=== PATIENT | female | born 1945 | race Caucasian/White ===

== ENCOUNTER 2017-05-29 11:49 | Observation (INO) | payer OTHER ==
[2017-05-29 12:03] VITALS: BMI 29.2
--- NOTE | 2017-05-29 12:37 | PDOC ---
History of Present Illness - General Chief Complaint: Lightheaded Stated Complaint: INJURY/dizzy from chemo po drugs Time Seen by Provider: 05/29/17 11:53 - History of Present Illness Initial Comments: 05/29/17 12:31 The patient is a 71 year old female with a history of GERD, insulin dependent diabetes mellitus, hypertension, hypercholesterolemia, hypothyroidism, breast CA s/p mastectomy (2011), DVT, CAD s/p multiple cardiac caths without stents, NSTEMI who presents for evaluation of lightheadedness and fall. The patient states that yesterday evening, she experienced an episode of lightheadedness and dizziness resulting in a fall to her right side. She reports continue pain and inability to ambulate since yesterday evening prompting her presentation to the ED for evaluation. She denies fevers, chills, SOB, chest pain, nausea, vomiting, abdominal pain, changes with urination or bowel movements or other injuries. Past History - Past Medical History Allergies/Adverse Reactions: Allergies Allergy/AdvReac Type Severity Reaction Status Date / Time codeine [Codeine] Allergy Severe Itching Verified 05/29/17 12:03 iodine [Iodine] Allergy Severe Itching Verified 05/29/17 12:03 Shellfish Allergy Severe Hives Verified 05/29/17 12:03 seafood Allergy Hives Uncoded 05/29/17 12:03 Home Medications: Ambulatory Orders Insulin NPL/Insulin Lispro [Humalog Mix 75-25 Pen] 50 unit SQ BID 07/25/13 Anastrozole [Arimidex -] 1 mg PO DAILY #0 02/10/16 Insulin Glargine,Hum.rec.anlog [Lantus Solostar PEN -] 27 units SQ BIDAC #0 04/26 Levothyroxine [Synthroid -] 137 mcg PO DAILY #0 02/10/16 Aspirin [ASA -] 81 mg PO DAILY #30 tab.chew 04/01/16 Metoprolol Tartrate 50 mg PO BID 02/13/17 Valsartan/Hydrochlorothiazide [Valsartan-Hctz 160-12.5 mg Tab] 1 each PO DAILY 02/13/17 Atorvastatin Ca [Lipitor] 40 mg PO HS #30 tablet 02/14/17 Ondansetron HCl [Zofran] 4 mg PO Q6H PRN #20 tablet 02/14/17 Anemia: No Asthma: Yes Cancer: Yes (BILATERAL breast cancer 2011) Cardiac Disorders: Yes (angina,tachycardia,CHEST PAIN,? SILENT MD, most recently 2006) CVA: No COPD: No (hospitalized for fluid lungs 1998) CHF: No Dementia: No Diabetes: Yes (IDDM X 38 YRS) GI Disorders: Yes (GERD) Disorders: No HTN: Yes Hypercholesterolemia: Yes Liver Disease: No Seizures: No Thyroid Disease: Yes (hypothyroid) - Surgical History Abdominal Surgery: Yes Appendectomy: No Cardiac Surgery: No Cholecystectomy: Yes Lung Surgery: No Neurologic Surgery: No Orthopedic Surgery: Yes (LEFT KNEE ARTHROSCOPY 2003) - Immunization History Td Vaccination: Yes TDAP Vaccination: Yes Immunization Up to Date: Yes - Suicide/Smoking/Psychosocial Hx Smoking Status: No Smoking History: Never smoked Years of Tobacco Use: 0 Have you smoked in the past 12 months: No Number of Cigarettes Smoked Daily: 0 Cigars Per Day: 0 Information on smoking cessation initiated: No Hx Alcohol Use: No Drug/Substance Use Hx: No Substance Use Type: None Hx Substance Use Treatment: No Review of Systems - Review of Systems Comments:: 05/29/17 12:32 Constitutional: No fevers, chills, fatigue, malaise HEENT: No Rhinorrhea, nasal congestion, visual changes Cardiovascular: Lightheadedness. No chest pain, syncope, palpitations, Respiratory: No Cough, SOB, Hemoptysis, Gastrointestinal: No Abdominal pain, Nausea, Vomiting, Constipation, Diarrhea, Melena Genitourinary: No Dysuria, Frequency, Urgency, Hesitancy, Hematuria, Flank pain Musculoskeletal: Right shoulder pain. Right hip pain. No Myalgia, arthralgia Skin: No rashes, itching, bruising, pallor Neurologic: No Headache, Dizziness, Numbness, Weakness, or Tingling Psychiatric: No Hallucinations. No SI or HI *Physical Exam - Vital Signs Last Vital Signs Temp Pulse Resp BP Pulse Ox 97.6 F 74 18 145/64 95 05/29/17 12:00 05/29/17 12:00 05/29/17 12:00 05/29/17 12:00 05/29/17 12:00 - Physical Exam Comments: 05/29/17 12:33 General Appearance: Nourished. No Apparent Distress HEENT: EOMI, KRISH. No obvious signs of head trauma. No Pharyngeal Erythema, Tonsillar Exudate, Tonsillar Erythema Neck: No Cervical Lymphadenopathy Respiratory/Chest: Lungs Clear, Normal Breath Sounds. No Crackles, Rales, Rhonchi, Wheezing Cardiovascular: Regular Rhythm, Regular Rate. No Murmur, Gallops, Rubs Gastrointestinal/Abdominal: Normal Bowel Sounds, Soft. No Guarding, Rebound, Tenderness Musculoskeletal: Limited range of motion secondary to pain of the right should without any obvious deformity. Limited range of motion of the right leg and hip secondary to pain. Sensation to light touch and temperature intact in the distal extremities. 2+ dp pulses bilaterally. No CVA Tenderness Extremity: Normal Capillary Refill Integumentary: Normal Color, Dry, Warm Neurologic: activity therapy specialist II-XII NML intact, Fully Oriented, Alert, Normal Mood/Affect, Normal Response, Motor Strength 5/5. Heart Score/ECG Review #1 ECG reviewed & interpreted by me at: 12:37 General ECG Interpretation: Sinus Rhythm, Normal Rate, Normal Intervals, No acute ischemic changes ED Treatment Course - LABORATORY CBC & Chemistry Diagram: 05/29/17 12:45 05/29/17 12:45 - RADIOLOGY Radiology Studies Ordered: Category Date Time Status FEMUR-RIGHT [RAD] Stat Radiology 05/29/17 12:20 Ordered HIP & PELVIS-RIGHT [RAD] Stat Radiology 05/29/17 12:20 Ordered SHOULDER-RIGHT [RAD] Stat Radiology 05/29/17 12:20 Ordered Medical Decision Making - Medical Decision Making 05/29/17 12:39 The patient is a 71 year old female with a history of GERD, insulin dependent diabetes mellitus, hypertension, hypercholesterolemia, hypothyroidism, breast CA s/p mastectomy (2011), DVT, CAD s/p multiple cardiac caths without stents, NSTEMI who presents for evaluation of lightheadedness and fall. Differential includes but is not limited to: Fracture, Dislocation, Contusion, ACS, Syncope, infectious, metabolic derangement. Given the patient's physical exam, we will obtain pelvis CT and plain films of the shoulder to evaluate for fractures. Given her pre-syncopal episode and reported head trauma, we will obtain a cbc, cmp, troponin, ekg and head ct to evaluate further. We will continue to monitor and reassess. 05/29/17 17:00 CBC demonstrates a WBC elevation to 11. CMP, troponin, are unremarkable. Imaging results are negative for acute fracture as read by our radiologist. Given the patient's syncopal episode and significant cardiac co-morbidities, we believe she requires observation admission for further management. We discussed the case with the hospitalist team who accepted the patient for admission. *DC/Admit/Observation/Transfer Diagnosis at time of Disposition: Syncope and collapse Fall Qualifiers: Encounter type: initial encounter Qualified Code(s): W19.XXXA - Unspecified fall, initial encounter - Discharge Dispostion Condition at time of disposition: Stable Admit: Yes - Referrals Referrals: Marjorie Odom MD [Primary Care Provider] - - Patient Instructions - Post Discharge Activity
--- NOTE | 2017-05-29 12:37 | PDOC ---
Attending Attestation - Resident Resident Name: Peterson Monk - ED Attending Attestation I have performed the following: I have examined & evaluated the patient, The case was reviewed & discussed with the resident, I agree w/resident's findings & plan, Exceptions are as noted - HPI HPI: 05/29/17 13:30 71 year old female with hx of GERD, DM, HTN, HLD, hypothyroidism, breast CA s/p mastectomy, DVT, CAD s/p multiple cardiac stents, NSTEMI presents to the emergency department for syncope. The patient reported that yesterday that she has been feeling lightheaded and dizzy. The patient was in her home when she started feeling the symptoms. The patient subsequently syncopized and let on the right side of body. She reportedly hit the right side of her head, right shoulder and right hip. Has been endorsing pain. Denies any numbness or weakness. Patient reports at baseline she is difficulty in relating but now reports she is unable to ambulate. Denies chest pain or short of breath. Does take anticoagulants given her heart disease. - Physicial Exam PE: 05/29/17 13:30 GENERAL: Awake, alert, and fully oriented, in no acute distress. HEAD: No signs of trauma EYES: PERRLA, EOMI, sclera anicteric, conjunctiva clear ENT: Auricles normal inspection, hearing grossly normal, nares patent, NECK: Normal ROM, supple. No c-spine tenderness LUNGS: Breath sounds equal, clear to auscultation bilaterally. No wheezes, and no crackles HEART: Regular rate and rhythm, normal S1 and S2, no murmurs, rubs or gallops ABDOMEN: Soft, nontender, normoactive bowel sounds. No guarding, no rebound. No masses EXTREMITIES: Tenderness to the right anterior shoulder to palpation. Pain on passive movement. 2+ radial pulse. Tenderness to right lateral hip. Pain on worsened with flexion and extension. NEUROLOGICAL: Cranial nerves II through XII intact. Normal speech. Moves all extremities equally. Sensation intact. SKIN: Warm, Dry, normal turgor, no rashes or lesions noted. - Medical Decision Making 05/29/17 13:32 Vital Signs Temp Pulse Resp BP Pulse Ox 97.6 F 74 18 145/64 95 05/29/17 12:00 05/29/17 12:00 05/29/17 12:00 05/29/17 12:00 05/29/17 12:00 Will need to investigate for syncope for cardiac etiology. Telemetry, labs including troponin. head CT for the injury. R shoulder xray. Pelvis CT. Labs and UA. Admit 05/29/17 15:13 CBC, BMP 05/29/17 12:45 05/29/17 12:45 CMP Sodium 141 mmol/L (136-145) 05/29/17 12:45 Potassium 3.5 mmol/L (3.5-5.1) 05/29/17 12:45 Chloride 104 mmol/L (98-107) 05/29/17 12:45 Carbon Dioxide 27 mmol/L (21-32) 05/29/17 12:45 Anion Gap 10 (8-16) 05/29/17 12:45 BUN 19 mg/dL (7-18) H 05/29/17 12:45 Creatinine 0.9 mg/dL (0.55-1.02) 05/29/17 12:45 Creat Clearance w eGFR > 60 (>60) 05/29/17 12:45 Random Glucose 52 mg/dL (74-106) L 05/29/17 12:45 Calcium 9.6 mg/dL (8.5-10.1) 05/29/17 12:45 Total Bilirubin 0.5 mg/dL (0.2-1.0) D 05/29/17 12:45 AST 14 U/L (15-37) L 05/29/17 12:45 ALT 20 U/L (12-78) 05/29/17 12:45 Alkaline Phosphatase 58 U/L (45-117) 05/29/17 12:45 Creatine Kinase 135 IU/L (26-192) 05/29/17 12:45 Troponin I < 0.02 ng/ml (0.00-0.05) 05/29/17 12:45 Total Protein 8.2 g/dl (6.4-8.2) 05/29/17 12:45 Albumin 3.9 g/dl (3.4-5.0) 05/29/17 12:45 UA pending. Pt given dextrose and juice for hypoglycemia. Shoulder xray and CT scans reviewed. No fractures. Heart Score/ECG Review #1 ECG reviewed & interpreted by me at: 12:15 05/29/17 12:36 NSR 82, no std/teodora, normal axis, normal intervals, QTC 462 msec. no brugada, no HOCM, no WPW
[2017-05-29] MEDS ORDERED: HYDROmorphone HCL CARPU-JECT 1 MG/1 ML DISP.SYRIN IVPUSH ONE (12:38)
[2017-05-29] MEDS ORDERED: HYDROmorphone HCl/Pf 2 MG/ML VIAL - FOR OR PYXIS USE ONE (12:45)
[2017-05-29 13:21] LABS: HEMATOCRIT 41.1 % (32.4-45.2); HEMOGLOBIN 13.3 GM/dL (10.7-15.3); LYMPH % 33.9 % (8-40); MCH 28.5 pg (25.7-33.7); MCHC 32.4 g/dl (32.0-36.0); MEAN CELL VOLUME 87.9 fl (80-96); MEAN PLT VOLUME 8.5 fl (7.5-11.1); MONO % 8.4 % (3.8-10.2); NEUT % 54.7 % (42.8-82.8); PLATELET COUNT 393 K/MM3 (134-434); RBC 4.68 M/mm3 (3.60-5.2); RDW 13.3 % (11.6-15.6)
[2017-05-29 13:45] LABS: ALBUMIN 3.9 g/dl (3.4-5.0); ANION GAP 10 (8-16); BILIRUBIN,TOTAL 0.5 mg/dL (0.2-1.0); BLOOD UREA NITROGEN 19 mg/dL (7-18); CALCIUM 9.6 mg/dL (8.5-10.1); CHLORIDE 104 mmol/L (98-107); CO2 27 mmol/L (21-32); CREATININE 0.9 mg/dL (0.55-1.02); GLUCOSE,RANDOM 52 mg/dL (74-106); POTASSIUM 3.5 mmol/L (3.5-5.1); SGOT/AST 14 U/L (15-37); SGPT/ALT 20 U/L (12-78); SODIUM 141 mmol/L (136-145); TOT PROT 8.2 g/dl (6.4-8.2)
[2017-05-29 13:47] LABS: ALK PHOS 58 U/L (45-117)
[2017-05-29] MEDS ORDERED: DEXTROSE 50%-WATER - 25 GM/50 ML VIAL IVPUSH ONE (15:05)
[2017-05-29] MEDS ORDERED: DEXTROSE 50%-WATER 25 GM/50 ML DISP.SYRIN ONE (15:06)
[2017-05-29 16:05] LABS: URINE APPEARANCE SLCLOUDY; URINE BILIRUBIN NEGATIVE (NEGATIVE); URINE BLOOD NEGATIVE (NEGATIVE); URINE COLOR YELLOW; URINE GLUCOSE (UA) 1+ (NEGATIVE); URINE KETONE NEGATIVE (NEGATIVE); URINE NITRITE NEGATIVE (NEGATIVE); URINE PROTEIN NEGATIVE (NEGATIVE); URINE UROBILINOGEN NEGATIVE mg/dL (0.2-1.0)
[2017-05-29 16:09] LABS: URINE LEUK ESTERASE 1+ (NEGATIVE)
[2017-05-29 16:11] LABS: EPI CELLS FEW /HPF (FEW); URINE BACTERIA RARE /hpf (NONE SEEN); URINE HYALINE CAST 1 /lpf; URINE MUCUS RARE
--- NOTE | 2017-05-29 17:07 | HP ---
CHIEF COMPLAINT: PCP: Dr. Oneal HISTORY OF PRESENT ILLNESS: 71 year-old female with a PMH significant for HTN, HLD, CAD, NSTEMI, grade I diastolic dysfunction, pulmonary HTN, hypothyroidism, type 2 DM, breast cancer, LLE DVT, obesity, DINH, osteoarthritis, and GERD. Patient presented to the ED today stating she became dizzy and lightheaded after standing up to get a glass of water. She passed out and fell on her right side, hitting her head, right shoulder, and right hip. When she came to, she felt a pressure in her mid- chest. Patient denies headache, fever, sweats, chills, or recent illness. Denies nausea, vomiting, diarrhea. Denies palpitations, SOB, VALADEZ, orthopnea, PND , or lower extremity swelling. Patient states her oncologist warned her that the arimidex she takes can lead to lightheadedness and syncope. Patient on ASA and Plavix. Recent Travel: No PAST MEDICAL HISTORY: Hypertension Hyperlipidemia CAD NSTEMI Grade I diastolic dysfunction Pulmonary HTN Hypothyroidism Type 2 diabetes mellitus Breast cancer DVT of left leg Obesity Obstructive sleep apnea Osteoarthritis GERD PAST SURGICAL HISTORY: Bilateral mastectomy Social History: Smoking: No Alcohol: No Drugs: No Family History: Unremarkable Allergies codeine [Codeine] Allergy (Severe, Verified 05/29/17 12:03) Itching HIVES iodine [Iodine] Allergy (Severe, Verified 05/29/17 12:03) Itching HIVES Shellfish Allergy (Severe, Verified 05/29/17 12:03) Hives seafood Allergy (Uncoded 05/29/17 12:03) Hives per pt HOME MEDICATIONS: Home Medications Medication Instructions Recorded Insulin NPL/Insulin Lispro 50 unit SQ BID 07/25/13 [Humalog Mix 75-25 Pen] Anastrozole [Arimidex -] 1 mg PO DAILY #0 02/10/16 Insulin Glargine,Hum.rec.anlog 27 units SQ BIDAC #0 02/10/16 [Lantus Solostar PEN -] Levothyroxine [Synthroid -] 137 mcg PO DAILY #0 02/10/16 Aspirin [ASA -] 81 mg PO DAILY #30 tab.chew 04/01/16 Metoprolol Tartrate 50 mg PO BID 02/13/17 Valsartan/Hydrochlorothiazide 1 each PO DAILY 02/13/17 [Valsartan-Hctz 160-12.5 mg Tab] Atorvastatin Ca [Lipitor] 40 mg PO HS #30 tablet 02/14/17 Ondansetron HCl [Zofran] 4 mg PO Q6H PRN #20 tablet 02/14/17 REVIEW OF SYSTEMS CONSTITUTIONAL: Absent: fever, chills, diaphoresis, generalized weakness, malaise, loss of appetite, weight change HEENT: Absent: rhinorrhea, nasal congestion, throat pain, throat swelling, difficulty swallowing, mouth swelling, ear pain, eye pain, visual changes CARDIOVASCULAR: +syncope +chest pressure +lightheadedness Absent: palpitations, irregular heart rate, peripheral edema RESPIRATORY: Absent: cough, shortness of breath, dyspnea with exertion, orthopnea, wheezing, stridor, hemoptysis GASTROINTESTINAL: Absent: abdominal pain, abdominal distension, nausea, vomiting, diarrhea, constipation, melena, hematochezia GENITOURINARY: Absent: dysuria, frequency, urgency, hesitancy, hematuria, flank pain, genital pain MUSCULOSKELETAL: Absent: myalgia, arthralgia, joint swelling, back pain, neck pain SKIN: Absent: rash, itching, pallor HEMATOLOGIC/IMMUNOLOGIC: Absent: easy bleeding, easy bruising, lymphadenopathy, frequent infections ENDOCRINE: Absent: unexplained weight gain, unexplained weight loss, heat intolerance, cold intolerance NEUROLOGIC: Absent: headache, focal weakness or paresthesias, dizziness, unsteady gait, seizure, mental status changes, bladder or bowel incontinence PSYCHIATRIC: Absent: anxiety, depression, suicidal or homicidal ideation, hallucinations. PHYSICAL EXAMINATION Vital Signs - 24 hr 05/29/17 12:00 Temperature 97.6 F Pulse Rate 74 Respiratory 18 Rate Blood Pressure 145/64 O2 Sat by Pulse 95 Oximetry (%) GENERAL: Awake, alert, and fully oriented, in no acute distress. HEAD: Normal with no signs of trauma. EYES: Pupils equal, round and reactive to light, extraocular movements intact, sclera anicteric, conjunctiva clear. No lid lag. EARS, NOSE, THROAT: Ears normal, nares patent, oropharynx clear without exudates. Moist mucous membranes. NECK: Normal range of motion, supple without lymphadenopathy, JVD, or masses. LUNGS: Breath sounds equal, clear to auscultation bilaterally. No wheezes, and no crackles. No accessory muscle use. HEART: Regular rate and rhythm, normal S1 and S2 ABDOMEN: Soft, nontender, not distended, normoactive bowel sounds, no guarding, no rebound, no masses. MUSCULOSKELETAL: SLR right leg 10 degrees, left leg 30 degrees UPPER EXTREMITIES: 2+ pulses, warm, well-perfused. No cyanosis. No clubbing. No peripheral edema. LOWER EXTREMITIES: 2+ pulses, warm, well-perfused. No calf tenderness. No peripheral edema. NEUROLOGICAL: Cranial nerves II-XII intact. Normal speech. Laboratory Results - last 24 hr 05/29/17 05/29/17 05/29/17 12:45 12:45 15:45 WBC 11.0 H RBC 4.68 Hgb 13.3 Hct 41.1 MCV 87.9 MCH 28.5 MCHC 32.4 RDW 13.3 Plt Count 393 D MPV 8.5 Neutrophils % 54.7 Lymphocytes % 33.9 D Monocytes % 8.4 Eosinophils % 2.0 Basophils % 1.0 Sodium 141 Potassium 3.5 Chloride 104 Carbon Dioxide 27 Anion Gap 10 BUN 19 H Creatinine 0.9 Creat Clearance w eGFR > 60 Random Glucose 52 L Calcium 9.6 Total Bilirubin 0.5 D AST 14 L ALT 20 Alkaline Phosphatase 58 Creatine Kinase 135 Troponin I < 0.02 Total Protein 8.2 Albumin 3.9 Urine Color Yellow Urine Appearance Slcloudy Urine pH 5.0 Ur Specific [place] 1.017 Urine Protein Negative Urine Glucose (UA) 1+ H Urine Ketones Negative Urine Blood Negative Urine Nitrite Negative Urine Bilirubin Negative Urine Urobilinogen Negative Ur Leukocyte Esterase 1+ H Urine WBC (Auto) 4 Urine RBC (Auto) 2 Ur Epithelial Cells Few Urine Bacteria Rare Hyaline Casts 1 Urine Mucus Rare ASSESSMENT/PLAN: This is a 70-year-old woman with a PMH significant for HTN, hyperlipidemia, CAD , NSTEMI, grade I diastolic dysfunction, pulmonary HTN, hypothyroidism, type 2 DM, breast cancer, LLE DVT, obesity, DINH, osteoarthritis, and GERD. Placed on observation for a syncopal episode. Syncope Mid chest pressure --troponin neg x 1, two pending --CXR pending --Echo and nuclear stress done 02/14/17 with unremarkable findings --telemetry monitoring --US carotids ordered --orthostatics --cardiology consult requested Unwitnessed fall --CT head: negative for acute process --CT pelvis: no fractures --Xray right shoulder: no fractures Coronary artery disease, history of NSTEMI --CT head negative, no bleed --OK to continue home ASA, Plavix --continue metoprolol, Lipitor Diastolic heart dysfunction --no diuretics Hypertension --BP stable --continue metoprolol, valsartan, HCTZ Hyperlipidemia --continue Lipitor Type 2 diabetes mellitus --Novolog sliding scale coverage Hypothyroidism --continue levothyroxine GERD --protonix History of LLE DVT --subq lovenox Breast cancer, history of bilateral mastectomies --continue Arimidex FEN Fluids: PO intake adequate Electrolytes: replete as indicated Nutrition: diabetic, low sodium DVT prophylaxis: subq lovenox Physical therapy evaluation Dispo: continues to require observation. Visit type - Emergency Visit Emergency Visit: Yes ED Registration Date: 05/29/17 Care time: The patient presented to the Emergency Department on the above date and was hospitalized for further evaluation of their emergent condition. - New Patient This patient is new to me today: Yes Date on this admission: 05/29/17 - Critical Care Critical Care patient: No
[2017-05-29] MEDS ORDERED: PANTOPRAZOLE 40 MG TABLET (FP) PO ONE (18:30)
[2017-05-29] MEDS ORDERED: PANTOPRAZOLE SODIUM 40 MG VIAL ONE (18:37)
[2017-05-29] MEDS ORDERED: ATORVASTATIN CA 40 MG TABLET (FP) PO SCH (22:00)
[2017-05-29] MEDS ORDERED: METOPROLOL TARTRATE 50 MG TABLET (FP) ONE (23:03)
[2017-05-29] MEDS ORDERED: HEPARIN NA (PORCINE) 5,000 UNITS/ML 1ML VIAL ONE (23:04)
[2017-05-29] MEDS ORDERED: ATORVASTATIN CA 80 MG TABLET (FP) ONE (23:04)
[2017-05-29] MEDS ORDERED: INSULIN (NOVOLOG) ASPART 100 UNITS/ML 10ML VIAL ONE (23:05)
[2017-05-29] MEDS: METOPROLOL TARTRATE 50 MG TABLET (FP) PO SCH (23:12)
[2017-05-29] MEDS: HEPARIN NA (PORCINE) 5,000 UNITS/ML 1ML VIAL SQ SCH (23:12)
[2017-05-29] MEDS: INSULIN SLIDING SCALE (NOVOLOG) 1 VIAL SQ SCH (23:13)
[2017-05-30] MEDS: HEPARIN NA (PORCINE) 5,000 UNITS/ML 1ML VIAL SQ SCH (06:12)
[2017-05-30] MEDS ORDERED: INSULIN (NOVOLOG) ASPART 100 UNITS/ML 10ML VIAL ONE ×2 (06:15→09:05)
[2017-05-30] MEDS ORDERED: HEPARIN NA (PORCINE) 5,000 UNITS/ML 1ML VIAL ONE (06:15)
[2017-05-30] MEDS ORDERED: LEVOTHYROXINE NA 25 MCG TABLET (FP) ONE ×2 (06:15→08:51)
[2017-05-30] MEDS ORDERED: LEVOTHYROXINE NA 125 MCG TABLET (FP) PO SCH (07:00)
--- NOTE | 2017-05-30 07:32 | PN ---
Physical Exam: SUBJECTIVE: Patient seen and examined OBJECTIVE: Vital Signs Period Temp Pulse Resp BP Sys/Bailey Pulse Ox Last 24 Hr 97.6 F-98.7 F 61-74 18-18 110-145/47-79 95-100 Laboratory Results - last 24 hr 05/29/17 05/29/17 05/29/17 12:45 12:45 15:45 WBC 11.0 H RBC 4.68 Hgb 13.3 Hct 41.1 MCV 87.9 MCH 28.5 MCHC 32.4 RDW 13.3 Plt Count 393 D MPV 8.5 Neutrophils % 54.7 Lymphocytes % 33.9 D Monocytes % 8.4 Eosinophils % 2.0 Basophils % 1.0 Sodium 141 Potassium 3.5 Chloride 104 Carbon Dioxide 27 Anion Gap 10 BUN 19 H Creatinine 0.9 Creat Clearance w eGFR > 60 POC Glucometer Random Glucose 52 L Calcium 9.6 Total Bilirubin 0.5 D AST 14 L ALT 20 Alkaline Phosphatase 58 Creatine Kinase 135 Troponin I < 0.02 Total Protein 8.2 Albumin 3.9 Urine Color Yellow Urine Appearance Slcloudy Urine pH 5.0 Ur Specific [place] 1.017 Urine Protein Negative Urine Glucose (UA) 1+ H Urine Ketones Negative Urine Blood Negative Urine Nitrite Negative Urine Bilirubin Negative Urine Urobilinogen Negative Ur Leukocyte Esterase 1+ H Urine WBC (Auto) 4 Urine RBC (Auto) 2 Ur Epithelial Cells Few Urine Bacteria Rare Hyaline Casts 1 Urine Mucus Rare 05/29/17 05/30/17 05/30/17 20:45 00:31 06:18 WBC RBC Hgb Hct MCV MCH MCHC RDW Plt Count MPV Neutrophils % Lymphocytes % Monocytes % Eosinophils % Basophils % Sodium Potassium Chloride Carbon Dioxide Anion Gap BUN Creatinine Creat Clearance w eGFR POC Glucometer 88.68000 Random Glucose Calcium Total Bilirubin AST ALT Alkaline Phosphatase Creatine Kinase Troponin I < 0.02 < 0.02 Total Protein Albumin Urine Color Urine Appearance Urine pH Ur Specific [place] Urine Protein Urine Glucose (UA) Urine Ketones Urine Blood Urine Nitrite Urine Bilirubin Urine Urobilinogen Ur Leukocyte Esterase Urine WBC (Auto) Urine RBC (Auto) Ur Epithelial Cells Urine Bacteria Hyaline Casts Urine Mucus Active Medications Generic Name Dose Route Start Last Admin Trade Name Freq PRN Reason Stop Dose Admin Anastrozole 1 mg 05/30/17 10:00 Arimidex - PO DAILY [facility] Aspirin 81 mg 05/30/17 10:00 Asa - PO DAILY [facility] Atorvastatin Calcium 40 mg 05/29/17 22:00 05/29/17 23:12 Lipitor - PO 40 mg HS MAGGIE Administration Heparin Sodium (Porcine) 5,000 unit 05/29/17 22:00 05/30/17 06:12 Heparin - SQ 5,000 unit TID MAGGIE Administration Hydrochlorothiazide 12.5 mg 05/30/17 10:00 Hctz - PO DAILY [facility] Insulin Aspart 1 vial 05/29/17 22:00 05/29/17 23:13 Novolog Vial Sliding Scale - SQ 4 units ACHS MAGGIE Administration Protocol Levothyroxine Sodium 137 mcg 05/30/17 07:00 Synthroid - PO DAILY@0700 [facility] Metoprolol Tartrate 50 mg 05/29/17 22:00 05/29/17 23:12 Lopressor - PO 50 mg BID MAGGIE Administration Valsartan 160 mg 05/30/17 10:00 Diovan - PO DAILY [facility] ASSESSMENT/PLAN:
[2017-05-30 07:56] LABS: BASO % 1.1 % (0-2.0); EOS % 3.6 % (0-4.5); HEMATOCRIT 39.9 % (32.4-45.2); HEMOGLOBIN 13.1 GM/dL (10.7-15.3); LYMPH % 29.8 % (8-40); MCH 28.8 pg (25.7-33.7); MCHC 32.8 g/dl (32.0-36.0); MEAN CELL VOLUME 87.8 fl (80-96); MEAN PLT VOLUME 8.7 fl (7.5-11.1); MONO % 6.7 % (3.8-10.2); NEUT % 58.8 % (42.8-82.8); PLATELET COUNT 363 K/MM3 (134-434); RBC 4.54 M/mm3 (3.60-5.2); RDW 13.5 % (11.6-15.6); WHITE BLOOD COUNT 7.4 K/mm3 (4.0-10.0)
[2017-05-30 08:23] LABS: ALBUMIN 3.9 g/dl (3.4-5.0); ANION GAP 9 (8-16); BILIRUBIN,TOTAL 0.7 mg/dL (0.2-1.0); BLOOD UREA NITROGEN 18 mg/dL (7-18); CALCIUM 8.9 mg/dL (8.5-10.1); CHLORIDE 104 mmol/L (98-107); CO2 26 mmol/L (21-32); CREATININE 0.9 mg/dL (0.55-1.02); GLUCOSE,RANDOM 82 mg/dL (74-106); MAGNESIUM 2.1 mg/dL (1.8-2.4); POTASSIUM 4.1 mmol/L (3.5-5.1); SGOT/AST 17 U/L (15-37); SGPT/ALT 21 U/L (12-78); SODIUM 139 mmol/L (136-145); TOT PROT 7.8 g/dl (6.4-8.2)
[2017-05-30 08:25] LABS: ALK PHOS 57 U/L (45-117); N-TERMINAL BNP 14.28 pg/ml (5-125)
[2017-05-30] MEDS: INSULIN SLIDING SCALE (NOVOLOG) 1 VIAL SQ SCH ×2 (09:03→13:12)
[2017-05-30] MEDS ORDERED: HYDROCHLOROTHIAZIDE 12.5 MG CAPSULE (FP) PO SCH (10:00)
[2017-05-30] MEDS ORDERED: ANASTROZOLE 1 MG TABLET PO SCH (10:00)
[2017-05-30] MEDS ORDERED: VALSARTAN 160 MG TABLET (UD) PO SCH (10:00)
[2017-05-30] MEDS ORDERED: PATIENT'S OWN MEDICATION (NON-FORMULARY) (Valsartan/Hydrochlorothiazide [Valsartan-Hctz 16 PO SCH (10:00)
[2017-05-30] MEDS ORDERED: ASPIRIN 81 MG CHEWABLE TABLETS PO SCH (10:00)
[2017-05-30] MEDS: METOPROLOL TARTRATE 50 MG TABLET (FP) PO SCH (10:02)
--- NOTE | 2017-05-30 11:07 | CON.CARD ---
Cardiology Consult (text) - Consultation Consultation Note: CC: CP hpi: 71 yo with h/o HTN, HL, presumed CAD (prior mild trop elevation - 0.6, nl ck, flat trend), pulmonary htn, IDDM, obesity/DINH, breast CA s/p mastectomy and chemo, hypothyroid here with dizziness. Over weekend felt dizzy and fell on side. No loc, no palps,sob, cp, pnd, orthopnea, le edema. Still feeling dizzy while laying in bed now. Sees me for cardio. No pnd, le edema, claudication, bleeding. No f/c/s, n/v/d, rashes, visual disturbance, cough or nasal congestion. Past Medical/Surg history: per hpi Social hx: No tob, etoh or illicits fam hx: No premature cad ros: per hpi; no nvd, dysuria, hematuria, gib, muscle pains, virgen, vision changes meds: Home Medications Medication Instructions Recorded Insulin NPL/Insulin Lispro 50 unit SQ BID 07/25/13 [Humalog Mix 75-25 Pen] Anastrozole [Arimidex -] 1 mg PO DAILY #0 02/10/16 Insulin Glargine,Hum.rec.anlog 27 units SQ BIDAC #0 02/10/16 [Lantus Solostar PEN -] Levothyroxine [Synthroid -] 137 mcg PO DAILY #0 02/10/16 Aspirin [ASA -] 81 mg PO DAILY #30 tab.chew 04/01/16 Metoprolol Tartrate 50 mg PO BID 02/13/17 Valsartan/Hydrochlorothiazide 1 each PO DAILY 02/13/17 [Valsartan-Hctz 160-12.5 mg Tab] Atorvastatin Ca [Lipitor] 40 mg PO HS #30 tablet 02/14/17 pe: Vital Signs Period Temp Pulse Resp BP Sys/Bailey Pulse Ox Last 24 Hr 97.6 F-98.7 F 61-74 18-18 110-145/47-79 95-100 NAD, calm JVD flat, neck supple CTAB, nl effort RRR nl s1, s2 no m/r/g. No ttp of chest + bs soft nt nd, obese ext without e/c/c + dp/pt aaox3 No jaundice, diaphoresis Laboratory Last Values WBC 7.4 K/mm3 (4.0-10.0) D 02/19/18 06:00 RBC 4.54 M/mm3 (3.60-5.2) 05/30/17 06:00 Hgb 13.1 GM/dL (10.7-15.3) 05/30/17 06:00 Hct 39.9 % (32.4-45.2) 05/30/17 06:00 MCV 87.8 fl (80-96) 05/30/17 06:00 MCH 28.8 pg (25.7-33.7) 05/30/17 06:00 MCHC 32.8 g/dl (32.0-36.0) 05/30/17 06:00 RDW 13.5 % (11.6-15.6) 05/30/17 06:00 Plt Count 363 K/MM3 (134-434) 05/30/17 06:00 MPV 8.7 fl (7.5-11.1) 05/30/17 06:00 Neutrophils % 58.8 % (42.8-82.8) 05/30/17 06:00 Lymphocytes % 29.8 % (8-40) 05/30/17 06:00 Monocytes % 6.7 % (3.8-10.2) 05/30/17 06:00 Eosinophils % 3.6 % (0-4.5) 05/30/17 06:00 Basophils % 1.1 % (0-2.0) 05/30/17 06:00 Sodium 139 mmol/L (136-145) 05/30/17 06:00 Potassium 4.1 mmol/L (3.5-5.1) 05/30/17 06:00 Chloride 104 mmol/L (98-107) 05/30/17 06:00 Carbon Dioxide 26 mmol/L (21-32) 05/30/17 06:00 Anion Gap 9 (8-16) 05/30/17 06:00 BUN 18 mg/dL (7-18) 05/30/17 06:00 Creatinine 0.9 mg/dL (0.55-1.02) 05/30/17 06:00 Creat Clearance w eGFR > 60 (>60) 05/30/17 06:00 POC Glucometer 235.80282 UNITS (80-120) 05/30/17 09:00 Random Glucose 82 mg/dL (74-106) 05/30/17 06:00 Calcium 8.9 mg/dL (8.5-10.1) 05/30/17 06:00 Phosphorus 4.0 mg/dL (2.5-4.9) 05/30/17 06:00 Magnesium 2.1 mg/dL (1.8-2.4) 05/30/17 06:00 Total Bilirubin 0.7 mg/dL (0.2-1.0) D 05/30/17 06:00 AST 17 U/L (15-37) 05/30/17 06:00 ALT 21 U/L (12-78) 05/30/17 06:00 Alkaline Phosphatase 57 U/L (45-117) 05/30/17 06:00 Creatine Kinase 135 IU/L (26-192) 05/29/17 12:45 Troponin I < 0.02 ng/ml (0.00-0.05) 05/30/17 00:31 B-Natriuretic Peptide 14.28 pg/ml (5-125) 05/30/17 06:00 Total Protein 7.8 g/dl (6.4-8.2) 05/30/17 06:00 Albumin 3.9 g/dl (3.4-5.0) 05/30/17 06:00 Urine Color Yellow 05/29/17 15:45 Urine Appearance Slcloudy 05/29/17 15:45 Urine pH 5.0 (5.0-8.0) 05/29/17 15:45 Ur Specific [place] 1.017 (1.001-1.035) 05/29/17 15:45 Urine Protein Negative (NEGATIVE) 05/29/17 15:45 Urine Glucose (UA) 1+ (NEGATIVE) H 05/29/17 15:45 Urine Ketones Negative (NEGATIVE) 05/29/17 15:45 Urine Blood Negative (NEGATIVE) 05/29/17 15:45 Urine Nitrite Negative (NEGATIVE) 05/29/17 15:45 Urine Bilirubin Negative (NEGATIVE) 05/29/17 15:45 Urine Urobilinogen Negative mg/dL (0.2-1.0) 05/29/17 15:45 Ur Leukocyte Esterase 1+ (NEGATIVE) H 05/29/17 15:45 Urine WBC (Auto) 4 /hpf (3-5) 05/29/17 15:45 Urine RBC (Auto) 2 /hpf (0-3) 05/29/17 15:45 Ur Epithelial Cells Few /HPF (FEW) 05/29/17 15:45 Urine Bacteria Rare /hpf (NONE SEEN) 05/29/17 15:45 Hyaline Casts 1 /lpf 05/29/17 15:45 Urine Mucus Rare 05/29/17 15:45 ekg: sr, nl intervals, no ischemic changes. cxr: no chf 01/2016 CTA: no pe, increased interstitial markings c/w chronic lung disease. ( on my review, looks like mosaic attenuation, ddx includes pulm edema) mibi 02/2017: no ischemia, nl lvef Stress MPI 02/09/16: No ekg changes. Inferobasal fixed defect with nl wall motion c/w diaphragmatic artifact. Nl EF. echo 02/2017: nl lv/rv, mild tr/mr, rvsp 30-40 Echo 02/2016: nl lv/rv. abnormal diastology. No significant valvular abnormalities. RVSP 43. Cath 2006: mild disease only A/p: 71 yo with h/o HTN, HL, presumed CAD (prior mild trop elevation - 0.6, nl ck, flat trend), pulmonary htn, IDDM, obesity/DINH, breast CA s/p mastectomy and chemo, hypothyroid here with dizziness. dizzy, fall: -no obvious cardiac etiology at present -recent echo and mibi unremarkable -ecg benign -no signs acs, chf -?vertigo, med related? htn - con't outpatient regimen, monitor hld -cont statin phtn: -mild on recent echo with nl rv, monitor for now
[2017-05-30 11:43] VITALS: TEMP 98
[2017-05-30] MEDS ORDERED: INSULIN REGULAR HUMAN 100 UNITS/ML *VIAL ONE (13:11)
[2017-05-30 13:26] VITALS: BP 134/65; PULSE 60
--- NOTE | 2017-05-30 13:39 | DS ---
Physical Exam: SUBJECTIVE: Patient seen and examined OBJECTIVE: Vital Signs Period Temp Pulse Resp BP Sys/Bailey Pulse Ox Last 24 Hr 98.0 F-98.7 F 60-78 18-18 110-134/47-79 97-100 PHYSICAL EXAM GENERAL: The patient is awake, alert, and fully oriented, in no acute distress. HEAD: Normal with no signs of trauma. EYES: PERRL, extraocular movements intact, sclera anicteric, conjunctiva clear. ENT: Ears normal, nares patent, oropharynx clear without exudates, moist mucous membranes. NECK: Trachea midline, full range of motion, supple. LUNGS: Breath sounds equal, clear to auscultation bilaterally, no wheezes, no crackles, no accessory muscle use. HEART: Regular rate and rhythm, S1, S2 without murmur, rub or gallop. ABDOMEN: Soft, nontender, nondistended, normoactive bowel sounds, no guarding, no rebound, no hepatosplenomegaly, no masses. EXTREMITIES: 2+ pulses, warm, well-perfused, no edema. NEUROLOGICAL: Cranial nerves II through XII grossly intact. Normal speech, gait not observed. PSYCH: Normal mood, normal affect. SKIN: Warm, dry, normal turgor, no rashes or lesions noted. LABS Laboratory Results - last 24 hr 05/29/17 05/29/17 05/29/17 12:45 15:45 20:45 WBC RBC Hgb Hct MCV MCH MCHC RDW Plt Count MPV Neutrophils % Lymphocytes % Monocytes % Eosinophils % Basophils % Sodium 141 Potassium 3.5 Chloride 104 Carbon Dioxide 27 Anion Gap 10 BUN 19 H Creatinine 0.9 Creat Clearance w eGFR > 60 POC Glucometer Random Glucose 52 L Calcium 9.6 Phosphorus Magnesium Total Bilirubin 0.5 D AST 14 L ALT 20 Alkaline Phosphatase 58 Creatine Kinase 135 Troponin I < 0.02 < 0.02 B-Natriuretic Peptide Total Protein 8.2 Albumin 3.9 Urine Color Yellow Urine Appearance Slcloudy Urine pH 5.0 Ur Specific [place] 1.017 Urine Protein Negative Urine Glucose (UA) 1+ H Urine Ketones Negative Urine Blood Negative Urine Nitrite Negative Urine Bilirubin Negative Urine Urobilinogen Negative Ur Leukocyte Esterase 1+ H Urine WBC (Auto) 4 Urine RBC (Auto) 2 Ur Epithelial Cells Few Urine Bacteria Rare Hyaline Casts 1 Urine Mucus Rare 05/30/17 05/30/17 05/30/17 00:31 06:00 06:00 WBC 7.4 D RBC 4.54 Hgb 13.1 Hct 39.9 MCV 87.8 MCH 28.8 MCHC 32.8 RDW 13.5 Plt Count 363 MPV 8.7 Neutrophils % 58.8 Lymphocytes % 29.8 Monocytes % 6.7 Eosinophils % 3.6 Basophils % 1.1 Sodium 139 Potassium 4.1 Chloride 104 Carbon Dioxide 26 Anion Gap 9 BUN 18 Creatinine 0.9 Creat Clearance w eGFR > 60 POC Glucometer Random Glucose 82 Calcium 8.9 Phosphorus 4.0 Magnesium 2.1 Total Bilirubin 0.7 D AST 17 ALT 21 Alkaline Phosphatase 57 Creatine Kinase Troponin I < 0.02 B-Natriuretic Peptide 14.28 Total Protein 7.8 Albumin 3.9 Urine Color Urine Appearance Urine pH Ur Specific [place] Urine Protein Urine Glucose (UA) Urine Ketones Urine Blood Urine Nitrite Urine Bilirubin Urine Urobilinogen Ur Leukocyte Esterase Urine WBC (Auto) Urine RBC (Auto) Ur Epithelial Cells Urine Bacteria Hyaline Casts Urine Mucus 05/30/17 05/30/17 05/30/17 06:18 09:00 13:16 WBC RBC Hgb Hct MCV MCH MCHC RDW Plt Count MPV Neutrophils % Lymphocytes % Monocytes % Eosinophils % Basophils % Sodium Potassium Chloride Carbon Dioxide Anion Gap BUN Creatinine Creat Clearance w eGFR POC Glucometer 88.38938 235.46093 284.10204 Random Glucose Calcium Phosphorus Magnesium Total Bilirubin AST ALT Alkaline Phosphatase Creatine Kinase Troponin I B-Natriuretic Peptide Total Protein Albumin Urine Color Urine Appearance Urine pH Ur Specific [place] Urine Protein Urine Glucose (UA) Urine Ketones Urine Blood Urine Nitrite Urine Bilirubin Urine Urobilinogen Ur Leukocyte Esterase Urine WBC (Auto) Urine RBC (Auto) Ur Epithelial Cells Urine Bacteria Hyaline Casts Urine Mucus HOSPITAL COURSE: Date of Admission:05/29/17 Date of Discharge: 05/30/17 Minutes to complete discharge: 35 Discharge Summary Reason For Visit: SYNCOPE,COLLAPSE,FALL Condition: Stable - Instructions Referrals: Marjorie Odom MD [Primary Care Provider] - - Home Medications Comprehensive Discharge Medication List: Ambulatory Orders Insulin NPL/Insulin Lispro [Humalog Mix 75-25 Pen] 50 unit SQ BID 07/25/13 Anastrozole [Arimidex -] 1 mg PO DAILY #0 02/10/16 Insulin Glargine,Hum.rec.anlog [Lantus Solostar PEN -] 27 units SQ BIDAC #0 04/26 Levothyroxine [Synthroid -] 137 mcg PO DAILY #0 02/10/16 Aspirin [ASA -] 81 mg PO DAILY #30 tab.chew 04/01/16 Metoprolol Tartrate 50 mg PO BID 02/13/17 Valsartan/Hydrochlorothiazide [Valsartan-Hctz 160-12.5 mg Tab] 1 each PO DAILY 02/13/17 Atorvastatin Ca [Lipitor] 40 mg PO HS #30 tablet 02/14/17
--- NOTE | 2017-05-30 23:13 | EKG ---
Test Reason : Blood Pressure : / mmHG Vent. Rate : 066 BPM Atrial Rate : 066 BPM P-R Int : 164 ms QRS Dur : 088 ms QT Int : 400 ms P-R-T Axes : 046 003 035 degrees QTc Int : 419 ms NORMAL SINUS RHYTHM NORMAL ECG WHEN COMPARED WITH ECG OF 29-MAY-2017 12:12, T WAVE VARIATION Confirmed by EMILEE HAN MD ([id number]) on 05/30/2017 11:13:12 PM Referred By: Moncho NEELY Confirmed By:EMILEE HAN MD
--- NOTE | 2017-05-30 23:27 | EKG ---
Test Reason : Blood Pressure : / mmHG Vent. Rate : 082 BPM Atrial Rate : 082 BPM P-R Int : 150 ms QRS Dur : 090 ms QT Int : 396 ms P-R-T Axes : 066 000 048 degrees QTc Int : 462 ms NORMAL SINUS RHYTHM NORMAL ECG WHEN COMPARED WITH ECG OF 13-FEB-2017 12:30, T WAVE VARIATION Confirmed by EMILEE HAN MD ([id number]) on 05/30/2017 11:27:41 PM Referred By: Confirmed By:EMILEE HAN MD
== END 2017-05-30 18:15 | disposition home or self-care (01) ==
LOC: JER 11:49 → JERBED 16:54 → UNDOADMOB 17:12 → JERBED 17:12
PROVIDERS: ADMIT Internal Medicine; ATTEND Nurse Practitioner Acute Care
PROC: 3E033NZ Introduction of Analgesics, Hypnotics, Sedatives into Peripheral Vein, Percutaneous Approach (ICD-10-PCS; principal; 2017-05-29)
PROC: 3E033GC Introduction of Other Therapeutic Substance into Peripheral Vein, Percutaneous Approach (ICD-10-PCS; 2017-05-29)
PROC: 3E013VG Introduction of Insulin into Subcutaneous Tissue, Percutaneous Approach (ICD-10-PCS; 2017-05-29)
PROC: 3E013GC Introduction of Other Therapeutic Substance into Subcutaneous Tissue, Percutaneous Approach (ICD-10-PCS; 2017-05-29)
DX: R55 Syncope and collapse (principal); I10 Essential (primary) hypertension; I25.10 Atherosclerotic heart disease of native coronary artery without angina pectoris; I25.2 Old myocardial infarction; E78.5 Hyperlipidemia, unspecified; E11.9 Type 2 diabetes mellitus without complications; E03.9 Hypothyroidism, unspecified; K21.9 Gastro-esophageal reflux disease without esophagitis; G47.33 Obstructive sleep apnea (adult) (pediatric); M19.90 Unspecified osteoarthritis, unspecified site; R07.9 Chest pain, unspecified; E66.9 Obesity, unspecified; Z68.29 Body mass index [BMI] 29.0-29.9, adult; Z92.21 Personal history of antineoplastic chemotherapy; Z79.82 Long term (current) use of aspirin; Z86.718 Personal history of other venous thrombosis and embolism; Z98.61 Coronary angioplasty status; Z85.3 Personal history of malignant neoplasm of breast; Z91.013 Allergy to seafood; Z79.4 Long term (current) use of insulin; Z88.5 Allergy status to narcotic agent; Z91.048 Other nonmedicinal substance allergy status; W18.39XA Other fall on same level, initial encounter; Z91.81 History of falling; Y93.89 Activity, other specified; Y92.89 Other specified places as the place of occurrence of the external cause
CPT/HCPCS: 36415; 70450-TC; 71045-TC-FY; 72192-TC; 73030-TC-RT-FY; 80053; 81003; 81015; 82550; 82962; 83735; 83880; 84100; 84484; 85025; 93005; 93010; 93880-TC; 96372; 96374; 96375; 99285-25; G0378; J1644

== ENCOUNTER 2017-07-21 15:13 | Inpatient (IN) | payer OTHER ==
--- NOTE | 2017-07-21 16:42 | PDOC ---
History of Present Illness - General Chief Complaint: Lightheaded Stated Complaint: DIZZINESS Time Seen by Provider: 07/21/17 16:27 - History of Present Illness Initial Comments: 07/21/17 16:54 Patient is a 72 year old female with a PMH of HTN, IN, HLD, CAD (s/p IN in January 2017), Pulmonary HTN, IDDM, Breast CA (L sided, s/p mastectomy and chemotheraphy) and hypothyroidism who presents to ED c/o two day h/o dyspnea, orthopnea and chest pain. Pain started today is substernal "stabbing" intermittent, 1-2 seconds in duration, 2/10 with no identifiable triggering or relieving factors. Pain occured last night as well as today during evaluation at PMD office. Patient states she went to PMD this morning for her complaints and was instructed to come to the ED for further evaluation. As per EMR patient evaluated at our facility in 05/2017 for syncope at which time cardiac work-up was unremarkable ECG, Troponin. Patient provides paperwork from PMD office that indicates she was evaluated by cardiology (Dr. Cabrera) one week previous -- patient states she was told everything was normal. Paperwork also indicates UA with (+) leukocyte esterase -- no WBC indicated. Patient denies any abdominal pain, constipation/diarrhea, nausea/vomiting, dysuria/hematuria, recent travel or sick contacts. Allergy: Codeine, Iodine Social: denies nicotine, denies alcohol, denies recreational drugs PMD: Dr. Oneal, Dr. Mik Hi Past History - Past Medical History Allergies/Adverse Reactions: Allergies Allergy/AdvReac Type Severity Reaction Status Date / Time codeine [Codeine] Allergy Severe Itching Verified 07/21/17 15:30 iodine [Iodine] Allergy Severe Itching Verified 07/21/17 15:30 Shellfish Allergy Severe Hives Verified 07/21/17 15:30 seafood Allergy Hives Uncoded 07/21/17 15:30 Home Medications: Ambulatory Orders Insulin NPL/Insulin Lispro [Humalog Mix 75-25 Pen] 50 unit SQ BID 07/25/13 Anastrozole [Arimidex -] 1 mg PO DAILY #0 02/10/16 Insulin Glargine,Hum.rec.anlog [Lantus Solostar PEN -] 27 units SQ BIDAC #0 04/26 Levothyroxine [Synthroid -] 137 mcg PO DAILY #0 02/10/16 Aspirin [ASA -] 81 mg PO DAILY #30 tab.chew 04/01/16 Metoprolol Tartrate 50 mg PO BID 02/13/17 Valsartan/Hydrochlorothiazide [Valsartan-Hctz 160-12.5 mg Tab] 1 each PO DAILY 02/13/17 Atorvastatin Ca [Lipitor] 40 mg PO HS #30 tablet 02/14/17 Anemia: No Asthma: Yes Cancer: Yes (BILATERAL breast cancer 2011) Cardiac Disorders: Yes (angina,tachycardia,CHEST PAIN,? SILENT IN, most recently 2006) CVA: No COPD: No (hospitalized for fluid lungs 1998) CHF: No Dementia: No Diabetes: Yes (IDDM X 38 YRS) GI Disorders: Yes (GERD) Disorders: No HTN: Yes Hypercholesterolemia: Yes Liver Disease: No Seizures: No Thyroid Disease: Yes (hypothyroid) - Surgical History Abdominal Surgery: Yes Appendectomy: No Cardiac Surgery: No Cholecystectomy: Yes Lung Surgery: No Neurologic Surgery: No Orthopedic Surgery: Yes (LEFT KNEE ARTHROSCOPY 2003) - Immunization History Td Vaccination: Yes TDAP Vaccination: Yes Immunization Up to Date: Yes - Suicide/Smoking/Psychosocial Hx Smoking Status: No Smoking History: Never smoked Years of Tobacco Use: 0 Have you smoked in the past 12 months: No Number of Cigarettes Smoked Daily: 0 Cigars Per Day: 0 Information on smoking cessation initiated: No Hx Alcohol Use: No Drug/Substance Use Hx: No Substance Use Type: None Hx Substance Use Treatment: No *Physical Exam - Vital Signs Last Vital Signs Temp Pulse Resp BP Pulse Ox 97.8 F 82 16 141/73 100 07/21/17 15:38 07/21/17 15:38 07/21/17 15:38 07/21/17 15:38 07/21/17 15:38 ED Treatment Course - LABORATORY CBC & Chemistry Diagram: 07/21/17 18:00 07/21/17 18:00 Medical Decision Making - Medical Decision Making 07/21/17 18:11 72 year old female presents with chest pain, dyspnea and lightheadedness. Cardiac h/o IN. Initial DDx includes r/o ACS, PNA, Hypothroidism, new onset CHF (unlikely) Will obtain Troponin x2, ECG, CXR, basic labs. Reassess. ASA 07/21/17 18:31 ECG shows NSR HR 87, normal intervals, no deviations, not IVANA/STD/TWI - non ischemic ECG; consistent with ECG from PMD's and ECG from 05/2017. 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 Cabrera, reccomends Troponin x2. PMD Dr. Alpa mckee for admission. 07/21/17 18:48 Patient signed out to Dr. Small (Resident) and Dr. Belcher (Attending) in stable condition. Labs, Troponin pending. *DC/Admit/Observation/Transfer Diagnosis at time of Disposition: Chest pain - Referrals - Patient Instructions - Post Discharge Activity
--- NOTE | 2017-07-21 17:04 | PDOC ---
Attending Attestation - Resident Resident Name: Christiane Reid - ED Attending Attestation I have performed the following: I have examined & evaluated the patient, The case was reviewed & discussed with the resident, I agree w/resident's findings & plan, Exceptions are as noted - HPI HPI: 07/21/17 16:59 72y F htn, hl, cad, nstemi, chf, pulm htn, hypothyroidism, dm2, breast ca, dvt ( not on ac) sent by dr. zandra lawrence office for complaint of cp/sob. The patient notes episode of palpitations, sob associated with nausea last night lasting a few miinutes and resolving, went to her PMDs office today for evaluation and endoresed episode of sharp chest pain and sob. pt notes some elizabeth recentyl, also notes chronic nonproductive cough for several weeks. no fever/chills, diaphoresis, abd pain, back pain. pt is currently asypmtmatic. No recent leg swelling, orthopnea, diarrhea, melene, bpr, hemoptysis. GENERAL: The patient is awake, alert, and fully oriented, Nontoxic - in no acute distress. HEAD: Normocephalic, atraumatic. EYES: extraocular movements intact, sclera anicteric, conjunctiva clear. ENT: Normal voice, Moist mucous membranes. NECK: Normal range of motion, supple LUNGS: Breath sounds equal, clear to auscultation bilaterally. No wheezes, no rhonchi, no rales. HEART: Regular rate and rhythm, normal S1 and S2 without murmur, rub or gallop. ABDOMEN: Soft, nontender, normoactive bowel sounds. No guarding, no rebound. . No CVA tenderness EXTREMITIES: Normal range of motion, no edema. No clubbing or cyanosis. No cords, erythema, or tenderness. NEUROLOGICAL: No facial assymetry, Normal speech, PSYCH: Normal mood, normal affect. SKIN: Warm, Dry, normal turgor, - Physicial Exam PE: 07/23/17 20:30 see above - Medical Decision Making 07/23/17 20:30 see above Heart Score/ECG Review - ECG Impressions Comment:: 07/21/17 18:41 Twelve-lead EKG was performed and reviewed by me. There is normal sinus rhythm with a normal rate. Rate of 73 normal axis normal intervals no st waves suggestive of ischemia no changes when compared with prior ekg dated 05/29/17 07/21/17 18:[address] gaspar - will obs patient awaiting troponin
[2017-07-21 18:11] LABS: BASO % 1.1 % (0-2.0); EOS % 3.3 % (0-4.5); HEMATOCRIT 37.1 % (32.4-45.2); HEMOGLOBIN 12.6 GM/dL (10.7-15.3); LYMPH % 27.1 % (8-40); MCH 29.1 pg (25.7-33.7); MCHC 33.9 g/dl (32.0-36.0); MEAN CELL VOLUME 85.6 fl (80-96); MEAN PLT VOLUME 8.2 fl (7.5-11.1); MONO % 6.3 % (3.8-10.2); NEUT % 62.2 % (42.8-82.8); PLATELET COUNT 382 K/MM3 (134-434); RBC 4.33 M/mm3 (3.60-5.2); RDW 13.5 % (11.6-15.6); WHITE BLOOD COUNT 10.4 K/mm3 (4.0-10.0)
[2017-07-21 18:28] LABS: INR 0.96 (0.82-1.09); PROTHROMBIN TIME (PATIENT) 10.8 SEC (9.98-11.88)
[2017-07-21 18:31] LABS: ACTIVATED PTT 28.3 SECONDS (26.9-34.4)
[2017-07-21] MEDS ORDERED: ASPIRIN 81 MG CHEWABLE TABLETS PO ONE (18:42)
[2017-07-21 18:55] LABS: ALBUMIN 3.5 g/dl (3.4-5.0); ANION GAP 8 (8-16); BILIRUBIN,TOTAL 0.1 mg/dL (0.2-1.0); BLOOD UREA NITROGEN 25 mg/dL (7-18); CHLORIDE 106 mmol/L (98-107); CO2 26 mmol/L (21-32); CREATININE 0.8 mg/dL (0.55-1.02); GLUCOSE,RANDOM 70 mg/dL (74-106); POTASSIUM 3.7 mmol/L (3.5-5.1); SGOT/AST 15 U/L (15-37); SGPT/ALT 20 U/L (12-78); SODIUM 140 mmol/L (136-145)
[2017-07-21 18:58] LABS: ALK PHOS 55 U/L (45-117); N-TERMINAL BNP 36.54 pg/ml (5-125); TOT PROT 7.5 g/dl (6.4-8.2)
--- NOTE | 2017-07-21 19:05 | PDOC ---
*Physical Exam - Vital Signs Last Vital Signs Temp Pulse Resp BP Pulse Ox 97.8 F 82 16 141/73 100 07/21/17 15:38 07/21/17 15:38 07/21/17 15:38 07/21/17 15:38 07/21/17 15:38 ED Treatment Course - LABORATORY CBC & Chemistry Diagram: 07/21/17 18:00 07/21/17 18:00 - ADDITIONAL ORDERS Additional order review: Laboratory Results 07/21/17 07/21/17 07/21/17 18:00 18:00 18:00 PT with INR 10.80 INR 0.96 PTT (Actin FS) 28.3 Sodium 140 Potassium 3.7 Chloride 106 Carbon Dioxide 26 Anion Gap 8 BUN 25 H Creatinine 0.8 Creat Clearance w eGFR > 60 Random Glucose 70 L Calcium 9.0 Total Bilirubin 0.1 L D AST 15 ALT 20 Alkaline Phosphatase 55 Creatine Kinase 175 Troponin I < 0.02 B-Natriuretic Peptide 36.54 Total Protein 7.5 Albumin 3.5 TSH 6.29 H 07/21/17 18:00 RBC 4.33 MCV 85.6 MCHC 33.9 RDW 13.5 MPV 8.2 Neutrophils % 62.2 Lymphocytes % 27.1 Monocytes % 6.3 Eosinophils % 3.3 Basophils % 1.1 Medical Decision Making - Medical Decision Making 07/21/17 19:05 Care taken over from Dr. Reid. 07/21/17 19:46 PCP's (Dr. Nabor Hurley) answering service paged for admission. 07/21/17 19:[address] Hurley, will admit to obs-tele for further evaluation *DC/Admit/Observation/Transfer Diagnosis at time of Disposition: Chest pain Qualifiers: Chest pain type: unspecified Qualified Code(s): R07.9 - Chest pain, unspecified - Discharge Dispostion Admit: Yes - Referrals - Patient Instructions - Post Discharge Activity
[2017-07-21] MEDS ORDERED: ASPIRIN 81 MG CHEWABLE TABLETS ONE (19:41)
[2017-07-21 20:05] LABS: URINE APPEARANCE CLEAR; URINE BILIRUBIN NEGATIVE (<2.0 mg/dL); URINE BLOOD NEGATIVE (NEGATIVE); URINE COLOR LTYELLOW; URINE GLUCOSE (UA) NEGATIVE (NEGATIVE); URINE KETONE NEGATIVE (NEGATIVE); URINE LEUK ESTERASE 2+ (NEGATIVE); URINE NITRITE NEGATIVE (NEGATIVE); URINE PROTEIN NEGATIVE (NEGATIVE); URINE UROBILINOGEN NEGATIVE mg/dL (0.2-1.0)
[2017-07-21 20:08] LABS: EPI CELLS RARE /HPF (FEW); URINE BACTERIA MODERATE /hpf (NONE SEEN); URINE MUCUS RARE
[2017-07-22] MEDS ORDERED: ACETAMINOPHEN 325 MG TABLET (FP) ONE (02:23)
[2017-07-22] MEDS ORDERED: ACETAMINOPHEN 325 MG TABLET (FP) PO ONE (02:23)
--- NOTE | 2017-07-22 09:27 | EKG ---
Test Reason : Blood Pressure : / mmHG Vent. Rate : 073 BPM Atrial Rate : 073 BPM P-R Int : 152 ms QRS Dur : 090 ms QT Int : 390 ms P-R-T Axes : 056 004 048 degrees QTc Int : 429 ms NORMAL SINUS RHYTHM NORMAL ECG WHEN COMPARED WITH ECG OF 30-MAY-2017 10:23, NONSPECIFIC T WAVE ABNORMALITY NOW EVIDENT IN ANTERIOR LEADS Confirmed by KRYSTIN LAWRENCE MD ([id number]) on 07/22/2017 9:26:30 AM Referred By: Confirmed By:KRYSTIN LAWRENCE MD
--- NOTE | 2017-07-22 11:46 | CON.CARD ---
Cardiology Consult (text) - Consultation Consultation Note: CC: CP, palps, sob hpi: 72 yo with h/o HTN, HLD, pulmonary htn, IDDM, obesity/DINH, breast CA s/p mastectomy and chemo, hypothyroid here with cp, palps, sob. Has chronic sxs of palps, elizabeth, dizzy, cp, seemed worse yesterday so came to ER. Sees me for cardio. Past Medical/Surg history: per hpi Social hx: No tob, etoh or illicits fam hx: No premature cad ros: per hpi; no nvd, dysuria, hematuria, gib, muscle pains, virgen, vision changes , No f/c/s, n/v/d, rashes, visual disturbance, cough or nasal congestion. meds: Home Medications Medication Instructions Recorded Insulin NPL/Insulin Lispro 50 unit SQ BID 07/25/13 [Humalog Mix 75-25 Pen] Anastrozole [Arimidex -] 1 mg PO DAILY #0 02/10/16 Insulin Glargine,Hum.rec.anlog 27 units SQ BIDAC #0 02/10/16 [Lantus Solostar PEN -] Levothyroxine [Synthroid -] 137 mcg PO DAILY #0 02/10/16 Aspirin [ASA -] 81 mg PO DAILY #30 tab.chew 04/01/16 Metoprolol Tartrate 50 mg PO BID 02/13/17 Valsartan/Hydrochlorothiazide 1 each PO DAILY 02/13/17 [Valsartan-Hctz 160-12.5 mg Tab] Atorvastatin Ca [Lipitor] 40 mg PO HS #30 tablet 02/14/17 pe: Vital Signs Period Temp Pulse Resp BP Sys/Bailey Pulse Ox Last 24 Hr 97.8 F-98.5 F 82-88 16-18 127-141/68-73 100 NAD, calm JVD flat, neck supple CTAB, nl effort RRR nl s1, s2 no m/r/g. + bs soft nt nd, obese ext without e/c/c + dp/pt aaox3 No jaundice, diaphoresis +chest wall tenderness Laboratory Last Values WBC 10.4 K/mm3 (4.0-10.0) H D 07/21/17 18:00 RBC 4.33 M/mm3 (3.60-5.2) 07/21/17 18:00 Hgb 12.6 GM/dL (10.7-15.3) 07/21/17 18:00 Hct 37.1 % (32.4-45.2) 07/21/17 18: MCV 85.6 fl (80-96) 07/21/17 18:00 MCH 29.1 pg (25.7-33.7) 07/21/17 18: MCHC 33.9 g/dl (32.0-36.0) 07/21/17 18: RDW 13.5 % (11.6-15.6) 07/21/17 18:00 Plt Count 382 K/MM3 (134-434) 07/21/17 18:00 MPV 8.2 fl (7.5-11.1) 07/21/17 18: Neutrophils % 62.2 % (42.8-82.8) 07/21/17 18:00 Lymphocytes % 27.1 % (8-40) 07/21/17 18: Monocytes % 6.3 % (3.8-10.2) 07/21/17 18: Eosinophils % 3.3 % (0-4.5) 07/21/17 18: Basophils % 1.1 % (0-2.0) 07/21/17 18: PT with INR 10.80 SEC (9.98-11.88) 07/21/17 18: INR 0.96 (0.82-1.09) 07/21/17 18:00 PTT (Actin FS) 28.3 SECONDS (26.9-34.4) 07/21/17 18:00 Sodium 140 mmol/L (136-145) 07/21/17 18:00 Potassium 3.7 mmol/L (3.5-5.1) 07/21/17 18:00 Chloride 106 mmol/L (98-107) 07/21/17 18:00 Carbon Dioxide 26 mmol/L (21-32) 07/21/17 18:00 Anion Gap 8 (8-16) 07/21/17 18:00 BUN 25 mg/dL (7-18) H 07/21/17 18:00 Creatinine 0.8 mg/dL (0.55-1.02) 07/21/17 18:00 Creat Clearance w eGFR > 60 (>60) 07/21/17 18:00 POC Glucometer 186.00505 UNITS (80-120) 07/22/17 06:53 Random Glucose 70 mg/dL (74-106) L 07/21/17 18:00 Calcium 9.0 mg/dL (8.5-10.1) 07/21/17 18:00 Total Bilirubin 0.1 mg/dL (0.2-1.0) L D 07/21/17 18:00 AST 15 U/L (15-37) 07/21/17 18:00 ALT 20 U/L (12-78) 07/21/17 18:00 Alkaline Phosphatase 55 U/L (45-117) 07/21/17 18:00 Creatine Kinase 175 IU/L (26-192) 07/21/17 18:00 Creatine Kinase Index 0.6 % (0.0-5.0) 07/21/17 18:00 CK-MB (CK-2) 1.133 ng/mL (0.5-3.6) 07/21/17 18:00 Troponin I < 0.02 ng/ml (0.00-0.05) 07/22/17 02:18 B-Natriuretic Peptide 36.54 pg/ml (5-125) 07/21/17 18:00 Total Protein 7.5 g/dl (6.4-8.2) 07/21/17 18:00 Albumin 3.5 g/dl (3.4-5.0) 07/21/17 18:00 TSH 6.29 uIU/ml (0.358-3.74) H 07/21/17 18:00 Urine Color Ltyellow 07/21/17 19:58 Urine Appearance Clear 07/21/17 19:58 Urine pH 6.0 (5.0-8.0) 07/21/17 19:58 Ur Specific [place] 1.015 (1.001-1.035) 07/21/17 19:58 Urine Protein Negative (NEGATIVE) 07/21/17 19:58 Urine Glucose (UA) Negative (NEGATIVE) 07/21/17 19:58 Urine Ketones Negative (NEGATIVE) 07/21/17 19:58 Urine Blood Negative (NEGATIVE) 07/21/17 19:58 Urine Nitrite Negative (NEGATIVE) 07/21/17 19:58 Urine Bilirubin Negative (<2.0 mg/dL) 07/21/17 19:58 Urine Urobilinogen Negative mg/dL (0.2-1.0) 07/21/17 19:58 Ur Leukocyte Esterase 2+ (NEGATIVE) H 07/21/17 19:58 Urine WBC (Auto) 15 /hpf (3-5) 07/21/17 19:58 Urine RBC (Auto) 1 /hpf (0-3) 07/21/17 19:58 Ur Epithelial Cells Rare /HPF (FEW) 07/21/17 19:58 Urine Bacteria Moderate /hpf (NONE SEEN) 07/21/17 19:58 Urine Mucus Rare 07/21/17 19:58 ekg: sr, nl intervals, no ischemic changes. cxr: no chf mibi 02/2017: no ischemia, nl lvef Stress MPI 02/09/16: No ekg changes. Inferobasal fixed defect with nl wall motion c/w diaphragmatic artifact. Nl EF. echo 02/2017: nl lv/rv, mild tr/mr, rvsp 30-40 Echo 02/2016: nl lv/rv. abnormal diastology. No significant valvular abnormalities. RVSP 43. Cath 2006: mild disease only A/p: hpi: 72 yo with h/o HTN, HLD, pulmonary htn, IDDM, obesity/DINH, breast CA s/p mastectomy and chemo, hypothyroid here with cp, palps, sob. cp: -atypical, reproducible -ce's neg, ecg unremarkable, no signs acs -recent echo and mibi unremarkable palps: -no signs arrhythmia here -ecg, echo, nuclear stress test all unremarkable recently -outpt f/u, possible holter/event monitor dizzy: -chronic sx -no obvious cardiac etiology -recent echo and mibi unremarkable -ecg benign -no signs acs, chf -?vertigo htn - con't outpatient regimen hld -cont statin phtn: -mild on recent echo with nl rv, monitor for now sob: -chronic elizabeth. no signs chf. -recent echo and mibi unremarkable -has appt for pulm eval later this month -possibly deconditioning related as well. cardiac thompson stable for dc
--- NOTE | 2017-07-22 12:43 | PN ---
Physical Exam: SUBJECTIVE: Patient seen and examined OBJECTIVE: Vital Signs Period Temp Pulse Resp BP Sys/Bailey Pulse Ox Last 24 Hr 97.8 F-98.5 F 82-88 16-18 127-141/68-73 100 GENERAL: The patient is awake, alert, and fully oriented, in no acute distress. HEAD: Normal with no signs of trauma. EYES: PERRL, extraocular movements intact, sclera anicteric, conjunctiva clear. No ptosis. ENT: Ears normal, nares patent, oropharynx clear without exudates, moist mucous membranes. NECK: Trachea midline, full range of motion, supple. LUNGS: Breath sounds equal, clear to auscultation bilaterally, no wheezes, no crackles, no accessory muscle use. HEART: Regular rate and rhythm, S1, S2 without murmur, rub or gallop. ABDOMEN: Soft, nontender, nondistended, normoactive bowel sounds, no guarding, no rebound, no hepatosplenomegaly, no masses. EXTREMITIES: 2+ pulses, warm, well-perfused, no edema. NEUROLOGICAL: Cranial nerves II through XII grossly intact. Normal speech, gait not observed. PSYCH: Normal mood, normal affect. SKIN: Warm, dry, normal turgor, no rashes or lesions noted Laboratory Results - last 24 hr 07/21/17 07/21/17 07/21/17 18:00 18:00 18:00 WBC 10.4 H D RBC 4.33 Hgb 12.6 Hct 37.1 MCV 85.6 MCH 29.1 MCHC 33.9 RDW 13.5 Plt Count 382 MPV 8.2 Neutrophils % 62.2 Lymphocytes % 27.1 Monocytes % 6.3 Eosinophils % 3.3 Basophils % 1.1 PT with INR 10.80 INR 0.96 PTT (Actin FS) 28.3 Sodium 140 Potassium 3.7 Chloride 106 Carbon Dioxide 26 Anion Gap 8 BUN 25 H Creatinine 0.8 Creat Clearance w eGFR > 60 POC Glucometer Random Glucose 70 L Calcium 9.0 Total Bilirubin 0.1 L D AST 15 ALT 20 Alkaline Phosphatase 55 Creatine Kinase 175 Creatine Kinase Index 0.6 CK-MB (CK-2) 1.133 Troponin I < 0.02 B-Natriuretic Peptide 36.54 Total Protein 7.5 Albumin 3.5 TSH Urine Color Urine Appearance Urine pH Ur Specific [place] Urine Protein Urine Glucose (UA) Urine Ketones Urine Blood Urine Nitrite Urine Bilirubin Urine Urobilinogen Ur Leukocyte Esterase Urine WBC (Auto) Urine RBC (Auto) Ur Epithelial Cells Urine Bacteria Urine Mucus 07/21/17 07/21/17 07/22/17 18:00 19:58 02:18 WBC RBC Hgb Hct MCV MCH MCHC RDW Plt Count MPV Neutrophils % Lymphocytes % Monocytes % Eosinophils % Basophils % PT with INR INR PTT (Actin FS) Sodium Potassium Chloride Carbon Dioxide Anion Gap BUN Creatinine Creat Clearance w eGFR POC Glucometer Random Glucose Calcium Total Bilirubin AST ALT Alkaline Phosphatase Creatine Kinase Creatine Kinase Index CK-MB (CK-2) Troponin I < 0.02 B-Natriuretic Peptide Total Protein Albumin TSH 6.29 H Urine Color Ltyellow Urine Appearance Clear Urine pH 6.0 Ur Specific [place] 1.015 Urine Protein Negative Urine Glucose (UA) Negative Urine Ketones Negative Urine Blood Negative Urine Nitrite Negative Urine Bilirubin Negative Urine Urobilinogen Negative Ur Leukocyte Esterase 2+ H Urine WBC (Auto) 15 Urine RBC (Auto) 1 Ur Epithelial Cells Rare Urine Bacteria Moderate Urine Mucus Rare 07/22/17 06:53 WBC RBC Hgb Hct MCV MCH MCHC RDW Plt Count MPV Neutrophils % Lymphocytes % Monocytes % Eosinophils % Basophils % PT with INR INR PTT (Actin FS) Sodium Potassium Chloride Carbon Dioxide Anion Gap BUN Creatinine Creat Clearance w eGFR POC Glucometer 186.87008 Random Glucose Calcium Total Bilirubin AST ALT Alkaline Phosphatase Creatine Kinase Creatine Kinase Index CK-MB (CK-2) Troponin I B-Natriuretic Peptide Total Protein Albumin TSH Urine Color Urine Appearance Urine pH Ur Specific [place] Urine Protein Urine Glucose (UA) Urine Ketones Urine Blood Urine Nitrite Urine Bilirubin Urine Urobilinogen Ur Leukocyte Esterase Urine WBC (Auto) Urine RBC (Auto) Ur Epithelial Cells Urine Bacteria Urine Mucus Active Medications Generic Name Dose Route Start Last Admin Trade Name Freq PRN Reason Stop Dose Admin Insulin Aspart 1 vial 07/22/17 16:30 Novolog Vial Sliding Scale - SQ ACHS [facility] Protocol ASSESSMENT/PLAN:
[2017-07-22] MEDS ORDERED: LEVOTHYROXINE NA 125 MCG TABLET (FP) PO SCH (12:45)
[2017-07-22] MEDS ORDERED: PATIENT'S OWN MEDICATION (NON-FORMULARY) (Valsartan/Hydrochlorothiazide [Valsartan-Hctz 16 PO SCH (12:45)
[2017-07-22] MEDS: METOPROLOL TARTRATE 50 MG TABLET (FP) PO SCH ×2 (12:56→21:38)
[2017-07-22] MEDS: ASPIRIN 81 MG CHEWABLE TABLETS PO SCH (12:56)
[2017-07-22] MEDS: ANASTROZOLE 1 MG TABLET PO SCH (12:56)
[2017-07-22] MEDS: HYDROCHLOROTHIAZIDE 12.5 MG CAPSULE (FP) PO SCH (12:57)
[2017-07-22] MEDS: VALSARTAN 160 MG TABLET (UD) PO SCH (12:57)
[2017-07-22] MEDS ORDERED: LEVOTHYROXINE 25 MCG, LEVOTHYROXINE 112 MCG PO SCH (13:30)
[2017-07-22] MEDS ORDERED: CEFTRIAXONE 1 GM in DEXTROSE 5%-WATER - 50 ML IVPB ONE (14:30)
[2017-07-22] MEDS ORDERED: cefTRIAXone SODIUM 1 GM VIAL ONE (14:31)
[2017-07-22] MEDS ORDERED: DEXTROSE 5%-WATER - 50 ML IVPB ONE (14:32)
[2017-07-22 16:23] VITALS: BMI 34.5
[2017-07-22] MEDS: INSULIN SLIDING SCALE (NOVOLOG) 1 VIAL SQ SCH ×2 (17:15→21:40)
[2017-07-22] MEDS ORDERED: PNEUMOC 13-VAL CONJ-DIP CRM/PF 0.5 ML DISP.SYRIN IM ONE (18:45)
[2017-07-22] MEDS: ACETAMINOPHEN 325 MG TABLET (FP) PO PRN (18:58)
--- NOTE | 2017-07-22 21:21 | HP ---
CHIEF COMPLAINT: chest pain PCP: Dr. Nabor Hurley Water Tanker Driver: Dr. Cabrera HISTORY OF PRESENT ILLNESS: Patient admitted on 07/21/17. Informed about patient today as patient was initially signed out to her PCP Dr. Nabor Hurley. Patient is a 72 year old female with a past medical history of hypertension, AL , hyperlipidemia, CAD (s/p AL in January 2017), pulmonary hypertension, diastolic dysfunction, DVT of left leg, diabetes, Breast CA (L sided, s/p mastectomy and chemotheraphy) and hypothyroidism who presents to ED c/o two day h/o dyspnea, orthopnea and chest pain. Pain started today is substernal and stabbing. Chest pain comes and goes and renders her short of breath. She had this CP at her PMD office, and still occuring intermittently, but improving. Patient was most recently here on 05/31 for syncope and was followed outpatient by her PCP and professor of marketing. On exam, patient was laying in her bed, in not acute distress. Still having chest pain, but also c/o of burning with urination, urinary retention and urine with foul odor. ER course was notable for: (1) neg trops x 2 (2) elevated tsh (3) leuk est +2 Recent Travel: PAST MEDICAL HISTORY: PAST SURGICAL HISTORY: Bilateral mastectomy Social History: Smoking: no Alcohol: no Drugs: no Family History: Allergies codeine [Codeine] Allergy (Severe, Verified 07/21/17 15:30) Itching HIVES iodine [Iodine] Allergy (Severe, Verified 07/21/17 15:30) Itching HIVES Shellfish Allergy (Severe, Verified 07/21/17 15:30) Hives seafood Allergy (Uncoded 07/21/17 15:30) Hives per pt HOME MEDICATIONS: Home Medications Medication Instructions Recorded Insulin NPL/Insulin Lispro 50 unit SQ BID 07/25/13 [Humalog Mix 75-25 Pen] Anastrozole [Arimidex -] 1 mg PO DAILY #0 02/10/16 Insulin Glargine,Hum.rec.anlog 27 units SQ BIDAC #0 02/10/16 [Lantus Solostar PEN -] Levothyroxine [Synthroid -] 137 mcg PO DAILY #0 02/10/16 Aspirin [ASA -] 81 mg PO DAILY #30 tab.chew 04/01/16 Metoprolol Tartrate 50 mg PO BID 02/13/17 Valsartan/Hydrochlorothiazide 1 each PO DAILY 02/13/17 [Valsartan-Hctz 160-12.5 mg Tab] Atorvastatin Ca [Lipitor] 40 mg PO HS #30 tablet 02/14/17 PHYSICAL EXAMINATION Vital Signs - 24 hr 07/22/17 07/22/17 07/22/17 01:00 08:00 13:20 Temperature 98.5 F Pulse Rate Pulse Rate [ 60 65 Apical] Pulse Rate [ 88 Right Radial] Respiratory 18 18 18 Rate Blood Pressure Blood Pressure 127/68 145/71 137/60 [Left Arm] O2 Sat by Pulse 98 98 Oximetry (%) 07/22/17 07/22/17 07/22/17 13:40 14:00 15:24 Temperature 98.6 F 98.4 F Pulse Rate 77 77 70 Pulse Rate [ Apical] Pulse Rate [ Right Radial] Respiratory 16 18 Rate Blood Pressure 168/79 168/79 Blood Pressure [Left Arm] O2 Sat by Pulse 95 98 Oximetry (%) GENERAL: Awake, alert, and fully oriented, in no acute distress. HEAD: Normal with no signs of trauma. EYES: Pupils equal, round and reactive to light, extraocular movements intact, sclera anicteric, conjunctiva clear. No lid lag. EARS, NOSE, THROAT: Ears normal, nares patent, oropharynx clear without exudates. Moist mucous membranes. NECK: Normal range of motion, supple without lymphadenopathy, JVD, or masses. LUNGS: Breath sounds equal,diminished to auscultation HEART: Regular rate and rhythm, normal S1 and S2 without murmur, rub or gallop. ABDOMEN: Soft, nontender, not distended, normoactive bowel sounds, no guarding, no rebound, no masses. No hepatomegaly or splenomegaly. MUSCULOSKELETAL: Normal range of motion at all joints. No bony deformities or tenderness. No CVA tenderness. UPPER EXTREMITIES: 2+ pulses, warm, well-perfused. No cyanosis. No clubbing. No peripheral edema. LOWER EXTREMITIES: 2+ pulses, warm, well-perfused. No calf tenderness. No peripheral edema. NEUROLOGICAL: Normal speech. Normal gait. PSYCHIATRIC: Cooperative. Good eye contact. Appropriate mood and affect. SKIN: Warm, dry, normal turgor, no rashes or lesions noted, normal capillary refill. Laboratory Results - last 24 hr 07/21/17 07/22/17 07/22/17 18:00 02:18 06:53 POC Glucometer 186.74143 Creatine Kinase Index 0.6 CK-MB (CK-2) 1.133 Troponin I < 0.02 07/22/17 16:48 POC Glucometer 389 Creatine Kinase Index CK-MB (CK-2) Troponin I ASSESSMENT/PLAN: Patient is a 72 year old female with a past medical history of hypertension, AL , hyperlipidemia, CAD (s/p AL in January 2017), pulmonary hypertension, diastolic dysfunction, DVT of left leg, diabetes, Breast CA (L sided, s/p mastectomy and chemotheraphy) and hypothyroidism who presents to ED c/o two day h/o dyspnea, orthopnea and chest pain. Pain started today is substernal and stabbing. Chest pain comes and goes and renders her short of breath. She had this CP at her PMD office, and still occuring intermittently, but improving. Patient was most recently here on 05/31 for syncope and was followed outpatient by her PCP and professor of marketing. On exam, patient was laying in her bed, in not acute distress. Still having chest pain, but also c/o of burning with urination, urinary retention and urine with foul odor. Cardiology Chest discomfort Trop negative x 2 Chest xray Echo 02/2017 reviewed Telemetry monitoring Still having chest pressure, continue to monitor CAD, hx of NSTEMI, chronic On ASA 81mg Continue Lipitor 40mg @ hs, on Metoprolol Bid Hypertension, chronic Continue Metoprolol, Vasartan/Hctz Monitor BP Diastolic heart dysfunction, chronic Not on Lasix, monitor daily weight HLD, chronic on Lipitor : UTI, symptomatic Pt is immunocompromised Will give Ceftraxone 1gram today Continue antibiotics once UC results Endocrine: Diabetes, chronic Monitor BGMs, SS Hypothyroidism, chronic Has been on Synthroid 137mcg for over a year, TSH elevated, increased Synthroid History of LLE DVT, not on anticoag, likely due to multiple falls Onc: Breast cancer, history of bilateral mastectomies On Arimidex F.E.N. Fluids: PO adequate Electrolytes: monitor Nutrition: diabetic diet Prophy: DVT: <los 48 hrs, deferred GI: deferred. Full code. Hospitalist Screening - Colonoscopy Questionnaire Colonoscopy Questionnaire: Colonoscopy Questionnaire
[2017-07-22] MEDS: ATORVASTATIN CA 40 MG TABLET (FP) PO SCH (21:38)
[2017-07-23] MEDS: LEVOTHYROXINE NA 50 MCG TABLET (FP) PO SCH (06:04)
[2017-07-23] MEDS: INSULIN SLIDING SCALE (NOVOLOG) 1 VIAL SQ SCH ×4 (06:04→21:01)
[2017-07-23 07:13] LABS: BASO % 0.5 % (0-2.0); EOS % 5.5 % (0-4.5); HEMATOCRIT 39.5 % (32.4-45.2); HEMOGLOBIN 13.2 GM/dL (10.7-15.3); LYMPH % 25.8 % (8-40); MCHC 33.5 g/dl (32.0-36.0); MEAN CELL VOLUME 86.6 fl (80-96); MEAN PLT VOLUME 9.4 fl (7.5-11.1); MONO % 5.5 % (3.8-10.2); NEUT % 62.7 % (42.8-82.8); RBC 4.56 M/mm3 (3.60-5.2); RDW 13.6 % (11.6-15.6); WHITE BLOOD COUNT 8.5 K/mm3 (4.0-10.0)
[2017-07-23 07:45] LABS: ALBUMIN 3.7 g/dl (3.4-5.0); ALK PHOS 59 U/L (45-117); ANION GAP 9 (8-16); BILIRUBIN,TOTAL 0.7 mg/dL (0.2-1.0); BLOOD UREA NITROGEN 25 mg/dL (7-18); CHLORIDE 104 mmol/L (98-107); CO2 24 mmol/L (21-32); POTASSIUM 4.4 mmol/L (3.5-5.1); SGOT/AST 11 U/L (15-37); SGPT/ALT 16 U/L (12-78); SODIUM 137 mmol/L (136-145); TOT PROT 7.7 g/dl (6.4-8.2)
[2017-07-23 07:52] LABS: GLUCOSE,RANDOM 383 mg/dL (74-106)
--- NOTE | 2017-07-23 10:26 | PN ---
Progress Note, Physician History of Present Illness: No complaints Tele; No alarms, NSR - Current Medication List Current Medications: Active Medications Acetaminophen (Tylenol -) 650 mg PO Q6H PRN PRN Reason: PAIN LEVEL 4 - 6 Last Admin: 07/22/17 18:58 Dose: 650 mg Anastrozole (Arimidex -) 1 mg PO DAILY [facility] Last Admin: 07/22/17 12:56 Dose: Not Given Aspirin (Asa -) 81 mg PO DAILY [facility] Last Admin: 07/22/17 12:56 Dose: Not Given Atorvastatin Calcium (Lipitor -) 40 mg PO HS [facility] Last Admin: 07/22/17 21:38 Dose: 40 mg Hydrochlorothiazide (Hctz -) 12.5 mg PO DAILY [facility] Last Admin: 07/22/17 12:57 Dose: Not Given Insulin Aspart (Novolog Vial Sliding Scale -) 1 vial SQ ACHS [facility] PRN Reason: Protocol Last Admin: 07/23/17 06:04 Dose: 10 unit Levothyroxine Sodium (Synthroid -) 150 mcg PO DAILY@0700 [facility] Last Admin: 07/23/17 06:04 Dose: 150 mcg Metoprolol Tartrate (Lopressor -) 50 mg PO BID [facility] Last Admin: 07/22/17 21:38 Dose: 50 mg Valsartan (Diovan -) 160 mg PO DAILY [facility] Last Admin: 07/22/17 12:57 Dose: Not Given - Objective Vital Signs: Vital Signs Temperature 98.2 F 07/23/17 08:50 Pulse Rate 81 07/23/17 08:50 Respiratory Rate 18 07/23/17 08:50 Blood Pressure 155/67 07/23/17 08:50 O2 Sat by Pulse Oximetry (%) 96 07/23/17 08:50 Constitutional: Yes: No Distress Eyes: Yes: WNL HENT: Yes: WNL Neck: Yes: WNL Cardiovascular: Yes: Regular Rate and Rhythm Respiratory: Yes: Regular, CTA Bilaterally Gastrointestinal: Yes: WNL Musculoskeletal: Yes: WNL Extremities: Yes: WNL Edema: No Labs: CBC, BMP 07/23/17 06:00 07/23/17 06:00 INR, PTT INR 0.96 (0.82-1.09) 07/21/17 18:00 Assessment/Plan A/p: hpi: 72 yo with h/o HTN, HLD, pulmonary htn, IDDM, obesity/DINH, breast CA s/p mastectomy and chemo, hypothyroid here with cp, palps, sob. cp: -atypical, reproducible (as per Dr. Cabrera) -ce's neg, ecg unremarkable, no signs acs -recent echo and mibi unremarkable palps: -no signs arrhythmia here -ecg, echo, nuclear stress test all unremarkable recently -outpt f/u, possible holter/event monitor dizzy: -chronic sx -no obvious cardiac etiology -recent echo and mibi unremarkable -ecg benign -no signs acs, chf -?vertigo htn - con't outpatient regimen hld -cont statin phtn: -mild on recent echo with nl rv, monitor for now sob: -chronic elizabeth. no signs chf. -recent echo and mibi unremarkable -has appt for pulm eval later this month -possibly deconditioning related as well. cardiac thompson stable for dc
[2017-07-23] MEDS ORDERED: PT OWN MED DRAWER 7, Y5N ONE (10:36)
[2017-07-23] MEDS: VALSARTAN 160 MG TABLET (UD) PO SCH (10:40)
[2017-07-23] MEDS: ANASTROZOLE 1 MG TABLET PO SCH (10:40)
[2017-07-23] MEDS: METOPROLOL TARTRATE 50 MG TABLET (FP) PO SCH ×2 (10:40→21:01)
[2017-07-23] MEDS: HYDROCHLOROTHIAZIDE 12.5 MG CAPSULE (FP) PO SCH (10:40)
[2017-07-23] MEDS: ASPIRIN 81 MG CHEWABLE TABLETS PO SCH (10:41)
[2017-07-23] MEDS: ACETAMINOPHEN 325 MG TABLET (FP) PO PRN (11:18)
[2017-07-23 12:03] LABS: PLATELET COUNT 297 K/MM3 (134-434)
--- NOTE | 2017-07-23 13:27 | PN ---
Progress Note (short form) - Note Progress Note: Subjective: The patient was seen and examined at the bedside, no complaints at this time. Discussed with RN, patient two person assist to get out of bed Pending PT consult, patient may require SNF Current Medications Generic Name Dose Route Start Last Admin Trade Name Freq PRN Reason Stop Dose Admin Acetaminophen 650 mg 07/22/17 18:53 07/23/17 11:18 Tylenol - PO 650 mg Q6H PRN Administration PAIN LEVEL 4 - 6 Anastrozole 1 mg 07/22/17 12:45 07/23/17 10:40 Arimidex - PO 1 mg DAILY MAGGIE Administration Aspirin 81 mg 07/22/17 12:45 07/23/17 10:41 Asa - PO 81 mg DAILY MAGGIE Administration Atorvastatin Calcium 40 mg 07/22/17 22:00 07/22/17 21:38 Lipitor - PO 40 mg HS MAGGIE Administration Hydrochlorothiazide 12.5 mg 07/22/17 13:00 07/23/17 10:40 Hctz - PO 12.5 mg DAILY MAGGIE Administration Ceftriaxone Sodium 1 gm/ 50 mls @ 100 mls/hr 07/23/17 14:00 Dextrose IVPB DAILY@1400 [facility] Insulin Aspart 1 vial 07/22/17 16:30 07/23/17 10:52 Novolog Vial Sliding Scale - SQ 8 unit ACHS MAGGIE Administration Protocol Levothyroxine Sodium 150 mcg 07/23/17 07:00 07/23/17 06:04 Synthroid - PO 150 mcg DAILY@0700 [facility] Administration Metoprolol Tartrate 50 mg 07/22/17 12:45 07/23/17 10:40 Lopressor - PO 50 mg BID MAGGIE Administration Valsartan 160 mg 07/22/17 13:00 07/23/17 10:40 Diovan - PO 160 mg DAILY MAGGIE Administration Objective: Vital Signs Period Temp Pulse Resp BP Sys/Bailey Pulse Ox Last 24 Hr 98 F-98.6 F 61-81 16-20 124-168/65-79 93-98 Physical Exam: General: NAD, somali speaking Lungs: CTA bilaterally Heart: RRR, S1S2 Abd: Soft, non-tender, non-distended. Normoactive bowel sounds Ext: warm, well-perfused. 2+ DP/PT bilaterally CBCD WBC 8.5 K/mm3 (4.0-10.0) 07/23/17 06:00 RBC 4.56 M/mm3 (3.60-5.2) 07/23/17 06:00 Hgb 13.2 GM/dL (10.7-15.3) 07/23/17 06:00 Hct 39.5 % (32.4-45.2) 07/23/17 06:00 MCV 86.6 fl (80-96) 07/23/17 06:00 MCHC 33.5 g/dl (32.0-36.0) 07/23/17 06:00 RDW 13.6 % (11.6-15.6) 07/23/17 06:00 Plt Count 297 K/MM3 (134-434) D 07/23/17 06:00 MPV 9.4 fl (7.5-11.1) D 07/23/17 06:00 CMP Sodium 137 mmol/L (136-145) 07/23/17 06:00 Potassium 4.4 mmol/L (3.5-5.1) 07/23/17 06:00 Chloride 104 mmol/L (98-107) 07/23/17 06:00 Carbon Dioxide 24 mmol/L (21-32) 07/23/17 06:00 Anion Gap 9 (8-16) 07/23/17 06:00 BUN 25 mg/dL (7-18) H 07/23/17 06:00 Creatinine 1.0 mg/dL (0.55-1.02) 07/23/17 06:00 Creat Clearance w eGFR 54.35 (>60) 07/23/17 06:00 Random Glucose 383 mg/dL (74-106) H* 07/23/17 06:00 Calcium 9.0 mg/dL (8.5-10.1) 07/23/17 06:00 Total Bilirubin 0.7 mg/dL (0.2-1.0) D 07/23/17 06:00 AST 11 U/L (15-37) L 07/23/17 06:00 ALT 16 U/L (12-78) 07/23/17 06:00 Alkaline Phosphatase 59 U/L (45-117) 07/23/17 06:00 Total Protein 7.7 g/dl (6.4-8.2) 07/23/17 06:00 Albumin 3.7 g/dl (3.4-5.0) 07/23/17 06:00 CARDIAC ENZYMES Creatine Kinase 175 IU/L (26-192) 07/21/17 18:00 Troponin I < 0.02 ng/ml (0.00-0.05) 07/22/17 02:18 Microbiology 07/21/17 19:58 Urine - Urine Clean Catch Urine Culture - Preliminary Lactose Fermenting Neg Bacilli 07/21/17 18:00 Blood - Peripheral Venous Blood Culture - Preliminary NO GROWTH OBTAINED AFTER 24 HOURS, INCUBATION TO CONTINUE FOR 4 DAYS. 07/21/17 18:00 Blood - Peripheral Venous Blood Culture - Preliminary NO GROWTH OBTAINED AFTER 24 HOURS, INCUBATION TO CONTINUE FOR 4 DAYS. Assessment: This is a 72 year old female with PMHx of HTN, [place], hyperlipidemia, CAD (s/p [place] 01/2017), pulmonary HTN, diastolic dysfunction, left leg DVT, DM, breast cancer (s/p left mastectomy and chemo), hypothyroidism, who presented to the ED with two days of dyspnea, orthopnea, and chest pain. Plan: 1) Atypical chest pain - Reproducible - Trop x2 negative - Per cards, recent echo and mibi unremarkable Palpitations - F/u outpatient for possible holter/event monitor - Appreciate cardiology consult 2) Dizziness - Chronic - Possible vertigo - F/u outpatient neurologist 3) Dyspnea - Well's score 1.5, given hx of DVT and malignancy, will send d-dimer - Chronic - Possible deconditioning per cardiology - Chest X-ray with no acute pathology - F/u with outpatient parts administrator 4) UTI - F/u urine culture - Continue Ceftriaxone 5) Hx of breast cancer - Continue Arimidex 6) Hx of DVT - Start Heparin 5,000u sq tid 7) Hx of CAD - Continue ASA 8) F/E/N: - Diabetic diet - Monitor electrolytes 9) Prophylaxis: - Heparin 5,000u sq tid 10) Dispo: - Once condition improves CODE STATUS: FULL CODE Visit type - Emergency Visit Emergency Visit: Yes ED Registration Date: 07/21/17 Care time: The patient presented to the Emergency Department on the above date and was hospitalized for further evaluation of their emergent condition. - New Patient This patient is new to me today: Yes Date on this admission: 07/23/17 - Critical Care Critical Care patient: No
[2017-07-23] MEDS ORDERED: DEXTROSE 5%-WATER - 50 ML IVPB ONE (15:01)
[2017-07-23] MEDS ORDERED: cefTRIAXone SODIUM 1 GM VIAL ONE (15:01)
[2017-07-23] MEDS: HEPARIN NA (PORCINE) 5,000 UNITS/ML 1ML VIAL SQ SCH ×2 (15:36→21:01)
[2017-07-23] MEDS: CEFTRIAXONE 1 GM in DEXTROSE 5%-WATER - 50 ML IVPB SCH (15:36)
[2017-07-23] MEDS: ATORVASTATIN CA 40 MG TABLET (FP) PO SCH (21:01)
[2017-07-24] MEDS ORDERED: INSULIN (NOVOLOG) ASPART 100 UNITS/ML 10ML VIAL SQ ONE (05:32)
[2017-07-24] MEDS: INSULIN SLIDING SCALE (NOVOLOG) 1 VIAL SQ SCH ×5 (05:42→21:55)
[2017-07-24] MEDS: HEPARIN NA (PORCINE) 5,000 UNITS/ML 1ML VIAL SQ SCH ×3 (05:43→21:54)
[2017-07-24] MEDS: LEVOTHYROXINE NA 50 MCG TABLET (FP) PO SCH (06:08)
[2017-07-24] MEDS: METOPROLOL TARTRATE 50 MG TABLET (FP) PO SCH ×2 (09:34→21:55)
[2017-07-24] MEDS: HYDROCHLOROTHIAZIDE 12.5 MG CAPSULE (FP) PO SCH (09:34)
[2017-07-24] MEDS: VALSARTAN 160 MG TABLET (UD) PO SCH (09:34)
[2017-07-24] MEDS: ASPIRIN 81 MG CHEWABLE TABLETS PO SCH (09:34)
[2017-07-24] MEDS: ANASTROZOLE 1 MG TABLET PO SCH (09:34)
--- NOTE | 2017-07-24 09:41 | PN ---
Progress Note, Physician History of Present Illness: Right shoulder pain Tele: NSR/SB 40s - Current Medication List Current Medications: Active Medications Acetaminophen (Tylenol -) 650 mg PO Q6H PRN PRN Reason: PAIN LEVEL 4 - 6 Last Admin: 07/23/17 11:18 Dose: 650 mg Anastrozole (Arimidex -) 1 mg PO DAILY [facility] Last Admin: 07/24/17 09:34 Dose: 1 mg Aspirin (Asa -) 81 mg PO DAILY [facility] Last Admin: 07/24/17 09:34 Dose: 81 mg Atorvastatin Calcium (Lipitor -) 40 mg PO HS [facility] Last Admin: 07/23/17 21:01 Dose: 40 mg Heparin Sodium (Porcine) (Heparin -) 5,000 unit SQ TID [facility] Last Admin: 07/24/17 05:43 Dose: 5,000 unit Hydrochlorothiazide (Hctz -) 12.5 mg PO DAILY [facility] Last Admin: 07/24/17 09:34 Dose: 12.5 mg Ceftriaxone Sodium 1 gm/ (Dextrose) 50 mls @ 100 mls/hr IVPB DAILY@1400 [facility] Last Admin: 07/23/17 15:36 Dose: 100 mls/hr Insulin Aspart (Novolog Vial Sliding Scale -) 1 vial SQ ACHS [facility] PRN Reason: Protocol Last Admin: 07/24/17 06:52 Dose: Not Given Levothyroxine Sodium (Synthroid -) 150 mcg PO DAILY@0700 [facility] Last Admin: 07/24/17 06:08 Dose: 150 mcg Metoprolol Tartrate (Lopressor -) 50 mg PO BID [facility] Last Admin: 07/24/17 09:34 Dose: 50 mg Valsartan (Diovan -) 160 mg PO DAILY [facility] Last Admin: 07/24/17 09:34 Dose: 160 mg - Objective Vital Signs: Vital Signs Temperature 97.7 F 07/24/17 06:00 Pulse Rate 69 07/24/17 06:00 Respiratory Rate 18 07/24/17 06:00 Blood Pressure 138/72 07/24/17 06:00 O2 Sat by Pulse Oximetry (%) 94 L 07/23/17 21:00 Constitutional: Yes: No Distress, Calm Eyes: Yes: WNL HENT: Yes: WNL Neck: Yes: WNL Cardiovascular: Yes: WNL, Regular Rate and Rhythm Respiratory: Yes: CTA Bilaterally Gastrointestinal: Yes: Normal Bowel Sounds Edema: No Labs: CBC, BMP 07/23/17 06:00 07/23/17 06:00 INR, PTT INR 0.96 (0.82-1.09) 07/21/17 18:00 Assessment/Plan A/p: hpi: 72 yo with h/o HTN, HLD, pulmonary htn, IDDM, obesity/DINH, breast CA s/p mastectomy and chemo, hypothyroid here with cp, palps, sob. cp: -atypical, reproducible (as per Dr. Cabrera) -ce's neg, ecg unremarkable, no signs acs -recent echo and mibi unremarkable palps: -no signs arrhythmia here, some nathan to 40s but likely during sleep -ecg, echo, nuclear stress test all unremarkable recently -outpt f/u, possible holter/event monitor dizzy: -chronic sx -no obvious cardiac etiology -recent echo and mibi unremarkable -ecg benign -no signs acs, chf -?vertigo htn - con't outpatient regimen hld -cont statin phtn: -mild on recent echo with nl rv, monitor for now sob: -chronic elizabeth. no signs chf. -recent echo and mibi unremarkable -has appt for pulm eval later this month -possibly deconditioning related as well. Awaiting SNF placement
--- NOTE | 2017-07-24 12:56 | PN ---
Progress Note (short form) - Note Progress Note: Subjective: The patient was seen and examined at the bedside, no complaints at this time. Discussed with RN, patient two person assist to get out of bed Pending PT consult, patient may require SNF Current Medications Generic Name Dose Route Start Last Admin Trade Name Freq PRN Reason Stop Dose Admin Acetaminophen 650 mg 07/22/17 18:53 07/23/17 11:18 Tylenol - PO 650 mg Q6H PRN Administration PAIN LEVEL 4 - 6 Anastrozole 1 mg 07/22/17 12:45 07/24/17 09:34 Arimidex - PO 1 mg DAILY [facility] Administration Aspirin 81 mg 07/22/17 12:45 07/24/17 09:34 Asa - PO 81 mg DAILY [facility] Administration Atorvastatin Calcium 40 mg 07/22/17 22:00 07/23/17 21:01 Lipitor - PO 40 mg HS [facility] Administration Heparin Sodium (Porcine) 5,000 unit 07/23/17 14:00 07/24/17 05:43 Heparin - SQ 5,000 unit TID [facility] Administration Hydrochlorothiazide 12.5 mg 07/22/17 13:00 07/24/17 09:34 Hctz - PO 12.5 mg DAILY [facility] Administration Ceftriaxone Sodium 1 gm/ 50 mls @ 100 mls/hr 07/23/17 14:00 07/23/17 15:36 Dextrose IVPB 100 mls/hr DAILY@1400 [facility] Administration Insulin Aspart 1 vial 07/22/17 16:30 07/24/17 12:17 Novolog Vial Sliding Scale - SQ 12 unit ACHS [facility] Administration Protocol Insulin Detemir 20 units 07/24/17 22:00 Levemir Vial SQ BID [facility] Levothyroxine Sodium 150 mcg 07/23/17 07:00 07/24/17 06:08 Synthroid - PO 150 mcg DAILY@0700 [facility] Administration Metoprolol Tartrate 50 mg 07/22/17 12:45 07/24/17 09:34 Lopressor - PO 50 mg BID [facility] Administration Valsartan 160 mg 07/22/17 13:00 07/24/17 09:34 Diovan - PO 160 mg DAILY [facility] Administration Objective: Vital Signs Period Temp Pulse Resp BP Sys/Bailey Pulse Ox Last 24 Hr 97.6 F-98.4 F 62-72 18-20 123-141/56-76 94 Physical Exam: General: NAD, kosovan speaking Lungs: CTA bilaterally Heart: RRR, S1S2 Abd: Soft, non-tender, non-distended. Normoactive bowel sounds Ext: warm, well-perfused. 2+ DP/PT bilaterally CBCD WBC 8.5 K/mm3 (4.0-10.0) 07/23/17 06:00 RBC 4.56 M/mm3 (3.60-5.2) 07/23/17 06:00 Hgb 13.2 GM/dL (10.7-15.3) 07/23/17 06:00 Hct 39.5 % (32.4-45.2) 07/23/17 06:00 MCV 86.6 fl (80-96) 07/23/17 06:00 MCHC 33.5 g/dl (32.0-36.0) 07/23/17 06:00 RDW 13.6 % (11.6-15.6) 07/23/17 06:00 Plt Count 297 K/MM3 (134-434) D 07/23/17 06:00 MPV 9.4 fl (7.5-11.1) D 07/23/17 06:00 CMP Sodium 137 mmol/L (136-145) 07/23/17 06:00 Potassium 4.4 mmol/L (3.5-5.1) 07/23/17 06:00 Chloride 104 mmol/L (98-107) 07/23/17 06:00 Carbon Dioxide 24 mmol/L (21-32) 07/23/17 06:00 Anion Gap 9 (8-16) 07/23/17 06:00 BUN 25 mg/dL (7-18) H 07/23/17 06:00 Creatinine 1.0 mg/dL (0.55-1.02) 07/23/17 06:00 Creat Clearance w eGFR 54.35 (>60) 07/23/17 06:00 Random Glucose 383 mg/dL (74-106) H* 07/23/17 06:00 Calcium 9.0 mg/dL (8.5-10.1) 07/23/17 06:00 Total Bilirubin 0.7 mg/dL (0.2-1.0) D 07/23/17 06:00 AST 11 U/L (15-37) L 07/23/17 06:00 ALT 16 U/L (12-78) 07/23/17 06:00 Alkaline Phosphatase 59 U/L (45-117) 07/23/17 06:00 Total Protein 7.7 g/dl (6.4-8.2) 07/23/17 06:00 Albumin 3.7 g/dl (3.4-5.0) 07/23/17 06:00 CARDIAC ENZYMES Creatine Kinase 175 IU/L (26-192) 07/21/17 18:00 Troponin I < 0.02 ng/ml (0.00-0.05) 07/22/17 02:18 Microbiology 07/21/17 19:58 Urine - Urine Clean Catch Urine Culture - Final Escherichia Coli 07/21/17 18:00 Blood - Peripheral Venous Blood Culture - Preliminary NO GROWTH OBTAINED AFTER 48 HOURS, INCUBATION TO CONTINUE FOR 3 DAYS. 07/21/17 18:00 Blood - Peripheral Venous Blood Culture - Preliminary NO GROWTH OBTAINED AFTER 48 HOURS, INCUBATION TO CONTINUE FOR 3 DAYS. Assessment: This is a 72 year old female with PMHx of HTN, MS, hyperlipidemia, CAD (s/p MS 01/2017), pulmonary HTN, diastolic dysfunction, left leg DVT, DM, breast cancer (s/p left mastectomy and chemo), hypothyroidism, who presented to the ED with two days of dyspnea, orthopnea, and chest pain. Plan: 1) Atypical chest pain - Reproducible - Trop x2 negative - Per cards, recent echo and mibi unremarkable Palpitations - F/u outpatient for possible holter/event monitor - Appreciate cardiology consult 2) Dizziness - Chronic - Possible vertigo - F/u outpatient neurologist 3) Dyspnea - Well's score 1.5, given hx of DVT and malignancy, d-dimer negative - Chronic - Possible deconditioning per cardiology - Chest X-ray with no acute pathology - F/u with outpatient staffing program manager 4) E.coli UTI - Continue Ceftriaxone 5) Hx of breast cancer - Continue Arimidex 6) Hx of DVT - Start Heparin 5,000u sq tid 7) Hx of CAD - Continue ASA 8) DM - BGM ACHS - ISS ACHS - Levemir 20u sq bid 8) F/E/N: - Diabetic diet - Monitor electrolytes 9) Prophylaxis: - Heparin 5,000u sq tid 10) Dispo: - Once condition improves CODE STATUS: FULL CODE Visit type - Emergency Visit Emergency Visit: Yes ED Registration Date: 07/21/17 Care time: The patient presented to the Emergency Department on the above date and was hospitalized for further evaluation of their emergent condition. - New Patient This patient is new to me today: No - Critical Care Critical Care patient: No
[2017-07-24] MEDS ORDERED: DEXTROSE 5%-WATER - 50 ML IVPB ONE (15:02)
[2017-07-24] MEDS ORDERED: cefTRIAXone SODIUM 1 GM VIAL ONE (15:02)
[2017-07-24] MEDS: CEFTRIAXONE 1 GM in DEXTROSE 5%-WATER - 50 ML IVPB SCH (15:03)
[2017-07-24] MEDS ORDERED: INSULIN (NOVOLOG) ASPART 100 UNITS/ML 10ML VIAL ONE (21:25)
[2017-07-24] MEDS: INSULIN DETEMIR 100 UNITS/ML MDV SQ SCH (21:54)
[2017-07-24] MEDS: ATORVASTATIN CA 40 MG TABLET (FP) PO SCH (21:55)
[2017-07-25] MEDS: HEPARIN NA (PORCINE) 5,000 UNITS/ML 1ML VIAL SQ SCH ×3 (06:23→21:43)
[2017-07-25] MEDS: LEVOTHYROXINE NA 50 MCG TABLET (FP) PO SCH (06:23)
[2017-07-25] MEDS: INSULIN SLIDING SCALE (NOVOLOG) 1 VIAL SQ SCH ×4 (06:23→23:54)
[2017-07-25] MEDS ORDERED: PT OWN MED DRAWER 7, Y5N ONE ×3 (09:50→22:56)
--- NOTE | 2017-07-25 09:56 | PN ---
Progress Note, Physician - Current Medication List Current Medications: Active Medications Acetaminophen (Tylenol -) 650 mg PO Q6H PRN PRN Reason: PAIN LEVEL 4 - 6 Last Admin: 07/23/17 11:18 Dose: 650 mg Anastrozole (Arimidex -) 1 mg PO DAILY [facility] Last Admin: 07/24/17 09:34 Dose: 1 mg Aspirin (Asa -) 81 mg PO DAILY [facility] Last Admin: 07/24/17 09:34 Dose: 81 mg Atorvastatin Calcium (Lipitor -) 40 mg PO HS [facility] Last Admin: 07/24/17 21:55 Dose: 40 mg Heparin Sodium (Porcine) (Heparin -) 5,000 unit SQ TID [facility] Last Admin: 07/25/17 06:23 Dose: 5,000 unit Hydrochlorothiazide (Hctz -) 12.5 mg PO DAILY [facility] Last Admin: 07/24/17 09:34 Dose: 12.5 mg Ceftriaxone Sodium 1 gm/ (Dextrose) 50 mls @ 100 mls/hr IVPB DAILY@1400 [facility] Last Admin: 07/24/17 15:03 Dose: 100 mls/hr Insulin Aspart (Novolog Vial Sliding Scale -) 1 vial SQ ACHS [facility] PRN Reason: Protocol Last Admin: 07/25/17 06:23 Dose: 4 unit Insulin Detemir (Levemir Vial) 20 units SQ BID [facility] Last Admin: 07/24/17 21:54 Dose: 20 units Levothyroxine Sodium (Synthroid -) 150 mcg PO DAILY@0700 [facility] Last Admin: 07/25/17 06:23 Dose: 150 mcg Metoprolol Tartrate (Lopressor -) 50 mg PO BID [facility] Last Admin: 07/24/17 21:55 Dose: 50 mg Valsartan (Diovan -) 160 mg PO DAILY [facility] Last Admin: 07/24/17 09:34 Dose: 160 mg - Objective Vital Signs: Vital Signs Temperature 97.6 F 07/25/17 06:00 Pulse Rate 59 L 07/25/17 06:00 Respiratory Rate 20 07/25/17 06:00 Blood Pressure 139/59 07/25/17 06:00 O2 Sat by Pulse Oximetry (%) 97 07/24/17 22:00 Labs: CBC, BMP 07/23/17 06:00 07/23/17 06:00 INR, PTT INR 0.96 (0.82-1.09) 07/21/17 18:00 Assessment/Plan ekg: sr, nl intervals, no ischemic changes. cxr: no chf mibi 02/2017: no ischemia, nl lvef Stress MPI 02/09/16: No ekg changes. Inferobasal fixed defect with nl wall motion c/w diaphragmatic artifact. Nl EF. echo 02/2017: nl lv/rv, mild tr/mr, rvsp 30-40 Echo 02/2016: nl lv/rv. abnormal diastology. No significant valvular abnormalities. RVSP 43. Cath 2006: mild disease only A/p: hpi: 72 yo with h/o HTN, HLD, pulmonary htn, IDDM, obesity/DINH, breast CA s/p mastectomy and chemo, hypothyroid here with cp, palps, sob. cp: -atypical, reproducible -ce's neg, ecg unremarkable, no signs acs -recent echo and mibi unremarkable palps: -no signs arrhythmia here -ecg, echo, nuclear stress test all unremarkable recently -outpt f/u, possible holter/event monitor dizzy: -chronic sx -no obvious cardiac etiology -recent echo and mibi unremarkable -ecg benign -no signs acs, chf -?vertigo htn - con't outpatient regimen hld -cont statin phtn: -mild on recent echo with nl rv, monitor for now sob: -chronic elizabeth. no signs chf. -recent echo and mibi unremarkable -has appt for pulm eval later this month -possibly deconditioning related as well.
[2017-07-25] MEDS: VALSARTAN 160 MG TABLET (UD) PO SCH (09:57)
[2017-07-25] MEDS: METOPROLOL TARTRATE 50 MG TABLET (FP) PO SCH ×2 (09:57→21:43)
[2017-07-25] MEDS: ANASTROZOLE 1 MG TABLET PO SCH (09:57)
[2017-07-25] MEDS: ASPIRIN 81 MG CHEWABLE TABLETS PO SCH (09:57)
[2017-07-25] MEDS: HYDROCHLOROTHIAZIDE 12.5 MG CAPSULE (FP) PO SCH (09:58)
[2017-07-25] MEDS: INSULIN DETEMIR 100 UNITS/ML MDV SQ SCH (11:50)
[2017-07-25] MEDS ORDERED: INSULIN DETEMIR 100 UNITS/ML MDV SQ ONE ×3 (11:51→20:00)
--- NOTE | 2017-07-25 14:52 | PN ---
Progress Note (short form) - Note Progress Note: CC: dizziness S: still with vertigo like dizziness in bed. Also with dizziness and leg weakness with ambulation. no cp, palps, sob. has plan to go to snf. Current Medications Acetaminophen (Tylenol -) 650 mg PO Q6H PRN PRN Reason: PAIN LEVEL 4 - 6 Last Admin: 07/23/17 11:18 Dose: 650 mg Anastrozole (Arimidex -) 1 mg PO DAILY [facility] Last Admin: 07/25/17 09:57 Dose: 1 mg Aspirin (Asa -) 81 mg PO DAILY [facility] Last Admin: 07/25/17 09:57 Dose: 81 mg Atorvastatin Calcium (Lipitor -) 40 mg PO HS [facility] Last Admin: 07/24/17 21:55 Dose: 40 mg Heparin Sodium (Porcine) (Heparin -) 5,000 unit SQ TID [facility] Last Admin: 07/25/17 06:23 Dose: 5,000 unit Hydrochlorothiazide (Hctz -) 12.5 mg PO DAILY [facility] Last Admin: 07/25/17 09:58 Dose: 12.5 mg Ceftriaxone Sodium 1 gm/ (Dextrose) 50 mls @ 100 mls/hr IVPB DAILY@1400 [facility] Last Admin: 07/24/17 15:03 Dose: 100 mls/hr Insulin Aspart (Novolog Vial Sliding Scale -) 1 vial SQ ACHS [facility] PRN Reason: Protocol Last Admin: 07/25/17 11:50 Dose: 10 unit Insulin Detemir (Levemir Vial) 25 units SQ BIDAC [facility] Insulin Detemir (Levemir Vial) 25 units SQ ONCE ONE Stop: 07/25/17 20:01 Levothyroxine Sodium (Synthroid -) 150 mcg PO DAILY@0700 [facility] Last Admin: 07/25/17 06:23 Dose: 150 mcg Metoprolol Tartrate (Lopressor -) 50 mg PO BID [facility] Last Admin: 07/25/17 09:57 Dose: 50 mg Valsartan (Diovan -) 160 mg PO DAILY [facility] Last Admin: 07/25/17 09:57 Dose: 160 mg - Objective Vital Signs - 24 hr 07/24/17 07/24/17 07/25/17 18:00 22:00 01:42 Temperature 97.6 F 98.6 F 97.6 F Pulse Rate 70 74 64 Respiratory 18 20 20 Rate Blood Pressure 115/60 143/69 127/57 O2 Sat by Pulse 97 97 Oximetry (%) 07/25/17 07/25/17 07/25/17 06:00 10:00 14:00 Temperature 97.6 F 98.4 F 98.3 F Pulse Rate 59 L 76 68 Respiratory 20 20 20 Rate Blood Pressure 139/59 134/65 116/62 O2 Sat by Pulse Oximetry (%) Intake & Output 07/23/17 07/24/17 07/25/17 07/26/17 07:59 07:59 07:59 07:59 Intake Total 200 1080 1000 Balance 200 1080 1000 Weight 189 lb NAD, calm JVD flat, neck supple CTAB, nl effort RRR nl s1, s2 no m/r/g. + bs soft nt nd, obese ext without e/c/c + dp/pt aaox3 No jaundice, diaphoresis +chest wall tenderness Labs: no CBC, BMP today 07/23/17 06:00 07/23/17 06:00 ekg: sr, nl intervals, no ischemic changes. Tele: NSR/SB lowest 50's. cxr: no chf mibi 02/2017: no ischemia, nl lvef Stress MPI 02/09/16: No ekg changes. Inferobasal fixed defect with nl wall motion c/w diaphragmatic artifact. Nl EF. echo 02/2017: nl lv/rv, mild tr/mr, rvsp 30-40 Echo 02/2016: nl lv/rv. abnormal diastology. No significant valvular abnormalities. RVSP 43. Cath 2006: mild disease only Assessment/Plan A/p: 72 yo with h/o HTN, HLD, pulmonary htn, IDDM, obesity/DINH, breast CA s/p mastectomy and chemo, hypothyroid here with cp, palps, sob, dizziness. cp: -atypical, reproducible (as per Dr. Cabrera) -ce's neg, ecg unremarkable, no signs acs -recent echo and mibi unremarkable palps: -no signs arrhythmia here, some nathan to 40s but during sleep. Now HR kyle 50 's. -ecg, echo, nuclear stress test all unremarkable recently -outpt f/u, possible holter/event monitor dizzy: -chronic sx -no obvious cardiac etiology -recent echo and mibi unremarkable -ecg benign -no signs acs, chf -?vertigo - patient still on hctz, will check orthostatic vitals. mgm't of tsh per pmd. htn - overall controlled, con't outpatient regimen hld -cont statin phtn: -mild on recent echo with nl rv, monitor for now sob: -chronic elizabeth. no signs chf. -recent echo and mibi unremarkable -has appt for pulm eval later this month -possibly deconditioning related as well.
[2017-07-25] MEDS ORDERED: DEXTROSE 5%-WATER - 50 ML IVPB ONE (15:09)
[2017-07-25] MEDS ORDERED: cefTRIAXone SODIUM 1 GM VIAL ONE (15:09)
[2017-07-25] MEDS: CEFTRIAXONE 1 GM in DEXTROSE 5%-WATER - 50 ML IVPB SCH (15:13)
[2017-07-25] MEDS ORDERED: INSULIN (NOVOLOG) ASPART 100 UNITS/ML 10ML VIAL ONE (17:00)
--- NOTE | 2017-07-25 17:48 | PN ---
Progress Note (short form) - Note Progress Note: Subjective: The patient was seen and examined at the bedside, no complaints at this time. Awaiting SNF placement Current Medications Generic Name Dose Route Start Last Admin Trade Name Marco Aq PRN Reason Stop Dose Admin Acetaminophen 650 mg 07/22/17 18:53 07/23/17 11:18 Tylenol - PO 650 mg Q6H PRN Administration PAIN LEVEL 4 - 6 Anastrozole 1 mg 07/22/17 12:45 07/25/17 09:57 Arimidex - PO 1 mg DAILY [facility] Administration Aspirin 81 mg 07/22/17 12:45 07/25/17 09:57 Asa - PO 81 mg DAILY [facility] Administration Atorvastatin Calcium 40 mg 07/22/17 22:00 07/24/17 21:55 Lipitor - PO 40 mg HS [facility] Administration Heparin Sodium (Porcine) 5,000 unit 07/23/17 14:00 07/25/17 15:13 Heparin - SQ 5,000 unit TID [facility] Administration Hydrochlorothiazide 12.5 mg 07/22/17 13:00 07/25/17 09:58 Hctz - PO 12.5 mg DAILY [facility] Administration Ceftriaxone Sodium 1 gm/ 50 mls @ 100 mls/hr 07/23/17 14:00 07/25/17 15:13 Dextrose IVPB 100 mls/hr DAILY@1400 [facility] Administration Insulin Aspart 1 vial 07/22/17 16:30 07/25/17 16:53 Novolog Vial Sliding Scale - SQ 6 unit ACHS [facility] Administration Protocol Insulin Detemir 25 units 07/26/17 06:00 Levemir Vial SQ BIDAC [facility] Insulin Detemir 25 units 07/25/17 20:00 Levemir Vial SQ 07/25/17 20:01 ONCE ONE Levothyroxine Sodium 150 mcg 07/23/17 07:00 07/25/17 06:23 Synthroid - PO 150 mcg DAILY@0700 [facility] Administration Metoprolol Tartrate 50 mg 07/22/17 12:45 07/25/17 09:57 Lopressor - PO 50 mg BID [facility] Administration Valsartan 160 mg 07/22/17 13:00 07/25/17 09:57 Diovan - PO 160 mg DAILY [facility] Administration Objective: Vital Signs Period Temp Pulse Resp BP Sys/Bailey Pulse Ox Last 24 Hr 97.6 F-98.6 F 59-76 18-20 115-143/57-69 97-97 Physical Exam: General: NAD, kinyarwanda speaking Lungs: CTA bilaterally Heart: RRR, S1S2 Abd: Soft, non-tender, non-distended. Normoactive bowel sounds Ext: warm, well-perfused. 2+ DP/PT bilaterally CBCD WBC 8.5 K/mm3 (4.0-10.0) 07/23/17 06:00 RBC 4.56 M/mm3 (3.60-5.2) 07/23/17 06:00 Hgb 13.2 GM/dL (10.7-15.3) 07/23/17 06:00 Hct 39.5 % (32.4-45.2) 07/23/17 06:00 MCV 86.6 fl (80-96) 07/23/17 06:00 MCHC 33.5 g/dl (32.0-36.0) 07/23/17 06:00 RDW 13.6 % (11.6-15.6) 07/23/17 06:00 Plt Count 297 K/MM3 (134-434) D 07/23/17 06:00 MPV 9.4 fl (7.5-11.1) D 07/23/17 06:00 CMP Sodium 137 mmol/L (136-145) 07/23/17 06:00 Potassium 4.4 mmol/L (3.5-5.1) 07/23/17 06:00 Chloride 104 mmol/L (98-107) 07/23/17 06:00 Carbon Dioxide 24 mmol/L (21-32) 07/23/17 06:00 Anion Gap 9 (8-16) 07/23/17 06:00 BUN 25 mg/dL (7-18) H 07/23/17 06:00 Creatinine 1.0 mg/dL (0.55-1.02) 07/23/17 06:00 Creat Clearance w eGFR 54.35 (>60) 07/23/17 06:00 Random Glucose 383 mg/dL (74-106) H* 07/23/17 06:00 Calcium 9.0 mg/dL (8.5-10.1) 07/23/17 06:00 Total Bilirubin 0.7 mg/dL (0.2-1.0) D 04/14/18 06:00 AST 11 U/L (15-37) L 07/23/17 06:00 ALT 16 U/L (12-78) 07/23/17 06:00 Alkaline Phosphatase 59 U/L (45-117) 07/23/17 06:00 Total Protein 7.7 g/dl (6.4-8.2) 07/23/17 06:00 Albumin 3.7 g/dl (3.4-5.0) 07/23/17 06:00 CARDIAC ENZYMES Creatine Kinase 175 IU/L (26-192) 07/21/17 18:00 Troponin I < 0.02 ng/ml (0.00-0.05) 07/22/17 02:18 Microbiology 07/21/17 18:00 Blood - Peripheral Venous Blood Culture - Preliminary NO GROWTH OBTAINED AFTER 72 HOURS, INCUBATION TO CONTINUE FOR 2 DAYS. 07/21/17 18:00 Blood - Peripheral Venous Blood Culture - Preliminary NO GROWTH OBTAINED AFTER 72 HOURS, INCUBATION TO CONTINUE FOR 2 DAYS. 07/21/17 19:58 Urine - Urine Clean Catch Urine Culture - Final Escherichia Coli Assessment: This is a 72 year old female with PMHx of HTN, ID, hyperlipidemia, CAD (s/p ID 01/2017), pulmonary HTN, diastolic dysfunction, left leg DVT, DM, breast cancer (s/p left mastectomy and chemo), hypothyroidism, who presented to the ED with two days of dyspnea, orthopnea, and chest pain. Plan: 1) Atypical chest pain - Reproducible - Trop x2 negative - Per cards, recent echo and mibi unremarkable Palpitations - F/u outpatient for possible holter/event monitor - Appreciate cardiology consult 2) Dizziness - Chronic - Possible vertigo - F/u outpatient neurologist 3) Dyspnea - Well's score 1.5, given hx of DVT and malignancy, d-dimer negative - Chronic - Possible deconditioning per cardiology - Chest X-ray with no acute pathology - F/u with outpatient sawsmith 4) E.coli UTI - Continue Ceftriaxone 5) Hx of breast cancer - Continue Arimidex 6) Hx of DVT - Start Heparin 5,000u sq tid 7) Hx of CAD - Continue ASA 8) DM - BGM ACHS - ISS ACHS - Levemir 25u sq bid 9) Hypothyroidism - TSH elevated, Synthroid increased - F/u repeat TSH in 4 weeks 8) F/E/N: - Diabetic diet - Monitor electrolytes 9) Prophylaxis: - Heparin 5,000u sq tid 10) Dispo: - Once condition improves CODE STATUS: FULL CODE Visit type - Emergency Visit Emergency Visit: Yes ED Registration Date: 07/25/17 Care time: The patient presented to the Emergency Department on the above date and was hospitalized for further evaluation of their emergent condition. - New Patient This patient is new to me today: No - Critical Care Critical Care patient: No
[2017-07-25] MEDS: ATORVASTATIN CA 40 MG TABLET (FP) PO SCH (21:43)
[2017-07-26] MEDS ORDERED: PT OWN MED DRAWER 7, Y5N ONE ×2 (05:36→10:06)
[2017-07-26] MEDS ORDERED: INSULIN DETEMIR 100 UNITS/ML MDV SQ SCH ×3 (06:00→10:42)
[2017-07-26] MEDS: LEVOTHYROXINE NA 50 MCG TABLET (FP) PO SCH (06:08)
[2017-07-26] MEDS: HEPARIN NA (PORCINE) 5,000 UNITS/ML 1ML VIAL SQ SCH (06:09)
[2017-07-26] MEDS: INSULIN SLIDING SCALE (NOVOLOG) 1 VIAL SQ SCH (06:09)
[2017-07-26] MEDS: METOPROLOL TARTRATE 50 MG TABLET (FP) PO SCH (10:13)
[2017-07-26] MEDS: ANASTROZOLE 1 MG TABLET PO SCH (10:13)
[2017-07-26] MEDS: VALSARTAN 160 MG TABLET (UD) PO SCH (10:13)
[2017-07-26] MEDS: HYDROCHLOROTHIAZIDE 12.5 MG CAPSULE (FP) PO SCH (10:13)
[2017-07-26] MEDS: ASPIRIN 81 MG CHEWABLE TABLETS PO SCH (10:13)
--- NOTE | 2017-07-26 11:02 | DS ---
Physical Examination Vital Signs: Vital Signs Temperature 98.6 F 07/26/17 06:00 Pulse Rate 63 07/26/17 06:00 Respiratory Rate 20 07/26/17 06:00 Blood Pressure 129/55 07/26/17 06:00 O2 Sat by Pulse Oximetry (%) 95 07/26/17 05:04 Labs: CBC, BMP 07/23/17 06:00 07/23/17 06:00 Discharge Summary Reason For Visit: CHEST PAIN Current Active Problems Chest pain (Acute) Condition: Improved - Instructions Diet, Activity, Other Instructions: Please return to the ED with new, persistent, or worsening symptoms. Please follow-up with providers as indicated. Referrals: Landon Grant DO [Staff Physician] - Lalit Goodson MD [Staff Physician] - Stephanie Guan MD [Staff Physician] - Jace Parker MD [Staff Physician] - Disposition: VNS/HOME HEALTH CARE - Home Medications Comprehensive Discharge Medication List: Ambulatory Orders Insulin NPL/Insulin Lispro [Humalog Mix 75-25 Pen] 50 unit SQ BID 07/25/13 Anastrozole [Arimidex -] 1 mg PO DAILY #0 02/10/16 Insulin Glargine,Hum.rec.anlog [Lantus Solostar PEN -] 27 units SQ BIDAC #0 04/26 Aspirin [ASA -] 81 mg PO DAILY #30 tab.chew 04/01/16 Metoprolol Tartrate 50 mg PO BID 02/13/17 Valsartan/Hydrochlorothiazide [Valsartan-Hctz 160-12.5 mg Tab] 1 each PO DAILY 02/13/17 Atorvastatin Ca [Lipitor] 40 mg PO HS #30 tablet 02/14/17 Acetaminophen [Tylenol .Regular Strength -] 650 mg PO Q6H PRN tablet 07/26/17 Levothyroxine [Synthroid -] 150 mcg PO DAILY@0700 #90 tablet 07/26/17
[2017-07-26 11:40] VITALS: BP 116/56; PULSE 68; TEMP 98
== END 2017-07-26 11:23 | disposition home health service (06) | DRG 313 ==
LOC: JER 15:13 → JERBED 19:57 → J4S 07-22 13:40 → OBSVTOIN 07-25 08:41
PROVIDERS: ATTEND Registered Nurse
DX: R07.89 Other chest pain (principal); I50.32 Chronic diastolic (congestive) heart failure; N39.0 Urinary tract infection, site not specified; I25.2 Old myocardial infarction; I25.10 Atherosclerotic heart disease of native coronary artery without angina pectoris; I27.20 Pulmonary hypertension, unspecified; E11.9 Type 2 diabetes mellitus without complications; Z85.3 Personal history of malignant neoplasm of breast; E03.9 Hypothyroidism, unspecified; Z79.4 Long term (current) use of insulin; I11.0 Hypertensive heart disease with heart failure; I50.9 Heart failure, unspecified; Z86.718 Personal history of other venous thrombosis and embolism; E66.9 Obesity, unspecified; G47.33 Obstructive sleep apnea (adult) (pediatric); Z92.21 Personal history of antineoplastic chemotherapy; R00.2 Palpitations; R42 Dizziness and giddiness; E78.5 Hyperlipidemia, unspecified; Z68.34 Body mass index [BMI] 34.0-34.9, adult; B96.20 Unspecified Escherichia coli [E. coli] as the cause of diseases classified elsewhere
CPT/HCPCS: 36415; 71045-TC-FY; 80053; 81003; 81015; 82550; 82553; 82962; 83036; 83880; 84443; 84484; 85025; 85379; 85610; 85730; 87040; 87086; 87186; 93005; 93010; 94761; 97116-GP; 97162-GP; 99285-25; G0378; J1644

== ENCOUNTER 2017-09-10 20:22 | Emergency (ER) | payer OTHER ==
--- NOTE | 2017-09-10 20:26 | PDOC ---
History of Present Illness - General Stated Complaint: FALL Time Seen by Provider: 09/10/17 20:26 - History of Present Illness Initial Comments: 09/10/17 20:43 The patient is a 72 year old female with a history of HTN, VA, HLD, CAD (s/p VA in January 2017), Pulmonary HTN, IDDM, Breast CA (L sided, s/p mastectomy and chemotheraphy) and hypothyroidism who presents for evaluation following a fall. The patient notes that she went to sit on her rollator when it fell out under her and she fell. She denied head trauma or LOC but notes severe lower back pain and sacral pain and inability to ambulate since the event prompting her presentation to the ED for evaluation. She notes that the pain radiates down her legs bilaterally. She otherwise denies fevers, chills, SOB, chest pain , nausea, vomiting, abdominal pain, or changes with urination or bowel movements. Past History - Past Medical History Allergies/Adverse Reactions: Allergies Allergy/AdvReac Type Severity Reaction Status Date / Time codeine [Codeine] Allergy Severe Itching Verified 08/04/17 12:46 iodine [Iodine] Allergy Severe Itching Verified 08/04/17 12:46 Shellfish Allergy Severe Hives Verified 08/04/17 12:46 seafood Allergy Hives Uncoded 08/04/17 12:46 Home Medications: Ambulatory Orders Insulin NPL/Insulin Lispro [Humalog Mix 75-25 Pen] 50 unit SQ BID 07/25/13 Anastrozole [Arimidex -] 1 mg PO DAILY #0 02/10/16 Insulin Glargine,Hum.rec.anlog [Lantus Solostar PEN -] 27 units SQ BIDAC #0 04/26 Aspirin [ASA -] 81 mg PO DAILY #30 tab.chew 04/01/16 Metoprolol Tartrate 50 mg PO BID 02/13/17 Valsartan/Hydrochlorothiazide [Valsartan-Hctz 160-12.5 mg Tab] 1 each PO DAILY 02/13/17 Atorvastatin Ca [Lipitor] 40 mg PO HS #30 tablet 02/14/17 Acetaminophen [Tylenol .Regular Strength -] 650 mg PO Q6H PRN tablet 07/26/17 Levothyroxine [Synthroid -] 150 mcg PO DAILY@0700 #90 tablet 07/26/17 Anemia: No Asthma: Yes Cancer: Yes (BILATERAL breast cancer 2011) Cardiac Disorders: Yes ([place]) CVA: No COPD: No (hospitalized for fluid lungs 1998) CHF: No Dementia: No Diabetes: Yes (IDDM X 38 YRS) GI Disorders: Yes (GERD) Disorders: No HTN: Yes Hypercholesterolemia: Yes Liver Disease: No Seizures: No Thyroid Disease: Yes (hypothyroid) - Surgical History Abdominal Surgery: Yes Appendectomy: No Cardiac Surgery: No Cholecystectomy: Yes Lung Surgery: No Neurologic Surgery: No Orthopedic Surgery: Yes (LEFT KNEE ARTHROSCOPY 2003) - Immunization History Td Vaccination: Yes TDAP Vaccination: Yes Immunization Up to Date: Yes - Suicide/Smoking/Psychosocial Hx Smoking Status: No Smoking History: Never smoked Years of Tobacco Use: 0 Have you smoked in the past 12 months: No Number of Cigarettes Smoked Daily: 0 Cigars Per Day: 0 Hx Alcohol Use: No Drug/Substance Use Hx: No Substance Use Type: None Hx Substance Use Treatment: No Review of Systems - Review of Systems Comments:: 09/10/17 20:46 Constitutional: No fevers, chills, fatigue, malaise HEENT: No Rhinorrhea, nasal congestion, visual changes Cardiovascular: No chest pain, syncope, palpitations, lightheadedness Respiratory: No Cough, SOB, Hemoptysis, Gastrointestinal: No Abdominal pain, Nausea, Vomiting, Constipation, Diarrhea, Melena Genitourinary: No Dysuria, Frequency, Urgency, Hesitancy, Hematuria, Flank pain Musculoskeletal: Lower back pain. No Myalgia, arthralgia Skin: No rashes, itching, bruising, pallor Neurologic: No Headache, Dizziness, Numbness, Weakness, or Tingling Psychiatric: No Hallucinations. No SI or HI *Physical Exam - Physical Exam Comments: 09/10/17 20:48 General Appearance: Nourished. In Moderate Apparent Distress HEENT: EOMI, KRISH. No Pharyngeal Erythema, Tonsillar Exudate, Tonsillar Erythema Neck: No Cervical Lymphadenopathy Respiratory/Chest: Lungs Clear, Normal Breath Sounds. No Crackles, Rales, Rhonchi, Wheezing Cardiovascular: Regular Rhythm, Regular Rate. No Murmur, Gallops, Rubs Gastrointestinal/Abdominal: Normal Bowel Sounds, Soft. No Guarding, Rebound, Tenderness Musculoskeletal: Tenderness to palpation on the lumbar spine. Limited ROM of the lower extremities secondary to pain in the lower back. Sensation to light touch and temperature intact distally. No CVA Tenderness Extremity: Normal Capillary Refill Integumentary: Normal Color, Dry, Warm Neurologic: manager aviation II-XII NML intact, Fully Oriented, Alert, Normal Mood/Affect, Normal Response, Motor Strength 5/5. Normal Finger to Nose and Heel to [facility] ED Treatment Course - LABORATORY CBC & Chemistry Diagram: 09/10/17 21:00 09/10/17 21:00 Medical Decision Making - Medical Decision Making 09/10/17 20:56 The patient is a 72 year old female with a history of HTN, VA, HLD, CAD (s/p VA in January 2017), Pulmonary HTN, IDDM, Breast CA (L sided, s/p mastectomy and chemotheraphy) and hypothyroidism who presents for evaluation following a fall. Differential includes but is not limited to: Fracture, dislocation, contusion, ligamentous injury. Given the patient's severe pain on exam and history, we will obtain a cbc, cmp, coags, ekg and CT lumbar and pelvis to evaluate further for possible etiologies. We will treat with morphine in the meantime for pain management and continue to monitor and reassess while here in the ED. 09/11/17 06:11 CBC, cmp are unremarkable. CT scanning is unremarkable as preliminarily read by our risk consultant radiologist. The patient reports improvement in her symptoms and is able to ambulate at baseline. We are comfortable discharging the patient home with primary care provider follow up. We discussed results, plan, and return precautions with the patient who voiced understanding and is agreeable with the plan. *DC/Admit/Observation/Transfer Diagnosis at time of Disposition: Fall Qualifiers: Encounter type: initial encounter Qualified Code(s): W19.XXXA - Unspecified fall, initial encounter - Discharge Dispostion Disposition: HOME Condition at time of disposition: Stable Decision to Admit order: No - Referrals Referrals: Marjorie Odom MD [Primary Care Provider] - - Patient Instructions Printed Discharge Instructions: DI for Contusion Additional Instructions: Please return to the ER if you experience concerning or worsening symptoms including worsening pain, weakness, or numbness. Your lab results and imaging studies were normal here in the ER. It is likely your symptoms are due to a contusion and you may use ibuprofen or tylenol as needed to help manage your pain. Please call to schedule a follow up appointment with your primary care provider within 2-3 days to discuss your ER visit and further management of your symptoms. Por favor, regrese a la veena de emergencias si experimenta problemas o empeoramiento de los sntomas, incluyendo el empeoramiento del dolor, debilidad o entumecimiento. Elvia resultados de laboratorio y estudios de imagen fueron normales aqu en urgencias. Es probable que elvia sntomas se deban a carli contusin y usted puede usar ibuprofeno o Tylenol segn sea necesario para ayudar a manejar wong dolor. Por favor llame para programar carli roni de seguimiento con wong proveedor de cuidado primario dentro de los 2-3 lizarraga para discutir wong visita de urgencias y la administracin de elvia sntomas. Print Language: KENYAN - Post Discharge Activity
[2017-09-10] MEDS ORDERED: morphine CARPU-JECT 4 MG/1 ML DISP.SYRIN IVPUSH ONE (20:38)
--- NOTE | 2017-09-10 20:39 | PDOC ---
Attending Attestation - Medical Decision Making 09/11/17 01:04 EXAM: PELVIS CT WITHOUT CONTRAST HISTORY: Patient fell FINDINGS: (Please note: Had to wait for transmission of missing axial images). The bony pelvis as well as the bilateral hips are intact without fracture or dislocation. Degenerative changes are noted. Read by: Carlos Hurley MD <Tee Douglass - Last Filed: 09/11/17 01:04> - Resident Resident Name: Peterson Monk - ED Attending Attestation I have performed the following: I have examined & evaluated the patient, The case was reviewed & discussed with the resident, I agree w/resident's findings & plan - HPI HPI: 09/10/17 20:41 Pt comes with mechanical fall and pain to her hips and low back pain at the LS spine - Physicial Exam PE: 09/10/17 22:29 Agree with resident exam. Pt has pain with movement of the right hip but not left hip. She has lower lumbar and sacral midline pain. She has lower abd pain. Pt has multiple medical problems. - Medical Decision Making 09/10/17 22:34 CT pelvis and LS spine pending,. Pt treated woth morphine. 09/10/17 23:58 Patient Name: SUE GALLEGOS THIS IS A PRELIMINARY REPORT FROM [facility] DATE OF SERVICE: 2017-09-10 22:25:31 IMAGES: 305 EXAM: LUMBAR SPINE CT W/O CONTRAST HISTORY: Status post fall COMPARISON: None. FINDINGS: There is no fracture. There is grade 1 degenerative anterolisthesis of L4 and L5. There is a large hemangioma in L3 without any suspicious bone lesions. No paraspinal hematoma. There are multilevel moderate degenerative changes including prominent posterior interspinous process bursitis throughout the lumbar spine and lower lumbar facet joint arthrosis. Moderate bilateral neural foraminal narrowing is noted at the L4-5 level due to geometric distortion from the listhesis as well as facet joint arthrosis. IMPRESSION: No fracture. Moderate degenerative changes. THIS DOCUMENT HAS BEEN ELECTRONICALLY SIGNED 09/10/17 23:58 Pt will be treated with toradol and she will be discharged home so long as pelvis films show no fracture <Vickie Angela - Last Filed: 09/11/17 23:12> Attestations - Attestations 09/11/17 01:05 Documentation prepared by Tee Douglass, acting as medical staff services coordinator for Vickie Angela MD. <Tee Douglass - Last Filed: 09/11/17 01:04>
[2017-09-10 21:09] VITALS: PULSE 72; BMI 35.8
[2017-09-10] MEDS ORDERED: morphine SULFATE 4 MG/ML VIAL ONE (21:17)
[2017-09-10 21:22] LABS: BASO % 0.8 % (0-2.0); EOS % 1.5 % (0-4.5); HEMATOCRIT 38.9 % (32.4-45.2); LYMPH % 18.3 % (8-40); MCH 28.9 pg (25.7-33.7); MCHC 33.4 g/dl (32.0-36.0); MEAN CELL VOLUME 86.5 fl (80-96); MEAN PLT VOLUME 8.7 fl (7.5-11.1); MONO % 6.5 % (3.8-10.2); NEUT % 72.9 % (42.8-82.8); PLATELET COUNT 368 K/MM3 (134-434); RDW 14.7 % (11.6-15.6); WHITE BLOOD COUNT 10.2 K/mm3 (4.0-10.0)
[2017-09-10 21:40] LABS: INR 0.94 (0.82-1.09); PROTHROMBIN TIME (PATIENT) 10.6 SEC (9.7-13.0)
[2017-09-10 21:42] LABS: ACTIVATED PTT 28.2 SECONDS (26.9-34.4)
[2017-09-10 22:00] LABS: ALBUMIN 3.9 g/dl (3.4-5.0); ALK PHOS 77 U/L (45-117); ANION GAP 10 (8-16); BILIRUBIN,TOTAL 0.3 mg/dL (0.2-1.0); BLOOD UREA NITROGEN 24 mg/dL (7-18); CALCIUM 8.8 mg/dL (8.5-10.1); CHLORIDE 106 mmol/L (98-107); CO2 25 mmol/L (21-32); CREATININE 1.3 mg/dL (0.55-1.02); GLUCOSE,RANDOM 172 mg/dL (74-106); POTASSIUM 3.9 mmol/L (3.5-5.1); SGOT/AST 17 U/L (15-37); SGPT/ALT 23 U/L (12-78); SODIUM 141 mmol/L (136-145); TOT PROT 7.7 g/dl (6.4-8.2)
[2017-09-10] MEDS ORDERED: SODIUM CHLORIDE 1,000 ML IV STA (22:34)
[2017-09-10] MEDS ORDERED: KETOROLAC TROMETHAMINE 30 MG/1 ML VIAL IVPUSH ONE (23:57)
[2017-09-11] MEDS ORDERED: METHOCARBAMOL 500 MG TABLET PO ONE (00:02)
[2017-09-11 01:52] VITALS: BP 138/68; TEMP 98.4
--- NOTE | 2017-09-11 22:09 | EKG ---
Test Reason : Blood Pressure : / mmHG Vent. Rate : 077 BPM Atrial Rate : 077 BPM P-R Int : 156 ms QRS Dur : 082 ms QT Int : 392 ms P-R-T Axes : 058 -01 030 degrees QTc Int : 443 ms NORMAL SINUS RHYTHM NORMAL ECG WHEN COMPARED WITH ECG OF 04-AUG-2017 15:06, NO SIGNIFICANT CHANGE WAS FOUND Confirmed by CHRISTY YOUNG MD ([id number]) on 09/11/2017 10:09:00 PM Referred By: Confirmed By:CHRISTY YOUNG MD
== END 2017-09-11 01:41 | disposition home or self-care (01) ==
LOC: JER 20:22
PROC: 3E0337Z Introduction of Electrolytic and Water Balance Substance into Peripheral Vein, Percutaneous Approach (ICD-10-PCS; principal; 2017-09-10)
PROC: 3E0333Z Introduction of Anti-inflammatory into Peripheral Vein, Percutaneous Approach (ICD-10-PCS; 2017-09-10)
PROC: 3E033NZ Introduction of Analgesics, Hypnotics, Sedatives into Peripheral Vein, Percutaneous Approach (ICD-10-PCS; 2017-09-10)
PROC: 3E033GC Introduction of Other Therapeutic Substance into Peripheral Vein, Percutaneous Approach (ICD-10-PCS; 2017-09-10)
DX: M54.5 Low back pain (principal); W05.0XXA Fall from non-moving wheelchair, initial encounter; Y93.89 Activity, other specified; Y92.89 Other specified places as the place of occurrence of the external cause; Y99.8 Other external cause status; I25.10 Atherosclerotic heart disease of native coronary artery without angina pectoris; I10 Essential (primary) hypertension; I25.2 Old myocardial infarction; E78.5 Hyperlipidemia, unspecified; E11.9 Type 2 diabetes mellitus without complications; Z79.4 Long term (current) use of insulin; I27.20 Pulmonary hypertension, unspecified; E03.9 Hypothyroidism, unspecified; K21.9 Gastro-esophageal reflux disease without esophagitis; Z85.3 Personal history of malignant neoplasm of breast; Z90.12 Acquired absence of left breast and nipple
CPT/HCPCS: 36415; 72131-TC; 72192-TC; 80053; 85025; 85610; 85730; 93005; 93010; 96361; 96374; 96375; 99282-25; J7030

== ENCOUNTER 2018-01-04 06:47 | Day surgery (SDC) | payer OTHER ==
[2018-01-03 15:15] VITALS: BMI 38.0
[~2018-01-04 06:47] MED LIST: ACETAMINOPHEN 325 MG TABLET (FP) PO PRN; CYCLOPENTOLATE HCL 1% OPHTH SOLN 2 ML BOTTLE OP SCH; KETOROLAC TROMETHAMINE 0.5% EYE DROP 1 DROP DROPS OP SCH; OFLOXACIN 0.3% OPHTHALMIC SOLUTION 5 ML BOTTLE OP SCH; PHENYLEPHRINE 2.5% OPHTH SOLN 15 ML BOTTLE OP SCH; TROPICAMIDE 1% OPHTH SOLN 15 ML BOTTLE OP SCH
[2018-01-04] MEDS ORDERED: CHONDROITIN SU A/HYALUR SOD 1 KIT ONE (07:09)
[2018-01-04] MEDS ORDERED: CYCLOPENTOLATE HCL 1% OPHTH SOLN 2 ML BOTTLE ONE (07:13)
[2018-01-04] MEDS ORDERED: KETOROLAC TROMETHAMINE 0.5% EYE DROP 1 DROP DROPS ONE (07:13)
[2018-01-04] MEDS ORDERED: TROPICAMIDE 1% OPHTH SOLN 15 ML BOTTLE ONE (07:13)
[2018-01-04] MEDS ORDERED: OFLOXACIN 0.3% OPHTHALMIC SOLUTION 5 ML BOTTLE ONE (07:13)
[2018-01-04] MEDS ORDERED: PHENYLEPHRINE 2.5% OPHTH SOLN 15 ML BOTTLE ONE (07:13)
[2018-01-04] MEDS ORDERED: CYCLOPENTOLATE HCL 1% OPHTH SOLN 2 ML BOTTLE OD ONE ×3 (07:25→07:40)
[2018-01-04] MEDS ORDERED: PHENYLEPHRINE 2.5% OPHTH SOLN 15 ML BOTTLE OD ONE ×3 (07:25→07:40)
[2018-01-04] MEDS ORDERED: OFLOXACIN 0.3% OPHTHALMIC SOLUTION 5 ML BOTTLE OD ONE ×3 (07:25→07:40)
[2018-01-04] MEDS ORDERED: TROPICAMIDE 1% OPHTH SOLN 15 ML BOTTLE OD ONE (07:25)
[2018-01-04] MEDS ORDERED: KETOROLAC TROMETHAMINE 0.5% EYE DROP 1 DROP DROPS OD ONE ×3 (07:25→07:40)
[2018-01-04] MEDS ORDERED: TROPICAMIDE 0.5% OPHTHALMIC SOLN 15 ML BOTTLE OD ONE ×2 (07:30→07:40)
[2018-01-04] MEDS ORDERED: EPINEPHrine/PF 1 MG/1 ML (1:1,000) AMPULE ONE (07:36)
[2018-01-04] MEDS ORDERED: TETRACAINE 0.5% OPHTH SOLN 2 ML BOTTLE ONE (07:36)
[2018-01-04] MEDS ORDERED: LIDOCAINE HCL/PF 1% SDV 5ML VIAL ONE (07:36)
[2018-01-04] MEDS ORDERED: BSS (NA/CA/MG/K) BALANCED SALT SOLUTION OPHTH SOLN 15 ML BOTTLE ONE (07:37)
[2018-01-04] MEDS ORDERED: MIDAZOLAM HCL 2 MG/2 ML SINGLE DOSE VIAL ONE (08:54)
[2018-01-04] MEDS ORDERED: TETRACAINE 0.5% OPHTH SOLN 2 ML BOTTLE OD ONE (09:17)
[2018-01-04] MEDS ORDERED: POVIDONE-IODINE 5% OPHTHALMIC PREP 30 ML SOLUTION OD ONE (09:18)
[2018-01-04] MEDS ORDERED: LIDOCAINE HCL 1% PRESERVATIVE FREE - 30ML VIAL IO ONE (09:25)
[2018-01-04] MEDS ORDERED: CHONDROITIN SU A/HYALUR SOD 1 KIT IO ONE (09:25)
[2018-01-04] MEDS ORDERED: BSS (NA/CA/MG/K) BALANCED SALT SOLUTION OPHTH SOLN 15 ML BOTTLE OD ONE (09:25)
[2018-01-04] MEDS ORDERED: EPINEPHrine/PF 1 MG/1 ML (1:1,000) AMPULE SQ ONE (09:34)
[2018-01-04 10:13] VITALS: BP 136/73; PULSE 67
[2018-01-04] MEDS ORDERED: ONDANSETRON 4 MG/2 ML VIAL IVPUSH PRN (10:50)
[2018-01-04] MEDS ORDERED: LACTATED RINGERS SOLUTION 1,000 ML IV SCH (11:00)
--- NOTE | 2018-01-04 11:12 | SPEC ---
DATE OF OPERATION: DATE OF DICTATION: 01/04/2018 OPERATION: Phacoemulsification with posterior chamber intraocular lens implantation, right eye. Lens used [id number], 23.0 diopter power, Serial No. [id number] PREOPERATIVE DIAGNOSIS: Cataract, right eye. POSTOPERATIVE DIAGNOSIS: Cataract, right eye. SURGEON: Jaime Childress M.D. ANESTHESIA: Topical MAC. COMPLICATIONS: None. PROCEDURE: The patient was brought to the operating room and correctly identified along with the operative site and the correct intraocular lens perkins. The patient was then prepped and draped in the usual sterile fashion including 5% Betadine solution in the conjunctival sac and an eyelid drape. An eyelid speculum was then placed in the eye. A paracentesis port was created and approximately 0.5 mL of preservative free Lidocaine was then injected into the eye. Viscoelastic was then injected to inflate the anterior chamber. A temporal clear corneal wound was created. A continuous circular capsulorrhexis was performed. The nucleus was then hydrodissected with BSS and removed with phacoemulsification. The remaining cortical material was irrigated and aspirated. Viscoelastic was injected to inflate the capsular bag and the intraocular lens was then implanted into the capsular bag. The remaining Viscoelastic was irrigated and aspirated from the eye. The IOL was noted to be well centered and completely covered by the anterior capsulorrhexis. Topical vancomycin was placed and the eye patched and shielded. All wounds were tested and found to be watertight. No suture was placed. The eye was then shielded. The patient was then discharged from the operating room in stable condition. JAIME CHILDRESS M.D. [id number]
[2018-01-04 11:25] VITALS: TEMP 98.5
== END 2018-01-04 11:00 | disposition home or self-care (01) ==
LOC: JASU-SURG 06:47
PROVIDERS: ATTEND Ophthalmology
PROC: 08RJ3JZ Replacement of Right Lens with Synthetic Substitute, Percutaneous Approach (ICD-10-PCS; principal; 2018-01-04 09:00)
DX: H26.9 Unspecified cataract (principal)

== ENCOUNTER 2018-01-14 16:00 | Emergency (ER) | payer OTHER ==
[2018-01-14 16:11] VITALS: BP 158/61; PULSE 80; TEMP 97.8; BMI 38.0
[2018-01-14] MEDS ORDERED: TETRACAINE 0.5% OPHTH SOLN 2 ML BOTTLE ONE (16:46)
--- NOTE | 2018-01-14 16:55 | PDOC ---
History of Present Illness - General Chief Complaint: Eye Problem Stated Complaint: EYE PROBLEM Time Seen by Provider: 01/14/18 16:44 - History of Present Illness Initial Comments: 72-year-old female with a past medical history significant for breast cancer dyslipidemia hypothyroidism diabetes hypertension and cataract presents for evaluation of right eye irritation 3 days. She states she feels she may have gotten sand in her eye. She has no other associated symptoms 01/14/18 16:51 Past History - Past Medical History Allergies/Adverse Reactions: Allergies Allergy/AdvReac Type Severity Reaction Status Date / Time codeine [Codeine] Allergy Severe Itching Verified 01/14/18 16:08 iodine [Iodine] Allergy Severe Itching Verified 01/14/18 16:08 Shellfish Allergy Severe Hives Verified 01/14/18 16:08 seafood Allergy Hives Uncoded 01/14/18 16:08 Home Medications: Ambulatory Orders Insulin NPL/Insulin Lispro [Humalog Mix 75-25 Pen] 50 unit SQ BID 07/25/13 Anastrozole [Arimidex -] 1 mg PO DAILY #0 02/10/16 Insulin Glargine,Hum.rec.anlog [Lantus Solostar PEN -] 27 units SQ BIDAC #0 04/26 Aspirin [ASA -] 81 mg PO DAILY #30 tab.chew 04/01/16 Metoprolol Tartrate 50 mg PO BID 02/13/17 Atorvastatin Ca [Lipitor] 40 mg PO HS #30 tablet 02/14/17 Levothyroxine [Synthroid -] 150 mcg PO DAILY@0700 #90 tablet 07/26/17 Methocarbamol [Robaxin -] 500 mg PO TID PRN #21 tablet 10/20/17 Naproxen 500 mg PO BID PRN #30 tablet. 10/20/17 Tobramycin Sulf/Dexamethasone [Tobradex *Eye Drops*] 1 drop OD Q4HWA #1 bottle 01/14/18 Anemia: No Asthma: No Cancer: Yes (BILATERAL breast cancer 2011) Cardiac Disorders: Yes ([place] 2016) CVA: No COPD: No (hospitalized for fluid lungs 1998) CHF: No Dementia: No Diabetes: Yes (IDDM X 38 YRS) GI Disorders: Yes (GERD) Disorders: No HTN: Yes Hypercholesterolemia: Yes Liver Disease: No Seizures: No Thyroid Disease: Yes (hypothyroid) - Surgical History Abdominal Surgery: Yes Appendectomy: No Cardiac Surgery: No Cholecystectomy: Yes Lung Surgery: No Neurologic Surgery: No Orthopedic Surgery: Yes (LEFT KNEE ARTHROSCOPY 2003) - Immunization History Td Vaccination: Yes TDAP Vaccination: Yes Immunization Up to Date: Yes - Suicide/Smoking/Psychosocial Hx Smoking Status: No Smoking History: Never smoked Years of Tobacco Use: 0 Have you smoked in the past 12 months: No Number of Cigarettes Smoked Daily: 0 Cigars Per Day: 0 Hx Alcohol Use: No Drug/Substance Use Hx: No Substance Use Type: None Hx Substance Use Treatment: No Review of Systems - Review of Systems HEENTM: Yes: See HPI, Eye Pain All Other Systems: Reviewed and Negative *Physical Exam - Vital Signs Last Vital Signs Temp Pulse Resp BP Pulse Ox 97.8 F 80 18 158/61 97 01/14/18 16:08 01/14/18 16:08 01/14/18 16:08 01/14/18 16:08 01/14/18 16:08 - Physical Exam Comments: HEAD: NC/AT EYES: Conjuntiva clear and normal on right eye. Right eye injection tetracaine drops instilled, fluorescein stain positive with blue light for a small corneal abrasion at the 6 o'clock position on the right eye MS: Full ROM in all joints without edema NEUROLOGIC: No gross sensory or motor deficits, NVID SKIN: Normal color and temperature no lesions or rashes 01/14/18 16:52 Medical Decision Making - Medical Decision Making Tobramycin drops follow-up with her eye doctor in one to 2 days 01/14/18 16:52 *DC/Admit/Observation/Transfer Diagnosis at time of Disposition: Corneal abrasion - Discharge Dispostion Disposition: HOME Condition at time of disposition: Stable Decision to Admit order: No - Prescriptions Prescriptions: Tobramycin Sulf/Dexamethasone [Tobradex *Eye Drops*] 1 drop OD Q4HWA #1 bottle - Referrals Referrals: Rich Jackson MD [Staff Physician] - - Patient Instructions Printed Discharge Instructions: DI for Corneal Abrasion, Corneal Abrasion Additional Instructions: regrese a la veena de emergencias si los sntomas empeoran o no se resuelven, consulte a wong oculista el lunes para obtener ms evaluaciones y opciones de tratamiento. Por favor, use las gotas de antibiticos que he prescrito pocos dylan se indica. Print Language: PALAUAN - Post Discharge Activity
== END 2018-01-14 16:58 | disposition home or self-care (01) ==
LOC: JERFT 16:00
DX: S05.01XA Injury of conjunctiva and corneal abrasion without foreign body, right eye, initial encounter (principal); X58.XXXA Exposure to other specified factors, initial encounter; Y93.89 Activity, other specified; Y92.89 Other specified places as the place of occurrence of the external cause; Y99.8 Other external cause status; I25.10 Atherosclerotic heart disease of native coronary artery without angina pectoris; I25.2 Old myocardial infarction; I10 Essential (primary) hypertension; E11.9 Type 2 diabetes mellitus without complications; Z79.4 Long term (current) use of insulin; E03.9 Hypothyroidism, unspecified; E78.5 Hyperlipidemia, unspecified; Z85.3 Personal history of malignant neoplasm of breast
CPT/HCPCS: 99281-25

== ENCOUNTER 2018-02-23 12:45 | Observation (INO) | payer OTHER ==
[2018-02-23 12:51] VITALS: BMI 38.0
--- NOTE | 2018-02-23 12:59 | PDOC ---
History of Present Illness - General Chief Complaint: Chest Pain Stated Complaint: PALPITATIONS Time Seen by Provider: 02/23/18 12:59 - History of Present Illness Initial Comments: 02/23/18 14:18 The patient is a 72 year old female with a history of HTN, HLD, DM, AL who presents for evaluation of chest pain. The patient reports intermittent episodes of left sided chest pressure beginning yesterday evening. She reported more persistent symptoms today prompting her presentation to the ED for further evaluation. She otherwise denies fevers, chills, SOB, nausea, vomiting, abdominal pain, or changes with urination or bowel movements. Past History - Past Medical History Allergies/Adverse Reactions: Allergies Allergy/AdvReac Type Severity Reaction Status Date / Time codeine [Codeine] Allergy Severe Itching Verified 02/23/18 12:52 iodine [Iodine] Allergy Severe Itching Verified 02/23/18 12:52 Shellfish Allergy Severe Hives Verified 02/23/18 12:52 seafood Allergy Hives Uncoded 02/23/18 12:52 Home Medications: Ambulatory Orders Insulin NPL/Insulin Lispro [Humalog Mix 75-25 Pen] 50 unit SQ BID 07/25/13 Anastrozole [Arimidex -] 1 mg PO DAILY #0 02/10/16 Insulin Glargine,Hum.rec.anlog [Lantus Solostar PEN -] 27 units SQ BIDAC #0 04/26 Aspirin [ASA -] 81 mg PO DAILY #30 tab.chew 04/01/16 Metoprolol Tartrate 50 mg PO BID 02/13/17 Atorvastatin Ca [Lipitor] 40 mg PO HS #30 tablet 02/14/17 Levothyroxine [Synthroid -] 150 mcg PO DAILY@0700 #90 tablet 07/26/17 Methocarbamol [Robaxin -] 500 mg PO TID PRN #21 tablet 10/20/17 Naproxen 500 mg PO BID PRN #30 tablet. 10/20/17 Tobramycin Sulf/Dexamethasone [Tobradex *Eye Drops*] 1 drop OD Q4HWA #1 bottle 01/14/18 Anemia: No Asthma: No Cancer: Yes (BILATERAL breast cancer 2011) Cardiac Disorders: Yes ([place] 2016) CVA: No COPD: No (hospitalized for fluid lungs 1998) CHF: No Dementia: No Diabetes: Yes (IDDM X 38 YRS) GI Disorders: Yes (GERD) Disorders: No HTN: Yes Hypercholesterolemia: Yes Liver Disease: No Seizures: No Thyroid Disease: Yes (hypothyroid) - Surgical History Abdominal Surgery: Yes Appendectomy: No Cardiac Surgery: No Cholecystectomy: Yes Lung Surgery: No Neurologic Surgery: No Orthopedic Surgery: Yes (LEFT KNEE ARTHROSCOPY 2003) - Immunization History Td Vaccination: Yes TDAP Vaccination: Yes Immunization Up to Date: Yes - Suicide/Smoking/Psychosocial Hx Smoking Status: No Smoking History: Never smoked Years of Tobacco Use: 0 Have you smoked in the past 12 months: No Number of Cigarettes Smoked Daily: 0 Cigars Per Day: 0 Hx Alcohol Use: No Drug/Substance Use Hx: No Substance Use Type: None Hx Substance Use Treatment: No Review of Systems - Review of Systems Comments:: 02/23/18 14:19 Constitutional: No fevers, chills, fatigue, malaise HEENT: No Rhinorrhea, nasal congestion, visual changes Cardiovascular: Chest pain. No syncope, palpitations, lightheadedness Respiratory: No Cough, SOB, Hemoptysis, Gastrointestinal: No Abdominal pain, Nausea, Vomiting, Constipation, Diarrhea, Melena Genitourinary: No Dysuria, Frequency, Urgency, Hesitancy, Hematuria, Flank pain Musculoskeletal: No Myalgia, arthralgia Skin: No rashes, itching, bruising, pallor Neurologic: No Headache, Dizziness, Numbness, Weakness, or Tingling Psychiatric: No Hallucinations. No SI or HI *Physical Exam - Vital Signs Last Vital Signs Temp Pulse Resp BP Pulse Ox 97.9 F 88 18 171/74 H 97 02/23/18 12:48 02/23/18 12:48 02/23/18 12:48 02/23/18 12:48 02/23/18 12:48 - Physical Exam Comments: 02/23/18 14:19 General Appearance: Nourished. No Apparent Distress HEENT: No Pharyngeal Erythema, Tonsillar Exudate, Tonsillar Erythema Neck: No Cervical Lymphadenopathy Respiratory/Chest: Lungs Clear, Normal Breath Sounds. No Crackles, Rales, Rhonchi, Wheezing Cardiovascular: Regular Rhythm, Regular Rate. No Murmur, Gallops, Rubs Gastrointestinal/Abdominal: Normal Bowel Sounds, Soft. No Guarding, Rebound, Tenderness Musculoskeletal: No CVA Tenderness Extremity: Normal Capillary Refill Integumentary: Normal Color, Dry, Warm Neurologic: Fully Oriented, Alert, Normal Mood/Affect, Normal Response, Heart Score/ECG Review - History History: Moderately suspicious - Electrocardiogram EKG: Normal - Age Age: >/= 65 - Risk Factors Risk Factors Heart Score: Yes Hx Hypercholesterolemia, Yes Hx Hypertension, Yes Hx Diabetes Based on the list above the patient has:: >/=3 risk factors or Hx atherosclerotic disease - Troponin Troponin: </= normal limit - Score Heart Score - Total: 5 #1 ECG reviewed & interpreted by me at: 14:20 General ECG Interpretation: Sinus Rhythm, Normal Rate, Normal Intervals, No acute ischemic changes ED Treatment Course - LABORATORY CBC & Chemistry Diagram: 02/23/18 13:40 02/23/18 13:40 Medical Decision Making - Medical Decision Making 02/23/18 14:20 The patient is a 72 year old female with a history of HTN, HLD, DM, AL who presents for evaluation of chest pain. Differential includes but is not limited to: ACS, Arrhythmia, Infectious, Metabolic Derangement. Given the patient's history and physical exam, we will obtain a cbc, cmp, troponin, ekg, chest plain film to evaluate further. We will continue to monitor and reassess while here in the ED. 02/23/18 16:07 CBC, cmp, troponin are unremarkable. Chest plain film is unremarkable. Given the patient's cardiac risk factors and prior AL, we believe she requires observation admission for further monitoring. We discussed the case with the admitting team who accepted the patient for admission. *DC/Admit/Observation/Transfer Diagnosis at time of Disposition: Chest pain Qualifiers: Chest pain type: unspecified Qualified Code(s): R07.9 - Chest pain, unspecified - Discharge Dispostion Condition at time of disposition: Stable Decision to Admit order: Yes - Referrals - Patient Instructions - Post Discharge Activity
--- NOTE | 2018-02-23 13:02 | PDOC ---
Attending Attestation - HPI HPI: 02/23/18 14:13 Patient is a 72 year old female with a significant past medical history of Bilateral breast CA 2012, AR 2017, GERD, Diabetes, HTN, Hypercholesterolemia, hypothyroid, who presents to the ED with complaints of chest palpitations that began earlier today. Patient reports experiencing increased chest palpitations as well as associated symptoms of left sided chest pain that she states radiates to her right, as well as head pain, nausea, chills, and slight diarrhea. She reports coming into the ED for further evaluation after symptoms continued to persist. Denies shortness of breath, fever. Denies vomiting. Denies contact with sick individuals, out of state travelling. Denies constipation, dysuria, hematuria. Denies any other symptoms. Allergies: Codeine, Iodine, shellfish. Social history: No smoking. No alcohol. No illicit drugs. Surgical history: Bilateral mastectomy, Left knee Arthroscopy 2003 PMD: Dr. Wagoner - Physicial Exam PE: 02/23/18 14:14 Vitals: Triage Vital signs reviewed General Appearance: no acute distress, well nourished well developed Head: Atraumatic Eyes: Pupils equal reactive round, extraocular movement intact Ears: TMs normal bilaterally Nose: Nares patent bilaterally; no nasal congestion Throat: Posterior oropharynx without erythema, mucous membranes moist Neck: Supple; No Nuchal rigidity Chest Wall: Nontender Cardiac: Regular rate and rhythm, no murmurs, no rubs, no gallops Lungs: Clear to auscultation bilateral, good air movement bilaterally Abdomen: Soft, non distended, normal bowel sounds, non tender to palpation Genitourinary: Rectal: Exam deferred Extremities: Full range of motion to all extremities, no cyanosis, clubbing, or edema Skin: Warm and dry, no rashes or lesions, no rash, no petechiae Neuro: AOX3; Cranial Nerves 2-12 grossly intact, Strength intact to all extremities, Sensation intact to all extremities, gait normal Psych: Normal mood, normal affect <Talib Wagner - Last Filed: 02/23/18 14:13> - Resident Resident Name: Peterson Monk - ED Attending Attestation I have performed the following: I have examined & evaluated the patient, The case was reviewed & discussed with the resident, I agree w/resident's findings & plan, Exceptions are as noted - Medical Decision Making 02/23/18 16:12 Chest discomfort now chest pain-free heart score 5 EKG nonischemic first troponin negative. Full dose ASA given Given heart score we'll admit to medicine for further management. <Uzair Ambriz - Last Filed: 02/23/18 16:12> Heart Score/ECG Review - History History: Moderately suspicious - Electrocardiogram EKG: Normal - Age Age: >/= 65 - Risk Factors Risk Factors Heart Score: Yes Hx Hypercholesterolemia, Yes Hx Hypertension, Yes Hx Diabetes Based on the list above the patient has:: >/=3 risk factors or Hx atherosclerotic disease - Troponin Troponin: </= normal limit - Score Heart Score - Total: 5 - ECG Impressions Comment:: 02/23/18 16:05 EKG performed at [facility] demonstrates normal sinus rhythm no ST elevations or T- wave inversions. Interpreted by me. <Uzair Ambriz - Last Filed: 02/23/18 16:12>
[2018-02-23 14:01] LABS: BASO % 0.8 % (0-2.0); EOS % 0.7 % (0-4.5); HEMATOCRIT 41.4 % (32.4-45.2); HEMOGLOBIN 13.4 GM/dL (10.7-15.3); LYMPH % 21.7 % (8-40); MCH 28.3 pg (25.7-33.7); MCHC 32.3 g/dl (32.0-36.0); MEAN CELL VOLUME 87.6 fl (80-96); MEAN PLT VOLUME 8.2 fl (7.5-11.1); MONO % 6.8 % (3.8-10.2); PLATELET COUNT 363 K/MM3 (134-434); RBC 4.72 M/mm3 (3.60-5.2); RDW 13.7 % (11.6-15.6); WHITE BLOOD COUNT 9.9 K/mm3 (4.0-10.0)
[2018-02-23 14:31] LABS: ALK PHOS 70 U/L (45-117); ANION GAP 8 MMOL/L (8-16); BILIRUBIN,TOTAL 0.4 mg/dL (0.2-1); BLOOD UREA NITROGEN 18 mg/dL (7-18); CALCIUM 9.6 mg/dL (8.5-10.1); CHLORIDE 106 mmol/L (98-107); CO2 27 mmol/L (21-32); CREATININE 0.8 mg/dL (0.55-1.3); GLUCOSE,RANDOM 52 mg/dL (74-106); POTASSIUM 3.8 mmol/L (3.5-5.1); SGOT/AST 15 U/L (15-37); SGPT/ALT 20 U/L (13-61); SODIUM 141 mmol/L (136-145); TOT PROT 8.2 g/dl (6.4-8.2)
[2018-02-23] MEDS ORDERED: METHOCARBAMOL 500 MG TABLET PO PRN (16:38)
[2018-02-23] MEDS ORDERED: ACETAMINOPHEN 325 MG TABLET (FP) PO PRN (16:39)
--- NOTE | 2018-02-23 16:48 | HP ---
Admitting History and Physical - Primary Care Physician PCP: Marjorie Odom - Admission Chief Complaint: I'm having sharp chest pain History of Present Illness: Ms Diamond is a very pleasant 72 year old female who comes in with left sided chest pain. She says she was in her physician's office when the pain came on. She said it was pressure like and radiated to her L axilla and both sides of her neck. She says the pain came on at rest and comes and goes. She does not know what exacerbates or relieves it. She says she has lightheadedness, palpitations, shortness of breath, and nausea associated with the pain. She denies fevers, chills, passing out, coughing, vomiting, abdominal pain, diarrhea , constipation, difficulty or pain on urination, or swelling. She currently is chest pain free. History Source: Patient Limitations to Obtaining History: Language Barrier - Past Medical History Cardiovascular: Yes: CAD, HTN, Hyperlipdemia Heme/Onc: Yes: Other (Breast ca as noted above) Endocrine: Yes: Diabetes Mellitus, Hypothyroidism - Past Surgical History Past Surgical History: Yes: Mastectomy - Smoking History Smoking history: Never smoked Have you smoked in the past 12 months: No Aproximately how many cigarettes per day: 0 - Alcohol/Substance Use Hx Alcohol Use: No History of Substance Use: reports: None - Social History ADL: Independent History of Recent Travel: No Home Medications - Allergies Allergies/Adverse Reactions: Allergies Allergy/AdvReac Type Severity Reaction Status Date / Time codeine [Codeine] Allergy Severe Itching Verified 02/23/18 12:52 iodine [Iodine] Allergy Severe Itching Verified 02/23/18 12:52 Shellfish Allergy Severe Hives Verified 02/23/18 12:52 seafood Allergy Hives Uncoded 02/23/18 12:52 - Home Medications Home Medications: Ambulatory Orders Insulin NPL/Insulin Lispro [Humalog Mix 75-25 Pen] 50 unit SQ BID 07/25/13 Anastrozole [Arimidex -] 1 mg PO DAILY #0 02/10/16 Insulin Glargine,Hum.rec.anlog [Lantus Solostar PEN -] 27 units SQ BIDAC #0 04/26 Aspirin [ASA -] 81 mg PO DAILY #30 tab.chew 04/01/16 Metoprolol Tartrate 50 mg PO BID 02/13/17 Atorvastatin Ca [Lipitor] 40 mg PO HS #30 tablet 02/14/17 Levothyroxine [Synthroid -] 150 mcg PO DAILY@0700 #90 tablet 07/26/17 Methocarbamol [Robaxin -] 500 mg PO TID PRN #21 tablet 10/20/17 Naproxen 500 mg PO BID PRN #30 tablet. 10/20/17 Tobramycin Sulf/Dexamethasone [Tobradex *Eye Drops*] 1 drop OD Q4HWA #1 bottle 01/14/18 Family Disease History - Family Disease History Family Disease History: CA: Mother (breast), Sister (breast) Review of Systems Findings/Remarks: Full review of systems obtained, as per HPI and otherwise negative Physical Examination Vital Signs: Vital Signs Temperature 36.6 C 02/23/18 12:48 Pulse Rate 88 02/23/18 12:48 Respiratory Rate 18 02/23/18 12:48 Blood Pressure 171/74 H 02/23/18 12:48 O2 Sat by Pulse Oximetry (%) 97 02/23/18 12:48 Constitutional: Yes: No Distress, Calm, Obese Eyes: Yes: Conjunctiva Clear, EOM Intact, PERRL HENT: Yes: Atraumatic, Normocephalic Cardiovascular: Yes: Regular Rate and Rhythm. No: Gallop, Murmur, Rub Respiratory: Yes: Regular, CTA Bilaterally. No: Rales, Rhonchi, Wheezes Gastrointestinal: Yes: Normal Bowel Sounds, Soft. No: Distention, Tenderness Extremities: Yes: WNL Edema: No Labs: CBC, BMP 02/23/18 13:40 02/23/18 13:40 Imaging - Results Chest X-ray: Report Reviewed, Image Reviewed EKG: Image Reviewed Problem List - Problems (1) Chest pain Assessment/Plan: -admit to telemetry under observation -cardiac enzymes x3 -cardiology consult -will make npo after mn for possible stress test Code(s): R07.9 - CHEST PAIN, UNSPECIFIED Qualifiers: Chest pain type: unspecified Qualified Code(s): R07.9 - Chest pain, unspecified (2) Diabetes Assessment/Plan: -diabetic diet -continue home regimen -FSBS and SSI Code(s): E11.9 - TYPE 2 DIABETES MELLITUS WITHOUT COMPLICATIONS (3) Hypothyroid Assessment/Plan: -continue synthroid -check TFTs Code(s): E03.9 - HYPOTHYROIDISM, UNSPECIFIED (4) HLD (hyperlipidemia) Assessment/Plan: -continue statin Code(s): E78.5 - HYPERLIPIDEMIA, UNSPECIFIED (5) Breast cancer Assessment/Plan: -continue anastrazole Code(s): C50.919 - MALIGNANT NEOPLASM OF UNSP SITE OF UNSPECIFIED FEMALE BREAST (6) HTN (hypertension) Assessment/Plan: -continue metoprolol Code(s): I10 - ESSENTIAL (PRIMARY) HYPERTENSION
--- NOTE | 2018-02-23 17:20 | CON.CARD ---
Consult Consult Specialty:: cardio - History of Present Illness Chief Complaint: papitations and cp History of Present Illness: 72 F here with palpitations and CP. known to me from office. has had multiple episodes of non-cardiac CP in past, often with mskel features, which triggers palpitations and anxiety. prior cath and mult MPI stress tests w/u for this negative. states last night felt CP at rest (near center of chest) that lasted 2 min. ? was similar quality to priors, "much stronger". palpitations assctd, as well as sob during pain. lasted about 2 min. no more cp since then. feels well at present PMH: HTN HPL vertigo - Past Medical History Cardio/Vascular: Yes: CAD, HTN, Hyperlipdemia Endocrine: Yes: Diabetes Mellitus, Hypothyroidism - Past Surgical History Past Surgical History: Yes: Mastectomy - Alcohol/Substance Use Hx Alcohol Use: No - Smoking History Smoking history: Never smoked Have you smoked in the past 12 months: No Aproximately how many cigarettes per day: 0 Home Medications - Allergies Allergies/Adverse Reactions: Allergies Allergy/AdvReac Type Severity Reaction Status Date / Time codeine [Codeine] Allergy Severe Itching Verified 02/23/18 12:52 iodine [Iodine] Allergy Severe Itching Verified 02/23/18 12:52 Shellfish Allergy Severe Hives Verified 02/23/18 12:52 seafood Allergy Hives Uncoded 02/23/18 12:52 - Home Medications Home Medications: Ambulatory Orders Insulin NPL/Insulin Lispro [Humalog Mix 75-25 Pen] 50 unit SQ BID 07/25/13 Anastrozole [Arimidex -] 1 mg PO DAILY #0 02/10/16 Insulin Glargine,Hum.rec.anlog [Lantus Solostar PEN -] 27 units SQ BIDAC #0 04/26 Aspirin [ASA -] 81 mg PO DAILY #30 tab.chew 04/01/16 Metoprolol Tartrate 50 mg PO BID 02/13/17 Atorvastatin Ca [Lipitor] 40 mg PO HS #30 tablet 02/14/17 Levothyroxine [Synthroid -] 150 mcg PO DAILY@0700 #90 tablet 07/26/17 Methocarbamol [Robaxin -] 500 mg PO TID PRN #21 tablet 10/20/17 Naproxen 500 mg PO BID PRN #30 tablet. 10/20/17 Tobramycin Sulf/Dexamethasone [Tobradex *Eye Drops*] 1 drop OD Q4HWA #1 bottle 01/14/18 Family Disease History - Family Disease History Family Disease History: CA: Mother (breast), Sister (breast) Review of Systems - Review of Systems Constitutional: denies: Chills, Fever Eyes: denies: Eye Pain HENT: denies: Nasal Congestion Neck: denies: Stiffness Cardiovascular: denies: Edema Respiratory: denies: Orthopnea, PND Gastrointestinal: denies: Diarrhea, Rectal Bleeding Genitourinary: denies: Burning, Hematuria Musculoskeletal: denies: Muscle Pain Integumentary: denies: Rash Neurological: denies: Numbness, Seizure, Syncope Endocrine: denies: Excessive Sweating Hematology/Lymphatic: denies: Excessive Bleeding Vital Signs: Vital Signs Temperature 97.9 F 02/23/18 12:48 Pulse Rate 88 02/23/18 12:48 Respiratory Rate 18 02/23/18 12:48 Blood Pressure 171/74 H 02/23/18 12:48 O2 Sat by Pulse Oximetry (%) 97 02/23/18 12:48 Constitutional: Yes: Well Nourished, No Distress Eyes: No: Sclera Icterus HENT: No: Nasal Congestion Neck: No: Decreased ROM Respiratory: Yes: CTA Bilaterally. No: Accessory Muscle Use, Rales, Wheezes Gastrointestinal: Yes: Normal Bowel Sounds. No: Distention, Hepatomegaly, Palpable Mass, Tenderness Cardiovascular: Yes: Regular Rate and Rhythm JVD: No Carotid Bruit: No PMI: Non-Displaced Heart Sounds: Yes: S1, S2. No: Gallop Murmur: No: Systolic Murmur, Diastolic Murmur Musculoskeletal: Yes: Other (No kyphosis) Extremities: No: Cold, Cyanosis Edema: No Peripheral Pulses: 2+ Left Carotid, 2+ Right Carotid, 2+ Left Doralis Pedis, 2+ Right Dorsalis Pedis Integumentary: No: Jaundice Neurological: Yes: Alert, Oriented (x3) Psychiatric: No: Agitated - Other Data Labs, Other Data: CBC, BMP 02/23/18 13:40 02/23/18 13:40 Troponin, BNP 02/23/18 13:40 Troponin I < 0.02 Troponin, BNP 02/23/18 13:40 Troponin I < 0.02 Laboratory Tests 02/23/18 02/23/18 13:40 13:40 WBC 9.9 Hgb 13.4 Plt Count 363 Sodium 141 Potassium 3.8 Carbon Dioxide 27 BUN 18 Creatinine 0.8 AST 15 ALT 20 Troponin I < 0.02 Assessment/Plan ECG: NSR, no path q's, no ST-Ts CXR: clear lungs, WNL MPI 02/2017: no ischemia, nl lvef Stress MPI 01/2016: No ekg changes. no ischemia. Nl EF. Echo 02/2017: nl lv/rv, mild tr/mr, rvsp 30-40 Cath 2006: mild disease only 4 week monitor 09/26: sinus with sinus tach; no SVT/AF, VT, nathan's. A/p: hpi: 72 yo with h/o HTN, HLD, pulmonary htn, IDDM, obesity/DINH, breast CA s/p mastectomy and chemo, hypothyroid here with cp, palps, sob. cp: -long h/o atypical (at times reproducible) CP for which mult w/u's in the past including cath and MPI perfusion images have been normal -pt with poor insight into nature of her sx's, her description of this episode suggests likely same (but stronger intensity) as priors -tender on exam over the affected area (near sternomanubrial angle), she can't say if reproduces the pain or not -ECG here normal -trop neg x 1. very low suspicion of ischemic CP syndrome presently--repeat 2nd trop and if neg will defer further ischemia eval and she should f/u with me in office. palps: -chronic sx, often occurs when has episodes of mskel cp (likely anxiety mediated ), SIMILAR TO PRESENT SX PATTERN -previously worked up including tele admits here and then 4 week monitor earlier this year with no arrhythmia (including during one pt-triggered event). -poor insight complicates attempts at reassurance that her chronic sx is non- cardiac and benign vertigo: -chronic sx with clear vestibular components, possibly exacerbated by thiazide use in past -possible BPPV HTN -well controlled at home on telmisartan 80 and metopr 25 bid -up initially here, ? anxiety -continue home meds (valsartan 320 while here (formulary)--then back to telmisartan 80 at home), observe BP trend DINH: -recent dx, bladimir oliveira
[2018-02-23] MEDS ORDERED: METOPROLOL TARTRATE 50 MG TABLET (FP) PO SCH (22:00)
[2018-02-23] MEDS ORDERED: ATORVASTATIN CA 40 MG TABLET (FP) PO SCH (22:00)
[2018-02-23] MEDS: TOBRA 0.3%/DEXAMETH 0.1% OPHTHALMIC SUSP 2.5 ML BTL OD SCH (23:40)
[2018-02-23] MEDS: METOPROLOL TARTRATE 25 MG TABLET (FP) PO SCH (23:48)
[2018-02-23] MEDS: INSULIN SLIDING SCALE (NOVOLOG) 1 VIAL SQ SCH (23:50)
[2018-02-24] MEDS: TOBRA 0.3%/DEXAMETH 0.1% OPHTHALMIC SUSP 2.5 ML BTL OD SCH ×2 (06:22→10:18)
[2018-02-24 06:53] LABS: BASO % 0.8 % (0-2.0); EOS % 3.2 % (0-4.5); HEMATOCRIT 39.7 % (32.4-45.2); HEMOGLOBIN 12.8 GM/dL (10.7-15.3); LYMPH % 30.4 % (8-40); MCH 28.4 pg (25.7-33.7); MCHC 32.2 g/dl (32.0-36.0); MEAN CELL VOLUME 88.3 fl (80-96); MEAN PLT VOLUME 8.4 fl (7.5-11.1); MONO % 6.5 % (3.8-10.2); NEUT % 59.1 % (42.8-82.8); PLATELET COUNT 320 K/MM3 (134-434); RBC 4.49 M/mm3 (3.60-5.2); RDW 13.9 % (11.6-15.6); WHITE BLOOD COUNT 6.5 K/mm3 (4.0-10.0)
[2018-02-24] MEDS ORDERED: INSULIN (NOVOLOG MIX 70/30) 100 UNITS/ML MDV SQ SCH (07:00)
[2018-02-24] MEDS ORDERED: LEVOTHYROXINE NA 75 MCG TABLET (FP) PO SCH (07:00)
[2018-02-24] MEDS ORDERED: INSULIN (LEVEMIR) 100 UNITS/ML UNITS SQ SCH (07:00)
[2018-02-24] MEDS: INSULIN SLIDING SCALE (NOVOLOG) 1 VIAL SQ SCH ×2 (07:03→12:37)
[2018-02-24 07:40] LABS: ANION GAP 10 MMOL/L (8-16); BLOOD UREA NITROGEN 16 mg/dL (7-18); CALCIUM 8.7 mg/dL (8.5-10.1); CHLORIDE 106 mmol/L (98-107); CO2 24 mmol/L (21-32); CREATININE 0.9 mg/dL (0.55-1.3); GLUCOSE,RANDOM 187 mg/dL (74-106); PHOSPHOROUS 3.3 mg/dL (2.5-4.9); SODIUM 141 mmol/L (136-145)
[2018-02-24] MEDS ORDERED: VALSARTAN 160 MG TABLET (UD) PO SCH (10:00)
[2018-02-24] MEDS ORDERED: ASPIRIN 81 MG CHEWABLE TABLETS PO SCH (10:00)
[2018-02-24] MEDS ORDERED: ANASTROZOLE 1 MG TABLET PO SCH (10:00)
[2018-02-24] MEDS ORDERED: PT OWN MED DRAWER 7, Y5N ONE ×2 (10:07→12:19)
[2018-02-24] MEDS: METOPROLOL TARTRATE 25 MG TABLET (FP) PO SCH (10:16)
[2018-02-24 10:53] VITALS: BP 140/68; PULSE 70; TEMP 98.6
--- NOTE | 2018-02-24 11:50 | PN ---
Progress Note (short form) - Note Progress Note: s: no cp sob palps dizzy o: Vital Signs Period Temp Pulse Resp BP Sys/Bailey Pulse Ox Last 24 Hr 97.3 F-98.8 F 64-88 17-18 132-171/67-74 97-99 Constitutional: Yes: Well Nourished, No Distress Eyes: No: Sclera Icterus Respiratory: Yes: CTA Bilaterally. No: Accessory Muscle Use, Rales, Wheezes Gastrointestinal: Yes: Normal Bowel Sounds. No: Distention, Hepatomegaly, Palpable Mass, Tenderness Cardiovascular: Yes: Regular Rate and Rhythm JVD: No Heart Sounds: Yes: S1, S2. No: Gallop Murmur: No: Systolic Murmur, Diastolic Murmur Extremities: No: Cold, Cyanosis Edema: No Integumentary: No: Jaundice diaphoresis Neurological: Yes: Alert, Oriented (x3) Psychiatric: No: Agitated Current Medications Generic Name Dose Route Start Last Admin Trade Name Freq PRN Reason Stop Dose Admin Acetaminophen 650 mg 02/23/18 16:39 02/23/18 23:49 Tylenol - PO 650 mg Q4H PRN Administration FEVER Anastrozole 1 mg 02/24/18 10:00 Arimidex - PO DAILY MAGGIE Aspirin 81 mg 02/24/18 10:00 02/24/18 10:16 Asa - PO 81 mg DAILY MAGGIE Administration Atorvastatin Calcium 40 mg 02/23/18 22:00 02/23/18 23:41 Lipitor - PO 40 mg HS MAGGIE Administration Insulin Aspart 50 units 02/24/18 07:00 02/24/18 07:03 Novolog Mix 70/30 Vial SQ 50 units BIDI MAGGIE Administration Insulin Aspart 1 vial 02/23/18 22:00 02/24/18 07:03 Novolog Vial Sliding Scale - SQ 6 units ACHS MAGGIE Administration Protocol Insulin Detemir 27 units 02/24/18 07:00 02/24/18 07:02 Levemir Vial SQ 27 units BIDAC MAGGIE Administration Levothyroxine Sodium 150 mcg 02/24/18 07:00 02/24/18 07:04 Synthroid - PO 150 mcg DAILY@0700 MAGGIE Administration Methocarbamol 500 mg 02/23/18 16:38 02/24/18 10:16 Robaxin - PO 500 mg TID PRN Administration BACK PAIN Metoprolol Tartrate 25 mg 02/23/18 22:00 02/24/18 10:16 Lopressor - PO 25 mg BID MAGGIE Administration Tobramycin/Dexamethasone 1 drop 02/23/18 18:00 02/24/18 10:18 Tobradex Ophthalmic Suspension - OD Not Given Q4HWA MAGGIE Valsartan 320 mg 02/24/18 10:00 02/24/18 10:16 Diovan - PO 320 mg DAILY MAGGIE Administration - Other Data Labs, Other Data: CBC, BMP 02/24/18 05:30 02/24/18 05:30 Assessment/Plan ECG: NSR, no path q's, no ST-Ts CXR: clear lungs, WNL MPI 02/2017: no ischemia, nl lvef Stress MPI 01/2016: No ekg changes. no ischemia. Nl EF. Echo 02/2017: nl lv/rv, mild tr/mr, rvsp 30-40 Cath 2006: mild disease only 4 week monitor 09/26: sinus with sinus tach; no SVT/AF, VT, nathan's. tele:: sr A/p: hpi: 72 yo with h/o HTN, HLD, pulmonary htn, IDDM, obesity/DINH, breast CA s/p mastectomy and chemo, hypothyroid here with cp, palps, sob. cp: -long h/o atypical (at times reproducible) CP for which mult w/u's in the past including cath and MPI perfusion images have been normal -pt with poor insight into nature of her sx's, her description of this episode suggests likely same (but stronger intensity) as priors -tender on exam over the affected area (near sternomanubrial angle), she can't say if reproduces the pain or not -ECG here normal -trop neg x 3. very low suspicion of ischemic CP syndrome, outpt f/u with dr muir. palps: -chronic sx, often occurs when has episodes of mskel cp (likely anxiety mediated ), SIMILAR TO PRESENT SX PATTERN -previously worked up including tele admits here and then 4 week monitor earlier this year with no arrhythmia (including during one pt-triggered event). -poor insight complicates attempts at reassurance that her chronic sx is non- cardiac and benign vertigo: -chronic sx with clear vestibular components, possibly exacerbated by thiazide use in past -possible BPPV HTN -well controlled at home on telmisartan 80 and metopr 25 bid -up initially here, ? anxiety -continue home meds (valsartan 320 while here (formulary)--then back to telmisartan 80 at home), observe BP trend DINH: -recent dx, seeign pulm cardiac [facility]ompson stable for dc
--- NOTE | 2018-02-24 13:10 | DS ---
Physical Examination Vital Signs: Vital Signs Temperature 37.0 C 02/24/18 10:00 Pulse Rate 70 02/24/18 10:00 Respiratory Rate 18 02/24/18 10:00 Blood Pressure 140/68 02/24/18 10:00 O2 Sat by Pulse Oximetry (%) 99 02/24/18 00:42 Constitutional: Yes: Well Nourished, No Distress, Calm Cardiovascular: Yes: Regular Rate and Rhythm. No: Gallop, Murmur, Rub Respiratory: Yes: Regular, CTA Bilaterally. No: Rales, Rhonchi, Wheezes Gastrointestinal: Yes: Normal Bowel Sounds, Soft. No: Distention, Tenderness Extremities: Yes: WNL Edema: No Labs: CBC, BMP 02/24/18 05:30 02/24/18 05:30 Discharge Summary Reason For Visit: PALPITATIONS Current Active Problems Chest pain (Acute) Diabetes (Acute) HLD (hyperlipidemia) (Acute) Hypothyroid (Acute) Hospital Course: (1) Chest pain Code(s): R07.9 - CHEST PAIN, UNSPECIFIED Qualifiers: Chest pain type: unspecified Qualified Code(s): R07.9 - Chest pain, unspecified (2) Diabetes Code(s): E11.9 - TYPE 2 DIABETES MELLITUS WITHOUT COMPLICATIONS (3) Hypothyroid Code(s): E03.9 - HYPOTHYROIDISM, UNSPECIFIED (4) HLD (hyperlipidemia) Code(s): E78.5 - HYPERLIPIDEMIA, UNSPECIFIED (5) Breast cancer Code(s): C50.919 - MALIGNANT NEOPLASM OF UNSP SITE OF UNSPECIFIED FEMALE BREAST (6) HTN (hypertension) Code(s): I10 - ESSENTIAL (PRIMARY) HYPERTENSION Ms Diamond is a pleasant 72 year old female who came in with atypical chest pain. She was admitted to telemetry for observation. Cardiac enzymes x3 were checked and negative. She was seen by cardiology and cleared. She is safe for discharge home. Condition: Stable - Instructions Diet, Activity, Other Instructions: resume previous diet and activity Referrals: Marjorie Odom MD [Primary Care Provider] - Derek Fisher MD [Staff Physician] - Disposition: HOME - Home Medications Comprehensive Discharge Medication List: Ambulatory Orders Insulin NPL/Insulin Lispro [Humalog Mix 75-25 Pen] 50 unit SQ BID 07/25/13 Anastrozole [Arimidex -] 1 mg PO DAILY #0 02/10/16 Insulin Glargine,Hum.rec.anlog [Lantus Solostar PEN -] 27 units SQ BIDAC #0 04/26 Aspirin [ASA -] 81 mg PO DAILY #30 tab.chew 04/01/16 Metoprolol Tartrate 50 mg PO BID 02/13/17 Atorvastatin Ca [Lipitor] 40 mg PO HS #30 tablet 02/14/17 Levothyroxine [Synthroid -] 150 mcg PO DAILY@0700 #90 tablet 07/26/17 Methocarbamol [Robaxin -] 500 mg PO TID PRN tablet 02/24/18 Tobramycin Sulf/Dexamethasone [Tobradex Ophthalmic Suspension -] 1 drop OD Q4HWA drops 02/24/18 Valsartan [Diovan] 320 mg PO DAILY #60 tablet 02/24/18
== END 2018-02-24 14:03 | disposition home or self-care (01) ==
LOC: JER 12:45 → JERBED 15:10 → J4W 22:48
PROVIDERS: ADMIT Internal Medicine; ATTEND Internal Medicine
PROC: 3E013VG Introduction of Insulin into Subcutaneous Tissue, Percutaneous Approach (ICD-10-PCS; principal; 2018-02-23)
DX: R07.9 Chest pain, unspecified (principal); I10 Essential (primary) hypertension; E78.5 Hyperlipidemia, unspecified; E11.9 Type 2 diabetes mellitus without complications; E03.9 Hypothyroidism, unspecified; I25.2 Old myocardial infarction; K21.9 Gastro-esophageal reflux disease without esophagitis; G47.33 Obstructive sleep apnea (adult) (pediatric); R01.1 Cardiac murmur, unspecified; Z85.3 Personal history of malignant neoplasm of breast; Z79.82 Long term (current) use of aspirin; Z79.84 Long term (current) use of oral hypoglycemic drugs; Z88.6 Allergy status to analgesic agent; Z91.013 Allergy to seafood
CPT/HCPCS: 36415; 71045-TC-FY; 80048; 80053; 82550; 82553; 82962; 83735; 84100; 84439; 84443; 84484; 85025; 96372; 99283-25; G0378

== ENCOUNTER 2018-04-06 11:56 | Emergency (ER) | payer OTHER ==
[2018-04-06 12:15] VITALS: BMI 37.5
--- NOTE | 2018-04-06 14:20 | PDOC ---
Rapid Medical Evaluation Chief Complaint: Constipation Medical Evaluation: Allergies Allergy/AdvReac Type Severity Reaction Status Date / Time codeine [Codeine] Allergy Severe Itching Verified 02/23/18 12:52 iodine [Iodine] Allergy Severe Itching Verified 02/23/18 12:52 Shellfish Allergy Severe Hives Verified 02/23/18 12:52 seafood Allergy Hives Uncoded 02/23/18 12:52 Vital Signs Temp Pulse Resp BP Pulse Ox 98.4 F 90 18 189/72 H 96 04/06/18 12:10 04/06/18 12:10 04/06/18 12:10 04/06/18 12:10 04/06/18 12:10 04/06/18 14:17 Pt c/o: constipation for 1 month passing only small pencil like soft stools every 3-4 days. Pt states passing gas and was given pills by her PMD which did not work. Pt denies abd distention, fever, urinary complaints, or upper abd pain.pt does complain of lower abd fullness and 1 episode of vomiting last night after eating a small dinner Pt on brief exam : abd soft, bs + x 4, no palpable mass Plan: labs, urine,and KUB, pt will likely need CT so will begin po contrast Discharge Disposition - Diagnosis Constipation - Discharge Dispostion Last Admission D/C Date: 07/26/17 - Referrals - Patient Instructions - Post Discharge Activity
[2018-04-06 14:53] LABS: BASO % 1.3 % (0-2.0); EOS % 1.4 % (0-4.5); HEMATOCRIT 39.1 % (32.4-45.2); HEMOGLOBIN 13.5 GM/dL (10.7-15.3); MCH 29.9 pg (25.7-33.7); MCHC 34.4 g/dl (32.0-36.0); MEAN CELL VOLUME 87.1 fl (80-96); MEAN PLT VOLUME 8.5 fl (7.5-11.1); MONO % 6.2 % (3.8-10.2); NEUT % 67.1 % (42.8-82.8); PLATELET COUNT 366 K/MM3 (134-434); RBC 4.49 M/mm3 (3.60-5.2); RDW 13.7 % (11.6-15.6); WHITE BLOOD COUNT 10.5 K/mm3 (4.0-10.0)
[2018-04-06 14:57] LABS: URINE APPEARANCE CLEAR; URINE BILIRUBIN NEGATIVE (<2.0 mg/dL); URINE COLOR LTYELLOW; URINE GLUCOSE (UA) NEGATIVE (NEGATIVE); URINE KETONE NEGATIVE (NEGATIVE); URINE LEUK ESTERASE 1+ (NEGATIVE); URINE NITRITE NEGATIVE (NEGATIVE); URINE PROTEIN NEGATIVE (NEGATIVE); URINE UROBILINOGEN NEGATIVE mg/dL (0.2-1.0)
[2018-04-06 15:01] LABS: EPI CELLS RARE /HPF (FEW); URINE BACTERIA MANY /hpf (NONE SEEN); URINE MUCUS RARE
[2018-04-06 15:20] LABS: ALK PHOS 66 U/L (45-117); ANION GAP 9 MMOL/L (8-16); BILIRUBIN,TOTAL 0.4 mg/dL (0.2-1); BLOOD UREA NITROGEN 18 mg/dL (7-18); CHLORIDE 106 mmol/L (98-107); CO2 24 mmol/L (21-32); GLUCOSE,RANDOM 154 mg/dL (74-106); SGPT/ALT 18 U/L (13-61); SODIUM 139 mmol/L (136-145); TOT PROT 8.3 g/dl (6.4-8.2)
[2018-04-06 15:21] LABS: POTASSIUM 3.9 mmol/L (3.5-5.1); SGOT/AST 21 U/L (15-37)
--- NOTE | 2018-04-06 15:57 | PDOC ---
History of Present Illness - General Chief Complaint: Constipation Stated Complaint: CONSTIPATION Time Seen by Provider: 04/06/18 14:09 History Source: Patient Exam Limitations: No Limitations - History of Present Illness Initial Comments: 04/06/18 15:57 72 year old woman with a significant past medical history of bilateral breast CA 2012 requiring bilateral mastectomy, [place] 2017, GERD, Diabetes, HTN, Hypercholesterolemia, hypothyroid, who presents to the ED with 1 month of pencil likes stool that have been passed every 3-4 days. The patient is passing gas, and had two episodes of NBNB emesis last night. She admits to headaches but denies fever. She denies blood in the stool but notes some pink water in the toilet. The patient admits to some diffuse abdominal pain, denies chest pain , shortness of breath, dysuria, hematuria. She denies night sweats, weight loss , recent travel, recent sickness. She has no other complaints at bedside. Past History - Past Medical History Allergies/Adverse Reactions: Allergies Allergy/AdvReac Type Severity Reaction Status Date / Time codeine [Codeine] Allergy Severe Itching Verified 02/23/18 12:52 iodine [Iodine] Allergy Severe Itching Verified 02/23/18 12:52 Shellfish Allergy Severe Hives Verified 02/23/18 12:52 seafood Allergy Hives Uncoded 02/23/18 12:52 Home Medications: Ambulatory Orders Insulin NPL/Insulin Lispro [Humalog Mix 75-25 Pen] 50 unit SQ BID 07/25/13 Anastrozole [Arimidex -] 1 mg PO DAILY #0 02/10/16 Insulin Glargine,Hum.rec.anlog [Lantus Solostar PEN -] 27 units SQ BIDAC #0 04/26 Aspirin [ASA -] 81 mg PO DAILY #30 tab.chew 04/01/16 Metoprolol Tartrate 50 mg PO BID 02/13/17 Atorvastatin Ca [Lipitor] 40 mg PO HS #30 tablet 02/14/17 Levothyroxine [Synthroid -] 150 mcg PO DAILY@0700 #90 tablet 07/26/17 Methocarbamol [Robaxin -] 500 mg PO TID PRN tablet 02/24/18 Tobramycin Sulf/Dexamethasone [Tobradex Ophthalmic Suspension -] 1 drop OD Q4HWA drops 02/24/18 Valsartan [Diovan] 320 mg PO DAILY #60 tablet 02/24/18 Cephalexin Monohydrate [Keflex -] 500 mg PO BID #7 capsule 04/06/18 Ondansetron [Zofran -] 4 mg PO BID #14 tablet 04/06/18 Polyethylene Glycol 3350 [Miralax (For Daily Use) -] 17 gm PO DAILY #1 bottle Anemia: No Asthma: No Cancer: Yes (BILATERAL BREAST) Cardiac Disorders: Yes ([place] 2016) CVA: No COPD: No CHF: No Dementia: No Diabetes: Yes GI Disorders: Yes (GERD) Disorders: No HTN: Yes Hypercholesterolemia: Yes Liver Disease: No Seizures: No Thyroid Disease: Yes (HYPO) - Surgical History Abdominal Surgery: Yes Appendectomy: No Cardiac Surgery: No Cholecystectomy: Yes Lung Surgery: No Neurologic Surgery: No Orthopedic Surgery: Yes (LEFT KNEE ARTHROSCOPY 2003) - Immunization History Td Vaccination: Yes TDAP Vaccination: Yes Immunization Up to Date: Yes - Suicide/Smoking/Psychosocial Hx Smoking Status: No Smoking History: Never smoked Years of Tobacco Use: 0 Have you smoked in the past 12 months: No Number of Cigarettes Smoked Daily: 0 Cigars Per Day: 0 Hx Alcohol Use: No Drug/Substance Use Hx: No Substance Use Type: None Hx Substance Use Treatment: No Review of Systems - Review of Systems Able to Perform ROS?: Yes Is the patient limited [place]an proficient: No Constitutional: No: Chills, Diaphoresis, Fever HEENTM: No: Tinnitus Respiratory: No: Cough, Orthopnea, Shortness of Breath Cardiac (ROS): No: Chest Pain, Lightheadedness, Palpitations ABD/GI: Yes: See HPI, Vomiting. No: Constipated, Diarrhea, Nausea : No: Burning, Dysuria, Incontinence Musculoskeletal: No: Muscle Weakness Neurological: Yes: See HPI, Headache. No: Numbness, Tingling *Physical Exam - Vital Signs Last Vital Signs Temp Pulse Resp BP Pulse Ox 98.4 F 90 18 189/72 H 96 04/06/18 12:10 04/06/18 12:10 04/06/18 12:10 04/06/18 12:10 04/06/18 12:10 - Physical Exam Comments: 04/06/18 16:04 GENERAL: Awake, alert, and fully oriented, in no acute distress HEAD: No signs of trauma, normocephalic, atraumatic EYES: EOMI, sclera anicteric, conjunctiva clear ENT: oropharynx clear without exudates. Moist mucosa NECK: Normal ROM, supple LUNGS: No distress, speaks full sentences, clear to auscultation bilaterally HEART: Regular rate and rhythm, normal S1 and S2, no murmurs, rubs or gallops, peripheral pulses normal and equal bilaterally. ABDOMEN: Soft, nontender, normoactive bowel sounds. No guarding, no rebound. No masses EXTREMITIES : Normal inspection, Normal range of motion, no edema. No clubbing or cyanosis. NEUROLOGICAL: Cranial nerves II through XII grossly intact. Normal speech, no focal sensorimotor deficits SKIN: Warm, Dry, normal turgor, no rashes or lesions noted RECTAL: good rectal tone, no external hemorrhoids, no hard stool Moderate Sedation - Procedure Monitoring Vital Signs: Procedure Monitoring Vital Signs Temperature 98.4 F 04/06/18 12:10 Pulse Rate 90 04/06/18 12:10 Respiratory Rate 18 04/06/18 12:10 Blood Pressure 189/72 H 04/06/18 12:10 O2 Sat by Pulse Oximetry (%) 96 04/06/18 12:10 ED Treatment Course - LABORATORY CBC & Chemistry Diagram: 04/06/18 14:44 04/06/18 14:44 - ADDITIONAL ORDERS Additional order review: Laboratory Results 04/06/18 04/06/18 14:44 14:20 Sodium 139 Potassium 3.9 Chloride 106 Carbon Dioxide 24 Anion Gap 9 BUN 18 Creatinine 1.0 Creat Clearance w eGFR 54.35 Random Glucose 154 H Calcium 9.0 Total Bilirubin 0.4 AST 21 ALT 18 Alkaline Phosphatase 66 Total Protein 8.3 H Albumin 4.0 Urine Color Ltyellow Urine Appearance Clear Urine pH 5.0 Ur Specific [place] 1.018 Urine Protein Negative Urine Glucose (UA) Negative Urine Ketones Negative Urine Blood 2+ H Urine Nitrite Negative Urine Bilirubin Negative Urine Urobilinogen Negative Ur Leukocyte Esterase 1+ H Urine WBC (Auto) 55 Urine RBC (Auto) 5 Ur Epithelial Cells Rare Urine Bacteria Many Urine Mucus Rare 04/06/18 14:44 RBC 4.49 MCV 87.1 MCHC 34.4 RDW 13.7 MPV 8.5 Neutrophils % 67.1 Lymphocytes % 24.0 D Monocytes % 6.2 Eosinophils % 1.4 Basophils % 1.3 Medical Decision Making - Medical Decision Making 04/06/18 16:12 72 year old woman with a significant past medical history of hypothyroidism bilateral breast CA 2012 requiring bilateral mastectomy, [place] 2017, GERD, Diabetes , HTN, Hypercholesterolemia, hypothyroid, who presents to the ED with 1 month of pencil likes stool that have been passed every 3-4 days. The patient is passing gas, and had two episodes of NBNB emesis last night. She admits to headaches but denies fever. She denies blood in the stool but notes some pink water in the toilet. The patient admits to some diffuse abdominal pain, denies chest pain, shortness of breath, dysuria, hematuria. She denies night sweats, weight loss, recent travel, recent sickness. She has no other complaints at bedside. ED Course: Consider constipation 2/2 dietary vs metastasis vs hypothroidism cbc, cmp, tsh, abd CT 04/06/18 16:44 ua: 33 wbc, + leuk esterase start Keflex, cbc: 10.5 cmp: unremarkable 04/06/18 16:45 TSH: within normal limits 04/06/18 18:[address] 04/06/18 19:[address]: no acute pathology. New renal mass in R renal pelvis 1.7cm Patient stable for discharge. Informed of all lab and imaging results. Given follow up instructions and strict return precautions. Patient expressed understanding and agree to plan. *DC/Admit/Observation/Transfer Diagnosis at time of Disposition: Constipation, Renal mass - Discharge Dispostion Disposition: HOME Decision to Admit order: No - Prescriptions Prescriptions: Cephalexin Monohydrate [Keflex -] 500 mg PO BID #7 capsule Ondansetron [Zofran -] 4 mg PO BID #14 tablet Polyethylene Glycol 3350 [Miralax (For Daily Use) -] 17 gm PO DAILY #1 bottle - Referrals Referrals: David Cervantes MD., [Staff Physician] - Tarun Faust MD [Staff Physician] - - Patient Instructions Printed Discharge Instructions: High-Fiber Diet Additional Instructions: You were seen in the ED for complaints of constipation. In the ED you were evaluated with labwork and imaging. Your results were remarkable for a new renal mass, that should further evaluated by your Family Doctor. There does not appear to be an acute need for immediate hospitalization. You are advised to follow up with your Primary Care Physician within 1 week. You were given a referral for Nephrology to follow up with your renal mass. Please follow up within 1 week. You were given a prescription for Zofran (anti-nausea) medication, Keflex ( antibiotic) for urinary tract infection, and Miralax for stool softening. Please take all medications as directed. Return to the ED immediately if you experience worsening nausea, abdominal pain , constipation, blood in the stool or urine, fevers, vomiting, diarrhea, chest pain or shortness of breath. Usted fue visto en el servicio de urgencias por quejas de estreimiento. En el servicio de urgencias se le evalu con trabajo de laboratorio e imgenes Elvia resultados fueron notables para carli nueva masa renal, que debe ser evaluada por wong mdico de kathryn. No parece elisabeth carli necesidad aguda de hospitalizacin inmediata. Se recomienda realizar un seguimiento con wong mdico de atencin primaria dentro de 1 semana. Recibi carli receta para el medicamento Zofran (contra las nuseas), Keflex ( antibitico) para la infeccin del tracto urinario y Miralax para el ablandamiento de las heces. Por favor tome todos los medicamentos dylan se le indique. Recibi carli referencia para que Nefrologa realice un seguimiento de wong masa renal. Por favor, seguimiento dentro de 1 semana. Regrese a la veena de urgencias inmediatamente si experimenta empeoramiento de nuseas, dolor abdominal, estreimiento, jose en las heces u orina, fiebre, vmitos, diarrea, dolor en el pecho o falta de aire. Print Language: IRISH - Post Discharge Activity
--- NOTE | 2018-04-06 18:52 | PDOC ---
Attending Attestation - Resident Resident Name: Alondra Milton - ED Attending Attestation I have performed the following: I have examined & evaluated the patient, The case was reviewed & discussed with the resident, I agree w/resident's findings & plan - HPI HPI: 04/06/18 18:46 [id number] with a h/o bilateral breast CA 2011 s/p bilateral mastectomy, [place] 2017, GERD, Diabetes, HTN, HLD, and hypothyroidism presenting with non-bloody, pencil- like stool for the past month. Patient also admits to passing gas. Patient reports 2 episodes of nonbloody, nonbilious vomit last night. +suprapubic pain worse with defecating. no bloody stools. Patient denies any recent travel or recent illnesses. Denies any urinary symptoms. - Physicial Exam PE: 04/06/18 18:52 NAD, well appearing, PERRL, EOMI, MMM, nl conjunctiva, anicteric; neck supple. lungs clear, RRR, abdomen soft +suprapubic TTP. DALEY x4, no focal neuro deficits. No peripheral edema. normal color for ethnicity, WWP. - Medical Decision Making 04/06/18 18:52 See HPI for details Vital signs reviewed, wnl. Prior notes reviewed, including admissions, discharges and consultations. laboratory results and imaging reviewed, basic labs and lytes wnl, normal LFTs UA_with bacteria, WBCs and leuk esterase. ED course: keflex for UTI CT a/p with contrast: pending results. s/o to Dr Dahl pending results and ultimate dispo Likely DC with keflex x 1 week course for UTI, zofran PRN for nausea. constipation care, high fiber diet. 04/08/18 16:27
[2018-04-06 20:12] VITALS: BP 116/35; PULSE 67; TEMP 98.2
[2018-04-06] MEDS ORDERED: CEPHALEXIN MONOHYDRATE 500 MG CAPSULE (UD) PO SCH (22:00)
== END 2018-04-06 20:30 | disposition home or self-care (01) ==
LOC: JER 11:56
DX: N39.0 Urinary tract infection, site not specified (principal); K59.00 Constipation, unspecified; N28.89 Other specified disorders of kidney and ureter; I10 Essential (primary) hypertension; E78.00 Pure hypercholesterolemia, unspecified; E03.9 Hypothyroidism, unspecified; E11.9 Type 2 diabetes mellitus without complications; Z79.4 Long term (current) use of insulin; Z85.3 Personal history of malignant neoplasm of breast; Z90.13 Acquired absence of bilateral breasts and nipples; Z91.013 Allergy to seafood; Z88.8 Allergy status to other drugs, medicaments and biological substances
CPT/HCPCS: 36415; 74176-TC; 80053; 81003; 81015; 82272; 84443; 85025; 87086; 87186; 99283-25

== ENCOUNTER 2018-07-17 13:14 | Emergency (ER) | payer OTHER ==
[2018-07-17 13:22] VITALS: BP 160/71; PULSE 95; TEMP 99.5; BMI 35.2
--- NOTE | 2018-07-17 14:02 | PDOC ---
History of Present Illness - General Chief Complaint: Cold Symptoms Stated Complaint: FLU LIKE SYMPTOMS Time Seen by Provider: 07/17/18 13:47 History Source: Patient Exam Limitations: Language Barrier - History of Present Illness Initial Comments: 72 yo F w a pmh of CAD, HTN, [place] 2017, GERD, HLD, b/l breast Cancer requiring b/ l mastectomy, DM, hypothyroidism presents to the ER after she experienced left sided chest pain yesterday, a productive cough for the past 3 days, subjective fevers, and overall body discomfort. She states that she took 1000 mg of oral tylenol this morning at 8 AM for her fevers. Yesterday, while she was watching TV she began experiencing left sided chest discomfort associated with palpitations and she felt like her heart was beating fast. She denied any associated nausea, vomiting, diaphoresis, or worsening by physical activity. She also denies recent ankle/leg swelling. She also endorses having a generalized headache but no neck rigidity. PCP: Marjorie Odom PSH: Mastectomy Allergies: Codeine, iodine, Shellfish Social Hx: Denies smoking, drinking, or other substance usage. Past History - Past Medical History Allergies/Adverse Reactions: Allergies Allergy/AdvReac Type Severity Reaction Status Date / Time codeine [Codeine] Allergy Severe Itching Verified 07/17/18 13:22 iodine [Iodine] Allergy Severe Itching Verified 07/17/18 13:22 Shellfish Allergy Severe Hives Verified 07/17/18 13:22 seafood Allergy Hives Uncoded 07/17/18 13:22 Home Medications: Ambulatory Orders Insulin NPL/Insulin Lispro [Humalog Mix 75-25 Pen] 50 unit SQ BID 07/25/13 Anastrozole [Arimidex -] 1 mg PO DAILY #0 02/10/16 Insulin Glargine,Hum.rec.anlog [Lantus Solostar PEN -] 27 units SQ BIDAC #0 04/26 Aspirin [ASA -] 81 mg PO DAILY #30 tab.chew 04/01/16 Metoprolol Tartrate 50 mg PO BID 02/13/17 Atorvastatin Ca [Lipitor] 40 mg PO HS #30 tablet 02/14/17 Levothyroxine [Synthroid -] 150 mcg PO DAILY@0700 #90 tablet 07/26/17 Methocarbamol [Robaxin -] 500 mg PO TID PRN tablet 02/24/18 Tobramycin Sulf/Dexamethasone [Tobradex Ophthalmic Suspension -] 1 drop OD Q4HWA drops 02/24/18 Valsartan [Diovan] 320 mg PO DAILY #60 tablet 02/24/18 Cephalexin Monohydrate [Keflex -] 500 mg PO BID #7 capsule 04/06/18 Ondansetron [Zofran -] 4 mg PO BID #14 tablet 04/06/18 Polyethylene Glycol 3350 [Miralax (For Daily Use) -] 17 gm PO DAILY #1 bottle Anemia: No Asthma: No Cancer: Yes (BILATERAL BREAST) Cardiac Disorders: Yes ([place] 2016) CVA: No COPD: No CHF: No Dementia: No Diabetes: Yes GI Disorders: Yes (GERD) Disorders: No HTN: Yes Hypercholesterolemia: Yes Liver Disease: No Seizures: No Thyroid Disease: Yes (HYPO) - Surgical History Abdominal Surgery: Yes Appendectomy: No Cardiac Surgery: No Cholecystectomy: Yes Lung Surgery: No Neurologic Surgery: No Orthopedic Surgery: Yes (LEFT KNEE ARTHROSCOPY 2003) - Immunization History Td Vaccination: Yes TDAP Vaccination: Yes Immunization Up to Date: Yes - Suicide/Smoking/Psychosocial Hx Smoking Status: No Smoking History: Current every day smoker Years of Tobacco Use: 0 Have you smoked in the past 12 months: No Number of Cigarettes Smoked Daily: 0 Cigars Per Day: 0 Information on smoking cessation initiated: No Hx Alcohol Use: No Drug/Substance Use Hx: No Substance Use Type: None Hx Substance Use Treatment: No Review of Systems - Review of Systems Able to Perform ROS?: Yes Comments:: CONSTITUTIONAL: Present: Fevers, chills, fatigue EYES: Absent: visual changes ENT: Absent: ear pain, no sore throat CARDIOVASCULAR: Present: Chest pain, palpitations. RESPIRATORY: Absent: cough, no SOB GI: Absent: abdominal pain, no nausea, no vomiting, no constipation, no diarrhea GENITOURINARY: Absent: dysuria, no frequency, no hematuria MUSKULOSKELETAL: Absent: back pain, no arthralgia, no myalgia SKIN: Absent: rash NEURO: Present: headache *Physical Exam - Vital Signs Last Vital Signs Temp Pulse Resp BP Pulse Ox 99.5 F 95 H 18 160/71 100 07/17/18 13:15 07/17/18 13:15 07/17/18 13:15 07/17/18 13:15 07/17/18 13:15 - Physical Exam Comments: GENERAL: Well-appearing, well-nourished. Not very well kept. Mild distress. HEENT: Normocephalic, atraumatic. PERRL, EOM intact. CARDIOVASCULAR: Normal S1, S2. Regular rate and rhythm. PULMONARY: There are mild wheezes in the left upper lung field. No rales or rhonchi. ABDOMEN: Soft, non-distended, non-tender. EXTREMITIES: Normal ROM in all four extremities. No gross deformities. SKIN: Warm, dry. No rash NEUROLOGICAL: No focal neurological deficits. Medical Decision Making - Medical Decision Making 72 yo F w a pmh of CAD, HTN, [place] 2017, GERD, HLD, b/l breast Cancer requiring b/ l mastectomy, DM, hypothyroidism presents to the ER after she experienced left sided chest pain yesterday, a productive cough for the past 3 days, subjective fevers, and overall body discomfort. She states that she took 1000 mg of oral tylenol this morning at 8 AM for her fevers. Yesterday, while she was watching TV she began experiencing left sided chest discomfort associated with palpitations and she felt like her heart was beating fast. She denied any associated nausea, vomiting, diaphoresis, or worsening by physical activity. She also denies recent ankle/leg swelling. She also endorses having a generalized headache but no neck rigidity. VS: WNL DDx IBNLT: PNA, URI, influenza, pneumothorax, ACS/IA, electrolyte/metabolic disturbance, other infection. Plan: Labs - cbc, cmp, lactic, blood cultures, trop, CXR, EKG, analgesia, IV hydration, re-assess. Patient Eloped from the ER before our management plan was implemented. Did not draw blood bc she eloped *DC/Admit/Observation/Transfer Diagnosis at time of Disposition: Chest pain - Discharge Dispostion Disposition: ELOPED Condition at time of disposition: Fair - Referrals Referrals: Marjorie Odom MD [Primary Care Provider] - - Patient Instructions - Post Discharge Activity
[2018-07-17] MEDS ORDERED: ACETAMINOPHEN 1000 MG/100 ML VIAL (NON FORMULARY) IVPB ONE (14:23)
[2018-07-17] MEDS ORDERED: SODIUM CHLORIDE 0.9% 500 ML INFUS.BAG IV ONE (14:28)
--- NOTE | 2018-07-17 16:04 | PDOC ---
Attending Attestation - Resident Resident Name: Osito Nelson - HPI HPI: 07/17/18 16:03 Pt eloped from ER prior to my evaluation. I attempted to call pt's personal phone number with no response. - Physicial Exam PE: 07/17/18 16:04 n/a - Medical Decision Making 07/17/18 16:04 n/a
== END 2018-07-17 15:30 | disposition left against medical advice (07) ==
LOC: JER 13:14
DX: R07.9 Chest pain, unspecified (principal); I25.10 Atherosclerotic heart disease of native coronary artery without angina pectoris; I10 Essential (primary) hypertension; E11.9 Type 2 diabetes mellitus without complications; Z79.4 Long term (current) use of insulin; E03.9 Hypothyroidism, unspecified; K21.9 Gastro-esophageal reflux disease without esophagitis; E78.00 Pure hypercholesterolemia, unspecified; Z85.3 Personal history of malignant neoplasm of breast; Z90.13 Acquired absence of bilateral breasts and nipples; Z91.013 Allergy to seafood; Z88.8 Allergy status to other drugs, medicaments and biological substances
CPT/HCPCS: 99281-25

== ENCOUNTER 2018-07-18 16:51 | Emergency (ER) | payer OTHER ==
--- NOTE | 2018-07-18 16:56 | PDOC ---
Rapid Medical Evaluation Chief Complaint: Chest Pain Time Seen by Provider: 07/18/18 16:53 Medical Evaluation: Allergies Allergy/AdvReac Type Severity Reaction Status Date / Time codeine [Codeine] Allergy Severe Itching Verified 07/17/18 13:22 iodine [Iodine] Allergy Severe Itching Verified 07/17/18 13:22 Shellfish Allergy Severe Hives Verified 07/17/18 13:22 seafood Allergy Hives Uncoded 07/17/18 13:22 07/18/18 16:53 I have performed a brief in-person evaluation of this patient. The patient presents with a chief complaint of: CP and SOB x2 days Pertinent physical exam findings: S1S2 No M/R/G. No edema. Lungs CTAB. I have ordered the following: cardiac w/u The patient will proceed to the ED for further evaluation. Discharge Disposition - Diagnosis Chest pain - Referrals - Patient Instructions - Post Discharge Activity
[2018-07-18 16:57] VITALS: TEMP 98.6; BMI 38.0
[2018-07-18 17:24] LABS: EOS % 5.1 % (0-4.5); HEMATOCRIT 39.2 % (32.4-45.2); HEMOGLOBIN 13.2 GM/dL (10.7-15.3); LYMPH % 22.6 % (8-40); MCH 29.4 pg (25.7-33.7); MCHC 33.7 g/dl (32.0-36.0); MEAN CELL VOLUME 87.4 fl (80-96); MEAN PLT VOLUME 8.2 fl (7.5-11.1); MONO % 11.4 % (3.8-10.2); NEUT % 59.9 % (42.8-82.8); PLATELET COUNT 295 K/MM3 (134-434); RBC 4.49 M/mm3 (3.60-5.2); WHITE BLOOD COUNT 6.6 K/mm3 (4.0-10.0)
--- NOTE | 2018-07-18 17:27 | PDOC ---
History of Present Illness - General Chief Complaint: Chest Pain Stated Complaint: Chest Pain Time Seen by Provider: 07/18/18 16:53 History Source: Patient, Sales And Service Engineer Used Exam Limitations: Language Barrier - History of Present Illness Initial Comments: Patient presents to the ER with the same symptoms as yesterday after she eloped from the ER yesterday. 72 yo F w a pmh of CAD, HTN, [place] 2017, GERD, HLD, b/l breast Cancer requiring b/ l mastectomy, DM, hypothyroidism presents to the ER after she experienced left sided chest pain yesterday, a productive cough for the past 3 days, subjective fevers, and overall body discomfort. She states that she took 1000 mg of oral tylenol this morning at 8 AM for her fevers. Yesterday, while she was watching TV she began experiencing left sided chest discomfort associated with palpitations and she felt like her heart was beating fast. She denied any associated nausea, vomiting, diaphoresis, or worsening by physical activity. She also denies recent ankle/leg swelling. She also endorses having a generalized headache but no neck rigidity. PCP: Marjorie Odom PSH: Mastectomy Allergies: Codeine, iodine, Shellfish Social Hx: Denies smoking, drinking, or other substance usage. Past History - Past Medical History Allergies/Adverse Reactions: Allergies Allergy/AdvReac Type Severity Reaction Status Date / Time codeine [Codeine] Allergy Severe Itching Verified 07/18/18 16:57 iodine [Iodine] Allergy Severe Itching Verified 07/18/18 16:57 Shellfish Allergy Severe Hives Verified 07/18/18 16:57 seafood Allergy Hives Uncoded 07/18/18 16:57 Home Medications: Ambulatory Orders Insulin NPL/Insulin Lispro [Humalog Mix 75-25 Pen] 50 unit SQ BID 07/25/13 Anastrozole [Arimidex -] 1 mg PO DAILY #0 02/10/16 Insulin Glargine,Hum.rec.anlog [Lantus Solostar PEN -] 27 units SQ BIDAC #0 04/26 Aspirin [ASA -] 81 mg PO DAILY #30 tab.chew 04/01/16 Metoprolol Tartrate 50 mg PO BID 02/13/17 Atorvastatin Ca [Lipitor] 40 mg PO HS #30 tablet 02/14/17 Levothyroxine [Synthroid -] 150 mcg PO DAILY@0700 #90 tablet 07/26/17 Methocarbamol [Robaxin -] 500 mg PO TID PRN tablet 02/24/18 Tobramycin Sulf/Dexamethasone [Tobradex Ophthalmic Suspension -] 1 drop OD Q4HWA drops 02/24/18 Valsartan [Diovan] 320 mg PO DAILY #60 tablet 02/24/18 Cephalexin Monohydrate [Keflex -] 500 mg PO BID #7 capsule 04/06/18 Ondansetron [Zofran -] 4 mg PO BID #14 tablet 04/06/18 Polyethylene Glycol 3350 [Miralax (For Daily Use) -] 17 gm PO DAILY #1 bottle Acetaminophen [Tylenol -] 500 mg PO Q8H #20 tablet 07/18/18 Guaifenesin [Robitussin -] 100 mg PO DAILY PRN #210 ml 07/18/18 Anemia: No Asthma: No Cancer: Yes (BILATERAL BREAST) Cardiac Disorders: Yes ([place] 2016) CVA: No COPD: No CHF: No Dementia: No Diabetes: Yes GI Disorders: Yes (GERD) Disorders: No HTN: Yes Hypercholesterolemia: Yes Liver Disease: No Seizures: No Thyroid Disease: Yes (HYPO) - Surgical History Abdominal Surgery: Yes Appendectomy: No Cardiac Surgery: No Cholecystectomy: Yes Lung Surgery: No Neurologic Surgery: No Orthopedic Surgery: Yes (LEFT KNEE ARTHROSCOPY 2003) - Immunization History Td Vaccination: Yes TDAP Vaccination: Yes Immunization Up to Date: Yes - Suicide/Smoking/Psychosocial Hx Smoking Status: No Smoking History: Never smoked Years of Tobacco Use: 0 Have you smoked in the past 12 months: No Number of Cigarettes Smoked Daily: 0 Cigars Per Day: 0 Hx Alcohol Use: No Drug/Substance Use Hx: No Substance Use Type: None Hx Substance Use Treatment: No Review of Systems - Review of Systems Able to Perform ROS?: Yes Comments:: CONSTITUTIONAL: Present: Fevers, chills, fatigue EYES: Absent: visual changes ENT: Absent: ear pain, no sore throat CARDIOVASCULAR: Present: Chest pain, palpitations. RESPIRATORY: Absent: cough, no SOB GI: Absent: abdominal pain, no nausea, no vomiting, no constipation, no diarrhea GENITOURINARY: Absent: dysuria, no frequency, no hematuria MUSKULOSKELETAL: Absent: back pain, no arthralgia, no myalgia SKIN: Absent: rash NEURO: Present: headache *Physical Exam - Vital Signs Last Vital Signs Temp Pulse Resp BP Pulse Ox 98.6 F 95 H 24 H 187/71 H 97 07/18/18 16:54 07/18/18 16:54 07/18/18 16:54 07/18/18 16:54 07/18/18 16:54 - Physical Exam Comments: GENERAL: Well-appearing, well-nourished. Not very well kept. Mild distress. HEENT: Normocephalic, atraumatic. PERRL, EOM intact. CARDIOVASCULAR: Normal S1, S2. Regular rate and rhythm. PULMONARY: There are mild wheezes in the left upper lung field. No rales or rhonchi. ABDOMEN: Soft, non-distended, non-tender. EXTREMITIES: Normal ROM in all four extremities. No gross deformities. SKIN: Warm, dry. No rash NEUROLOGICAL: No focal neurological deficits. ED Treatment Course - LABORATORY CBC & Chemistry Diagram: 07/18/18 17:12 07/18/18 17:12 Medical Decision Making - Medical Decision Making 72 yo F w a pmh of CAD, HTN, [place] 2017, GERD, HLD, b/l breast Cancer requiring b/ l mastectomy, DM, hypothyroidism presents to the ER after she experienced left sided chest pain yesterday, a productive cough for the past 3 days, subjective fevers, and overall body discomfort. She states that she took 1000 mg of oral tylenol this morning at 8 AM for her fevers. Yesterday, while she was watching TV she began experiencing left sided chest discomfort associated with palpitations and she felt like her heart was beating fast. She denied any associated nausea, vomiting, diaphoresis, or worsening by physical activity. She also denies recent ankle/leg swelling. She also endorses having a generalized headache but no neck rigidity. VS: Hypertensive, tachypneic. DDx IBNLT: PNA, URI, influenza, pneumothorax, ACS/NV, electrolyte/metabolic disturbance, other infection. Plan: Labs - cbc, cmp, trop, CXR, EKG, analgesia, IV hydration, re-assess. Labs unremarkable CXR normal. EKG unimpressive The patient is likely suffering from a URI Repeat Bp at bedside is 156/82 - Will DC patient with supportive care and PCP FU. *DC/Admit/Observation/Transfer Diagnosis at time of Disposition: Chest pain, URI (upper respiratory infection) - Discharge Dispostion Disposition: HOME Condition at time of disposition: Improved Decision to Admit order: No - Prescriptions Prescriptions: Acetaminophen [Tylenol -] 500 mg PO Q8H #20 tablet Guaifenesin [Robitussin -] 100 mg PO DAILY PRN #210 ml PRN Reason: Cough - Referrals Referrals: Marjorie Odom MD [Staff Physician] - - Patient Instructions Printed Discharge Instructions: DI for Atypical Chest Pain, DI for Common Cold , DI for Chest Pain Additional Instructions: You came into the Er with nasal congestion a cough and some chest pain. We believe you are suffering from a common cold - upper respiratory infection. We are sending tylenol and robitussin to your pharmacy - please make sure to go and pick it up. Please make sure to schedule a follow up appointment with your primary care doctor in the next 3 to 5 days to make sure you are getting better and being taken care of. Come back to the Er if your chest pain worsens, you become short of breath or have any other new or worsening concerns. Thank you for coming to the [facility] ER. We hope you feel better soon! Print Language: LAO - Post Discharge Activity
[2018-07-18 17:41] LABS: INR 1.03 (0.83-1.09); PROTHROMBIN TIME (PATIENT) 12.2 SEC (9.7-13.0)
[2018-07-18 17:53] LABS: ALBUMIN 3.9 g/dl (3.4-5.0); ALK PHOS 60 U/L (45-117); ANION GAP 10 MMOL/L (8-16); BILIRUBIN,TOTAL 0.4 mg/dL (0.2-1); BLOOD UREA NITROGEN 14 mg/dL (7-18); CALCIUM 8.9 mg/dL (8.5-10.1); CHLORIDE 104 mmol/L (98-107); CO2 25 mmol/L (21-32); CREATININE 0.9 mg/dL (0.55-1.3); GLUCOSE,RANDOM 127 mg/dL (74-106); MAGNESIUM 2.1 mg/dL (1.8-2.4); POTASSIUM 3.8 mmol/L (3.5-5.1); SGOT/AST 20 U/L (15-37); SGPT/ALT 23 U/L (13-61); SODIUM 138 mmol/L (136-145); TOT PROT 7.9 g/dl (6.4-8.2)
--- NOTE | 2018-07-18 19:01 | PDOC ---
Attending Attestation - Resident Resident Name: Osito Nelson - ED Attending Attestation I have performed the following: I have examined & evaluated the patient, The case was reviewed & discussed with the resident, I agree w/resident's findings & plan, Exceptions are as noted - HPI HPI: 07/18/18 19:00 73 yo female has had nasal congestion,cough and body aches for 3 days -stable vital signs - Physicial Exam PE: 07/18/18 19:01 wnwd 73 yo female presents in no acute distress head ncat eyes kai aomi nares rhinorrhea lungs scant rhonchi but no crackles,no wheezing and no rales cvs [id number] abd protuberant,nontender no cva tenderness extremities no pitting edema skin warm and dry neuro axox3,ambulatory - Medical Decision Making 07/18/18 19:04 REPEAT VITAL SIGNS pulse ox 95% on room air,pulse = 65 bp= 152/ <Mable Beltran - Last Filed: 07/18/18 19:04> - HPI HPI: 07/18/18 19:19 The patient is a 73 year old female with a significant past medical history of hypertension, hyperlipidemia, CAD, GERD, [place](2017) , breast ca (bilateral mastectomy), diabetes, and hypothyroidism who presents to the emergency department with left sided chest pain yesterday. The patient reports some associated productive cough for 3 days as well as subjective fever and body discomfort . the patient reports taking tylenol this morning for her fever . it is noted that the patient was seen in the ED 1 day ago for this complaint but eloped. The patient states that on the onset of her chest pain she was at home watching tv. She describe miguel angel chest pain as discomfort with palpitations. The patient endorses a headache on exam. She denies any other symptoms or complaints. <Lety Luna - Last Filed: 07/18/18 19:20> Attestations - Attestations 07/18/18 19:20 Documentation prepared by Lety Luna, acting as biomedical engineering aide for Mable Beltran MD. <Lety Luna - Last Filed: 07/18/18 19:20>
[2018-07-18 19:10] VITALS: BP 148/86; PULSE 88
--- NOTE | 2018-07-19 11:04 | EKG ---
Test Reason : Blood Pressure : / mmHG Vent. Rate : 087 BPM Atrial Rate : 087 BPM P-R Int : 134 ms QRS Dur : 094 ms QT Int : 370 ms P-R-T Axes : 076 028 065 degrees QTc Int : 445 ms NORMAL SINUS RHYTHM NORMAL ECG WHEN COMPARED WITH ECG OF 10-SEP-2017 21:25, NO SIGNIFICANT CHANGE WAS FOUND Confirmed by NIKO LEYVA MD ([id number]) on 07/19/2018 11:04:05 AM Referred By: Confirmed By:NIKO LEYVA MD
== END 2018-07-18 19:14 | disposition home or self-care (01) ==
LOC: JER 16:51
DX: R07.9 Chest pain, unspecified (principal); J06.9 Acute upper respiratory infection, unspecified; I25.10 Atherosclerotic heart disease of native coronary artery without angina pectoris; I10 Essential (primary) hypertension; I25.2 Old myocardial infarction; E11.9 Type 2 diabetes mellitus without complications; Z79.4 Long term (current) use of insulin; E03.9 Hypothyroidism, unspecified; E78.5 Hyperlipidemia, unspecified; K21.9 Gastro-esophageal reflux disease without esophagitis; Z85.3 Personal history of malignant neoplasm of breast; Z90.13 Acquired absence of bilateral breasts and nipples
CPT/HCPCS: 36415; 71046-TC-FY; 80053; 82550; 82553; 83735; 84484; 85025; 85610; 87070; 87804; 87880; 93005; 93010; 99283-25

== ENCOUNTER 2018-10-02 13:18 | Observation (INO) | payer OTHER ==
[2018-10-02 13:23] VITALS: BMI 32.4
[2018-10-02 15:07] LABS: BASO % 1.2 % (0-2.0); EOS % 1.2 % (0-4.5); HEMATOCRIT 41.1 % (32.4-45.2); HEMOGLOBIN 13.6 GM/dL (10.7-15.3); LYMPH % 25.4 % (8-40); MCH 28.6 pg (25.7-33.7); MCHC 33.1 g/dl (32.0-36.0); MEAN CELL VOLUME 86.3 fl (80-96); MEAN PLT VOLUME 8.6 fl (7.5-11.1); MONO % 5.7 % (3.8-10.2); NEUT % 66.5 % (42.8-82.8); PLATELET COUNT 351 K/MM3 (134-434); RBC 4.76 M/mm3 (3.60-5.2); RDW 14.2 % (11.6-15.6); WHITE BLOOD COUNT 9.4 K/mm3 (4.0-10.0)
[2018-10-02 15:29] LABS: ALBUMIN 3.9 g/dl (3.4-5.0); ALK PHOS 75 U/L (45-117); ANION GAP 8 MMOL/L (8-16); BILIRUBIN,TOTAL 0.4 mg/dL (0.2-1); BLOOD UREA NITROGEN 15.9 mg/dL (7-18); CALCIUM 9.4 mg/dL (8.5-10.1); CHLORIDE 109 mmol/L (98-107); CO2 24 mmol/L (21-32); CREATININE 0.8 mg/dL (0.55-1.3); GLUCOSE,RANDOM 68 mg/dL (74-106); MAGNESIUM 2.2 mg/dL (1.8-2.4); N-TERMINAL BNP 13.3 pg/ml (5-125); POTASSIUM 3.8 mmol/L (3.5-5.1); SGOT/AST 13 U/L (15-37); SGPT/ALT 20 U/L (13-61); SODIUM 141 mmol/L (136-145)
--- NOTE | 2018-10-02 17:30 | PDOC ---
Documentation entered by Swetha Hernandez SCRIBE, acting as scribe for Shanta Ayala MD. Shanta Ayala MD: This documentation has been prepared by the Mary brown Adrianna, SCRIBE, under my direction and personally reviewed by me in its entirety. I confirm that the documentation accurately reflects all work, treatment, procedures, and medical decision making performed by me. History of Present Illness - General Chief Complaint: Chest Pain Stated Complaint: CHEST PAIN Time Seen by Provider: 10/02/18 14:47 History Source: Patient Exam Limitations: No Limitations - History of Present Illness Initial Comments: 73 year old female, with a PMH of CAD, HTN, [place], GERD, HLD, bilateral breast cancer (s/p bilateral mastectomy), DM, and hypothyroidism, who presents to the ED for evaluation of chest pain for 6 hours. Patient reports dyspnea last night while sleeping. Upon waking up this morning, she felt diffuse chest pain. Patient describes the chest pain as a pressure that is intermittent and positional. She endorses associated non-productive cough and nausea (without vomit). She notes that her current symptoms feel different to those that presented when she had a [place]. Patient does take ASA daily. Allergies: Codeine, iodine, shellfish, seafood Surgical History: bilateral mastectomy, cholecystectomy, left knee arthroscopy Social History: None reported PCP: Dr. Blank Sam Operational Intelligence Officer: Dr. Derek Fisher 10/02/18 15:34 Past History - Past Medical History Allergies/Adverse Reactions: Allergies Allergy/AdvReac Type Severity Reaction Status Date / Time codeine [Codeine] Allergy Severe Itching Verified 10/02/18 13:21 iodine [Iodine] Allergy Severe Itching Verified 10/02/18 13:21 Shellfish Allergy Severe Hives Verified 10/02/18 13:21 seafood Allergy Hives Uncoded 10/02/18 13:21 Home Medications: Ambulatory Orders Anastrozole [Arimidex -] 1 mg PO DAILY #0 02/10/16 Aspirin [ASA -] 81 mg PO DAILY #30 tab.chew 04/01/16 Atorvastatin Ca [Lipitor] 40 mg PO HS #30 tablet 02/14/17 Levothyroxine [Synthroid -] 150 mcg PO DAILY@0700 #90 tablet 07/26/17 Methocarbamol [Robaxin -] 500 mg PO TID PRN tablet 02/24/18 Tobramycin Sulf/Dexamethasone [Tobradex Ophthalmic Suspension -] 1 drop OD Q4HWA drops 02/24/18 Ondansetron [Zofran -] 4 mg PO BID #14 tablet 04/06/18 Polyethylene Glycol 3350 [Miralax (For Daily Use) -] 17 gm PO DAILY #1 bottle Acetaminophen [Tylenol -] 500 mg PO Q8H #20 tablet 07/18/18 Insulin Glargine,Hum.rec.anlog [Lantus] 0 unit SQ ASDIR 10/02/18 Insulin Lispro [Humalog] 0 unit SQ ASDIR 10/02/18 Telmisartan [Micardis] 80 mg PO DAILY 10/02/18 Anemia: No Asthma: No Cancer: Yes (BILATERAL BREAST) Cardiac Disorders: Yes ([place] 2016) CVA: No COPD: No CHF: No Dementia: No Diabetes: Yes GI Disorders: Yes (GERD) Disorders: No HTN: Yes Hypercholesterolemia: Yes Liver Disease: No Seizures: No Thyroid Disease: Yes (HYPO) - Surgical History Abdominal Surgery: Yes Appendectomy: No Cardiac Surgery: No Cholecystectomy: Yes Lung Surgery: No Neurologic Surgery: No Orthopedic Surgery: Yes (LEFT KNEE ARTHROSCOPY 2003) - Immunization History Td Vaccination: Yes TDAP Vaccination: Yes Immunization Up to Date: Yes - Suicide/Smoking/Psychosocial Hx Smoking Status: No Smoking History: Never smoked Years of Tobacco Use: 0 Have you smoked in the past 12 months: No Number of Cigarettes Smoked Daily: 0 Cigars Per Day: 0 Hx Alcohol Use: No Drug/Substance Use Hx: No Substance Use Type: None Hx Substance Use Treatment: No Review of Systems - Review of Systems Comments:: GENERAL/CONSTITUTIONAL: No fever or chills. No weakness. HEAD, EYES, EARS, NOSE AND THROAT: No change in vision. No ear pain or discharge. No sore throat. CARDIOVASCULAR: +Dyspnea. +Intermittent, positional chest pressure. RESPIRATORY: +Non-productive cough. No wheezing or hemoptysis. GASTROINTESTINAL: +Nausea. No vomiting, diarrhea or constipation. GENITOURINARY: No dysuria, frequency, or change in urination. MUSCULOSKELETAL: No joint or muscle swelling or pain. No neck or back pain. SKIN: No rash NEUROLOGIC: No headache, vertigo, loss of consciousness, or change in strength/ sensation. ENDOCRINE: No increased thirst. No abnormal weight change. HEMATOLOGIC/LYMPHATIC: No anemia, easy bleeding, or history of blood clots. ALLERGIC/IMMUNOLOGIC: No hives or skin allergy. 10/02/18 15:34 *Physical Exam - Vital Signs Last Vital Signs Temp Pulse Resp BP Pulse Ox 98.4 F 91 H 18 147/79 95 10/02/18 13:21 10/02/18 13:21 10/02/18 13:21 10/02/18 13:21 10/02/18 13:21 Heart Score/ECG Review #1 General ECG Interpretation: Sinus Rhythm, Normal Rate (89), Normal Intervals, No acute ischemic changes Compared to previous ECG there are: No significant change ED Treatment Course - LABORATORY CBC & Chemistry Diagram: 10/02/18 14:41 10/02/18 14:41 - ADDITIONAL ORDERS Additional order review: Laboratory Results 10/02/18 14:41 Sodium 141 Potassium 3.8 Chloride 109 H Carbon Dioxide 24 Anion Gap 8 BUN 15.9 Creatinine 0.8 Est GFR (CKD-EPI)AfAm 84.18 Est GFR (CKD-EPI)NonAf 72.63 Random Glucose 68 L Calcium 9.4 Magnesium 2.2 Total Bilirubin 0.4 AST 13 L ALT 20 Alkaline Phosphatase 75 Troponin I < 0.02 B-Natriuretic Peptide 13.3 Total Protein 8.0 Albumin 3.9 10/02/18 14:41 RBC 4.76 MCV 86.3 MCHC 33.1 RDW 14.2 MPV 8.6 Neutrophils % 66.5 Lymphocytes % 25.4 Monocytes % 5.7 Eosinophils % 1.2 Basophils % 1.2 - RADIOLOGY Radiology Studies Ordered: Category Date Time Status CHEST X-RAY PORTABLE* [RAD] Stat Radiology 10/02/18 17:28 Ordered Radiograph Interpretation: EXAM#: TYPE/EXAM: RESULT: [id number] RAD/CHEST X-RAY PORTABLE* Chest: Chest pain Single AP view of the chest reveals an apical lordotic projection with clear lungs, prominent mediastinum and sharp angles. The soft tissues are intact. There are degenerative changes. An acute process is not seen. Correlation recommended Reported By: Ricci Gomez MD 10/02/18 17:59 10/02/18 18:03 - Consult/PCP Case discussed with consulting physician: Derek Fisher (18:15pm- paged Dr. Fisher, pending call back) - Additional Consults Time Called: 19:03 Consult/PCP: paged Dr. Fisher's call service, pending call back Time Called: 19:05 Consult/PCP: spoke with Dr. Fisher Medical Decision Making - Medical Decision Making 10/02/18 18:30 cxr normall labs unremarkabe. pt with significant h/o cardiac disease. will admit to tele r/o mi. dr Sam PCP, Dr Fisher job molder paged. *DC/Admit/Observation/Transfer Diagnosis at time of Disposition: Chest pain - Discharge Dispostion Decision to Admit order: Yes - Referrals - Patient Instructions - Post Discharge Activity
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
[2018-10-02] MEDS ORDERED: ASPIRIN 81 MG CHEWABLE TABLETS PO ONE (20:24)
[2018-10-02] MEDS ORDERED: ACETAMINOPHEN 325 MG TABLET (FP) PO PRN (20:27)
[2018-10-02] MEDS ORDERED: METHOCARBAMOL 500 MG TABLET PO PRN (20:32)
[2018-10-02] MEDS ORDERED: ACETAMINOPHEN 325 MG TABLET (FP) ONE (20:43)
[2018-10-02] MEDS ORDERED: ASPIRIN 81 MG CHEWABLE TABLETS ONE (20:43)
[2018-10-02] MEDS ORDERED: PATIENT'S OWN MEDICATION (NON-FORMULARY) (Telmisartan [Micardis] 80 MG) PO SCH (20:45)
[2018-10-02] MEDS ORDERED: INSULIN (NOVOLOG) ASPART 100 UNITS/ML 10ML VIAL ONE (20:50)
[2018-10-02] MEDS: INSULIN SLIDING SCALE (NOVOLOG) 1 VIAL SQ SCH (20:59)
[2018-10-02] MEDS ORDERED: LOSARTAN POTASSIUM 50 MG TABLET (FP) ONE (21:47)
[2018-10-02] MEDS ORDERED: ENOXAPARIN NA (PORCINE) 40 MG/0.4 ML DISP.SYRIN SQ ONE (21:48)
[2018-10-02] MEDS: ENOXAPARIN NA (PORCINE) 40 MG/0.4 ML DISP.SYRIN SQ SCH (21:51)
[2018-10-02] MEDS: POLYETHYLENE GLYCOL 3350 119 GM BTL PO SCH (21:51)
[2018-10-02] MEDS: LOSARTAN POTASSIUM 100 MG TABLET PO SCH (21:51)
[2018-10-02] MEDS ORDERED: ATORVASTATIN CA 80 MG TABLET (FP) PO SCH (22:00)
[2018-10-02] MEDS ORDERED: ONDANSETRON *ODT* 4 MG TABLET ONE (22:08)
[2018-10-02] MEDS ORDERED: ATORVASTATIN CA 80 MG TABLET (FP) ONE (22:08)
[2018-10-02] MEDS: ONDANSETRON 4 MG TABLET PO SCH (22:11)
[2018-10-02] MEDS: TOBRA 0.3%/DEXAMETH 0.1% OPHTHALMIC SUSP 2.5 ML BTL OD SCH (22:12)
[2018-10-03] MEDS ORDERED: INSULIN (NOVOLOG) ASPART 100 UNITS/ML 10ML VIAL ONE ×3 (02:47→14:24)
[2018-10-03] MEDS: INSULIN SLIDING SCALE (NOVOLOG) 1 VIAL SQ SCH ×3 (02:50→14:30)
[2018-10-03 06:17] LABS: EOS % 2.5 % (0-4.5); HEMATOCRIT 38.4 % (32.4-45.2); LYMPH % 32.6 % (8-40); MCH 29.1 pg (25.7-33.7); MCHC 33.8 g/dl (32.0-36.0); MEAN CELL VOLUME 86.1 fl (80-96); MEAN PLT VOLUME 8.5 fl (7.5-11.1); MONO % 6.6 % (3.8-10.2); NEUT % 57.3 % (42.8-82.8); PLATELET COUNT 315 K/MM3 (134-434); RBC 4.45 M/mm3 (3.60-5.2); RDW 14.1 % (11.6-15.6); WHITE BLOOD COUNT 8.6 K/mm3 (4.0-10.0)
[2018-10-03 06:33] LABS: PROTHROMBIN TIME (PATIENT) 11.8 SEC (9.7-13.0)
[2018-10-03 06:47] LABS: ALBUMIN 3.6 g/dl (3.4-5.0); ALK PHOS 71 U/L (45-117); ANION GAP 8 MMOL/L (8-16); BILIRUBIN,TOTAL 0.5 mg/dL (0.2-1); CALCIUM 8.9 mg/dL (8.5-10.1); CHLORIDE 109 mmol/L (98-107); CO2 25 mmol/L (21-32); CREATININE 0.9 mg/dL (0.55-1.3); GLUCOSE,RANDOM 189 mg/dL (74-106); PHOSPHOROUS 3.9 mg/dL (2.5-4.9); POTASSIUM 3.9 mmol/L (3.5-5.1); SGOT/AST 9 U/L (15-37); SGPT/ALT 19 U/L (13-61); SODIUM 142 mmol/L (136-145); TOT PROT 7.2 g/dl (6.4-8.2)
[2018-10-03] MEDS ORDERED: TOBRAMYCIN/DEXAMETHASONE OPHTH. OINTMENT 1 TUBE ONE (06:47)
[2018-10-03] MEDS: TOBRA 0.3%/DEXAMETH 0.1% OPHTHALMIC SUSP 2.5 ML BTL OD SCH ×2 (06:51→14:52)
[2018-10-03] MEDS ORDERED: LEVOTHYROXINE NA 50 MCG TABLET (FP) PO SCH (07:00)
[2018-10-03] MEDS ORDERED: LEVOTHYROXINE NA 150 MCG TABLET PO SCH (07:39)
[2018-10-03 08:29] LABS: CHOLESTEROL 179 mg/dL (50-200); HDL CHOLESTEROL 54 mg/dL (40-60); TRIGLYCERIDES 184 mg/dL (0-150)
[2018-10-03] MEDS ORDERED: ASPIRIN 81 MG CHEWABLE TABLETS PO SCH (10:00)
--- NOTE | 2018-10-03 10:20 | CON.CARD ---
Cardiology Consult (text) - Consultation Consultation Note: Consult Specialty:: cardio - History of Present Illness Chief Complaint: sob and cp History of Present Illness: 73F h/o HTN MT, HLD, pulm HTN, diastolic dysfunction, DVT, DM, breast cancer s/ p mastectomy, chemo p/w chest pain since day prior to admission. Sees Dr. Fisher for cardio, generally reproducible with palps and anxiety associated. Has chronic dyspnea on exertion, has had prior cath and stress tests negative. This episode started morning of admission, nonreproducible and not radiating, associated with sob, nausea. Had four episodes lasting a few minutes each, including in the ER. Received aspirin, statin, currently no chest pain. PMH: HTN HPL vertigo - Past Medical History Cardio/Vascular: Yes: CAD, HTN, Hyperlipdemia Endocrine: Yes: Diabetes Mellitus, Hypothyroidism - Past Surgical History Past Surgical History: Yes: Mastectomy - Alcohol/Substance Use Hx Alcohol Use: No - Smoking History Smoking history: Never smoked Have you smoked in the past 12 months: No Aproximately how many cigarettes per day: 0 Home Medications - Allergies Allergies/Adverse Reactions: Allergies Allergy/AdvReac Type Severity Reaction Status Date / Time codeine [Codeine] Allergy Severe Itching Verified 10/02/18 13:21 iodine [Iodine] Allergy Severe Itching Verified 10/02/18 13:21 Shellfish Allergy Severe Hives Verified 10/02/18 13:21 seafood Allergy Hives Uncoded 10/02/18 13:21 Home Medications Medication Instructions Recorded Anastrozole [Arimidex -] 1 mg PO DAILY #0 02/10/16 Aspirin [ASA -] 81 mg PO DAILY #30 tab.chew 04/01/16 Atorvastatin Ca [Lipitor] 40 mg PO HS #30 tablet 02/14/17 Levothyroxine [Synthroid -] 150 mcg PO DAILY@0700 #90 tablet 07/26/17 Methocarbamol [Robaxin -] 500 mg PO TID PRN tablet 02/24/18 Tobramycin Sulf/Dexamethasone 1 drop OD Q4HWA drops 02/24/18 [Tobradex Ophthalmic Suspension -] Ondansetron [Zofran -] 4 mg PO BID #14 tablet 04/06/18 Polyethylene Glycol 3350 [Miralax 17 gm PO DAILY #1 bottle 04/06/18 (For Daily Use) -] Acetaminophen [Tylenol -] 500 mg PO Q8H #20 tablet 07/18/18 Insulin Glargine,Hum.rec.anlog 0 unit SQ ASDIR 10/02/18 [Lantus] Insulin Lispro [Humalog] 0 unit SQ ASDIR 10/02/18 Telmisartan [Micardis] 80 mg PO DAILY 10/02/18 Family Disease History - Family Disease History Family Disease History: CA: Mother (breast), Sister (breast) Review of Systems - Review of Systems Constitutional: denies: Chills, Fever Eyes: denies: Eye Pain HENT: denies: Nasal Congestion Neck: denies: Stiffness Cardiovascular: denies: Edema Respiratory: denies: Orthopnea, PND Gastrointestinal: denies: Diarrhea, Rectal Bleeding Genitourinary: denies: Burning, Hematuria Musculoskeletal: denies: Muscle Pain Integumentary: denies: Rash Neurological: denies: Numbness, Seizure, Syncope Endocrine: denies: Excessive Sweating Hematology/Lymphatic: denies: Excessive Bleeding Vital Signs: Vital Signs Period Temp Pulse Resp BP Sys/Bailey Pulse Ox Last 24 Hr 97.0 F-98.6 F 66-91 18-20 128-150/53-79 94-97 Constitutional: Yes: Well Nourished, No Distress Eyes: No: Sclera Icterus HENT: No: Nasal Congestion Neck: No: Decreased ROM Respiratory: Yes: CTA Bilaterally. No: Accessory Muscle Use, Rales, Wheezes Gastrointestinal: Yes: Normal Bowel Sounds. No: Distention, Hepatomegaly, Palpable Mass, Tenderness Cardiovascular: Yes: Regular Rate and Rhythm, nl S1, S2 JVD: No Carotid Bruit: No PMI: Non-Displaced Heart Sounds: Yes: S1, S2. No: Gallop Murmur: No: Systolic Murmur, Diastolic Murmur Musculoskeletal: Yes: Other (No kyphosis) Extremities: No: Cold, Cyanosis Edema: No Peripheral Pulses: 2+ Left Carotid, 2+ Right Carotid, 2+ Left Doralis Pedis, 2+ Right Dorsalis Pedis Integumentary: No: Jaundice Neurological: Yes: Alert, Oriented (x3) Psychiatric: No: Agitated Laboratory Last Values WBC 8.6 K/mm3 (4.0-10.0) 10/03/18 05:30 RBC 4.45 M/mm3 (3.60-5.2) 10/03/18 05:30 Hgb 13.0 GM/dL (10.7-15.3) 10/03/18 05:30 Hct 38.4 % (32.4-45.2) 10/03/18 05:30 MCV 86.1 fl (80-96) 10/03/18 05:30 MCH 29.1 pg (25.7-33.7) 10/03/18 05:30 MCHC 33.8 g/dl (32.0-36.0) 10/03/18 05:30 RDW 14.1 % (11.6-15.6) 10/03/18 05:30 Plt Count 315 K/MM3 (134-434) 10/03/18 05:30 MPV 8.5 fl (7.5-11.1) 10/03/18 05:30 Absolute Neuts (auto) 4.9 K/mm3 (1.5-8.0) 10/03/18 05:30 Neutrophils % 57.3 % (42.8-82.8) 10/03/18 05:30 Lymphocytes % 32.6 % (8-40) D 10/03/18 05:30 Monocytes % 6.6 % (3.8-10.2) 10/03/18 05:30 Eosinophils % 2.5 % (0-4.5) D 10/03/18 05:30 Basophils % 1.0 % (0-2.0) 10/03/18 05:30 Nucleated RBC % 0 % (0-0) 10/03/18 05:30 PT with INR 11.80 SEC (9.7-13.0) 10/03/18 05:30 INR 1.00 (0.83-1.09) 10/03/18 05:30 PTT (Actin FS) 35.0 SECONDS (25.2-36.5) 10/03/18 05:30 Sodium 142 mmol/L (136-145) 10/03/18 05:30 Potassium 3.9 mmol/L (3.5-5.1) 10/03/18 05:30 Chloride 109 mmol/L (98-107) H 10/03/18 05:30 Carbon Dioxide 25 mmol/L (21-32) 10/03/18 05:30 Anion Gap 8 MMOL/L (8-16) 10/03/18 05:30 BUN 19.0 mg/dL (7-18) H 10/03/18 05:30 Creatinine 0.9 mg/dL (0.55-1.3) 10/03/18 05:30 Est GFR (CKD-EPI)AfAm 73.00 10/03/18 05:30 Est GFR (CKD-EPI)NonAf 62.99 10/03/18 05:30 POC Glucometer 369 UNITS (80-120) 10/03/18 08:54 Random Glucose 189 mg/dL (74-106) H 10/03/18 05:30 Calcium 8.9 mg/dL (8.5-10.1) 10/03/18 05:30 Phosphorus 3.9 mg/dL (2.5-4.9) 10/03/18 05:30 Magnesium 2.0 mg/dL (1.8-2.4) 10/03/18 05:30 Total Bilirubin 0.5 mg/dL (0.2-1) 10/03/18 05:30 AST 9 U/L (15-37) L 10/03/18 05:30 ALT 19 U/L (13-61) 10/03/18 05:30 Alkaline Phosphatase 71 U/L (45-117) 10/03/18 05:30 Troponin I < 0.02 ng/ml (0.00-0.05) 10/03/18 05:30 B-Natriuretic Peptide 13.3 pg/ml (5-125) 10/02/18 14:41 Total Protein 7.2 g/dl (6.4-8.2) 10/03/18 05:30 Albumin 3.6 g/dl (3.4-5.0) 10/03/18 05:30 Triglycerides 184 mg/dL (0-150) H 10/03/18 05:30 Cholesterol 179 mg/dL (50-200) 10/03/18 05:30 Total LDL Cholesterol 98 mg/dL (5-100) 10/03/18 05:30 HDL Cholesterol 54 mg/dL (40-60) 10/03/18 05:30 Assessment/Plan ECG: NSR, no path q's, no ST-Ts CXR: no acute process MPI 02/2017: no ischemia, nl lvef Stress MPI 01/2016: No ekg changes. no ischemia. Nl EF. Echo 02/2017: nl lv/rv, mild tr/mr, rvsp 30-40 Cath 2006: mild disease only 4 week monitor 09/26: sinus with sinus tach; no SVT/AF, VT, nathan's. tele: sinus A/p: hpi: 73 yo with h/o HTN, HLD, pulmonary htn, IDDM, obesity/DINH, breast CA s/p mastectomy and chemo, hypothyroid here with cp, sob cp, sob -long h/o atypical (at times reproducible) CP for which mult w/u's in the past including cath and MPI perfusion images have been normal -had four episodes yesterday she thinks different from prior - not reproducible - sob at baseline - h/o bronchospasm, on nebs at home, appears euvolemic, BNP 13 - last stress test 02/2017 with no ischemia - echo pending - trop neg x3, EKG no ischemic changes - nuclear stress test ordered - if benign findings on echo, mibi no further inpatient testing HLD - cont statin palps: - stable, cont metoprolol vertigo: -chronic sx with clear vestibular components, possibly exacerbated by thiazide use in past -possible BPPV HTN -well controlled at home on telmisartan 80 and metopr 25 bid -continue home meds losartan 100 while here (formulary)--then back to telmisartan 80 at home), observe BP trend DINH: -recent dx, seececelia pulphyllis
[2018-10-03] MEDS ORDERED: metoPROLOL SUCCINATE 25 MG TAB.SR.24H (FP) PO SCH (10:30)
--- NOTE | 2018-10-03 10:35 | EKG ---
Test Reason : Blood Pressure : / mmHG Vent. Rate : 089 BPM Atrial Rate : 089 BPM P-R Int : 152 ms QRS Dur : 086 ms QT Int : 378 ms P-R-T Axes : 062 -13 032 degrees QTc Int : 459 ms POOR DATA QUALITY, INTERPRETATION MAY BE ADVERSELY AFFECTED NORMAL SINUS RHYTHM NORMAL ECG WHEN COMPARED WITH ECG OF 18-JUL-2018 16:53, NO SIGNIFICANT CHANGE WAS FOUND Confirmed by Luis Hammer MD ([id number]) on 10/03/2018 10:35:38 AM Referred By: Confirmed By:Lusi Hammer MD
--- NOTE | 2018-10-03 11:04 | ECHO ---
Name: SUE GALLEGOS Exam:Adult Echocardiogram Study Date: 10/03/2018 09:52 AM Age: 73 yrs Reason For Study: Chest pain Height: 65 in Weight: 195 lb BSA: 2.0 m2 MMode/2D Measurements & Calculations IVSd: 1.1 cm ACS: 2.0 cm LVIDd: 2.9 cm LVIDs: 2.3 cm LVPWd: 1.3 cm EDV(Teich): 30.9 ml LVOT diam: 1.8 cm ESV(Teich): 18.5 ml Doppler Measurements & Calculations MV E max nikolas: 41.0 cm/sec Ao V2 max: 159.0 cm/sec MV A max nikolas: 79.5 cm/sec Ao max P.1 mmHg MV E/A: 0.52 Ao V2 mean: 94.5 cm/sec Ao mean P.3 mmHg Ao V2 VTI: 33.3 cm FLY(I,D): 1.5 cm2 LFY(V,D): 1.3 cm2 LV V1 max P.6 mmHg SV(LVOT): 50.9 ml LV V1 mean P.1 mmHg LV V1 max: 80.9 cm/sec LV V1 mean: 69.2 cm/sec LV V1 VTI: 20.5 cm TR max nikolas: 231.5 cm/sec Med Peak E' Nikolas: 8.0 cm/sec TR max P.5 mmHg Med E/e': 5.1 Lat Peak E' Nikolas: 7.6 cm/sec Lat E/e': 5.4 Procedure A complete two-dimensional transthoracic echocardiogram was performed (2D, M-mode, Doppler and color flow Doppler). Left Ventricle The left ventricular size, thickness and function are normal. Ejection Fraction = 65%. E/A reversal c onsistent with but not diagnostic of poor LV compliance. The left ventricular wall motion is normal. Right Ventricle The right ventricle is normal in size and function. Atria Normal left and right atrial size and function. Mitral Valve The mitral valve is normal in structure and function. There is trace mitral regurgitation. Tricuspid Valve The tricuspid valve is normal in structure and function. There is trace tricuspid regurgitation. Righ t ventricular systolic pressure is 21.5 mmhg. Assuming the RA pressure is 5 mmHg. Aortic Valve The aortic valve is normal in structure and function. Pulmonic Valve The pulmonic valve is not well visualized. Great Vessels The aortic root is normal size. Pericardium/Pleura There is no pericardial effusion. There is no pleural effusion. Interpretation Summary The left ventricular size, thickness and function are normal Ejection Fraction = 65%. The right ventricle is normal in size and function. There is trace mitral regurgitation. There is trace tricuspid regurgitation. Right ventricular systolic pressure is 21.5 mmhg. MD Luis Hammer 10/03/2018 11:04 AM
[2018-10-03] MEDS ORDERED: REGADENOSON 0.4 MG/5 ML PRE-FILLED SYRINGE IVPUSH ONE ×2 (13:15→13:24)
[2018-10-03] MEDS ORDERED: ASPIRIN 81 MG CHEWABLE TABLETS ONE (14:26)
[2018-10-03] MEDS ORDERED: LOSARTAN POTASSIUM 50 MG TABLET (FP) ONE (14:27)
[2018-10-03] MEDS: ONDANSETRON 4 MG TABLET PO SCH (14:30)
[2018-10-03] MEDS: LOSARTAN POTASSIUM 100 MG TABLET PO SCH (14:30)
[2018-10-03] MEDS: ENOXAPARIN NA (PORCINE) 40 MG/0.4 ML DISP.SYRIN SQ SCH (14:30)
[2018-10-03] MEDS: POLYETHYLENE GLYCOL 3350 119 GM BTL PO SCH (14:51)
[2018-10-03 15:36] VITALS: TEMP 98.1
--- NOTE | 2018-10-03 15:54 | DS ---
Physical Exam: SUBJECTIVE: Patient seen this morning and reports her pain has resolved. OBJECTIVE: Vital Signs Temperature 98.1 F 10/03/18 15:35 Pulse Rate 74 10/03/18 16:51 Respiratory Rate 18 10/03/18 16:51 Blood Pressure 124/74 10/03/18 16:51 O2 Sat by Pulse Oximetry (%) 96 10/03/18 16:51 PHYSICAL EXAM GENERAL: The patient is awake, alert, and fully oriented, in no acute distress. Obese HEAD: Normal with no signs of trauma. EYES: PERRL, extraocular movements intact ENT: moist mucous membranes. NECK: Trachea midline, full range of motion, supple. LUNGS: Breath sounds equal, clear to auscultation bilaterally, no wheezes, no crackles, no accessory muscle use. HEART: Regular rate and rhythm, S1, S2 without murmur, rub or gallop. ABDOMEN: Soft, nontender, nondistended, normoactive bowel sounds EXTREMITIES: leg pain to deep palpation, chronic SKIN: Warm, dry, normal turgor, no rashes or lesions noted. LABS Laboratory Results - last 24 hr 10/02/18 10/02/18 10/03/18 20:46 22:20 02:41 WBC RBC Hgb Hct MCV MCH MCHC RDW Plt Count MPV Absolute Neuts (auto) Neutrophils % Lymphocytes % Monocytes % Eosinophils % Basophils % Nucleated RBC % PT with INR INR PTT (Actin FS) Sodium Potassium Chloride Carbon Dioxide Anion Gap BUN Creatinine Est GFR (CKD-EPI)AfAm Est GFR (CKD-EPI)NonAf POC Glucometer 217 243 Random Glucose Calcium Phosphorus Magnesium Total Bilirubin AST ALT Alkaline Phosphatase Troponin I < 0.02 Total Protein Albumin Triglycerides Cholesterol Total LDL Cholesterol HDL Cholesterol 10/03/18 10/03/18 10/03/18 05:30 05:30 05:30 WBC 8.6 RBC 4.45 Hgb 13.0 Hct 38.4 MCV 86.1 MCH 29.1 MCHC 33.8 RDW 14.1 Plt Count 315 MPV 8.5 Absolute Neuts (auto) 4.9 Neutrophils % 57.3 Lymphocytes % 32.6 D Monocytes % 6.6 Eosinophils % 2.5 D Basophils % 1.0 Nucleated RBC % 0 PT with INR 11.80 INR 1.00 PTT (Actin FS) 35.0 Sodium 142 Potassium 3.9 Chloride 109 H Carbon Dioxide 25 Anion Gap 8 BUN 19.0 H Creatinine 0.9 Est GFR (CKD-EPI)AfAm 73.00 Est GFR (CKD-EPI)NonAf 62.99 POC Glucometer Random Glucose 189 H Calcium 8.9 Phosphorus 3.9 Magnesium 2.0 Total Bilirubin 0.5 AST 9 L ALT 19 Alkaline Phosphatase 71 Troponin I < 0.02 Total Protein 7.2 Albumin 3.6 Triglycerides 184 H Cholesterol 179 Total LDL Cholesterol 98 HDL Cholesterol 54 10/03/18 10/03/18 08:54 13:30 WBC RBC Hgb Hct MCV MCH MCHC RDW Plt Count MPV Absolute Neuts (auto) Neutrophils % Lymphocytes % Monocytes % Eosinophils % Basophils % Nucleated RBC % PT with INR INR PTT (Actin FS) Sodium Potassium Chloride Carbon Dioxide Anion Gap BUN Creatinine Est GFR (CKD-EPI)AfAm Est GFR (CKD-EPI)NonAf POC Glucometer 369 255 Random Glucose Calcium Phosphorus Magnesium Total Bilirubin AST ALT Alkaline Phosphatase Troponin I Total Protein Albumin Triglycerides Cholesterol Total LDL Cholesterol HDL Cholesterol HOSPITAL COURSE: Date of Admission:10/02/18 Pt is a 72 yo F with PMHx of HTN, TX, hyperlipidemia, CAD (s/p TX 01/2017), pulmonary HTN, diastolic dysfunction, left leg DVT, DM, breast cancer (s/p b/l mastectomy and chemo), hypothyroidism who was admitted to r/o ACS. Patient had trops negative x3. Patients symptoms resolved. Patient had normal ECHO and stress test. Patient vitals stable and stable for discharge. Excercise results of Lexiscan: no ECG changes of ischemia Nuclear results: normal myocardial perfusion, ejection fraction= 67% Echo: LV size, thickness and function normal, EF 65%, RV size and function normal Date of Discharge: 10/03/18 Minutes to complete discharge: 40 Discharge Summary Reason For Visit: CHEST PAIN Condition: Improved - Instructions Diet, Activity, Other Instructions: You were admitted to the hospital for pain in your chest. While you were here you had a stress test and we did imaging (echo). We found theses results to be normal. Please make an appointment to follow up with your seo coordinator, Dr. Fisher, within one week. Please resume your home medications as prescribed. Please make an appointment to follow up with your primary care physician within one week. Return to the Emergency Department if you have any nausea, vomiting, dizziness, shortness of breath, or worsening of symptoms. Referrals: Derek Fisher MD [Staff Physician] - Disposition: HOME - Home Medications Comprehensive Discharge Medication List: Ambulatory Orders Anastrozole [Arimidex -] 1 mg PO DAILY #0 02/10/16 Aspirin [ASA -] 81 mg PO DAILY #30 tab.chew 04/01/16 Atorvastatin Ca [Lipitor] 40 mg PO HS #30 tablet 02/14/17 Levothyroxine [Synthroid -] 150 mcg PO DAILY@0700 #90 tablet 07/26/17 Methocarbamol [Robaxin -] 500 mg PO TID PRN tablet 02/24/18 Tobramycin Sulf/Dexamethasone [Tobradex Ophthalmic Suspension -] 1 drop OD Q4HWA drops 02/24/18 Ondansetron [Zofran -] 4 mg PO BID #14 tablet 04/06/18 Polyethylene Glycol 3350 [Miralax (For Daily Use) -] 17 gm PO DAILY #1 bottle Acetaminophen [Tylenol -] 500 mg PO Q8H #20 tablet 07/18/18 Insulin Glargine,Hum.rec.anlog [Lantus] 0 unit SQ ASDIR 10/02/18 Insulin Lispro [Humalog] 0 unit SQ ASDIR 10/02/18 Telmisartan [Micardis] 80 mg PO DAILY 10/02/18 Albuterol Sulfate Inhaler - [Ventolin HFA Inhaler -] 2 puff PO TID 10/03/18 Diclofenac Sodium [Voltaren] TP PRN 10/03/18 Escitalopram Oxalate [Lexapro -] 20 mg PO DAILY 10/03/18 Fenofibrate Nanocrystallized [Fenofibrate] 145 mg PO DAILY 10/03/18 Fluticasone Propionate [Flovent Diskus] 2 puff IH BID 10/03/18 Memantine HCl 5 mg PO DAILY 10/03/18 Metoprolol Tartrate 25 mg PO BID 10/03/18 This patient is new to me today: No Emergency Visit: No Critical Care patient: No - Discharge Referral Referred to [facility] No
--- NOTE | 2018-10-03 16:51 | PN ---
Teaching Attending Note Name of Resident: Dafne Tran ATTENDING PHYSICIAN STATEMENT I saw and evaluated the patient. I reviewed the resident's note and discussed the case with the resident. I agree with the resident's findings and plan as documented. SUBJECTIVE:currently has no symptoms. denies Cp, SOB, fever, chills, N/v/C/D OBJECTIVE: Last Vital Signs Temp Pulse Resp BP Pulse Ox 98.1 F 77 20 137/67 95 10/03/18 15:35 10/03/18 15:35 10/03/18 15:35 10/03/18 15:35 10/03/18 15:35 general NAD CV S1 S2 RRR no murmur/rub/gallop Lungs CTA B/L no wheezing/rales/rhonchi ASSESSMENT AND PLAN: 73yo F wtih PMH CAD, HTN, DINH, DM ,Diastolic CHF, hypothyroid presneting to the ER with CP 1. CP- no recurrent episodes. cardiac markers neg x3. echo and NMST ordered. cardio consulted. if negative can d/c home today
[2018-10-03 16:52] VITALS: BP 124/74; PULSE 74
[2018-10-04] MEDS ORDERED: LEVOTHYROXINE NA 150 MCG TABLET PO SCH (07:00)
== END 2018-10-03 17:00 | disposition home or self-care (01) ==
LOC: JER 13:18 → JERBED 18:31
PROVIDERS: ADMIT Internal Medicine; ATTEND Internal Medicine
PROC: 3E033GC Introduction of Other Therapeutic Substance into Peripheral Vein, Percutaneous Approach (ICD-10-PCS; principal; 2018-10-02)
PROC: 3E013VG Introduction of Insulin into Subcutaneous Tissue, Percutaneous Approach (ICD-10-PCS; 2018-10-02)
PROC: 3E013GC Introduction of Other Therapeutic Substance into Subcutaneous Tissue, Percutaneous Approach (ICD-10-PCS; 2018-10-02)
DX: R07.9 Chest pain, unspecified (principal); R06.02 Shortness of breath; I11.0 Hypertensive heart disease with heart failure; E78.5 Hyperlipidemia, unspecified; I25.10 Atherosclerotic heart disease of native coronary artery without angina pectoris; I25.2 Old myocardial infarction; K21.9 Gastro-esophageal reflux disease without esophagitis; E11.9 Type 2 diabetes mellitus without complications; E03.9 Hypothyroidism, unspecified; I50.30 Unspecified diastolic (congestive) heart failure; I27.20 Pulmonary hypertension, unspecified; R01.1 Cardiac murmur, unspecified; E66.9 Obesity, unspecified; Z68.34 Body mass index [BMI] 34.0-34.9, adult; Z79.4 Long term (current) use of insulin; Z79.82 Long term (current) use of aspirin; Z85.3 Personal history of malignant neoplasm of breast; Z90.13 Acquired absence of bilateral breasts and nipples; Z88.5 Allergy status to narcotic agent; Z91.048 Other nonmedicinal substance allergy status; Z91.013 Allergy to seafood; Z86.718 Personal history of other venous thrombosis and embolism; Z92.21 Personal history of antineoplastic chemotherapy
CPT/HCPCS: 36415; 71045-TC-FY; 78452-TC; 80053; 80061; 82962; 83721; 83735; 83880; 84100; 84484; 85025; 85610; 85730; 93005; 93010; 93017; 93306-TC; 96372; 96374; 99284-25; A9502; G0378; J2785

== ENCOUNTER 2019-01-25 15:27 | Inpatient (IN) | payer OTHER ==
--- NOTE | 2019-01-25 15:55 | PDOC ---
History of Present Illness - General Chief Complaint: Chest Pain Stated Complaint: Chest Pain Time Seen by Provider: 01/25/19 15:54 History Source: Patient Exam Limitations: No Limitations - History of Present Illness Initial Comments: 01/25/19 15:55 Martha Diamond is a 73F with PMH ME x3 last one 1 year ago in [place], HTN, HLD , thyroid disease, and DM presenting with 3 days of L-sided neck pain radiating down her left arm and left chest. Patient HPI taken with roll capper assistance. Patient reports that 3 days ago she was awakened from sleep with a sharp pain in her left neck that ran down her left arm and left chest, accompanied by a strong headache, nausea, and some SOB. SOB resolved on its own, the pain waxed and waned for the last few days but never dissipated. Denies palpitations, abd pain, fever, cough. Denies injuries to her left shoulder or neck, denies prior pain in the arm. Has had ME in the past, denies that this is the same as her past pain. Last ME in [place], was in ICU for a week. Says her urine is dark and has had constipation for a while, takes a powder to help her have BMs. Able to walk with a walker at baseline. Allergies to codeine, iodine, seafood. Past History - Past Medical History Allergies/Adverse Reactions: Allergies Allergy/AdvReac Type Severity Reaction Status Date / Time codeine [Codeine] Allergy Severe Itching Verified 10/02/18 13:21 iodine [Iodine] Allergy Severe Itching Verified 10/02/18 13:21 Shellfish Allergy Severe Hives Verified 10/02/18 13:21 seafood Allergy Hives Uncoded 10/02/18 13:21 Home Medications: Ambulatory Orders Anastrozole [Arimidex -] 1 mg PO DAILY #0 02/10/16 Aspirin [ASA -] 81 mg PO DAILY #30 tab.chew 04/01/16 Atorvastatin Ca [Lipitor] 40 mg PO HS #30 tablet 02/14/17 Levothyroxine [Synthroid -] 150 mcg PO DAILY@0700 #90 tablet 07/26/17 Acetaminophen [Tylenol -] 500 mg PO Q8H #20 tablet 07/18/18 Insulin Glargine,Hum.rec.anlog [Lantus] 0 unit SQ ASDIR 10/02/18 Insulin Lispro [Humalog] 0 unit SQ ASDIR 10/02/18 Telmisartan [Micardis] 80 mg PO DAILY 10/02/18 Albuterol Sulfate Inhaler - [Ventolin HFA Inhaler -] 2 puff PO TID 10/03/18 Fluticasone Propionate [Flovent Diskus] 2 puff IH BID 10/03/18 Memantine HCl 5 mg PO DAILY 10/03/18 Anemia: No Asthma: No Cancer: Yes (BILATERAL BREAST) Cardiac Disorders: Yes (ME 2016) CVA: No COPD: No CHF: No Dementia: No Diabetes: Yes GI Disorders: Yes (GERD) Disorders: No HTN: Yes Hypercholesterolemia: Yes Liver Disease: No Seizures: No Thyroid Disease: Yes (HYPO) - Surgical History Abdominal Surgery: Yes Appendectomy: No Cardiac Surgery: No Cholecystectomy: Yes Lung Surgery: No Neurologic Surgery: No Orthopedic Surgery: Yes (LEFT KNEE ARTHROSCOPY 2003) - Immunization History Td Vaccination: Yes TDAP Vaccination: Yes Immunization Up to Date: Yes - Psycho Social/Smoking Cessation Hx Smoking Status: No Smoking History: Never smoked Years of Tobacco Use: 0 Have you smoked in the past 12 months: No Number of Cigarettes Smoked Daily: 0 Cigars Per Day: 0 Hx Alcohol Use: No Drug/Substance Use Hx: No Substance Use Type: None Hx Substance Use Treatment: No Review of Systems - Review of Systems Constitutional: No: Symptoms Reported HEENTM: No: Symptoms Reported Respiratory: Yes: Shortness of Breath, SOB at Rest. No: Cough, Wheezing Cardiac (ROS): Yes: Chest Pain. No: Irregular Heart Rate, Palpitations, Syncope ABD/GI: Yes: Constipated, Nausea. No: Diarrhea, Difficulty Swallowing, Vomiting : No: Symptoms Reported Musculoskeletal: Yes: Symptoms Reported, Muscle Pain, Neck Pain (L arm). No: Muscle Weakness Integumentary: No: Symptoms Reported Neurological: Yes: Headache. No: Numbness, Paresthesia, Tingling Psychiatric: No: Emotional Problems Hematologic/Lymphatic: No: Symptoms Reported All Other Systems: Reviewed and Negative *Physical Exam - Physical Exam General Appearance: Yes: Nourished, Appropriately Dressed. No: Apparent Distress HEENT: positive: EOMI, KRISH, Normal ENT Inspection, Normal Voice, Pharynx Normal , Hearing Grossly Normal. negative: Scleral Icterus (R), Scleral Icterus (L), Pharyngeal Erythema, Tonsillar Exudate, Tonsillar Erythema, Lesions, Banks Neck: positive: Tender (L anterior SCM pain, reproducible, present with movement ), Trachea midline, Normal Thyroid, Supple. negative: Rigid, Lymphadenopathy (R ), Lymphadenopathy (L) Respiratory/Chest: positive: Chest Tender (reproducibly tender to palpation L chest by axilla, no evidence of bruising or injury), Lungs Clear, Normal Breath Sounds, Respiratory Distress. negative: Accessory Muscle Use, Crackles, Rales, Rhonchi Cardiovascular: positive: Regular Rhythm, Regular Rate. negative: Edema, Murmur Vascular Pulses: Dorsalis-Pedis (R): 2+, Doralis-Pedis (L): 2+ Gastrointestinal/Abdominal: positive: Normal Bowel Sounds, Flat, Soft. negative : Tender, Organomegaly, Guarding, Rebound Musculoskeletal: positive: Normal Inspection. negative: CVA Tenderness Extremity: positive: Normal Capillary Refill, Normal Inspection, Normal Range of Motion, Other (BUE: radial pulses 2+, full ROM all joints, no bony tenderness or deformity). negative: Tender, Coldness, Cyanosis, Pedal Edema, Swelling Integumentary: positive: Normal Color, Dry, Warm Neurologic: positive: Fully Oriented, Alert, Normal Mood/Affect, Normal Response ED Treatment Course - LABORATORY CBC & Chemistry Diagram: 01/25/19 16:41 01/25/19 16:41 Medical Decision Making - Medical Decision Making 01/25/19 15:55 Martha Diamond is a 73F with PMH ME x3 last one 1 year ago in [place], HTN, HLD , thyroid disease, and DM presenting with 3 days of L-sided neck pain radiating down her left arm and left chest. Patient presentation is concerning for a cardiac etiology given her chest pain+ SOB, although the prolonged course over days and reproducible tenderness makes this less likely. Ddx includes ME vs. PE vs. PTX vs. dissection. Denies trauma to L arm or neck, but pain is consistent with MSK etiology given distribution from neck to hand. Will evaluate via: CMP CBC CP TSH CXR ECG 01/25/19 16:40 Electrolytes WNL, WBC 10.2, no anemia, trop <0.02, CK 142, TSH 2.49. No evidence of labs of cardiac etiology for chest pain. CXR shows mild bilateral increased lung markings without evidence of focal infiltrates. ECG shows NSR, rate 67. Normal axis and intervals, no IVANA or TWI Patient requires admission to tele/obs given her extensive history of cardiac disease and ME and new onset chest pain. Although her pain is constant, non- radiating, and reproducible, which is highly consistent with MSK etiology, and her labs do not have evidence of cardiac events, her history and age are concerning for underlying cardiac chest pain and warrant observation overnight. 01/25/19 17:[address] Tran, agrees for admission to tele/obs under Dr. Tyler. Discharge - Discharge Information Problems reviewed: Yes Clinical Impression/Diagnosis: Neck pain on left side, Left upper arm pain Chest pain Qualifiers: Chest pain type: unspecified Qualified Code(s): R07.9 - Chest pain, unspecified Condition: Stable - Admission Yes - Follow up/Referral - Patient Discharge Instructions - Post Discharge Activity
[2019-01-25 17:05] LABS: BASO % 0.9 % (0-2.0); EOS % 1.5 % (0-4.5); HEMATOCRIT 40.3 % (32.4-45.2); HEMOGLOBIN 13.4 GM/dL (10.7-15.3); LYMPH % 24.8 % (8-40); MCH 29.4 pg (25.7-33.7); MCHC 33.3 g/dl (32.0-36.0); MEAN CELL VOLUME 88.1 fl (80-96); MEAN PLT VOLUME 8.9 fl (7.5-11.1); MONO % 5.7 % (3.8-10.2); NEUT % 67.1 % (42.8-82.8); PLATELET COUNT 354 K/MM3 (134-434); RBC 4.57 M/mm3 (3.60-5.2); RDW 13.3 % (11.6-15.6); WHITE BLOOD COUNT 10.9 K/mm3 (4.0-10.0)
[2019-01-25 17:29] LABS: BILIRUBIN,TOTAL 0.5 mg/dL (0.2-1); BLOOD UREA NITROGEN 15.3 mg/dL (7-18); CALCIUM 9.7 mg/dL (8.5-10.1); POTASSIUM 3.7 mmol/L (3.5-5.1)
[2019-01-25 17:39] LABS: INR 0.95 (0.83-1.09); PROTHROMBIN TIME (PATIENT) 11.2 SEC (9.7-13.0)
--- NOTE | 2019-01-25 17:51 | PDOC ---
Documentation entered by Swetha Hernandez SCRIBE, acting as scribe for Joelle Velez MD. Joelle Velez MD: This documentation has been prepared by the Mary brown Adrianna, SCRIBE, under my direction and personally reviewed by me in its entirety. I confirm that the documentation accurately reflects all work, treatment, procedures, and medical decision making performed by me. Attending Attestation - Resident Resident Name: Jh Mcadams - ED Attending Attestation I have performed the following: I have examined & evaluated the patient, The case was reviewed & discussed with the resident, I agree w/resident's findings & plan, Exceptions are as noted - HPI HPI: 73 year old female, with a PMH of CAD, HTN, multiple MIs, GERD, HLD, bilateral breast cancer (s/p bilateral mastectomy), DM, and hypothyroidism, who presents to the ED for evaluation of chest pain for 3 days. Patient notes upon waking up 3 days ago, she began experiencing intermittent left-sided neck, shoulder, and chest pain. She endorses an associated gradual onset headache since yesterday. Denies fever, chills, dizziness, focal weakness/numbness, visual sxs, SOB, nausea, vomit, diarrhea, constipation, dysuria, hematuria, abdominal pain, LOC, palpitations. Allergies: Codeine, iodine, shellfish, seafood Surgical History: bilateral mastectomy, cholecystectomy, left knee arthroscopy Social History: None reported PCP: Dr. Blank Sam Dustless Operator: Dr. Derek Fisher - Physicial Exam PE: GENERAL: Awake, alert, and fully oriented, in no acute distress HEAD: No signs of trauma EYES: PERRLA, EOMI, sclera anicteric, conjunctiva clear ENT: Oropharynx clear without exudates. Moist mucosa NECK: Normal ROM, supple, no lymphadenopathy, JVD, or masses LUNGS: Breath sounds equal, clear to auscultation bilaterally. No wheezes, and no crackles HEART: Regular rate and rhythm, normal S1 and S2, no murmurs, rubs or gallops ABDOMEN: Soft, nontender, normoactive bowel sounds. No guarding, no rebound. No masses EXTREMITIES: Normal range of motion, no edema. No cords, erythema, or tenderness BACK: No midline spinal tenderness in cervical/thoracic/lumbar region NEUROLOGICAL: Normal speech, cranial nerves intact, 5/5 strength in all 4 extremities, normal sensation to light touch in all 4 extremities, normal cerebellar exam SKIN: Warm, Dry, normal turgor, no rashes or lesions noted. - Medical Decision Making 01/25/19 18:50 73yo F with MMP including CAD presents to the ED with 3 days of L sided chest pain Vitals with elevated BP Exam wnl EKG unchanged Labs including trop wnl, pt admitted to [facility] obs given cardiac hx Case discussed in detail with admitting physician by Dr. Mcadams including history , physical exam and ancillary studies. Admitting physician has assumed care for the patient, will follow all pending diagnostics and will complete the evaluation and treatment. Heart Score/ECG Review #1 01/25/19 17:51 EKG read and int by me: NSR, rate 67. Normal axis and intervals, no IVANA or TWI
--- NOTE | 2019-01-25 21:08 | HP ---
CHIEF COMPLAINT: PCP: unknown HISTORY OF PRESENT ILLNESS: 73 y/o/f with PMHx of Myocardial Infarction x3 (most recent last year), HTN, HLD , Diabetes Mellitus, B/L breast cancer here for chest pain and headache for the last 3 days. She states the chest pain is left sided and goes down her left arm and up her neck. The pain has been intermittent and she denies having pain currently. Her headache has also been present for 3 days and is constant. She also complains of weakness and numbness on the left side of her body x2 days. She feels like she has occasionally been slurring her words over the last 2 days as well. She takes a powder prescribed by her PCP to help with constipation. She denies SOB, abd pain, dysuria, hematuria, weight loss, back pain, vision changes, N/V/D, sore throat, fevers, cough. Recent Travel: denies Past Medical History: Myocardial Infarction x3 (most recent last year), HTN, HLD, Diabetes Mellitus, B /L breast cancer Past Surgical History: B/L mastectomy, cholecystectomy, arthroscopic left knee surgery, right eye cataract surgery Social History: Smoking: denies Alcohol: denies Drugs: denies Allergies: Codeine, iodine, seafood (itchy skin and closure of airways) Family History: Mother: breast cancer, CT Brother: at 45 y/o during open heart surgery Allergies codeine [Codeine] Allergy (Severe, Verified 10/02/18 13:21) Itching HIVES iodine [Iodine] Allergy (Severe, Verified 10/02/18 13:21) Itching HIVES Shellfish Allergy (Severe, Verified 10/02/18 13:21) Hives seafood Allergy (Uncoded 10/02/18 13:21) Hives per pt HOME MEDICATIONS: Home Medications Medication Instructions Recorded Anastrozole [Arimidex -] 1 mg PO DAILY #0 02/10/16 Aspirin [ASA -] 81 mg PO DAILY #30 tab.chew 04/01/16 Atorvastatin Ca [Lipitor] 40 mg PO HS #30 tablet 02/14/17 Levothyroxine [Synthroid -] 150 mcg PO DAILY@0700 #90 tablet 07/26/17 Acetaminophen [Tylenol -] 500 mg PO Q8H #20 tablet 07/18/18 Insulin Glargine,Hum.rec.anlog 0 unit SQ ASDIR 10/02/18 [Lantus] Insulin Lispro [Humalog] 0 unit SQ ASDIR 10/02/18 Telmisartan [Micardis] 80 mg PO DAILY 10/02/18 Albuterol Sulfate Inhaler - 2 puff PO TID 10/03/18 [Ventolin HFA Inhaler -] Fluticasone Propionate [Flovent 2 puff IH BID 10/03/18 Diskus] Memantine HCl 5 mg PO DAILY 10/03/18 REVIEW OF SYSTEMS as per HPI PHYSICAL EXAMINATION Vital Signs - 24 hr 01/25/19 01/25/19 01/25/19 15:50 16:49 18:50 Temperature 98 F 98.5 F Pulse Rate 88 Pulse Rate [ 86 Left Radial] Respiratory 19 19 Rate Blood Pressure 181/84 H Blood Pressure 176/68 H [Right Arm] O2 Sat by Pulse 98 98 98 Oximetry (%) GENERAL: Awake, alert, and fully oriented, in no acute distress. HEAD: Normal with no signs of trauma. EYES: KRISH, EOMI, no scleral icterus EARS, NOSE, THROAT: Dry mucous membranes. Ears normal, nares patent, oropharynx clear without exudates. NECK: Normal range of motion, supple without lymphadenopathy, JVD, or masses. LUNGS: Breath sounds equal, clear to auscultation bilaterally. No wheezes, and no crackles. No accessory muscle use. HEART: systolic murmur. Regular rate and rhythm ABDOMEN: Soft, nontender, not distended, normoactive bowel sounds, no guarding, no rebound, no masses. No hepatomegaly or splenomegaly. MUSCULOSKELETAL: reproducible chest pain on palpation of the sternum. mild tenderness to palpation of the lumbar spine without any steppoffs. Normal range of motion at all joints. No bony deformities or tenderness. No CVA tenderness. UPPER EXTREMITIES: 2+ pulses, warm, well-perfused. No cyanosis. No clubbing. No peripheral edema. LOWER EXTREMITIES: 2+ pulses, warm, well-perfused. No calf tenderness. No peripheral edema. NEUROLOGICAL: Decreased sensation over left face, arm, and leg. 3/5 strength of left upper extremity. 5/5 strength right upper extremity. Drift of left arm when raising arms at 45 degrees. ataxia of left arm on finger to nose. NIHSS 4. otherwise Cranial nerves II-XII intact. Normal speech. no facial droop noted PSYCHIATRIC: Cooperative. Good eye contact. Appropriate mood and affect. SKIN: Warm, dry, normal turgor, no rashes or lesions noted, normal capillary refill. Laboratory Results - last 24 hr 01/25/19 01/25/19 01/25/19 16:41 16:41 16:41 WBC 10.9 H RBC 4.57 Hgb 13.4 Hct 40.3 MCV 88.1 MCH 29.4 MCHC 33.3 RDW 13.3 Plt Count 354 MPV 8.9 Absolute Neuts (auto) 7.3 Neutrophils % 67.1 Lymphocytes % 24.8 D Monocytes % 5.7 Eosinophils % 1.5 Basophils % 0.9 Nucleated RBC % 0 PT with INR INR Sodium 138 Potassium 3.7 Chloride 104 Carbon Dioxide 27 Anion Gap 7 L BUN 15.3 Creatinine 1.0 Est GFR (CKD-EPI)AfAm 64.27 Est GFR (CKD-EPI)NonAf 55.45 POC Glucometer Random Glucose 219 H Calcium 9.7 Total Bilirubin 0.5 AST 18 ALT 23 Alkaline Phosphatase 93 Creatine Kinase 136 Troponin I < 0.02 Total Protein 8.0 Albumin 4.0 TSH 01/25/19 01/25/19 01/25/19 16:41 16:41 18:42 WBC RBC Hgb Hct MCV MCH MCHC RDW Plt Count MPV Absolute Neuts (auto) Neutrophils % Lymphocytes % Monocytes % Eosinophils % Basophils % Nucleated RBC % PT with INR 11.20 INR 0.95 Sodium Potassium Chloride Carbon Dioxide Anion Gap BUN Creatinine Est GFR (CKD-EPI)AfAm Est GFR (CKD-EPI)NonAf POC Glucometer 142 Random Glucose Calcium Total Bilirubin AST ALT Alkaline Phosphatase Creatine Kinase Troponin I Total Protein Albumin TSH 2.49 ASSESSMENT/PLAN: 73 y/o/f with PMHx of Myocardial Infarction x3 (most recent last year), HTN, HLD , Diabetes Mellitus, B/L breast cancer here for chest pain and headache for the last 3 days. 1)Stroke - NIHSS 4 - head CT without any ischemic change -Neuro consulted, Dr. Grant -neuro checks -Echocardiogram to evaluate cardiac function -fall, aspiration precautions -Aspirin -Atorvastatin 80mg started -Carotid duplex negative for pathology -PT consult -MRI w/o contrast ordered 2)Chest pain - r/o acs -initial and second trop negative -EKGs negative for ST elevation 3)Diabetes -ISS -BGM ACHS -A1c ordered 4)HTN -holding home meds for now to allow for permissive HTN -start home meds as appropriate 5)Prophylaxis -heparin 6)FEN -NS @ 42mls/hr -NPO until speech/swallow eval 7)Disposition -admitted to stroke floor Visit type - Emergency Visit Emergency Visit: Yes ED Registration Date: 01/25/19 Care time: The patient presented to the Emergency Department on the above date and was hospitalized for further evaluation of their emergent condition. - New Patient This patient is new to me today: Yes Date on this admission: 01/26/19 - Critical Care Critical Care patient: No ATTENDING PHYSICIAN STATEMENT I saw and evaluated the patient. I reviewed the resident's note and discussed the case with the resident. I agree with the resident's findings and plan as documented. SUBJECTIVE: OBJECTIVE: ASSESSMENT AND PLAN:
--- NOTE | 2019-01-25 23:10 | PN.NIHSS ---
NIH Stroke Scale - Last Known Well Date/Time & Onset Date Last Known Well: 01/24/19 Time Last Known Well: 07:00 - Initial Evaluation Level of consciousness: Alert Ask patient the month and their age: Answers both correctly Ask patient to open & close eyes; make fist and let go: Obeys both correctly Best gaze (horizontal eye movement): Normal Visual field testing: No visual field loss Facial paresis (Show teeth/raise eyebrows/close eyes tight): Normal symmetrical movement Motor Function: Left Arm: Drift Motor Function: Right Arm: Normal (extends arm 90 (or 45) degrees for 10 seconds without drift Motor Function: Left Leg: Drift Motor Function: Right Leg: Normal (extends leg 30 degrees for 5 seconds without drift) Limb Ataxia: Present in one limb Sensory(Use pinprick test arms,legs,trunk,face/side to side): Mild to moderate decrease in sensation Best language (Describe picture, name items, read sentences): No Aphasia Dysarthria (read several words): Normal articulation Extinction and Inattention: No abnormality - Total Score NIH Stroke Scale Score: 4
--- NOTE | 2019-01-26 00:08 | PN ---
Teaching Attending Note Name of Resident: Zuleyma Johnson ATTENDING PHYSICIAN STATEMENT I saw and evaluated the patient. I reviewed the resident's note and discussed the case with the resident. I agree with the resident's findings and plan as documented. SUBJECTIVE: 73F with cad , HTN, HLD, thyroid disease ,DM c/o left sided headache as well as left facial droop, left upper extremity sensation loss and weakness since 01/25 4am. Her symptoms started suddenly and without warning. Her headache was unilateral and pulsating. Denied nausea or vomiting. OBJECTIVE: Last Vital Signs Temp Pulse Resp BP Pulse Ox 98.5 F 80 17 144/63 95 01/25/19 18:50 01/25/19 23:35 01/25/19 23:35 01/25/19 23:35 01/25/19 23:35 heent -at, nc neck supple cv-s1+s2+rrr chest clear abdomen -soft, nt ext -no edema Neuro left upper and lower ext motor about 3/5, left lower facial droop, no hyperreflexia left facial sensation loss Abnormal Lab Results 01/25/19 01/25/19 16:41 16:41 WBC 10.9 H Anion Gap 7 L Random Glucose 219 H imaging studies reviewed - head ct negative for any acute ischemic changes ASSESSMENT AND PLAN: #Clinical symptoms of cva, high suspicion. unilateral weakness and sensation loss. Head CT negative for acute infacts but lacks sensitivity. Patient was already out of window for TPA as her symptoms started 4am yesterday. -admit to telemetry -npo -speech and swallow eval -neurology consult -neuro check q4hrs -echo -brain mri and mra -cardiac monitoring carotid duplex -bed rest/ fall precautions -carotid duplex u/s -asa -statin -cardiology evaluation #Uncontrolled DM -a1c -novolog sliding scale -lantus basal insulin #Uncontrolled hypertension -would do permissive hypertension as moderate to high suspicion of cva dvt ppx- heparin sc
[2019-01-26] MEDS ORDERED: ASPIRIN 81 MG CHEWABLE TABLETS PO ONE (00:27)
[2019-01-26] MEDS: SODIUM CHLORIDE 1,000 ML IV SCH (01:27)
[2019-01-26 04:28] VITALS: BMI 37.6
[2019-01-26] MEDS: HEPARIN NA (PORCINE) 5,000 UNITS/ML 1ML VIAL SQ SCH ×3 (05:34→21:52)
[2019-01-26] MEDS: INSULIN SLIDING SCALE (NOVOLOG) 1 VIAL SQ SCH ×2 (06:06→16:05)
[2019-01-26] MEDS ORDERED: INSULIN SLIDING SCALE (NOVOLOG) 1 VIAL SQ SCH (07:00)
[2019-01-26 08:11] LABS: EOS % 2.3 % (0-4.5); HEMATOCRIT 38.1 % (32.4-45.2); HEMOGLOBIN 12.9 GM/dL (10.7-15.3); LYMPH % 29.1 % (8-40); MCH 29.7 pg (25.7-33.7); MCHC 33.8 g/dl (32.0-36.0); MEAN CELL VOLUME 87.9 fl (80-96); MEAN PLT VOLUME 8.3 fl (7.5-11.1); MONO % 5.7 % (3.8-10.2); NEUT % 61.9 % (42.8-82.8); PLATELET COUNT 337 K/MM3 (134-434); RBC 4.33 M/mm3 (3.60-5.2); RDW 13.4 % (11.6-15.6); WHITE BLOOD COUNT 7.7 K/mm3 (4.0-10.0)
[2019-01-26 08:36] LABS: ANION GAP 8 MMOL/L (8-16); BLOOD UREA NITROGEN 12.8 mg/dL (7-18); CHLORIDE 106 mmol/L (98-107); CHOLESTEROL 175 mg/dL (50-200); CO2 26 mmol/L (21-32); CREATININE 0.9 mg/dL (0.55-1.3); GLUCOSE,RANDOM 168 mg/dL (74-106); HDL CHOLESTEROL 55 mg/dL (40-60); LDL CHOLESTEROL (ONLY SJRH) 92 mg/dL (5-100); POTASSIUM 3.4 mmol/L (3.5-5.1); SODIUM 141 mmol/L (136-145); TRIGLYCERIDES 153 mg/dL (0-150)
[2019-01-26] MEDS ORDERED: PT OWN MED DRAWER 7, Y5N ONE (09:48)
--- NOTE | 2019-01-26 09:48 | CON.NEURO ---
Consult - History of Present Illness History of Present Illness: 73 y/o/f with PMHx of Myocardial Infarction x3 (most recent last year), HTN, HLD , Diabetes Mellitus, B/L breast cancer here for chest pain and headache for the last 3 days. She states the chest pain is left sided and goes down her left arm and up her neck. The pain has been intermittent and she denies having pain currently. Her headache has also been present for 3 days and is constant. She also complains of weakness and numbness on the left side of her body x2 days. She feels like she has occasionally been slurring her words over the last 2 days as well. She takes a powder prescribed by her PCP to help with constipation. She denies SOB, abd pain, dysuria, hematuria, weight loss, back pain, vision changes, N/V/D, sore throat, fevers, cough. n ASA, statin. 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) History of Recent Travel: No Home Medications - Allergies Allergies/Adverse Reactions: Allergies Allergy/AdvReac Type Severity Reaction Status Date / Time codeine [Codeine] Allergy Severe Itching Verified 10/02/18 13:21 iodine [Iodine] Allergy Severe Itching Verified 10/02/18 13:21 Shellfish Allergy Severe Hives Verified 10/02/18 13:21 seafood Allergy Hives Uncoded 10/02/18 13:21 - Home Medications Home Medications: Ambulatory Orders Anastrozole [Arimidex -] 1 mg PO DAILY #0 02/10/16 Aspirin [ASA -] 81 mg PO DAILY #30 tab.chew 04/01/16 Atorvastatin Ca [Lipitor] 40 mg PO HS #30 tablet 02/14/17 Levothyroxine [Synthroid -] 150 mcg PO DAILY@0700 #90 tablet 07/26/17 Acetaminophen [Tylenol -] 500 mg PO Q8H #20 tablet 07/18/18 Insulin Glargine,Hum.rec.anlog [Lantus] 0 unit SQ ASDIR 10/02/18 Insulin Lispro [Humalog] 0 unit SQ ASDIR 10/02/18 Telmisartan [Micardis] 80 mg PO DAILY 10/02/18 Albuterol Sulfate Inhaler - [Ventolin HFA Inhaler -] 2 puff PO TID 10/03/18 Fluticasone Propionate [Flovent Diskus] 2 puff IH BID 10/03/18 Memantine HCl 5 mg PO DAILY 10/03/18 Physical Exam-Neuro Vital Signs: Vital Signs Temperature 98.3 F 01/26/19 07:53 Pulse Rate 65 01/26/19 07:53 Respiratory Rate 22 H 01/26/19 07:53 Blood Pressure 132/61 01/26/19 07:53 O2 Sat by Pulse Oximetry (%) 96 01/26/19 03:15 Labs: CBC, BMP 01/26/19 06:57 01/26/19 06:57 INR, PTT INR 0.95 (0.83-1.09) 01/25/19 16:41 - Neuro Exam Level Of Consciousness: Yes: Alert (awake, alert, no aphasia, min dysrthria, mild LUE drift /LLE , no ataxia ) Imaging - Results Cat Scan: Report Reviewed, Image Reviewed Assessment/Plan 73 y/o/f with PMHx of Myocardial Infarction x3 (most recent last year), HTN, HLD , Diabetes Mellitus, B/L breast cancer here for chest pain and headache for the last 3 days. She states the chest pain is left sided and goes down her left arm and up her neck. The pain has been intermittent and she denies having pain currently. Her headache has also been present for 3 days and is constant. She also complains of weakness and numbness on the left side of her body x2 days. She feels like she has occasionally been slurring her words over the last 2 days as well. She takes a powder prescribed by her PCP to help with constipation. She denies SOB, abd pain, dysuria, hematuria, weight loss, back pain, vision changes, N/V/D, sore throat, fevers, cough. on ASA, statin. HDCT (-), Doppler (-) AP : new onset mild left hemiparesis (F/A/leg) --r/o R subcorticaL cva CHECK MRI BRAIN /MRA Doppler echo, holter uncontrolled DM -needs to be optimized cont ASA , statin , PT consult speech consult DR MOSS
[2019-01-26] MEDS ORDERED: FLU VACCINE QUAD 60 MCG/0.5 ML (MDV 19-20) IM ONE (10:00)
[2019-01-26] MEDS: MEMANTINE HCL 5 MG TABLET (UD) PO SCH (10:02)
[2019-01-26] MEDS: ASPIRIN 81 MG CHEWABLE TABLETS PO SCH (10:02)
[2019-01-26] MEDS: ANASTROZOLE 1 MG TABLET PO SCH (10:02)
--- NOTE | 2019-01-26 10:28 | CONSULT ---
Admitting History and Physical - Primary Care Physician PCP: Emler Torres - Admission History of Present Illness: 73 y/o/f with PMHx of Myocardial Infarction x3 (most recent last year), HTN, HLD , Diabetes Mellitus, B/L breast cancer here for chest pain and headache for the last 3 days. Stroke - NIHSS 4 - head CT without any ischemic change History Source: Patient, Medical Record Limitations to Obtaining History: Language Barrier - Past Medical History Cardiovascular: Yes: CAD, HTN, Hyperlipdemia Gastrointestinal: Yes: Cancer (Breast b/l s/p mastectomy) Heme/Onc: Yes: Other (Breast ca as noted above) Musculoskeletal: Yes: Chronic low back pain Endocrine: Yes: Diabetes Mellitus, Hypothyroidism - Past Surgical History Past Surgical History: Yes: Cataract Removal, Cholecystectomy, Mastectomy - Smoking History Smoking history: Never smoked Have you smoked in the past 12 months: No Aproximately how many cigarettes per day: 0 - Alcohol/Substance Use Hx Alcohol Use: No History of Substance Use: reports: None - 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) History of Recent Travel: No History - Admission Reason For Visit: Chest Pain - Diagnostics X-ray: Report Reviewed CT Scan: Report Reviewed - General Mental Status: Alert and Oriented, Awake and Alert, Able to Follow Commands Attention: Intact Ability to Follow Directions: Excellent - Hearing Hearing: Normal Hearing Aide: No With Patient: No Speech Evaluation - Communication Primary Language: HUNGARIAN Communication: Yes: Within Normal Limits Oral Expression Ability: Yes: No Impairment - Speech Production Able to Make Needs Known: Yes: WNL Intelligibility: Yes: WNL - Speech Characteristics Voice Loudness: Normal Voice Pitch: Yes: Normal Voice Phonatory-based Quality: Yes: Normal Speech Pattern: Normal Speech Clarity: < 100% Nasal Resonance: Normal Articulation: Yes: Precise Rate of Speech: Intact - Language/Auditory Comprehension Follows: Yes: 2 Stage Simple Commands - Language/Verbal Expression Able to Respond to Simple Queries: Yes: WNL Able to Communicate Wants and Needs: Yes: WNL Functional Communication Status: Yes: WNL - Memory/Perception skilled nursing Memory: Yes: WNL Short Term Memory: Yes: WNL - Swallow Evaluation/Bedside Assessment Current Nutritional Intake: NPO, Other (Passed dysphagia screen) Oral Secretions: Yes: WFL Dentition: Yes: Missing Teeth Facial Symmetry at Rest: Facial Droop Left (slight) Facial Symmetry on Retraction: Symmetrical Sensation: Normal Against Resistance Opening: Normal Against Resistance Closing: Normal Pucker Lips: Normal Smile: Normal Lingual Movement: Deviates Left (slight?) Lingual Speed of Movement: Normal Lingual Movement Strgth Against Opposition: Normal Lingual Movement Characteristics: Normal Velopharyngeal Movement: Normal Laryngeal Movement: Able to Palpate Rate of Intake: WFL Bolus Size: WFL Labial Seal: WFL Chewing: Impaired (reduced/ missing teeth, mashed foosd at home at times) Oral Prep Time: WFL A-P Transit: WFL Pocketing: None Timing of Swallow: WFL Coughing/Throat Clear: No ((-) 3 oz water test) Change in Voice: No Recommendations - Speech Evaluation, Impression/Plan Impression: Slight left facial, tongue deviation very slight? Speech,language, cognition intact. Mastication reduced sec to missing dentition. Swallow brisk - Dysphagia Impressions/Plan Dysphagia Impressions: Minimal Impairment *Silent aspiration: cannot be R/O at bedside Dysphagia Treatment Plan: Small Bites, Chin Tuck/Down, Clear Pocket Food, Safe Rate, 1/2 tsp. at a time, OOB for meals, OOB for 1 h. after meals - Recommendations Diet Consistency: Other (soft/ chopped meats) Medication Administration: Whole with water Liquids: Thin Liquids
[2019-01-26] MEDS ORDERED: POTASSIUM CHLORIDE TABS 20 MEQ TABLET.ER (FP) PO ONE (12:00)
--- NOTE | 2019-01-26 12:46 | EKG ---
Test Reason : Blood Pressure : / mmHG Vent. Rate : 071 BPM Atrial Rate : 071 BPM P-R Int : 178 ms QRS Dur : 086 ms QT Int : 412 ms P-R-T Axes : 065 004 038 degrees QTc Int : 447 ms NORMAL SINUS RHYTHM NORMAL ECG WHEN COMPARED WITH ECG OF 25-JAN-2019 16:37, NO SIGNIFICANT CHANGE WAS FOUND Confirmed by KRYSTIN LAWRENCE MD ([id number]) on 01/26/2019 12:46:18 PM Referred By: Confirmed By:KRYSTIN LAWRENCE MD
--- NOTE | 2019-01-26 12:51 | EKG ---
Test Reason : Blood Pressure : / mmHG Vent. Rate : 067 BPM Atrial Rate : 067 BPM P-R Int : 170 ms QRS Dur : 092 ms QT Int : 414 ms P-R-T Axes : 059 004 053 degrees QTc Int : 437 ms NORMAL SINUS RHYTHM WHEN COMPARED WITH ECG OF 02-OCT-2018 13:21, T WAVE AMPLITUDE HAS DECREASED IN ANTERIOR LEADS Confirmed by KRYSTIN LAWRENCE MD ([id number]) on 01/26/2019 12:50:38 PM Referred By: Confirmed By:KRYSTIN LAWRENCE MD
[2019-01-26] MEDS ORDERED: ALBUTEROL SO4 8 GM HFA INHALER IH PRN (14:00)
--- NOTE | 2019-01-26 15:11 | PN ---
Teaching Attending Note Name of Resident: Carlos Hilton ATTENDING PHYSICIAN STATEMENT I saw and evaluated the patient. I reviewed the resident's note and discussed the case with the resident. I agree with the resident's findings and plan as documented. SUBJECTIVE: she feels her L sided weakness improved. Her L sided face and body numbness is still there. has GARCIA. No fever or chills. OBJECTIVE: NAD , MMM Cv ; RRR, No MRG Lungs: CTAB b/l mastectomy scars Abd: soft, NT, ND , NL BS Ext : No edema or erythema Neuro: EOMI, round equal pupils, reactive to light. mild R lower facial droop with asymmetry of the Labio nasal fold. tongue at mid line . 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 1- L hemiparesis with numbness , mild facial droop: likely acute stroke. weakness has improved . ? complicated migraine due to GARCIA, or acute R sided stroke - tele with no events - MRI or brain pending - head Ct and CUS reviewed. - echo pending - cont high dose statin for now, takes 40 of lipitor at home , LDL 92 - cont ASa . if she does have a stroke on MRI, then will d/w neuro switching to plavix - appreciate Dr. mann's input 2- HTN: permissive HTN ends today. will resume home meds ( equivalent orf telmisartan ) 3- H/o Dm : will adjust insulin regiem 4- DVT PX: heparin
--- NOTE | 2019-01-26 15:16 | ECHO ---
Name: EL SUE Exam:Adult Echocardiogram Study Date: 01/26/2019 08:54 AM Age: 73 yrs Reason For Study: LV Function Height: 60 in Weight: 192 lb BSA: 1.8 m2 MMode/2D Measurements & Calculations IVSd: 1.2 cm Ao root diam: 2.4 cm LVIDd: 3.8 cm LA dimension: 3.2 cm LVIDs: 2.4 cm LVPWd: 1.2 cm EDV(Teich): 63.0 ml LVOT diam: 2.0 cm ESV(Teich): 20.7 ml LAV (MOD-bp): 36.6 ml Doppler Measurements & Calculations MV E max nikolas: 69.4 cm/sec Ao V2 max: 191.4 cm/sec MV A max nikolas: 77.1 cm/sec Ao max P.7 mmHg MV E/A: 0.90 MV dec time: 0.15 sec FLY(V,D): 1.5 cm2 LV V1 max P.6 mmHg TR max nikolas: 219.6 cm/sec LV V1 max: 95.1 cm/sec TR max P.5 mmHg PA V2 max: 100.4 cm/sec Med Peak E' Nikolas: 5.2 cm/sec PA max P.0 mmHg Med E/e': 13.3 Lat Peak E' Nikolas: 5.3 cm/sec Lat E/e': 13.0 Left Ventricle There is borderline concentric left ventricular hypertrophy. Left ventricular systolic function is no rmal. Ejection Fraction = 50-55%. Right Ventricle The right ventricle is normal in size and function. Atria Normal left and right atrial size and function. Mitral Valve The mitral valve is normal in structure and function. There is no mitral valve stenosis. There is mil d mitral regurgitation. Tricuspid Valve The tricuspid valve is normal in structure and function. There is mild tricuspid regurgitation. Aortic Valve There is mild aortic sclerosis.;. No hemodynamically significant valvular aortic stenosis. No aortic regurgitation is present. Pulmonic Valve The pulmonic valve is not well seen, but is grossly normal. There is no pulmonic valvular stenosis. Great Vessels The aortic root is normal size. Pericardium/Pleura There is no pericardial effusion. Interpretation Summary Left ventricular systolic function is normal. Ejection Fraction = 50-55%. There is borderline concentric left ventricular hypertrophy. There is mild mitral regurgitation. There is mild tricuspid regurgitation. There is mild aortic sclerosis.; There is no pericardial effusion. MD Bates *Betzy 01/26/2019 11:25 AM
[2019-01-26] MEDS ORDERED: INSULIN (NOVOLOG) ASPART 100 UNITS/ML 10ML VIAL ONE (16:04)
[2019-01-26] MEDS ORDERED: ACETAMINOPHEN 325 MG TABLET (FP) PO PRN (16:26)
--- NOTE | 2019-01-26 19:23 | PN ---
Physical Exam: SUBJECTIVE: Patient seen and examined . Pt denied having any CP at the time but rather difficulty taking deep breath because of pain "under her lung" OBJECTIVE: Vital Signs Period Temp Pulse Resp BP Sys/Bailey Pulse Ox Last 24 Hr 97 F-98.3 F 65-80 17-22 132-158/61-74 95-97 GENERAL: The patient is awake, alert, and fully oriented, in no acute distress. HEAD: Normal with no signs of trauma. EYES: PERRL, extraocular movements intact, sclera anicteric, conjunctiva clear. No ptosis. ENT: oropharynx clear without exudates, moist mucous membranes. NECK: Trachea midline, full range of motion, supple. LUNGS: Breath sounds equal, clear to auscultation bilaterally, no wheezes, no crackles, no accessory muscle use. HEART: Regular rate and rhythm, S1, S2 without murmur, rub or gallop. ABDOMEN: Soft, nontender, nondistended, normoactive bowel sounds, no guarding, no rebound, no hepatosplenomegaly, no masses. EXTREMITIES: 2+ pulses, warm, well-perfused, no edema. NEUROLOGICAL: Cranial nerves intact except mild naciolabial flattening on the R. Normal speech, gait not observed. 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 SKIN: Warm, dry, normal turgor, b/l mastectomy scars Laboratory Results - last 24 hr 01/25/19 01/26/19 01/26/19 22:58 00:10 05:21 WBC RBC Hgb Hct MCV MCH MCHC RDW Plt Count MPV Absolute Neuts (auto) Neutrophils % Lymphocytes % Monocytes % Eosinophils % Basophils % Nucleated RBC % Sodium Potassium Chloride Carbon Dioxide Anion Gap BUN Creatinine Est GFR (CKD-EPI)AfAm Est GFR (CKD-EPI)NonAf POC Glucometer 164 208 Random Glucose Hemoglobin A1c % Calcium Troponin I < 0.02 Triglycerides Cholesterol Total LDL Cholesterol HDL Cholesterol 01/26/19 01/26/19 01/26/19 06:57 06:57 06:57 WBC 7.7 RBC 4.33 Hgb 12.9 Hct 38.1 MCV 87.9 MCH 29.7 MCHC 33.8 RDW 13.4 Plt Count 337 MPV 8.3 Absolute Neuts (auto) 4.8 Neutrophils % 61.9 Lymphocytes % 29.1 Monocytes % 5.7 Eosinophils % 2.3 Basophils % 1.0 Nucleated RBC % 0 Sodium 141 Potassium 3.4 L Chloride 106 Carbon Dioxide 26 Anion Gap 8 BUN 12.8 Creatinine 0.9 Est GFR (CKD-EPI)AfAm 73.00 Est GFR (CKD-EPI)NonAf 62.99 POC Glucometer Random Glucose 168 H Hemoglobin A1c % 9.5 H Calcium 9.0 Troponin I < 0.02 Triglycerides 153 H Cholesterol 175 Total LDL Cholesterol 92 HDL Cholesterol 55 01/26/19 16:01 WBC RBC Hgb Hct MCV MCH MCHC RDW Plt Count MPV Absolute Neuts (auto) Neutrophils % Lymphocytes % Monocytes % Eosinophils % Basophils % Nucleated RBC % Sodium Potassium Chloride Carbon Dioxide Anion Gap BUN Creatinine Est GFR (CKD-EPI)AfAm Est GFR (CKD-EPI)NonAf POC Glucometer 345 Random Glucose Hemoglobin A1c % Calcium Troponin I Triglycerides Cholesterol Total LDL Cholesterol HDL Cholesterol Active Medications Generic Name Dose Route Start Last Admin Trade Name Freq PRN Reason Stop Dose Admin Acetaminophen 650 mg 01/26/19 16:26 01/26/19 16:31 Tylenol - PO 650 mg Q6H PRN Administration HEADACHE Albuterol Sulfate 2 puff 01/26/19 14:00 Ventolin Hfa Inhaler - IH Q6H PRN SHORTNESS OF BREATH Anastrozole 1 mg 01/26/19 10:00 01/26/19 10:02 Arimidex - PO 1 mg DAILY MAGGIE Administration Aspirin 81 mg 01/26/19 10:00 01/26/19 10:02 Asa - PO 81 mg DAILY MAGGIE Administration Atorvastatin Calcium 80 mg 01/26/19 22:00 Lipitor - PO HS MAGGIE Heparin Sodium (Porcine) 5,000 unit 01/26/19 06:00 01/26/19 14:14 Heparin - SQ 5,000 unit TID MAGGIE Administration Sodium Chloride 1,000 mls @ 42 mls/hr 01/26/19 01:15 01/26/19 01:27 Normal Saline - IV 42 mls/hr ASDIR MAGGIE Administration Insulin Aspart 1 vial 01/26/19 07:00 01/26/19 16:05 Novolog Vial Sliding Scale - SQ 8 units BIDAC MAGGIE Administration Protocol Levothyroxine Sodium 150 mcg 01/27/19 07:00 Synthroid - PO DAILY@0700 MAGGIE Memantine 5 mg 01/26/19 10:00 01/26/19 10:02 Namenda - PO 5 mg DAILY MAGGIE Administration ASSESSMENT/PLAN: 73 y/o/f with PMHx of Myocardial Infarction x3 (most recent last year), HTN, HLD , Diabetes Mellitus, B/L breast cancer here for chest pain and headache for the last 3 days. New onset mild left hemiparesis with R nasolabial flattening Stroke - NIHSS 4 - head CT without any ischemic change Neuro, Dr. Grant :R subcorticaL cva MRI BRAIN /MRA ordered. Pt got agitated because of Headache. tylenol given with attempt to try tonight neuro checks Carotid duplex negative for pathology Echocardiogram EF of 55% LV function and size normal. Mild MR, TR and Aortic sclerosis. fall, aspiration precautions Aspirin Atorvastatin 80mg dysphasia screen passed by nurse. Speech and swallow by Traci:soft/ chopped meats, meds with water and thin liquid PT consult Chest pain - r/o acs trops neg x2 EKGs negative for ST elevation monitor Diabetes BG in 300s tighter control ? add levemir? ISS BGM ACHS A1c 9.5 Hypothyroidism levothyroxine 150 mcg daily in am Breast ca cont anastrazole HTN holding home meds for now to allow for permissive HTN start home meds as appropriate DVT heparin Visit type - Emergency Visit Emergency Visit: Yes ED Registration Date: 01/25/19 Care time: The patient presented to the Emergency Department on the above date and was hospitalized for further evaluation of their emergent condition. - New Patient This patient is new to me today: Yes Date on this admission: 01/26/19 - Critical Care Critical Care patient: No - Discharge Referral Referred to [facility] No ATTENDING PHYSICIAN STATEMENT I saw and evaluated the patient. I reviewed the resident's note and discussed the case with the resident. I agree with the resident's findings and plan as documented. SUBJECTIVE: OBJECTIVE: ASSESSMENT AND PLAN:
[2019-01-26] MEDS ORDERED: ATORVASTATIN CA 80 MG TABLET (FP) PO SCH (22:00)
[2019-01-27] MEDS: HEPARIN NA (PORCINE) 5,000 UNITS/ML 1ML VIAL SQ SCH ×2 (06:30→13:33)
[2019-01-27] MEDS: INSULIN SLIDING SCALE (NOVOLOG) 1 VIAL SQ SCH (06:31)
[2019-01-27 06:51] LABS: EOS % 3.3 % (0-4.5); HEMATOCRIT 38.2 % (32.4-45.2); LYMPH % 27.2 % (8-40); MCHC 34.2 g/dl (32.0-36.0); MEAN CELL VOLUME 87.8 fl (80-96); MEAN PLT VOLUME 8.8 fl (7.5-11.1); NEUT % 61.5 % (42.8-82.8); PLATELET COUNT 337 K/MM3 (134-434); RBC 4.35 M/mm3 (3.60-5.2); RDW 13.2 % (11.6-15.6); WHITE BLOOD COUNT 7.4 K/mm3 (4.0-10.0)
[2019-01-27] MEDS ORDERED: LEVOTHYROXINE NA 50 MCG TABLET (FP) PO SCH (07:00)
[2019-01-27 07:03] LABS: BLOOD UREA NITROGEN 18.8 mg/dL (7-18); CALCIUM 9.2 mg/dL (8.5-10.1); CREATININE 0.9 mg/dL (0.55-1.3); POTASSIUM 4.2 mmol/L (3.5-5.1)
[2019-01-27] MEDS ORDERED: VALSARTAN 160 MG TABLET (UD) PO SCH (10:00)
[2019-01-27] MEDS: ASPIRIN 81 MG CHEWABLE TABLETS PO SCH (10:17)
[2019-01-27] MEDS: MEMANTINE HCL 5 MG TABLET (UD) PO SCH (10:18)
[2019-01-27] MEDS: ANASTROZOLE 1 MG TABLET PO SCH (10:18)
[2019-01-27] MEDS: SODIUM CHLORIDE 1,000 ML IV SCH (12:03)
--- NOTE | 2019-01-27 13:18 | DS ---
Physical Exam: SUBJECTIVE: Patient seen and examined. no Chest pain, no sob, and very mild headache with improving weakness. OBJECTIVE: Vital Signs Period Temp Pulse Resp BP Sys/Bailey Pulse Ox Last 24 Hr 97.5 F-98.5 F 69-77 18-20 123-165/56-85 95-98 PHYSICAL EXAM GENERAL: The patient is awake, alert, and fully oriented, in no acute distress. HEAD: Normal with no signs of trauma. EYES: PERRL, extraocular movements intact, sclera anicteric, conjunctiva clear. No ptosis. ENT: oropharynx clear without exudates, moist mucous membranes. NECK: Trachea midline, full range of motion, supple. LUNGS: Breath sounds equal, clear to auscultation bilaterally, no wheezes, no crackles, no accessory muscle use. HEART: Regular rate and rhythm, S1, S2 without murmur, rub or gallop. ABDOMEN: Soft, nontender, nondistended, normoactive bowel sounds, no guarding, no rebound, no hepatosplenomegaly, no masses. EXTREMITIES: 2+ pulses, warm, well-perfused, no edema. NEUROLOGICAL: Cranial nerves intact except mild naciolabial flattening on the R improving. Normal speech, gait not observed. 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 SKIN: Warm, dry, normal turgor, b/l mastectomy scars LABS Laboratory Results - last 24 hr 01/26/19 01/26/19 01/27/19 16:01 21:49 05:30 WBC 7.4 RBC 4.35 Hgb 13.0 Hct 38.2 MCV 87.8 MCH 30.0 MCHC 34.2 RDW 13.2 Plt Count 337 MPV 8.8 Absolute Neuts (auto) 4.6 Neutrophils % 61.5 Lymphocytes % 27.2 Monocytes % 7.0 Eosinophils % 3.3 Basophils % 1.0 Nucleated RBC % 0 Sodium Potassium Chloride Carbon Dioxide Anion Gap BUN Creatinine Est GFR (CKD-EPI)AfAm Est GFR (CKD-EPI)NonAf POC Glucometer 345 194 Random Glucose Calcium 01/27/19 01/27/1901/27/19 05:30 05:50 11:37 WBC RBC Hgb Hct MCV MCH MCHC RDW Plt Count MPV Absolute Neuts (auto) Neutrophils % Lymphocytes % Monocytes % Eosinophils % Basophils % Nucleated RBC % Sodium 139 Potassium 4.2 Chloride 106 Carbon Dioxide 27 Anion Gap 7 L BUN 18.8 H Creatinine 0.9 Est GFR (CKD-EPI)AfAm 73.00 Est GFR (CKD-EPI)NonAf 62.99 POC Glucometer 204 220 Random Glucose 217 H Calcium 9.2 HOSPITAL COURSE: Date of Admission:01/25/19 73 y/o/f with PMHx of Myocardial Infarction x3 (most recent last year), HTN, HLD , Diabetes Mellitus, B/L breast cancer here for chest pain and headache for the last 3 days admitted for new onset mild left hemiparesis with R nasolabial flattening with Stroke - NIHSS 4 and chest pain.Head CT without any ischemic change.Carotid duplex negative for pathology.Echocardiogram EF of 55% LV function and size normal. Mild MR, TR and Aortic sclerosis.Neuro, Dr. Grant R subcorticaL cva need MRI BRAIN /MRA ; Pt got agitated because of phobia and refused to repeat. Pt will do o/p and follow up closely with Dr Grant. Continuing Aspirin and increased pt home atorvastatin to 80mg . Pt passed dysphagia screen in ED and per Traci safe to eat but soft and chopped food.Pt ambulate with PT will need VNS for help with medication and ambulation. We ru/o acs as pt trops were neg x2 and EKG no ST changed and cp resolved. diabetes meds changed to optimize as pt A1C was found to be 9.5. Levemir 7 in the am and sliding scale starting at 150. Pt to follow up with cardio for holter monitoring. VSN services for medication safety and administration and ambulation Date of Discharge: 01/27/19 Minutes to complete discharge: 35 Discharge Summary Problems reviewed: Yes Reason For Visit: Chest Pain Condition: Improved - Instructions Diet, Activity, Other Instructions: You came into the ED because of weakness and chest pain. We tested your blood for signs of heart attack and that came back negative. We did an EKG and that was also negative for heart attack. We want to further assess your heart when you leave the hospital; Please follow up with cardiology within one week for further evaluation. For your weakness, we did a scan of your head which showed no bleeding or acute findings. We also did an ultrasound of your neck vessels and of your heart that came back negative for acute pathology. We consulted neurology Dr. Grant who recommended a more advance imaging called MRI; However because of your claustrophobia were unable to perform the study;PLEASE FOLLOW UP OUTPATIENT WITH NEUROLOGY AND FOR AN MRI/MRA of your brain. While you were here we realized that your blood sugars remain uncontrolled; We have made some changes to your diabetes regimen. Please follow as new changes. It is safe for you to eat but try to eat soft and chopped food. PLEASE do not take your old Atorvastatin pills!! Medications: Please resume all of your home medications with some changes to follow: Please take Levemir 7 units in the morning. Please take Atorvastatin 80mg at night. Please follow the insulin sliding scale with novolo-150-> 0 units 151-200-> 2 units 201-250-> 4 units 251-300-> 6 units 301-350-> 8 units 351-400-> 10 units >400 12 units and call 911 You will be going home with Visiting nurse services, to assist you with your medications and ambulation Follow up: Please follow up with neurology Dr Grant within one week. Please follow up with Cardiology Dr Fisher within one week for holter monitoring Please follow up with endocrinology Dr Martell within a week to assist you with better control of your glucose If you begin to experience worsening chest pain, weakness, shortness of breath, loss of sentation over your body, inability to speak please return to the ED immediately. Referrals: Derek Fisher MD [Staff Physician] - 1 Week Landon Grant DO [Staff Physician] - 1 Week Leighann Martell MD [Staff Physician] - 1 Week Disposition: VNS/HOME HEALTH CARE - Home Medications Comprehensive Discharge Medication List: Ambulatory Orders Anastrozole [Arimidex -] 1 mg PO DAILY #0 02/10/16 Aspirin [ASA -] 81 mg PO DAILY #30 tab.chew 04/01/16 Atorvastatin Ca [Lipitor] 40 mg PO HS #30 tablet 02/14/17 Levothyroxine [Synthroid -] 150 mcg PO DAILY@0700 #90 tablet 07/26/17 Acetaminophen [Tylenol -] 500 mg PO Q8H #20 tablet 07/18/18 Insulin Glargine,Hum.rec.anlog [Lantus] 0 unit SQ ASDIR 10/02/18 Insulin Lispro [Humalog] 0 unit SQ ASDIR 10/02/18 Telmisartan [Micardis] 80 mg PO DAILY 10/02/18 Albuterol Sulfate Inhaler - [Ventolin HFA Inhaler -] 2 puff PO TID 10/03/18 Fluticasone Propionate [Flovent Diskus] 2 puff IH BID 10/03/18 Memantine HCl 5 mg PO DAILY 10/03/18 Problem List - Problems (1) Arthritis Code(s): M19.90 - UNSPECIFIED OSTEOARTHRITIS, UNSPECIFIED SITE (2) Breast cancer Code(s): C50.919 - MALIGNANT NEOPLASM OF UNSP SITE OF UNSPECIFIED FEMALE BREAST (3) Diabetes Code(s): E11.9 - TYPE 2 DIABETES MELLITUS WITHOUT COMPLICATIONS (4) HLD (hyperlipidemia) Code(s): E78.5 - HYPERLIPIDEMIA, UNSPECIFIED (5) HTN (hypertension) Code(s): I10 - ESSENTIAL (PRIMARY) HYPERTENSION (6) Hypothyroid Code(s): E03.9 - HYPOTHYROIDISM, UNSPECIFIED (7) Muscle spasm Code(s): M62.838 - OTHER MUSCLE SPASM (8) Chest pain Code(s): R07.9 - CHEST PAIN, UNSPECIFIED (9) Chest pain Code(s): R07.9 - CHEST PAIN, UNSPECIFIED Qualifiers: Chest pain type: unspecified Qualified Code(s): R07.9 - Chest pain, unspecified (10) Left upper arm pain Code(s): M79.622 - PAIN IN LEFT UPPER ARM This patient is new to me today: No Emergency Visit: Yes ED Registration Date: 01/25/19 Care time: The patient presented to the Emergency Department on the above date and was hospitalized for further evaluation of their emergent condition. Critical Care patient: No - Discharge Referral Referred to [facility] Med [facility] No ATTENDING PHYSICIAN STATEMENT I saw and evaluated the patient. I reviewed the resident's note and discussed the case with the resident. I agree with the resident's findings and plan as documented. SUBJECTIVE: OBJECTIVE: ASSESSMENT AND PLAN:
--- NOTE | 2019-01-27 13:24 | PN ---
Progress Note (short form) - Note Progress Note: 73 y/o/f with PMHx of Myocardial Infarction x3 (most recent last year), HTN, HLD , Diabetes Mellitus, B/L breast cancer here for chest pain and headache for the last 3 days. She states the chest pain is left sided and goes down her left arm and up her neck. The pain has been intermittent and she denies having pain currently. Her headache has also been present for 3 days and is constant. She also complains of weakness and numbness on the left side of her body x2 days. She feels like she has occasionally been slurring her words over the last 2 days as well. She takes a powder prescribed by her PCP to help with constipation. She denies SOB, abd pain, dysuria, hematuria, weight loss, back pain, vision changes, N/V/D, sore throat, fevers, cough. n ASA, statin. HDCT (-), Doppler (-) FU : no new changes doing better unable to get MRI bc of clausterophobia - Past Medical History Cardio/Vascular: Yes: CAD, HTN, Hyperlipdemia Gastrointestinal: Yes: Cancer (Breast b/l s/p mastectomy) Musculoskeletal: Yes: Chronic low back pain Endocrine: Yes: Diabetes Mellitus, Hypothyroidism - Past Surgical History Past Surgical History: Yes: Cataract Removal, Cholecystectomy, Mastectomy - Alcohol/Substance Use Hx Alcohol Use: No History of Substance Use: reports: None - Smoking History Smoking history: Never smoked Have you smoked in the past 12 months: No Aproximately how many cigarettes per day: 0 - 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) History of Recent Travel: No Home Medications - Allergies Allergies/Adverse Reactions: Allergies Allergy/AdvReac Type Severity Reaction Status Date / Time codeine [Codeine] Allergy Severe Itching Verified 10/02/18 13:21 iodine [Iodine] Allergy Severe Itching Verified 10/02/18 13:21 Shellfish Allergy Severe Hives Verified 10/02/18 13:21 seafood Allergy Hives Uncoded 10/02/18 13:21 - Home Medications Home Medications: Ambulatory Orders Anastrozole [Arimidex -] 1 mg PO DAILY #0 02/10/16 Aspirin [ASA -] 81 mg PO DAILY #30 tab.chew 04/01/16 Atorvastatin Ca [Lipitor] 40 mg PO HS #30 tablet 02/14/17 Levothyroxine [Synthroid -] 150 mcg PO DAILY@0700 #90 tablet 07/26/17 Acetaminophen [Tylenol -] 500 mg PO Q8H #20 tablet 07/18/18 Insulin Glargine,Hum.rec.anlog [Lantus] 0 unit SQ ASDIR 10/02/18 Insulin Lispro [Humalog] 0 unit SQ ASDIR 10/02/18 Telmisartan [Micardis] 80 mg PO DAILY 10/02/18 Albuterol Sulfate Inhaler - [Ventolin HFA Inhaler -] 2 puff PO TID 10/03/18 Fluticasone Propionate [Flovent Diskus] 2 puff IH BID 10/03/18 Memantine HCl 5 mg PO DAILY 10/03/18 Physical Exam-Neuro Vital Signs: Vital Signs Temperature 98.1 F 01/27/19 09:00 Pulse Rate 70 01/27/19 09:00 Respiratory Rate 20 01/27/19 09:00 Blood Pressure 123/56 L 01/27/19 09:00 O2 Sat by Pulse Oximetry (%) 98 01/27/19 09:00 Labs: CBC, BMP 01/26/19 06:57 01/26/19 06:57 INR, PTT INR 0.95 (0.83-1.09) 01/25/19 16:41 - Neuro Exam Level Of Consciousness: Yes: Alert (awake, alert, no aphasia, min dysrthria, mild LUE drift /LLE , no ataxia ) Imaging - Results Cat Scan: Report Reviewed, Image Reviewed Assessment/Plan 73 y/o/f with PMHx of Myocardial Infarction x3 (most recent last year), HTN, HLD , Diabetes Mellitus, B/L breast cancer here for chest pain and headache for the last 3 days. She states the chest pain is left sided and goes down her left arm and up her neck. The pain has been intermittent and she denies having pain currently. Her headache has also been present for 3 days and is constant. She also complains of weakness and numbness on the left side of her body x2 days. She feels like she has occasionally been slurring her words over the last 2 days as well. She takes a powder prescribed by her PCP to help with constipation. She denies SOB, abd pain, dysuria, hematuria, weight loss, back pain, vision changes, N/V/D, sore throat, fevers, cough. on ASA, statin. HDCT (-), Doppler (-) AP : new onset mild left hemiparesis (F/A/leg) --r/o R subcorticaL cva MRI BRAIN /MRA can be done as outpt Doppler (-) echo (-) uncontrolled DM -FU prinmary team cont ASA , statin , stable for DC can FU as outpt [phone] thanks DR MOSS
--- NOTE | 2019-01-27 14:16 | PN ---
Teaching Attending Note Name of Resident: Cande Salcido ATTENDING PHYSICIAN STATEMENT I saw and evaluated the patient. I reviewed the resident's note and discussed the case with the resident. I agree with the resident's findings and plan as documented. SUBJECTIVE: no fever or chills. no GARCIA . still has numbness in L side and mild GARCIA and weakness has improved OBJECTIVE: NAD , MMM Cv ; RRR, No MRG Lungs: CTAB b/l mastectomy scars Abd: soft, NT, ND , NL BS Ext : No edema or erythema Neuro: EOMI, round equal pupils, reactive to light. mild R lower facial droop with asymmetry of the nasolabial fold. tongue at mid line . 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 1- L hemiparesis with numbness, mild facial droop: likely acute stroke. - tele with no events today - MRI or brain could not be done due to clustrophobia.. patient declined benzos . she will get MRI as out pt ( open ) - echo reviewed - cont high dose statin for now, as her home dose was 40 mg - cont ASa this was d/w neuro by resident 2- HTN: resume meds 3- H/o Dm : she does not know her insulin regimen. will dc on levemir 7 and SSI Dc home , aid services to be resumed
[2019-01-27 15:54] VITALS: BP 132/68; PULSE 77; TEMP 98
[2019-01-28] MEDS ORDERED: INSULIN (LEVEMIR) 100 UNITS/ML UNITS SQ SCH (07:00)
== END 2019-01-27 15:40 | disposition home health service (06) | DRG 65 ==
LOC: JER 15:27 → JERBED 17:17 → INTOOBSV 23:00 → OBSVTOIN 23:00 → J4W 01-26 03:36
PROVIDERS: ADMIT Internal Medicine; ATTEND Internal Medicine
DX: I63.89 Other cerebral infarction (principal); I69.354 Hemiplegia and hemiparesis following cerebral infarction affecting left non-dominant side; R29.704 NIHSS score 4; I25.10 Atherosclerotic heart disease of native coronary artery without angina pectoris; I10 Essential (primary) hypertension; E78.5 Hyperlipidemia, unspecified; I25.2 Old myocardial infarction; R51 Headache; R29.810 Facial weakness; E11.65 Type 2 diabetes mellitus with hyperglycemia; I27.20 Pulmonary hypertension, unspecified; G47.33 Obstructive sleep apnea (adult) (pediatric); M54.5 Low back pain; M19.90 Unspecified osteoarthritis, unspecified site; M62.838 Other muscle spasm; M79.622 Pain in left upper arm; Z85.3 Personal history of malignant neoplasm of breast; Z86.718 Personal history of other venous thrombosis and embolism
CPT/HCPCS: 36415; 70450-TC; 71045-TC-FY; 80048; 80053; 80061; 82550; 82962; 83036; 83721; 84443; 84484; 85025; 85610; 93005; 93010; 93306-TC; 93880-TC; 97116-GP; 97162-GP; 99285-25; G0008; G0378; J1644; J7030; Q2036

== ENCOUNTER 2019-05-31 13:54 | Inpatient (IN) | payer OTHER ==
--- NOTE | 2019-05-31 14:57 | PDOC ---
History of Present Illness - History of Present Illness Initial Comments: 05/31/19 15:44 73 yo F PMH HTN, HLD, DM, CAD, s/p [place] X3, DINH, pulmonary HTN, hypothyroidism, DVT, hx breast cancer s/p b/l mastectomy and chemo, recent admission January 2019 due to c/f stroke (negative CT, patient required outpatient MRI 2/2 severe claustrophobia, unknown results) with residual L sided loss of sensation, presenting after fall. About an hour before arrival to the ED, patient reports having acute onset " room spinning" dizziness. Patient fell back and hit her head, back, and right hip, no LOC. She immediately became nauseous and vomiting several times. Currently denies nausea, but endorses pain throughout her back and her right hip. Continues to have dizziness, exacerbated with head movement. Takes aspirin 81mg, but does not take any blood thinners. Denies CP, lightheadedness, palpitations, fevers/chills, constipation/diarrhea, GARCIA, visual changes, urinary changes. <Xiomara Ulloa - Last Filed: 06/02/19 17:07> <Katya Herrera - Last Filed: 06/04/19 12:30> - General Chief Complaint: Injury Stated Complaint: Injury Time Seen by Provider: 05/31/19 14:28 Past History - Past Medical History Anemia: No Asthma: No Cancer: Yes (BILATERAL BREAST) Cardiac Disorders: Yes (TN 2016) CVA: No COPD: No CHF: No Dementia: No Diabetes: Yes GI Disorders: Yes (GERD) Disorders: No HTN: Yes Hypercholesterolemia: Yes Liver Disease: No Seizures: No Thyroid Disease: Yes (HYPO) - Surgical History Abdominal Surgery: Yes Appendectomy: No Cardiac Surgery: No Cholecystectomy: Yes Lung Surgery: No Neurologic Surgery: No Orthopedic Surgery: Yes (LEFT KNEE ARTHROSCOPY 2003) - Immunization History Td Vaccination: Yes TDAP Vaccination: Yes Immunization Up to Date: Yes - Psycho Social/Smoking Cessation Hx Smoking Status: No Smoking History: Never smoked Years of Tobacco Use: 0 Have you smoked in the past 12 months: No Number of Cigarettes Smoked Daily: 0 Cigars Per Day: 0 Hx Alcohol Use: No Drug/Substance Use Hx: No Substance Use Type: None Hx Substance Use Treatment: No <Xiomara Ulloa - Last Filed: 06/02/19 17:07> <Katya Herrera - Last Filed: 06/04/19 12:30> - Past Medical History Allergies/Adverse Reactions: Allergies Allergy/AdvReac Type Severity Reaction Status Date / Time codeine [Codeine] Allergy Severe Itching Verified 05/31/19 14:31 iodine [Iodine] Allergy Severe Itching Verified 05/31/19 14:31 Shellfish Allergy Severe Hives Verified 05/31/19 14:31 seafood Allergy Hives Uncoded 05/31/19 14:31 Home Medications: Ambulatory Orders Anastrozole [Arimidex -] 1 mg PO DAILY #0 02/10/16 Aspirin [ASA -] 81 mg PO DAILY #30 tab.chew 04/01/16 Levothyroxine [Synthroid -] 150 mcg PO DAILY@0700 #90 tablet 07/26/17 Telmisartan [Micardis] 80 mg PO DAILY 10/02/18 Albuterol Sulfate Inhaler - [Ventolin HFA Inhaler -] 2 puff PO TID 10/03/18 Fluticasone Propionate [Flovent Diskus] 2 puff IH BID 10/03/18 Memantine HCl 5 mg PO DAILY 10/03/18 Atorvastatin Ca [Lipitor] 80 mg PO HS #30 tablet 01/27/19 Insulin Glargine,Hum.rec.anlog [Lantus] 45 unit SQ HS 06/02/19 Acetaminophen [Tylenol .Extra-Strength -] 500 mg PO Q8H PRN #20 tablet 06/04/19 Insulin Sliding Scale [Novolog Vial Sliding Scale -] 1 vial SQ TIDAC #1 vial Meclizine HCl [Antivert -] 25 mg PO TID PRN #90 tablet 06/04/19 Review of Systems - Review of Systems Comments:: 05/31/19 17:50 GENERAL/CONSTITUTIONAL: denies fever, chills, diaphoresis, generalized weakness , malaise, loss of appetite, weight change HEAD, EYES, EARS, NOSE AND THROAT: denies rhinorrhea, nasal congestion, throat pain, throat swelling, difficulty swallowing, mouth swelling, ear pain, eye pain , visual changes NEUROLOGIC: endorses dizziness. denies headache, focal weakness or paresthesias , unsteady gait, seizure, mental status changes, bladder or bowel incontinence CARDIOVASCULAR: denies chest pain, syncope, palpitations, irregular heart rate, lightheadedness, peripheral edema RESPIRATORY: denies cough, shortness of breath, dyspnea with exertion, orthopnea , wheezing, stridor, hemoptysis GASTROINTESTINAL: endorses nausea and vomiting. Denies abdominal pain, abdominal distension, diarrhea, constipation, melena, hematochezia GENITOURINARY: denies dysuria, frequency, urgency, hesitancy, hematuria, flank pain, genital pain MUSCULOSKELETAL: endorses back and right hip pain. Denies myalgia, arthralgia, joint swelling, neck pain SKIN: denies rash, itching, pallor HEMATOLOGIC/IMMUNOLOGIC: denies easy bleeding, easy bruising, lymphadenopathy, frequent infections ENDOCRINE: denies unexplained weight gain, unexplained weight loss, heat intolerance, cold intolerance PSYCHIATRIC: denies anxiety, depression, suicidal or homicidal ideation, hallucinations <Xiomara Ulloa - Last Filed: 06/02/19 17:07> *Physical Exam - Vital Signs Last Vital Signs Temp Pulse Resp BP Pulse Ox 97.9 F 85 16 134/55 L 100 05/31/19 14:00 05/31/19 14:00 05/31/19 14:00 05/31/19 14:00 05/31/19 14:00 - Physical Exam 05/31/19 15:56 Gen: well-developed, well-nourished, NAD Neuro: AAOX4, CN II-XII intact, FTN intact, EOMI, no nystagmus, PERRLA, limited by pain but otherwise 5/5 strength, decreased sensation in L face, arm, and leg HEENT: atraumatic, normocephalic, dry mucous membranes Neck: trachea midline, supple CV: regular rate, regular rhythm, no murmurs, rubs, or gallops Pulm: CTA b/l, no wheezing Abd: soft, non-distended, non-tender MSK: full ROM, intact pulses Extr: no edema, no deformities Skin: warm, dry <Xiomara Ulloa - Last Filed: 06/02/19 17:07> - Vital Signs Last Vital Signs Temp Pulse Resp BP Pulse Ox 98.4 F 83 18 139/76 96 06/04/19 06:00 06/04/19 06:00 06/04/19 06:00 06/04/19 06:00 06/03/19 21:00 <Katya Herrera - Last Filed: 06/04/19 12:30> ED Treatment Course - LABORATORY CBC & Chemistry Diagram: 06/01/19 06:28 06/02/19 05:40 - RADIOLOGY Radiology Studies Ordered: Category Date Time Status CERVICAL SPINE CT W/O CONTR [CT] Stat CT Scan 05/31/19 14:[address] WITHOUT CONTRAST [CT] Stat CT Scan 05/31/19 14:[address] W/O CONTRAST [CT] Stat CT Scan 05/31/19 14:[address] W/WO CONTRAST [CT] Stat CT Scan 05/31/19 14:[address] W/O CONTRAST [CT] Stat CT Scan 05/31/19 14:53 Ordered CXRPORT [CHEST X-RAY PORTABLE*] [RAD] Stat Radiology 05/31/19 14:53 Ordered <Xiomara Ulloa - Last Filed: 06/02/19 17:07> - LABORATORY CBC & Chemistry Diagram: 06/01/19 06:28 06/03/19 05:35 - ADDITIONAL ORDERS Additional order review: 05/31/19 05/31/19 15:00 14:56 RBC 4.51 MCV 86.1 MCHC 33.9 RDW 13.6 MPV 9.2 Neutrophils % 70.3 Lymphocytes % 21.2 D Monocytes % 5.4 Eosinophils % 2.2 Basophils % 0.9 POC Glucometer 258 - Medications Given in the ED: ED Medications Discontinued Medications Generic Name Dose Route Start Last Admin Trade Name Cici PRN Reason Stop Dose Admin Acetaminophen 1,000 mg 05/31/19 15:50 05/31/19 16:15 Ofirmev Injection - IVPB 05/31/19 15:51 1,000 mg ONCE ONE Administration Acetaminophen 500 mg 05/31/19 18:00 05/31/19 18:01 Tylenol - PO Not Given Q8H MAGGIE Acetaminophen 500 mg 05/31/19 18:05 06/03/19 14:32 Tylenol - PO 500 mg TID MAGGIE Administration Anastrozole 1 mg 06/01/19 10:00 06/03/19 10:19 Arimidex - PO 1 mg DAILY MAGGIE Administration Aspirin 81 mg 06/01/19 10:00 06/03/19 10:18 Asa - PO 81 mg DAILY MAGGIE Administration Atorvastatin Calcium 80 mg 05/31/19 22:00 05/31/19 21:52 Lipitor - PO 80 mg HS MAGGIE Administration Atorvastatin Calcium 40 mg 06/01/19 22:00 06/02/19 21:09 Lipitor - PO 40 mg HS MAGGIE Administration Cyclobenzaprine HCl 10 mg 05/31/19 16:44 05/31/19 17:06 Cyclobenzaprine Hcl PO 05/31/19 16:45 10 mg ONCE ONE Administration Enoxaparin Sodium 40 mg 06/01/19 10:00 06/03/19 10:19 Lovenox - SQ 40 mg DAILY MAGGIE Administration Famotidine 10 mg 06/04/19 02:12 06/04/19 02:40 Acid Rn Testing PO 06/04/19 02:13 10 mg ONCE ONE Administration Sodium Chloride 500 mls @ 500 mls/hr 05/31/19 17:44 05/31/19 18:02 Normal Saline - IV 05/31/19 18:43 500 mls/hr ASDIR STA Administration Sodium Chloride 1,000 mls @ 75 mls/hr 05/31/19 17:45 05/31/19 18:02 Normal Saline - IV 75 mls/hr ASDIR MAGGIE Administration Insulin Aspart 1 vial 05/31/19 22:00 06/02/19 17:18 Novolog Vial Sliding Scale - SQ 8 units ACHS [facility] Administration Protocol Insulin Aspart 1 vial 06/03/19 07:00 06/03/19 18:28 Novolog Vial Sliding Scale - SQ 6 units TIDAC [facility] Administration Protocol Insulin Detemir 7 units 06/01/19 22:00 06/01/19 23:01 Levemir Vial SQ 7 units HS MAGGIE Administration Insulin Detemir 20 units 06/02/19 12:07 06/02/19 22:04 Levemir Vial SQ 20 units HS MAGGIE Administration Insulin Detemir 30 units 06/03/19 22:00 06/03/19 22:20 Levemir Vial SQ 30 units HS MAGGIE Administration Ketorolac Tromethamine 15 mg 05/31/19 16:44 05/31/19 17:06 Toradol Injection - IVPUSH 05/31/19 16:45 15 mg ONCE ONE Administration Levothyroxine Sodium 150 mcg 06/01/19 07:00 06/03/19 06:18 Synthroid - PO 150 mcg DAILY@0700 MAGGIE Administration Lorazepam 2 mg 05/31/19 17:44 05/31/19 18:09 Ativan Injection - IVPUSH 05/31/19 17:45 Not Given ONCE ONE Lorazepam 0.5 mg 06/02/19 15:45 06/02/19 15:40 Ativan Injection - IVPUSH 06/02/19 15:46 0.5 mg ONCE ONE Administration Meclizine HCl 25 mg 06/01/19 11:00 06/03/19 14:32 Antivert - PO 25 mg TID MAGGIE Administration Memantine 5 mg 06/01/19 10:00 06/03/19 10:19 Namenda - PO 5 mg DAILY MAGGIE Administration Mometasone Furoate 2 puff 05/31/19 22:00 06/02/19 21:08 Asmanex 220mcg - IH 2 puff HS MAGGIE Administration Ondansetron HCl 4 mg 05/31/19 15:50 05/31/19 16:15 Zofran Injection IVPUSH 05/31/19 15:51 4 mg NOW ONE Administration Valsartan 320 mg 06/01/19 10:00 06/03/19 10:18 Diovan - PO 320 mg DAILY MAGGIE Administration <Katya Herrera - Last Filed: 06/04/19 12:30> Medical Decision Making - Medical Decision Making 05/31/19 14:26 Concern for brain bleed v stroke v cervical/back fractures. - CT H/C/T/L and pelvis - CBC, CMP - EKG, trop - CXR - OfirmevMack - reassess 05/31/19 15:50 EKG with normal sinus at 80 bpm, no ischemic changes, UT 158, QRS 102, QTc 452. 05/31/19 16:25 Labs unremarkable, trop negative. Patient states that dizziness and nausea have resolved. 05/31/19 16:53 CT scans negative for acute pathology. Will admit for dizziness causing fall with risk factors. <Xiomara Ulloa - Last Filed: 06/02/19 17:07> Discharge - Discharge Information Problems reviewed: Yes <Xiomara Ulloa - Last Filed: 06/02/19 17:07> - Admission Yes <Katya Herrera - Last Filed: 06/04/19 12:30> - Discharge Information Clinical Impression/Diagnosis: Dizziness Fall Qualifiers: Encounter type: initial encounter Qualified Code(s): W19.XXXA - Unspecified fall, initial encounter Condition: Stable
--- NOTE | 2019-05-31 15:35 | PDOC ---
Attending Attestation - Resident Resident Name: Xiomara Ulloa - ED Attending Attestation I have performed the following: I have examined & evaluated the patient, The case was reviewed & discussed with the resident, I agree w/resident's findings & plan - HPI HPI: 05/31/19 15:39 73 yo F PMH HTN, HLD, DM, CAD, s/p [place] X3, DINH, pulmonary HTN, hypothyroidism, DVT, hx breast cancer s/p b/l mastectomy and chemo, recent admission January 2019 due to c/f stroke (negative CT, patient required outpatient MRI 2/2 severe claustrophobia, unknown results) with residual L sided loss of sensation, presenting after fall and dizziness/near syncope. About an hour before arrival to the ED, patient reports having acute onset " room spinning" dizziness. Patient fell back and hit her head, back, and right hip, no LOC. She immediately became nauseous and vomiting several times. Currently denies nausea, but endorses pain throughout her back and her right hip. Continues to have dizziness, exacerbated with head movement. Takes aspirin 81mg, but does not take any blood thinners. 05/31/19 16:22 - Physicial Exam PE: 05/31/19 15:34 Agree with the resident's HPI and PE as documented in the electronic medical record. General: GCS 15 NAD, well appearing HEENT: NCAT, PERRL, EOMI. Airway intact. No battles sign or raccoon eyes. No e/ o ocular. Dentition intact. No e/o septal hematoma, nasal bridge stable. Neck: neck supple, +midline C spine and diffuse TTP. ROM intact. No anterior mass or crepitus, trachea midline. Resp: Lungs clear bilaterally Chest: no clavicle or chest wall tenderness or crepitus CVS: RRR, 2+ pulses throughout. Abdomen: Abdomen soft, nontender, nondistended. Back: Back +tenderness along cervical/thoracic/lumbar spine, ROM limited 2/2 pain MSK: Pelvis stable, Extremities symmetric, no focal areas of tenderness or deformities, proximal and distally; no pain on axial loading. FROM in all extrem. +diffuse TTP in b/l thigh, lower back. Neuro: Alert, oriented appropriately. CN II-XII grossly symmetric and intact. no focal neuro deficits. Sensation and strength intact throughout. Gait normal/ stable. Skin: intact, normal color and well perfused. 05/31/19 16:59 - Medical Decision Making 05/31/19 15:34 Vital Signs Temp Pulse Resp BP Pulse Ox 97.9 F 85 16 134/55 L 100 05/31/19 14:00 05/31/19 14:00 05/31/19 14:00 05/31/19 14:00 05/31/19 14:00 ddx fall: ICH/ SDH, head bleed, CVA, arrhythmia, ACS, anemia, electrolyte/ metabolic derangements, infection. VS reviewed, wnl, HD appropriate. pain control here CTH and spinal imaging to eval for fx after the fall. pt has diffuse pain in all extrem, pelvis is stable. no respiratory distress. no external signs of trauma. alert and oriented, GCS 15 05/31/19 16:58 given analgesia here, zofran for the nausea. monitor, reassess. CT head neg for bleed/injuries. spinal CT neg for acute fx/dislocation or sublux; degenerative changes present. dispo: admit for fall, near syncope episode and close monitoring 05/31/19 17:03 06/04/19 12:30 Heart Score/ECG Review #1 ECG reviewed & interpreted by me at: 14:20 General ECG Interpretation: Sinus Rhythm, Normal Rate, Normal Intervals 05/31/19 15:34 EKG normal sinus rhythm 80 bpm, no interval abnormalities, narrow QRS, ST and T wave segments and morphology normal.
[2019-05-31 15:49] LABS: BASO % 0.9 % (0-2.0); EOS % 2.2 % (0-4.5); HEMATOCRIT 38.9 % (32.4-45.2); HEMOGLOBIN 13.2 GM/dL (10.7-15.3); LYMPH % 21.2 % (8-40); MCH 29.2 pg (25.7-33.7); MCHC 33.9 g/dl (32.0-36.0); MEAN CELL VOLUME 86.1 fl (80-96); MEAN PLT VOLUME 9.2 fl (7.5-11.1); MONO % 5.4 % (3.8-10.2); NEUT % 70.3 % (42.8-82.8); PLATELET COUNT 321 K/MM3 (134-434); RBC 4.51 M/mm3 (3.60-5.2); RDW 13.6 % (11.6-15.6); WHITE BLOOD COUNT 9.2 K/mm3 (4.0-10.0)
[2019-05-31] MEDS ORDERED: ONDANSETRON 4 MG/2 ML VIAL IVPUSH ONE (15:50)
[2019-05-31] MEDS ORDERED: ACETAMINOPHEN 1000 MG/100 ML VIAL (NON FORMULARY) IVPB ONE (15:50)
[2019-05-31 16:01] LABS: INR 0.95 (0.83-1.09); PROTHROMBIN TIME (PATIENT) 11.2 SEC (9.7-13.0)
[2019-05-31 16:04] LABS: ACTIVATED PTT 32.5 SECONDS (25.2-36.5)
[2019-05-31] MEDS ORDERED: ACETAMINOPHEN INJECTION 100 ML IVPB ONE (16:10)
[2019-05-31] MEDS ORDERED: ONDANSETRON 4 MG/2 ML VIAL ONE (16:11)
[2019-05-31 16:40] LABS: ALBUMIN 3.6 g/dl (3.4-5.0); BILIRUBIN,TOTAL 0.4 mg/dL (0.2-1); POTASSIUM 5.3 mmol/L (3.5-5.1)
[2019-05-31] MEDS ORDERED: CYCLOBENZAPRINE HCL 5 MG TABLET PO ONE (16:44)
[2019-05-31] MEDS ORDERED: KETOROLAC TROMETHAMINE 15 MG/ML VIAL IVPUSH ONE (16:44)
[2019-05-31] MEDS ORDERED: CYCLOBENZAPRINE HCL 10 MG TABLET (FP) ONE (16:52)
[2019-05-31] MEDS ORDERED: KETOROLAC TROMETHAMINE 15 MG/ML VIAL ONE (16:53)
[2019-05-31] MEDS ORDERED: SODIUM CHLORIDE 500 ML IV STA (17:44)
[2019-05-31] MEDS ORDERED: SODIUM CHLORIDE 1,000 ML IV SCH (17:45)
[2019-05-31] MEDS ORDERED: ALBUTEROL SO4 HFA INHALER IH PRN (17:47)
--- NOTE | 2019-05-31 17:49 | PN ---
Teaching Attending Note Name of Resident: Kaylie Hpokins ATTENDING PHYSICIAN STATEMENT I saw and evaluated the patient. I reviewed the resident's note and discussed the case with the resident. I agree with the resident's findings and plan as documented. SUBJECTIVE: Patient seen at bedside, evaluated for near-syncopal episode where she experienced "room spinning" with loss of balance and fall on back. Admitted for further evaluation and to r/o CVA. OBJECTIVE: PE GA comfortable, aaox3, speaks in full sentences, sitting up in stretcher HEENT NC/AT, EOMI, neck supple, no C-spine tenderness, no facial trauma Chest CTAB, no crackles or wheezing CVS S1, S2+, soft ROBERTH+, RRR Abd obese, soft, BS+, no guarding no tenderness Ext moves all 4 ext., no LE edema, no calf tenderness, no C/T/L spine tenderness no CVA tenderness Neuro CN 2-12 grossly intact, facial muscles symmetric, mildly decreased sensation LUE as opposed to RUE otherwise moves all 4 ext, good strength UE and LE Psych normal mood and affect [place]: positive orthostatics: positive Vital Signs - 24 hr 05/31/19 14:00 Temperature 97.9 F Pulse Rate 85 Respiratory 16 Rate Blood Pressure 134/55 L O2 Sat by Pulse 100 Oximetry (%) Laboratory Results - last 24 hr 05/31/19 05/31/19 05/31/19 14:56 15:00 15:00 WBC 9.2 RBC 4.51 Hgb 13.2 Hct 38.9 MCV 86.1 MCH 29.2 MCHC 33.9 RDW 13.6 Plt Count 321 MPV 9.2 Absolute Neuts (auto) 6.5 Neutrophils % 70.3 Lymphocytes % 21.2 D Monocytes % 5.4 Eosinophils % 2.2 Basophils % 0.9 Nucleated RBC % 0 PT with INR INR PTT (Actin FS) Sodium Potassium Chloride Carbon Dioxide Anion Gap BUN Creatinine Est GFR (CKD-EPI)AfAm Est GFR (CKD-EPI)NonAf POC Glucometer 258 Random Glucose Calcium Total Bilirubin AST ALT Alkaline Phosphatase Creatine Kinase 189 Creatine Kinase Index 1.0 CK-MB (CK-2) 2.0 Troponin I < 0.02 Total Protein Albumin 05/31/19 05/31/19 15:00 15:00 WBC RBC Hgb Hct MCV MCH MCHC RDW Plt Count MPV Absolute Neuts (auto) Neutrophils % Lymphocytes % Monocytes % Eosinophils % Basophils % Nucleated RBC % PT with INR 11.20 INR 0.95 PTT (Actin FS) 32.5 Sodium 136 Potassium 5.3 H Chloride 105 Carbon Dioxide 22 Anion Gap 9 BUN 20.0 H Creatinine 1.0 Est GFR (CKD-EPI)AfAm 64.27 Est GFR (CKD-EPI)NonAf 55.45 POC Glucometer Random Glucose 271 H Calcium 9.0 Total Bilirubin 0.4 AST 58 H ALT 31 Alkaline Phosphatase 96 Creatine Kinase Creatine Kinase Index CK-MB (CK-2) Troponin I Total Protein 8.0 Albumin 3.6 Home Medications Medication Instructions Recorded Anastrozole [Arimidex -] 1 mg PO DAILY #0 02/10/16 Aspirin [ASA -] 81 mg PO DAILY #30 tab.chew 04/01/16 Levothyroxine [Synthroid -] 150 mcg PO DAILY@0700 #90 tablet 07/26/17 Acetaminophen [Tylenol 500 mg PO Q8H #20 tablet 07/18/18 .Extra-Strength -] Telmisartan [Micardis] 80 mg PO DAILY 10/02/18 Albuterol Sulfate Inhaler - 2 puff PO TID 10/03/18 [Ventolin HFA Inhaler -] Fluticasone Propionate [Flovent 2 puff IH BID 10/03/18 Diskus] Memantine HCl 5 mg PO DAILY 10/03/18 Atorvastatin Ca [Lipitor] 80 mg PO HS #30 tablet 01/27/19 Insulin Glargine,Hum.rec.anlog 7 unit SQ AM #3 vial 01/27/19 [Lantus] Insulin Lispro [Humalog] See Protocol SQ ASDIR #4 cartridge 01/27/19 Current Medications Generic Name Dose Route Start Last Admin Trade Name Freq PRN Reason Stop Dose Admin Enoxaparin Sodium 40 mg 06/01/19 10:00 Lovenox - SQ DAILY MAGGIE Sodium Chloride 500 mls @ 500 mls/hr 05/31/19 17:44 Normal Saline - IV 05/31/19 18:43 ASDIR STA Sodium Chloride 1,000 mls @ 75 mls/hr 05/31/19 17:45 Normal Saline - IV ASDIR MAGGIE Lorazepam 2 mg 05/31/19 17:44 Ativan Injection - IVPUSH 05/31/19 17:45 ONCE ONE A/P: 73 F h/o HTN, HLD, T2DM, CAD s/p [place] x3, DINH, pulmonary HTN, hypothyroidism, DVT , hx of breast cancer s/p bilateral mastectomy and chemo, recently admitted in January for L hemiparesis with numbness, mild facial droop, admitted for an episode of dizziness and near syncope, patient admitted to rule out CVA v.s. ACS. Near syncope preceded by extreme dizziness lasting about 1 min, endorses "room spinning" denies CP/SOB, ?BPPV, [place] limited during exam due to pain but appeared to be positive, orthostatics positive Fluid challenge, trops/EKGx3, tele monitoring, ASA/high intensity statin, permissive HTN CT-head negative for acute CVA, will get MRI brain Neurology consult H/o CVA w/ L sided hemiparesis -continue ASA, Lipitor -still pending brain MRI/MRA -Neurology consulted. HTN allow permissive HTN in view of suspected CVA HLD cont. high intensity statin DM ISS< basal insulin as needed Hypothyroidism continue Synthroid 150mcg daily Tele monitoring FULL CODE
[2019-05-31] MEDS ORDERED: ACETAMINOPHEN 500 MG TABLET (FP) PO SCH (18:00)
--- NOTE | 2019-05-31 18:13 | HP ---
CHIEF COMPLAINT: dizziness, fall PCP:none HISTORY OF PRESENT ILLNESS: Patient is a 73 year old female with past medical history of HTN, HLD, DM, CAD s /p NE x3, DINH, pulmonary HTN, hypothyroidism, DVT, hx of breast cancer s/p bilateral mastectomy and chemo, recently admitted in January for L hemiparesis with numbness, mild facial droop, presented today after experiencing dizziness and subsequently fell. Patient reported she suddenly felt dizzy, described as room spinning around her, and she fell back and hit her head, back and right hip. She denies any recent illness, and fever, chills, headache, chest pain, SOB , palpitations, abdominal pain, diarrhea, urinary symptoms. Of note, patient was discharged in January when she had the L hemiparesis with instructions to follow up with PCP and neuro and have an open MRI done since she is claustrophobic, for which she has not done yet. Of note, patient still reports decreased sensation on her left side. ER course was notable for: (1)Head CT - no acute pathology (2) (3) Recent Travel:denies PAST MEDICAL HISTORY: HTN HLD DM CAD s/p NE x3 DINH, pulmonary HTN hypothyroidism DVT hx of breast cancer L hemiparesis with numbness PAST SURGICAL HISTORY: L knee arthroscopy cholecystectomy bilateral mastectomy Right eye cataract surgery Social History: Smoking:denies Alcohol:denies Drugs: denies Family History: Mother - breast CA, NE Brother - CAD, a 45yo during open heart surgery Allergies codeine [Codeine] Allergy (Severe, Verified 05/31/19 14:31) Itching HIVES iodine [Iodine] Allergy (Severe, Verified 05/31/19 14:31) Itching HIVES Shellfish Allergy (Severe, Verified 05/31/19 14:31) Hives seafood Allergy (Uncoded 05/31/19 14:31) Hives per pt HOME MEDICATIONS: Home Medications Medication Instructions Recorded Anastrozole [Arimidex -] 1 mg PO DAILY #0 02/10/16 Aspirin [ASA -] 81 mg PO DAILY #30 tab.chew 04/01/16 Levothyroxine [Synthroid -] 150 mcg PO DAILY@0700 #90 tablet 07/26/17 Acetaminophen [Tylenol 500 mg PO Q8H #20 tablet 07/18/18 .Extra-Strength -] Telmisartan [Micardis] 80 mg PO DAILY 10/02/18 Albuterol Sulfate Inhaler - 2 puff PO TID 10/03/18 [Ventolin HFA Inhaler -] Fluticasone Propionate [Flovent 2 puff IH BID 10/03/18 Diskus] Memantine HCl 5 mg PO DAILY 10/03/18 Atorvastatin Ca [Lipitor] 80 mg PO HS #30 tablet 01/27/19 Insulin Glargine,Hum.rec.anlog 7 unit SQ AM #3 vial 01/27/19 [Lantus] Insulin Lispro [Humalog] See Protocol SQ ASDIR #4 cartridge 01/27/19 REVIEW OF SYSTEMS CONSTITUTIONAL: Absent: fever, chills, diaphoresis, generalized weakness, malaise, loss of appetite, weight change HEENT: Absent: rhinorrhea, nasal congestion, throat pain, throat swelling, difficulty swallowing, mouth swelling, ear pain, eye pain, visual changes CARDIOVASCULAR: dizziness Absent: chest pain, syncope, palpitations, irregular heart rate, lightheadedness , peripheral edema RESPIRATORY: Absent: cough, shortness of breath, dyspnea with exertion, orthopnea, wheezing, stridor, hemoptysis GASTROINTESTINAL: Absent: abdominal pain, abdominal distension, nausea, vomiting, diarrhea, constipation, melena, hematochezia GENITOURINARY: Absent: dysuria, frequency, urgency, hesitancy, hematuria, flank pain, genital pain MUSCULOSKELETAL: Absent: myalgia, arthralgia, joint swelling, back pain, neck pain SKIN: Absent: rash, itching, pallor HEMATOLOGIC/IMMUNOLOGIC: Absent: easy bleeding, easy bruising, lymphadenopathy, frequent infections ENDOCRINE: Absent: unexplained weight gain, unexplained weight loss, heat intolerance, cold intolerance NEUROLOGIC: Absent: headache, focal weakness or paresthesias, dizziness, unsteady gait, seizure, mental status changes, bladder or bowel incontinence PSYCHIATRIC: Absent: anxiety, depression, suicidal or homicidal ideation, hallucinations. PHYSICAL EXAMINATION Vital Signs - 24 hr 05/31/19 14:00 Temperature 97.9 F Pulse Rate 85 Respiratory 16 Rate Blood Pressure 134/55 L O2 Sat by Pulse 100 Oximetry (%) GENERAL: Awake, alert, and fully oriented, in no acute distress. HEAD: Normal with no signs of trauma. EYES:PERRLA, EOMI, sclera anicteric, conjunctiva clear. EARS, NOSE, THROAT: Dry mucous membranes. NECK: Normal range of motion, supple. LUNGS: Breath sounds equal, clear to auscultation bilaterally. HEART: Regular rate and rhythm, normal S1 and S2 without murmur, rub or gallop. ABDOMEN: Soft, nontender, not distended, normoactive bowel sounds. MUSCULOSKELETAL: Normal range of motion at all joints. + tenderness along spine LOWER EXTREMITIES: 2+ pulses, warm, well-perfused.No peripheral edema. NEUROLOGICAL: Cranial nerves II-XII intact. Normal speech. Motor strength 5/5, sensation decreased in left side of body. PSYCHIATRIC: Cooperative. Good eye contact. Appropriate mood and affect. SKIN: Warm, dry, normal turgor. Laboratory Results - last 24 hr 05/31/19 05/31/19 05/31/19 14:56 15:00 15:00 WBC 9.2 RBC 4.51 Hgb 13.2 Hct 38.9 MCV 86.1 MCH 29.2 MCHC 33.9 RDW 13.6 Plt Count 321 MPV 9.2 Absolute Neuts (auto) 6.5 Neutrophils % 70.3 Lymphocytes % 21.2 D Monocytes % 5.4 Eosinophils % 2.2 Basophils % 0.9 Nucleated RBC % 0 PT with INR INR PTT (Actin FS) Sodium Potassium Chloride Carbon Dioxide Anion Gap BUN Creatinine Est GFR (CKD-EPI)AfAm Est GFR (CKD-EPI)NonAf POC Glucometer 258 Random Glucose Calcium Total Bilirubin AST ALT Alkaline Phosphatase Creatine Kinase 189 Creatine Kinase Index 1.0 CK-MB (CK-2) 2.0 Troponin I < 0.02 Total Protein Albumin 05/31/19 05/31/19 15:00 15:00 WBC RBC Hgb Hct MCV MCH MCHC RDW Plt Count MPV Absolute Neuts (auto) Neutrophils % Lymphocytes % Monocytes % Eosinophils % Basophils % Nucleated RBC % PT with INR 11.20 INR 0.95 PTT (Actin FS) 32.5 Sodium 136 Potassium 5.3 H Chloride 105 Carbon Dioxide 22 Anion Gap 9 BUN 20.0 H Creatinine 1.0 Est GFR (CKD-EPI)AfAm 64.27 Est GFR (CKD-EPI)NonAf 55.45 POC Glucometer Random Glucose 271 H Calcium 9.0 Total Bilirubin 0.4 AST 58 H ALT 31 Alkaline Phosphatase 96 Creatine Kinase Creatine Kinase Index CK-MB (CK-2) Troponin I Total Protein 8.0 Albumin 3.6 ASSESSMENT/PLAN: Patient is a 73 year old female with past medical history of HTN, HLD, DM, CAD s /p NE x3, DINH, pulmonary HTN, hypothyroidism, DVT, hx of breast cancer s/p bilateral mastectomy and chemo, recently admitted in January for L hemiparesis with numbness, mild facial droop, presented today after experiencing dizziness and subsequently fell. #Dizziness, Fall -may be vertigo, orthostatics negative -Head CT negative -Cervical/Thoracic/Lumbar spine CT done revealed no fracture -tele monitoring -still pending Brain MRI/MRA -will repeat echo -TSH, lipid panel, A1c -IVF -pain control -Neurology consulted. -FAll risk precautions -neurochecks #Hx of L sided numbness -continue ASA, Lipitor -still pending brain MRI/MRA -Neurology consulted. #HTN -On Telmisartan 80mg #HLD -Continue Lipitor 80mg HS #DM -Insulin sliding scale implemented -BGM ACHS #Hypothyroidism -Continue Synthroid 150mcg daily #FEN -IV NS @75cc/hr -Electrolytes wnl, routine bmp monitoring -Sodium restricted/diabetic diet #Prophylaxis -Lovenox 40mg sq daily #Disposition -full code -admit to tele Visit type - Emergency Visit Emergency Visit: Yes ED Registration Date: 05/31/19 Care time: The patient presented to the Emergency Department on the above date and was hospitalized for further evaluation of their emergent condition. - New Patient This patient is new to me today: Yes Date on this admission: 05/31/19 - Critical Care Critical Care patient: No ATTENDING PHYSICIAN STATEMENT I saw and evaluated the patient. I reviewed the resident's note and discussed the case with the resident. I agree with the resident's findings and plan as documented. SUBJECTIVE: OBJECTIVE: ASSESSMENT AND PLAN:
[2019-05-31] MEDS: ACETAMINOPHEN 500 MG TABLET (FP) PO SCH (21:12)
[2019-05-31] MEDS: INSULIN SLIDING SCALE (NOVOLOG) 1 VIAL SQ SCH (21:45)
[2019-05-31] MEDS: MOMETASONE FUROATE 220 MCG/IH INHALER IH SCH (21:52)
[2019-05-31] MEDS ORDERED: ATORVASTATIN CA 80 MG TABLET (FP) PO SCH (22:00)
[2019-06-01 00:02] VITALS: BMI 37.9
[2019-06-01] MEDS: ACETAMINOPHEN 500 MG TABLET (FP) PO SCH ×3 (06:46→23:00)
[2019-06-01] MEDS: INSULIN SLIDING SCALE (NOVOLOG) 1 VIAL SQ SCH ×4 (06:47→23:01)
[2019-06-01] MEDS: LEVOTHYROXINE NA 150 MCG TABLET PO SCH (06:50)
[2019-06-01 08:07] LABS: ALBUMIN 3.3 g/dl (3.4-5.0); BILIRUBIN,TOTAL 0.3 mg/dL (0.2-1); BLOOD UREA NITROGEN 20.9 mg/dL (7-18); CALCIUM 8.4 mg/dL (8.5-10.1); CREATININE 0.9 mg/dL (0.55-1.3); MAGNESIUM 1.9 mg/dL (1.8-2.4); PHOSPHOROUS 3.9 mg/dL (2.5-4.9); POTASSIUM 4.2 mmol/L (3.5-5.1); TOT PROT 6.8 g/dl (6.4-8.2)
[2019-06-01 08:26] LABS: BASO % 2.8 % (0-2.0); HEMATOCRIT 39.9 % (32.4-45.2); HEMOGLOBIN 13.4 GM/dL (10.7-15.3); MCH 29.4 pg (25.7-33.7); MCHC 33.5 g/dl (32.0-36.0); MEAN CELL VOLUME 87.7 fl (80-96); MEAN PLT VOLUME 10.3 fl (7.5-11.1); NEUT % 52.2 % (42.8-82.8); RBC 4.55 M/mm3 (3.60-5.2); RDW 13.6 % (11.6-15.6); WHITE BLOOD COUNT 8.4 K/mm3 (4.0-10.0)
[2019-06-01] MEDS ORDERED: PT OWN MED DRAWER 7, Y5N ONE (09:58)
[2019-06-01] MEDS: VALSARTAN 160 MG TABLET (UD) PO SCH (09:59)
[2019-06-01] MEDS: MEMANTINE HCL 5 MG TABLET (UD) PO SCH (09:59)
[2019-06-01] MEDS: ASPIRIN 81 MG CHEWABLE TABLETS PO SCH (09:59)
[2019-06-01] MEDS: ENOXAPARIN NA (PORCINE) 40 MG/0.4 ML DISP.SYRIN SQ SCH (09:59)
--- NOTE | 2019-06-01 10:16 | ECHO ---
Name: SUE GALLEGOS Exam:Adult Echocardiogram Study Date: 06/01/2019 08:40 AM Age: 73 yrs Reason For Study: pre syncope Height: 60 in Weight: 190 lb BSA: 1.8 m2 MMode/2D Measurements & Calculations IVSd: 1.1 cm Ao root diam: 2.5 cm LVIDd: 3.4 cm LA dimension: 3.2 cm LVIDs: 2.5 cm ACS: 1.5 cm LVPWd: 1.00 cm EDV(Teich): 47.7 ml LVOT diam: 1.8 cm ESV(Teich): 23.1 ml RV S Nikolas: 11.8 cm/sec Doppler Measurements & Calculations MV E max nikolas: 59.8 cm/sec Ao V2 max: 140.7 cm/sec MV A max nikolas: 68.2 cm/sec Ao max P.9 mmHg MV E/A: 0.88 Ao V2 mean: 91.7 cm/sec MV dec time: 0.24 sec Ao mean P.8 mmHg Ao V2 VTI: 29.4 cm FLY(I,D): 1.5 cm2 FLY(V,D): 1.3 cm2 LV V1 max P.4 mmHg MR max nikolas: 152.0 cm/sec LV V1 mean P.2 mmHg MR max P.2 mmHg LV V1 max: 77.9 cm/sec LV V1 mean: 52.2 cm/sec LV V1 VTI: 17.6 cm SV(LVOT): 43.0 ml TR max nikolas: 257.0 cm/sec TR max P.4 mmHg PA V2 max: 74.0 cm/sec Med Peak E' Nikolas: 7.0 cm/sec PA max P.2 mmHg Med E/e': 8.5 Lat Peak E' Nikolas: 5.3 cm/sec Lat E/e': 11.4 Left Ventricle Ejection Fraction = 55-60%. The transmitral spectral Doppler flow pattern is suggestive of impaired L V relaxation. Right Ventricle The right ventricle is normal in size and function. Atria Normal left and right atrial size and function. Mitral Valve There is mild mitral annular calcification. There is no mitral valve stenosis. Tricuspid Valve The tricuspid valve is normal in structure and function. There is mild tricuspid regurgitation. Right ventricular systolic pressure is normal. Aortic Valve There is mild aortic sclerosis.;. No hemodynamically significant valvular aortic stenosis. No aortic regurgitation is present. Pulmonic Valve The pulmonic valve is not well seen, but is grossly normal. There is no pulmonic valvular stenosis. Great Vessels The aortic root is normal size. Pericardium/Pleura There is no pericardial effusion. Interpretation Summary Ejection Fraction = 55-60%. The transmitral spectral Doppler flow pattern is suggestive of impaired LV relaxation. The right ventricle is normal in size and function. There is mild mitral annular calcification. There is mild tricuspid regurgitation. Right ventricular systolic pressure is normal. There is mild aortic sclerosis.; There is no pericardial effusion. MD Bates *Betzy 06/01/2019 10:15 AM
[2019-06-01 11:02] LABS: PLATELET COUNT 238 K/MM3 (134-434); PLATELET ESTIMATE ADEQUATE
[2019-06-01] MEDS ORDERED: INSULIN (NOVOLOG) ASPART 100 UNITS/ML 10ML VIAL ONE ×2 (11:49→16:58)
--- NOTE | 2019-06-01 11:54 | EKG ---
Test Reason : Blood Pressure : / mmHG Vent. Rate : 080 BPM Atrial Rate : 080 BPM P-R Int : 158 ms QRS Dur : 102 ms QT Int : 392 ms P-R-T Axes : 071 023 059 degrees QTc Int : 452 ms NORMAL SINUS RHYTHM WHEN COMPARED WITH ECG OF 25-JAN-2019 23:34, NO SIGNIFICANT CHANGE WAS FOUND Confirmed by KRYSTIN LAWRENCE MD ([id number]) on 06/01/2019 11:54:34 AM Referred By: Confirmed By:KRYSTIN LAWRENCE MD
[2019-06-01] MEDS: ANASTROZOLE 1 MG TABLET PO SCH (11:57)
[2019-06-01] MEDS: MECLIZINE HCL 25 MG TABLET (FP) PO SCH ×3 (11:58→23:00)
--- NOTE | 2019-06-01 15:43 | PN ---
Physical Exam: SUBJECTIVE: Patient seen and examined at the bedside. Endorsed that she feels dizziness when she turns her head to the right and when she stands up quickly. Endorses true vertigo symptoms of room spinning. Endorsed chronic weakness on the left upper extremity and neck and back pain. Denies cp, sob, abd pain, n/v/c /d, fever, chills. History obtained with assistance of [employer] phone [phone] OBJECTIVE: Vital Signs Period Temp Pulse Resp BP Sys/Bailey Pulse Ox Last 24 Hr 97.4 F-98.4 F 63-68 18-18 130-139/63-75 96-96 GENERAL: The patient is awake, alert, and fully oriented, in no acute distress. Portuguese speaking. HEAD: Normal with no signs of trauma. EYES: PERRL, extraocular movements intact. ENT: Oropharynx clear without exudates, moist mucous membranes. LUNGS: Breath sounds equal, clear to auscultation bilaterally, no wheezes, no crackles, no accessory muscle use. HEART: Regular rate and rhythm, S1, S2 with noted soft systolic ejection murmur. ABDOMEN: Soft, obsese, nontender, nondistended, normoactive bowel sounds, no guarding, no rebound, no masses. EXTREMITIES: 2+ pulses, warm, well-perfused, trace edema. NEUROLOGICAL: Poor visual cardoso. EOM intact. left facial droop. No nystagmus noted. [place] with dizziness induced when turned to left but not ideal study due to patient's back pain. LUE weakness of biceps, handgrip 4/5. All other muscle strength 5/5. Sensation diminished in the glove and stocking distribution. Diminished sensation on the left side of the face. 1/4 reflexes of the knee and ankles jerk. PSYCH: Normal mood, normal affect. SKIN: Warm, dry, normal turgor, no rashes or lesions noted Laboratory Results - last 24 hr 05/31/19 05/31/19 05/31/19 15:00 15:00 15:00 WBC 9.2 RBC 4.51 Hgb 13.2 Hct 38.9 MCV 86.1 MCH 29.2 MCHC 33.9 RDW 13.6 Plt Count 321 MPV 9.2 Absolute Neuts (auto) 6.5 Neutrophils % 70.3 Lymphocytes % 21.2 D Monocytes % 5.4 Eosinophils % 2.2 Basophils % 0.9 Nucleated RBC % 0 Platelet Estimate Platelet Comment PT with INR INR PTT (Actin FS) Sodium 136 Potassium 5.3 H Chloride 105 Carbon Dioxide 22 Anion Gap 9 BUN 20.0 H Creatinine 1.0 Est GFR (CKD-EPI)AfAm 64.27 Est GFR (CKD-EPI)NonAf 55.45 POC Glucometer Random Glucose 271 H Hemoglobin A1c % Calcium 9.0 Phosphorus Magnesium Total Bilirubin 0.4 AST 58 H ALT 31 Alkaline Phosphatase 96 Creatine Kinase 189 Creatine Kinase Index 1.0 CK-MB (CK-2) 2.0 Troponin I < 0.02 Total Protein 8.0 Albumin 3.6 Triglycerides Cholesterol Total LDL Cholesterol HDL Cholesterol TSH Free T4 Resin T3 Uptake 05/31/19 05/31/19 05/31/19 15:00 21:11 21:20 WBC RBC Hgb Hct MCV MCH MCHC RDW Plt Count MPV Absolute Neuts (auto) Neutrophils % Lymphocytes % Monocytes % Eosinophils % Basophils % Nucleated RBC % Platelet Estimate Platelet Comment PT with INR 11.20 INR 0.95 PTT (Actin FS) 32.5 Sodium Potassium Chloride Carbon Dioxide Anion Gap BUN Creatinine Est GFR (CKD-EPI)AfAm Est GFR (CKD-EPI)NonAf POC Glucometer 212 Random Glucose Hemoglobin A1c % Calcium Phosphorus Magnesium Total Bilirubin AST ALT Alkaline Phosphatase Creatine Kinase 161 Creatine Kinase Index 1.1 CK-MB (CK-2) 1.8 Troponin I < 0.02 Total Protein Albumin Triglycerides Cholesterol Total LDL Cholesterol HDL Cholesterol TSH Free T4 Resin T3 Uptake 06/01/19 06/01/19 06/01/19 05:24 06:28 06:28 WBC 8.4 RBC 4.55 Hgb 13.4 Hct 39.9 MCV 87.7 MCH 29.4 MCHC 33.5 RDW 13.6 Plt Count 238 D MPV 10.3 D Absolute Neuts (auto) 4.4 Neutrophils % 52.2 D Lymphocytes % 36.0 D Monocytes % 5.0 Eosinophils % 4.0 D Basophils % 2.8 H D Nucleated RBC % 0 Platelet Estimate Adequate Platelet Comment PT with INR INR PTT (Actin FS) Sodium 140 Potassium 4.2 Chloride 109 H Carbon Dioxide 25 Anion Gap 6 L BUN 20.9 H Creatinine 0.9 Est GFR (CKD-EPI)AfAm 73.00 Est GFR (CKD-EPI)NonAf 62.99 POC Glucometer 217 Random Glucose 243 H Hemoglobin A1c % Calcium 8.4 L Phosphorus 3.9 Magnesium 1.9 Total Bilirubin 0.3 AST 17 ALT 26 Alkaline Phosphatase 82 Creatine Kinase Creatine Kinase Index CK-MB (CK-2) Troponin I Total Protein 6.8 Albumin 3.3 L Triglycerides Cholesterol Total LDL Cholesterol HDL Cholesterol TSH 4.19 H Free T4 Resin T3 Uptake 06/01/19 06/01/19 06/01/19 06:28 06:28 11:35 WBC RBC Hgb Hct MCV MCH MCHC RDW Plt Count MPV Absolute Neuts (auto) Neutrophils % Lymphocytes % Monocytes % Eosinophils % Basophils % Nucleated RBC % Platelet Estimate Platelet Comment PT with INR INR PTT (Actin FS) Sodium Potassium Chloride Carbon Dioxide Anion Gap BUN Creatinine Est GFR (CKD-EPI)AfAm Est GFR (CKD-EPI)NonAf POC Glucometer 243 Random Glucose Hemoglobin A1c % 8.8 H Calcium Phosphorus Magnesium Total Bilirubin AST ALT Alkaline Phosphatase Creatine Kinase Creatine Kinase Index CK-MB (CK-2) Troponin I Total Protein Albumin Triglycerides 133 Cholesterol 192 Total LDL Cholesterol 109 H HDL Cholesterol 55 TSH Free T4 0.99 Resin T3 Uptake 37.1 Active Medications Generic Name Dose Route Start Last Admin Trade Name Freq PRN Reason Stop Dose Admin Acetaminophen 500 mg 05/31/19 18:05 06/01/19 13:46 Tylenol - PO 500 mg TID MAGGIE Administration Albuterol Sulfate 2 puff 05/31/19 17:47 Ventolin Hfa Inhaler - IH Q8H PRN SHORTNESS OF BREATH Anastrozole 1 mg 06/01/19 10:00 06/01/19 11:57 Arimidex - PO 1 mg DAILY MAGGIE Administration Aspirin 81 mg 06/01/19 10:00 06/01/19 09:59 Asa - PO 81 mg DAILY MAGGIE Administration Atorvastatin Calcium 80 mg 05/31/19 22:00 05/31/19 21:52 Lipitor - PO 80 mg HS MAGGIE Administration Enoxaparin Sodium 40 mg 06/01/19 10:00 06/01/19 09:59 Lovenox - SQ 40 mg DAILY MAGGIE Administration Sodium Chloride 1,000 mls @ 75 mls/hr 05/31/19 17:45 05/31/19 18:02 Normal Saline - IV 75 mls/hr ASDIR MAGGIE Administration Insulin Aspart 1 vial 05/31/19 22:00 06/01/19 11:56 Novolog Vial Sliding Scale - SQ 4 units ACHS MAGGIE Administration Protocol Insulin Detemir 7 units 06/01/19 22:00 Levemir Vial SQ HS MAGGIE Levothyroxine Sodium 150 mcg 06/01/19 07:00 06/01/19 06:50 Synthroid - PO 150 mcg DAILY@0700 MAGGIE Administration Lorazepam 0.5 mg 05/31/19 17:44 Ativan Injection - IVPUSH 05/31/19 17:45 ONCE ONE Meclizine HCl 25 mg 06/01/19 11:00 06/01/19 11:58 Antivert - PO 25 mg TID MAGGIE Administration Memantine 5 mg 06/01/19 10:00 06/01/19 09:59 Namenda - PO 5 mg DAILY MAGGIE Administration Mometasone Furoate 2 puff 05/31/19 22:00 05/31/19 21:52 Asmanex 220mcg - IH 2 puff HS MAGGIE Administration Valsartan 320 mg 06/01/19 10:00 06/01/19 09:59 Diovan - PO 320 mg DAILY MAGGIE Administration ASSESSMENT/PLAN: Patient is a 73 year old female with past medical history of HTN, HLD, DM, CAD s /p CA x3, DINH, pulmonary HTN, hypothyroidism, DVT, hx of breast cancer s/p bilateral mastectomy and chemo admitted for dizziness and fall Dizziness, Fall - likely in setting of BPPV in context of history - Head CT negative - Cervical/Thoracic/Lumbar spine CT done revealed no fracture - telemetry monitoring - Brain MRI/MRA ordered - echo noting EF 55-60%, impaired LV relaxation, mild mitral annular calcification, mild tricuspid regurg, mild aortic sclerosis - pain control - Neurology consulted, sees Dr. Galindo outpatient - Fall risk precautions - neurochecks - meclizine 25mg tid - pelvic CT with no acute fracture - orthostatics noted to be positive based on HR elevation - will likely need Latha and outpatient PT/ENT Hx of L sided numbness - continue ASA, Lipitor - still pending brain MRI/MRA - Neurology consulted HTN - On Telmisartan 80mg HLD - Continue Lipitor 80mg HS DM - BGM ACHS - ISS - Levemir 7 units qhs - A1c 8.8 Hypothyroidism - Continue Synthroid 150mcg daily, unknown compliance - TSH 4.19 Pulmonary Nodule - as noted on CT scan - will need outpatient follow up FEN - no standing fluids, encourage PO intake - continue to monitor electrolytes and replete as necessary - Sodium restricted/diabetic diet Prophylaxis - Lovenox 40mg sq daily Disposition - continue to monitor on telemetry Visit type - Emergency Visit Emergency Visit: Yes ED Registration Date: 05/31/19 Care time: The patient presented to the Emergency Department on the above date and was hospitalized for further evaluation of their emergent condition. - New Patient This patient is new to me today: Yes Date on this admission: 06/01/19 - Critical Care Critical Care patient: No
--- NOTE | 2019-06-01 16:47 | PN ---
Teaching Attending Note Name of Resident: Ricci Pulido ATTENDING PHYSICIAN STATEMENT I saw and evaluated the patient. I reviewed the resident's note and discussed the case with the resident. I agree with the resident's findings and plan as documented. SUBJECTIVE: ldr rn phone [phone] was used. [employer]. see at around 10 am she indicates no dizziness in bed during interview. but she has vertigo when she turns her head to R side. also while walking if she turns to R. No N/V . denies any new numbness , tingling, weakness. has weakness in L upper extremity since her last admission OBJECTIVE: NAD, MMM, awake, alert, and cooperative Cv ; RRR, No MRG Lungs: CTAB b/l mastectomy scars with no rash or discharge Abd: soft, NT, ND , NL BS Ext: No edema or erythema Neuro: EOMI, round equal pupils, reactive to light. mild effacement of the L nasolabial fold. mild L lower facial droop .tongue at mid line . Uvula at mid line strength: RUE: 5/5 in shoulder shrug, shoulder flexion, biceps, triceps, and hand unit supervisor LUE: 5/5 in shoulder shrug, 4/5 shoulder flexion , 5/5 biceps, 4/5triceps, and sl weak hand unit supervisor RLE: 5/5 hip flexion , knee flexion and extension , ankle dorsiflexion and plantar flexion LLE: 5/5 hip flexion , knee flexion and extension were not evaluated due to knee and back pain, 5/5 ankle dorsiflexion and plantar flexion Nose to finger NL b/l. Nl alternating movements on both sides [place] , not optimal due to back pain. but mild dizziness was induced on L side . ASSESSMENT AND PLAN: 73 y/o lady with h/o HTN, HLP, DM, CAD, s/p [place], DINH, pulmonary HTN, hypothyroidism, DVT, h/o breast cancer s/p B/l Mastectomy and chemo, recent admission fro L sided weakness ( Possible CVA) who presented with vertiginous sx and fall 1- Vertigo: likely diagnosis is BPV, as it is related to head position ( R side) . I do not suspect cerebellar stroke. orthostatic hypotension is less likely. neuro exam as above notable for LL facial droop, and residual L upper ext weakness. No cerebellar signs. could not walk patient. - start [facility] standing - MRI of brain ordered with pre-medication. As she never followed up for out pt MRI after last DC - PT eval - can refer to ENT and out pt PT for [place] - will perform orthostatics in flat and sitting position 2- Recent H/o Possible stroke : - cont ASA . - cont statin ( dc on 40 of lipitor ) 3- H/o Dm : - cont SSI - cont levemir 4- HTN : - valsartan in place of temlisartan 5- H/o Hypothyroidism: TSH noted. she is on high dose of synthroid. cont current dose 6- DVT PX : Lovenox . possible dc tomorrow
--- NOTE | 2019-06-01 16:49 | CON.NEURO ---
Consult Consult Specialty:: NEUROLOGY-KENZIE ANGEL - History of Present Illness History of Present Illness: Patient is a 73 year old female with past medical history of HTN, HLD, DM, CAD s /p [place] x3, DINH, pulmonary HTN, hypothyroidism, DVT, hx of breast cancer s/p bilateral mastectomy and chemo, recently admitted in January for L hemiparesis with numbness, mild facial droop, presented today after experiencing dizziness and subsequently fell. Patient reported she suddenly felt dizzy, described as room spinning around her, and she fell back and hit her head, back and right hip. She denies any recent illness, and fever, chills, headache, chest pain, SOB , palpitations, abdominal pain, diarrhea, urinary symptoms. Of note, patient was discharged in January when she had the L hemiparesis with instructions to follow up with PCP and neuro and have an open MRI done since she is claustrophobic, for which she has not done yet. Of note, patient still reports decreased sensation on her left side. Reports has had chronic knee pain and gait difficulty, this causes her to fall. [id number] persistent minimal numbness left face/arm/leg since January event 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) History of Recent Travel: No Home Medications - Allergies Allergies/Adverse Reactions: Allergies Allergy/AdvReac Type Severity Reaction Status Date / Time codeine [Codeine] Allergy Severe Itching Verified 05/31/19 14:31 iodine [Iodine] Allergy Severe Itching Verified 05/31/19 14:31 Shellfish Allergy Severe Hives Verified 05/31/19 14:31 seafood Allergy Hives Uncoded 05/31/19 14:31 - Home Medications Home Medications: Ambulatory Orders Anastrozole [Arimidex -] 1 mg PO DAILY #0 11/01/16 Aspirin [ASA -] 81 mg PO DAILY #30 tab.chew 04/01/16 Levothyroxine [Synthroid -] 150 mcg PO DAILY@0700 #90 tablet 07/26/17 Acetaminophen [Tylenol .Extra-Strength -] 500 mg PO Q8H #20 tablet 07/18/18 Telmisartan [Micardis] 80 mg PO DAILY 10/02/18 Albuterol Sulfate Inhaler - [Ventolin HFA Inhaler -] 2 puff PO TID 10/03/18 Fluticasone Propionate [Flovent Diskus] 2 puff IH BID 10/03/18 Memantine HCl 5 mg PO DAILY 10/03/18 Atorvastatin Ca [Lipitor] 80 mg PO HS #30 tablet 01/27/19 Insulin Glargine,Hum.rec.anlog [Lantus] 7 unit SQ AM #3 vial 01/27/19 Insulin Lispro [Humalog] See Protocol SQ ASDIR #4 cartridge 01/27/19 Physical Exam-Neuro Vital Signs: Vital Signs Temperature 97.4 F L 06/01/19 15:00 Pulse Rate 67 06/01/19 15:00 Respiratory Rate 18 06/01/19 15:00 Blood Pressure 134/69 06/01/19 15:00 O2 Sat by Pulse Oximetry (%) 96 06/01/19 08:55 Labs: CBC, BMP 06/01/19 06:28 06/01/19 06:28 INR, PTT INR 0.95 (0.83-1.09) 05/31/19 15:00 - Neuro Exam Level Of Consciousness: Yes: Alert, Oriented to Person Mini Mental Exam: Normal Cranial Nerves II-XII Intact: No (slight old diminished right nasolabial fold) DTR's: 0 Left Achilles, 0 Right Achilles, 2+ Left Bicep, 2+ Right Bicep, 2+ Left Tricep, 2+ Right Tricep, 2+ Left Brachioradialis, 2+ Right Brachioradialis Response to light touch: Abnormal (diminished right face/arm/leg slightly) Motor Strength: 5/5: Left Arm, Right Arm, Left Leg, Right Leg (No drift, does not exert enough strength in legs 2/2 knee pain) Gait: Other (antalgic -knee pain) Assessment/Plan Pt. with left hemisensory dedficit, now with vertigo, the fall appears to be mechanical, vertigo does not appear central.. Suggest-MRI brain given she has persistent numbness, CT head without cerebral ischemia(although may have been a small lacunar decker infarct on right)-need to see if there is any evid. of brain stem ischemia. Further management thereafter. Thank you, Matt Carias MD
[2019-06-01] MEDS ORDERED: INSULIN (LEVEMIR) 100 UNITS/ML UNITS SQ SCH (22:00)
[2019-06-01] MEDS: ATORVASTATIN CA 40 MG TABLET (FP) PO SCH (23:01)
[2019-06-01] MEDS: MOMETASONE FUROATE 220 MCG/IH INHALER IH SCH (23:02)
[2019-06-02] MEDS: MECLIZINE HCL 25 MG TABLET (FP) PO SCH ×3 (06:51→21:09)
[2019-06-02] MEDS: INSULIN SLIDING SCALE (NOVOLOG) 1 VIAL SQ SCH ×3 (06:52→17:18)
[2019-06-02] MEDS: ACETAMINOPHEN 500 MG TABLET (FP) PO SCH ×3 (06:52→21:09)
[2019-06-02] MEDS: LEVOTHYROXINE NA 150 MCG TABLET PO SCH (06:52)
[2019-06-02] MEDS ORDERED: PT OWN MED DRAWER 7, Y5N ONE (07:58)
[2019-06-02 08:11] LABS: BLOOD UREA NITROGEN 16.8 mg/dL (7-18); CREATININE 0.8 mg/dL (0.55-1.3); MAGNESIUM 1.8 mg/dL (1.8-2.4); POTASSIUM 4.3 mmol/L (3.5-5.1)
[2019-06-02] MEDS: ANASTROZOLE 1 MG TABLET PO SCH (09:07)
[2019-06-02] MEDS: ASPIRIN 81 MG CHEWABLE TABLETS PO SCH (09:07)
[2019-06-02] MEDS: MEMANTINE HCL 5 MG TABLET (UD) PO SCH (09:08)
[2019-06-02] MEDS: VALSARTAN 160 MG TABLET (UD) PO SCH (09:08)
[2019-06-02] MEDS: ENOXAPARIN NA (PORCINE) 40 MG/0.4 ML DISP.SYRIN SQ SCH (09:09)
[2019-06-02] MEDS ORDERED: INSULIN (NOVOLOG) ASPART 100 UNITS/ML 10ML VIAL ONE (11:27)
[2019-06-02] MEDS ORDERED: INSULIN (LEVEMIR) 100 UNITS/ML UNITS SQ SCH (12:07)
--- NOTE | 2019-06-02 13:41 | PN ---
Physical Exam: SUBJECTIVE: Patient seen and examined at bedside. Complaint of mild L posterior chest pain worse with deep inspiration and torso movement. OBJECTIVE: Vital Signs Period Temp Pulse Resp BP Sys/Bailey Pulse Ox Last 24 Hr 97.4 F-98.1 F 61-103 18-20 131-178/58-99 95-95 Gen: NAD HEENT: NCAT, EOMI Neck: supple, jvd Cardio: rrr, norm s1s2, no mrg Pulm: cta b/l Abd: soft, nontender, nondistended Ext: no edema Laboratory Results - last 24 hr 06/01/19 06/01/19 06/02/19 16:56 22:58 05:40 Sodium 137 Potassium 4.3 Chloride 105 Carbon Dioxide 25 Anion Gap 7 L BUN 16.8 Creatinine 0.8 Est GFR (CKD-EPI)AfAm 84.18 Est GFR (CKD-EPI)NonAf 72.63 POC Glucometer 359 390 Random Glucose 263 H Calcium 9.0 Magnesium 1.8 06/02/19 06/02/19 06:30 11:23 Sodium Potassium Chloride Carbon Dioxide Anion Gap BUN Creatinine Est GFR (CKD-EPI)AfAm Est GFR (CKD-EPI)NonAf POC Glucometer 258 354 Random Glucose Calcium Magnesium Active Medications Generic Name Dose Route Start Last Admin Trade Name Freq PRN Reason Stop Dose Admin Acetaminophen 500 mg 05/31/19 18:05 06/02/19 06:52 Tylenol - PO 500 mg TID MAGGIE Administration Albuterol Sulfate 2 puff 05/31/19 17:47 Ventolin Hfa Inhaler - IH Q8H PRN SHORTNESS OF BREATH Anastrozole 1 mg 06/01/19 10:00 06/02/19 09:07 Arimidex - PO 1 mg DAILY MAGGIE Administration Aspirin 81 mg 06/01/19 10:00 06/02/19 09:07 Asa - PO 81 mg DAILY MAGGIE Administration Atorvastatin Calcium 40 mg 06/01/19 22:00 06/01/19 23:01 Lipitor - PO 40 mg HS MAGGIE Administration Enoxaparin Sodium 40 mg 06/01/19 10:00 06/02/19 09:09 Lovenox - SQ 40 mg DAILY MAGGIE Administration Insulin Aspart 1 vial 05/31/19 22:00 06/02/19 11:38 Novolog Vial Sliding Scale - SQ 10 units ACHS MAGGIE Administration Protocol Insulin Detemir 20 units 06/02/19 12:07 Levemir Vial SQ HS MAGGIE Levothyroxine Sodium 150 mcg 06/01/19 07:00 06/02/19 06:52 Synthroid - PO 150 mcg DAILY@0700 MAGGIE Administration Lorazepam 0.5 mg 05/31/19 17:44 Ativan Injection - IVPUSH 05/31/19 17:45 ONCE ONE Meclizine HCl 25 mg 06/01/19 11:00 06/02/19 06:51 Antivert - PO 25 mg TID MAGGIE Administration Memantine 5 mg 06/01/19 10:00 06/02/19 09:08 Namenda - PO 5 mg DAILY MAGGIE Administration Mometasone Furoate 2 puff 05/31/19 22:00 06/01/19 23:02 Asmanex 220mcg - IH 2 puff HS MAGGIE Administration Valsartan 320 mg 06/01/19 10:00 06/02/19 09:08 Diovan - PO 320 mg DAILY MAGGIE Administration ASSESSMENT/PLAN: 73 year old female with past medical history of HTN, HLD, DM, CAD s/p [place] x3, DINH , pulmonary HTN, hypothyroidism, DVT, hx of breast cancer s/p bilateral mastectomy and chemo, recently admitted in January for L hemiparesis with numbness, mild facial droop, admitted for workup of dizziness and fall. Dizziness/Fall -BPPV likely -pending MRI. If pt cannot tolerate, it can be done in open MRI as outpt -neruo on board -echo with EF 55% -pt states meclizine helps -pt understands plan to see ENT as outpt chronic L sided hemisensory deficit -c/w asa, lipitor, -neuro on board HTN -c/w valsartan HLD -c/w lipitor Visit type - Emergency Visit Emergency Visit: No - New Patient This patient is new to me today: Yes Date on this admission: 06/02/19 - Critical Care Critical Care patient: No ATTENDING PHYSICIAN STATEMENT I saw and evaluated the patient. I reviewed the resident's note and discussed the case with the resident. I agree with the resident's findings and plan as documented. SUBJECTIVE: OBJECTIVE: ASSESSMENT AND PLAN:
[2019-06-02 15:22] LABS: URINE APPEARANCE CLEAR; URINE BILIRUBIN NEGATIVE (NEGATIVE); URINE COLOR YELLOW; URINE GLUCOSE (UA) 3+ (NEGATIVE); URINE KETONE NEGATIVE (NEGATIVE); URINE LEUK ESTERASE NEGATIVE (NEGATIVE); URINE NITRITE NEGATIVE (NEGATIVE); URINE PROTEIN NEGATIVE (NEGATIVE); URINE UROBILINOGEN 0.2 mg/dL (0.2-1.0)
[2019-06-02] MEDS ORDERED: LORazepam 2 MG/ML SDV VIAL IVPUSH ONE (15:45)
--- NOTE | 2019-06-02 16:58 | PN ---
Teaching Attending Note Name of Resident: Dheeraj Flynn ATTENDING PHYSICIAN STATEMENT I saw and evaluated the patient. I reviewed the resident's note and discussed the case with the resident. I agree with the resident's findings and plan as documented. SUBJECTIVE: no fever or chills. she feels vertigo is better . no N/V . last night her sugar was elevated and she felt chest pain x 1 min which resolved spontaneously OBJECTIVE: NAD, MMM, awake, alert, and cooperative Cv; RRR, No MRG Lungs: CTAB b/l mastectomy scars with no rash or discharge Ext: No edema or erythema Neuro: EOMI, round equal pupils, reactive to light. mild effacement of the L nasolabial fold. mild L lower facial droop .tongue at mid line. Uvula at mid line strength: RUE: 5/5 in shoulder shrug, shoulder flexion, biceps, triceps, and hand supervisor body assembly LUE: 5/5 in shoulder shrug,4/5 abduction . 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 Neuro exam deficits are old and noted during prior admission - vertigo improved with meclizine - MRI of brain . As she never followed up for out pt MRI after last DC . follwo results - can refer to ENT and out pt PT for Eply Manouever - orthostatics noted 2- Recent H/o Possible stroke : - cont ASA . - cont statin 3- H/o Dm : she says she takes lantus 45 units and 75/25 45 u both at dinner time . no SSI at home - not sure of her compliance and accuracy of her Insulin use - cont SSI - cont levemir . switch to 20 q HS . will instruct her to take this at dc 4- HTN : - valsartan in place of temlisartan 5- H/o Hypothyroidism: TSH noted. she is on high dose of synthroid. cont current dose 6- DVT PX : Lovenox . will get MRI read. PT eval noted. will ask patient if she wishes rehab placement or home with VNS
[2019-06-02] MEDS: MOMETASONE FUROATE 220 MCG/IH INHALER IH SCH (21:08)
[2019-06-02] MEDS: ATORVASTATIN CA 40 MG TABLET (FP) PO SCH (21:09)
[2019-06-03] MEDS: MECLIZINE HCL 25 MG TABLET (FP) PO SCH ×3 (06:18→22:20)
[2019-06-03] MEDS: ACETAMINOPHEN 500 MG TABLET (FP) PO SCH ×3 (06:18→22:19)
[2019-06-03] MEDS: LEVOTHYROXINE NA 150 MCG TABLET PO SCH (06:18)
[2019-06-03] MEDS: INSULIN SLIDING SCALE (NOVOLOG) 1 VIAL SQ SCH ×3 (06:19→18:28)
[2019-06-03 07:28] LABS: CALCIUM 9.5 mg/dL (8.5-10.1); CREATININE 0.9 mg/dL (0.55-1.3); POTASSIUM 4.1 mmol/L (3.5-5.1)
[2019-06-03] MEDS ORDERED: PT OWN MED DRAWER 7, Y5N ONE (09:35)
[2019-06-03] MEDS: ASPIRIN 81 MG CHEWABLE TABLETS PO SCH (10:18)
[2019-06-03] MEDS: VALSARTAN 160 MG TABLET (UD) PO SCH (10:18)
[2019-06-03] MEDS: MEMANTINE HCL 5 MG TABLET (UD) PO SCH (10:19)
[2019-06-03] MEDS: ANASTROZOLE 1 MG TABLET PO SCH (10:19)
[2019-06-03] MEDS: ENOXAPARIN NA (PORCINE) 40 MG/0.4 ML DISP.SYRIN SQ SCH (10:19)
[2019-06-03] MEDS ORDERED: INSULIN (LEVEMIR) 100 UNITS/ML UNITS SQ SCH ×2 (12:53→22:00)
--- NOTE | 2019-06-03 12:53 | PN ---
Progress Note (short form) - Note Progress Note: Subjective: no fever or chills , no N/V , no SOB , dizziness is better . no CP . had abd discomfort this am but resolved after a BM. complains of her arthritis pain which is chronic in knees Objective: Vital Signs: Last Vital Signs Temp Pulse Resp BP Pulse Ox 98 F 74 18 144/76 96 06/03/19 10:00 06/03/19 10:00 06/03/19 10:00 06/03/19 10:00 06/03/19 09:00 Laboratory Results - last 24 hr 06/02/19 06/02/19 06/02/19 15:00 17:12 21:11 Sodium Potassium Chloride Carbon Dioxide Anion Gap BUN Creatinine Est GFR (CKD-EPI)AfAm Est GFR (CKD-EPI)NonAf POC Glucometer 293 276 Random Glucose Calcium Urine Color Yellow Urine Appearance Clear Urine pH 6.0 Ur Specific [place] 1.024 Urine Protein Negative Urine Glucose (UA) 3+ H Urine Ketones Negative Urine Blood Negative Urine Nitrite Negative Urine Bilirubin Negative Urine Urobilinogen 0.2 Ur Leukocyte Esterase Negative 06/03/19 06/03/19 06/03/19 05:35 05:57 11:43 Sodium 137 Potassium 4.1 Chloride 104 Carbon Dioxide 26 Anion Gap 7 L BUN 17.0 Creatinine 0.9 Est GFR (CKD-EPI)AfAm 73.00 Est GFR (CKD-EPI)NonAf 62.99 POC Glucometer 353 227 Random Glucose 355 H Calcium 9.5 Urine Color Urine Appearance Urine pH Ur Specific [place] Urine Protein Urine Glucose (UA) Urine Ketones Urine Blood Urine Nitrite Urine Bilirubin Urine Urobilinogen Ur Leukocyte Esterase Physical Exam: NAD, MMM, awake, alert, and cooperative Cv; RRR, No MRG Lungs: CTAB b/l mastectomy scars with no rash or discharge Ext: No edema or erythema. Neuro: EOMI, round equal pupils, reactive to light. mild effacement of the L nasolabial fold. mild L lower facial droop .tongue at mid line. Uvula at mid line Strength: RUE: 5/5 in shoulder shrug, shoulder flexion, biceps, triceps, and hand warehouse delivery driver. LUE: 5/5 in shoulder shrug, 4/5 abduction . 4/5 shoulder flexion, 5/5 biceps, 4/ 5triceps, and weak hand grip9 arthritis ) RLE: 5/5 hip flexion, knee flexion and extension , ankle dorsiflexion and plantar flexion. weak hand warehouse delivery driver ( arhtritis ) LLE: 5/5 hip flexion, knee flexion and extension 4/5 , 5/5 ankle dorsiflexion and plantar flexion. ASSESSMENT AND PLAN: 73 y/o lady with h/o HTN, HLP, DM, CAD, s/p [place], DINH, pulmonary HTN, hypothyroidism, DVT, h/o breast cancer s/p B/l Mastectomy and chemo, recent admission fro L sided weakness ( Possible CVA) who presented with vertiginous sx and fall 1- Vertigo: likely diagnosis is BPV - vertigo improved with meclizine - MRI with no acute stroke - can refer to ENT and out pt PT for Eply Manouever 2- Recent H/o Possible stroke : - cont ASA . - cont statin 3- H/o DM - increase levemir to 30 HS. will have her dc 75/25 at dc 4- HTN : - valsartan in place of temlisartan 5- H/o Hypothyroidism: cont current dose 6- DVT PX : Lovenox . patient is very unsteady. she initially declined rehab then agreed. will try to work on it tomorrow Visit type - Emergency Visit Emergency Visit: Yes ED Registration Date: 05/31/19 Care time: The patient presented to the Emergency Department on the above date and was hospitalized for further evaluation of their emergent condition. - New Patient This patient is new to me today: No - Critical Care Critical Care patient: No
[2019-06-03] MEDS ORDERED: ALBUTEROL SO4 HFA INHALER IH PRN (20:30)
[2019-06-03] MEDS ORDERED: ATORVASTATIN CA 40 MG TABLET (FP) PO SCH (22:00)
[2019-06-03] MEDS ORDERED: MOMETASONE FUROATE 220 MCG/IH INHALER IH SCH (22:00)
[2019-06-04] MEDS ORDERED: FAMOTIDINE 10 MG TABLET PO ONE (02:12)
[2019-06-04] MEDS: DOCUSATE SODIUM 100 MG CAPSULE (FP) PO SCH ×2 (02:40→10:36)
[2019-06-04] MEDS: INSULIN SLIDING SCALE (NOVOLOG) 1 VIAL SQ SCH ×2 (06:06→10:49)
[2019-06-04] MEDS: MECLIZINE HCL 25 MG TABLET (FP) PO SCH ×2 (06:07→15:05)
[2019-06-04] MEDS: ACETAMINOPHEN 500 MG TABLET (FP) PO SCH ×3 (06:07→15:06)
[2019-06-04] MEDS ORDERED: LEVOTHYROXINE NA 150 MCG TABLET PO SCH (07:00)
--- NOTE | 2019-06-04 08:02 | PN ---
Progress Note (short form) - Note Progress Note: 73 year old female with past medical history of HTN, HLD, DM, CAD s/p [place] x3, DINH , pulmonary HTN, hypothyroidism, DVT, hx of breast cancer s/p bilateral mastectomy and chemo, recently admitted in January for L hemiparesis with numbness, mild facial droop, presented today after experiencing dizziness and subsequently fell. Patient reported she suddenly felt dizzy, described as room spinning around her, and she fell back and hit her head, back and right hip. She denies any recent illness, and fever, chills, headache, chest pain, SOB, palpitations, abdominal pain, diarrhea, urinary symptoms. Of note, patient was discharged in January when she had the L hemiparesis with instructions to follow up with PCP and neuro and have an open MRI done since she is claustrophobic, for which she has not done yet. Of note, patient still reports decreased sensation on her left side. Reports has had chronic knee pain and gait difficulty, this causes her to fall. [id number] persistent minimal numbness left face/arm/leg since January event FU : MRI BRAIN reviewed Impression: 1. No evidence of acute infarction. No mass effect or hydrocephalus. 2. Patent central segments of the anterior and posterior circulation with no hemodynamically significant stenosis, aneurysm or gross AVM. 3. Mild cerebral white matter chronic microvascular ischemic changes and left the laminectomy chronic lacunar infarct. 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) History of Recent Travel: No Home Medications - Allergies Allergies/Adverse Reactions: Allergies Allergy/AdvReac Type Severity Reaction Status Date / Time codeine [Codeine] Allergy Severe Itching Verified 05/31/19 14:31 iodine [Iodine] Allergy Severe Itching Verified 05/31/19 14:31 Shellfish Allergy Severe Hives Verified 05/31/19 14:31 seafood Allergy Hives Uncoded 05/31/19 14:31 - Home Medications Home Medications: Ambulatory Orders Anastrozole [Arimidex -] 1 mg PO DAILY #0 02/10/16 Aspirin [ASA -] 81 mg PO DAILY #30 tab.chew 04/01/16 Levothyroxine [Synthroid -] 150 mcg PO DAILY@0700 #90 tablet 07/26/17 Acetaminophen [Tylenol .Extra-Strength -] 500 mg PO Q8H #20 tablet 07/18/18 Telmisartan [Micardis] 80 mg PO DAILY 10/02/18 Albuterol Sulfate Inhaler - [Ventolin HFA Inhaler -] 2 puff PO TID 10/03/18 Fluticasone Propionate [Flovent Diskus] 2 puff IH BID 10/03/18 Memantine HCl 5 mg PO DAILY 10/03/18 Atorvastatin Ca [Lipitor] 80 mg PO HS #30 tablet 01/27/19 Insulin Glargine,Hum.rec.anlog [Lantus] 7 unit SQ AM #3 vial 01/27/19 Insulin Lispro [Humalog] See Protocol SQ ASDIR #4 cartridge 01/27/19 Physical Exam-Neuro Vital Signs: Vital Signs Temperature 97.4 F L 06/01/19 15:00 Pulse Rate 67 06/01/19 15:00 Respiratory Rate 18 06/01/19 15:00 Blood Pressure 134/69 06/01/19 15:00 O2 Sat by Pulse Oximetry (%) 96 06/01/19 08:55 Labs: CBCD WBC 8.4 K/mm3 (4.0-10.0) 06/01/19 06:28 RBC 4.55 M/mm3 (3.60-5.2) 06/01/19 06:28 Hgb 13.4 GM/dL (10.7-15.3) 06/01/19 06:28 Hct 39.9 % (32.4-45.2) 06/01/19 06:28 MCV 87.7 fl (80-96) 06/01/19 06:28 MCHC 33.5 g/dl (32.0-36.0) 06/01/19 06:28 RDW 13.6 % (11.6-15.6) 06/01/19 06:28 Plt Count 238 K/MM3 (134-434) D 06/01/19 06:28 MPV 10.3 fl (7.5-11.1) D 06/01/19 06:28 CMP Sodium 137 mmol/L (136-145) 06/03/19 05:35 Potassium 4.1 mmol/L (3.5-5.1) 06/03/19 05:35 Chloride 104 mmol/L (98-107) 06/03/19 05:35 Carbon Dioxide 26 mmol/L (21-32) 06/03/19 05:35 Anion Gap 7 MMOL/L (8-16) L 06/03/19 05:35 BUN 17.0 mg/dL (7-18) 06/03/19 05:35 Creatinine 0.9 mg/dL (0.55-1.3) 06/03/19 05:35 Calcium 9.5 mg/dL (8.5-10.1) 06/03/19 05:35 Total Bilirubin 0.3 mg/dL (0.2-1) 06/01/19 06:28 AST 17 U/L (15-37) 06/01/19 06:28 ALT 26 U/L (13-61) 06/01/19 06:28 Alkaline Phosphatase 82 U/L (45-117) 06/01/19 06:28 Total Protein 6.8 g/dl (6.4-8.2) 06/01/19 06:28 Albumin 3.3 g/dl (3.4-5.0) L 06/01/19 06:28 - Neuro Exam Level Of Consciousness: Yes: Alert, Oriented to Person Mini Mental Exam: Normal Cranial Nerves II-XII Intact: No (slight old diminished right nasolabial fold) DTR's: 0 Left Achilles, 0 Right Achilles, 2+ Left Bicep, 2+ Right Bicep, 2+ Left Tricep, 2+ Right Tricep, 2+ Left Brachioradialis, 2+ Right Brachioradialis Response to light touch: Abnormal (diminished right face/arm/leg slightly) Motor Strength: 5/5: Left Arm, Right Arm, Left Leg, Right Leg (No drift, does not exert enough strength in legs 2/2 knee pain) Gait: Other (antalgic -knee pain) Assessment/Plan Pt. with left hemisensory dedficit, now with vertigo, the fall appears to be mechanical, vertigo does not appear central.. Suggest-MRI brain given she has persistent numbness, CT head without cerebral ischemia(although may have been a small lacunar decker infarct on right)-need to see if there is any evid. of brain stem ischemia. Further management thereafter. Thank you,
[2019-06-04] MEDS ORDERED: ASPIRIN 81 MG CHEWABLE TABLETS PO SCH (10:00)
[2019-06-04] MEDS ORDERED: VALSARTAN 160 MG TABLET (UD) PO SCH (10:00)
[2019-06-04] MEDS ORDERED: ENOXAPARIN NA (PORCINE) 40 MG/0.4 ML DISP.SYRIN SQ SCH (10:00)
[2019-06-04] MEDS ORDERED: ANASTROZOLE 1 MG TABLET PO SCH (10:00)
[2019-06-04] MEDS ORDERED: MEMANTINE HCL 5 MG TABLET (UD) PO SCH (10:00)
--- NOTE | 2019-06-04 12:40 | EKG ---
Test Reason : Blood Pressure : / mmHG Vent. Rate : 069 BPM Atrial Rate : 069 BPM P-R Int : 162 ms QRS Dur : 090 ms QT Int : 406 ms P-R-T Axes : 063 007 056 degrees QTc Int : 435 ms NORMAL SINUS RHYTHM NORMAL ECG WHEN COMPARED WITH ECG OF 31-MAY-2019 14:21, No significant changes Confirmed by Linda Hernandez ([id number]) on 06/04/2019 12:40:02 PM Referred By: Confirmed By:Linda Hernandez
--- NOTE | 2019-06-04 12:59 | PN ---
Teaching Attending Note Name of Resident: Ricci Pulido ATTENDING PHYSICIAN STATEMENT I saw and evaluated the patient. I reviewed the resident's note and discussed the case with the resident. I agree with the resident's findings and plan as documented. SUBJECTIVE: [employer] production cell leader phone was used. #[id number] no fever or chills. her vertigo improved and she feels stronger. No N./V . No GARCIA . OBJECTIVE: NAD, MMM, awake, alert, and cooperative Cv; RRR, No MRG Lungs: CTAB b/l mastectomy scars Ext: No edema or erythema. Neuro: EOMI, round equal pupils, reactive to light. mild right lower facial droop .tongue at mid line. Uvula at mid line Strength: RUE: 5/5 in shoulder shrug, shoulder flexion, biceps, triceps, and hand traffic control supervisor. LUE: 5/5 in shoulder shrug, 4/5 abduction. 4/5 shoulder flexion, 4/5 biceps, 4/ 5triceps, and weak hand traffic control supervisor (arthritis ) RLE: 5/5 hip flexion, knee flexion and extension, ankle dorsiflexion and plantar flexion. weak hand traffic control supervisor ( arthritis ) LLE: 5/5 hip flexion, knee flexion and extension 5/5 , 5/5 ankle dorsiflexion and plantar flexion. 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 likely old stroke - cont ASA. - cont statin. 3- H/o DM - increase levemir to 45 units q HS. will have her dc 75/25 at dc - cont SSI her insulin regiemn was explained to her in details through production cell leader to avoid mistakes 4- HTN : - valsartan in place of temlisartan 5- H/o Hypothyroidism: cont current dose she needs rehab, but she refuses. Risks of falls, hed trauma/bleed, fractures and even were explained to her. She absolutely will not go to rehab. She is competent and can make her own decisions . will dc home with VNS.
--- NOTE | 2019-06-04 13:20 | DS ---
Physical Exam: SUBJECTIVE: Patient seen and examined at the bedside. Stated that she is feeling well. Occasionally has dizziness and had an episode of nausea and watery vomit yesterday. Notes that her dizziness improves with the meclizine. Denies cp, sob, abd pain, fever, chills, visual changes, new weakness. Spoken with patient via [employer] interpretor [id number]. OBJECTIVE: Vital Signs Period Temp Pulse Resp BP Sys/Bailey Pulse Ox Last 24 Hr 98.3 F-98.6 F 71-87 18-20 136-161/68-83 96 PHYSICAL EXAM GENERAL: The patient is awake, alert, and fully oriented, in no acute distress. Welsh speaking. HEAD: Normal with no signs of trauma. EYES: PERRL, extraocular movements intact. ENT: Oropharynx clear without exudates, moist mucous membranes. LUNGS: Breath sounds equal, clear to auscultation bilaterally, no wheezes, no crackles, no accessory muscle use. HEART: Regular rate and rhythm, S1, S2 with noted soft systolic ejection murmur. ABDOMEN: Soft, obsese, nontender, nondistended, normoactive bowel sounds, no guarding, no rebound, no masses. EXTREMITIES: 2+ pulses, warm, well-perfused, trace edema. NEUROLOGICAL: Poor visual cardoso. EOM intact. left facial droop. No nystagmus noted. Red-Hallpike with dizziness induced when turned to left but not ideal study due to patient's back pain. LUE weakness of biceps, handgrip 4/5. All other muscle strength 5/5. Sensation diminished in the glove and stocking distribution. Diminished sensation on the left side of the face. 1/4 reflexes of the knee and ankles jerk. PSYCH: Normal mood, normal affect. SKIN: Warm, dry, normal turgor, no rashes or lesions noted LABS Laboratory Results - last 24 hr 06/03/19 06/03/19 06/04/19 17:38 22:17 05:36 POC Glucometer 285 306 306 06/04/19 10:47 POC Glucometer 305 HOSPITAL COURSE: Martha Diamond is a 73 year old female with past medical history of HTN, HLD, DM, CAD s/p MD x3, DINH, pulmonary HTN, hypothyroidism, DVT, hx of breast cancer s/p bilateral mastectomy and chemo admitted for dizziness and fall likely in setting of BPPV. Head CT was negative. Cervical/Thoracic/Lumbar spine CT done revealed no fracture. Brain MRI/MRA did not reveal any acute infarct or significant stenosis but did note a chronic L lacunar infarct. Echo perforemd noted EF 55-60%, impaired LV relaxation, mild mitral annular calcification, mild tricuspid regurg, mild aortic sclerosis. Neurology had seen the patient recommended outpatient follow up after MRI. Patient was started on meclizine and will require an Latha maneuver and outpatient ENT follow up. Patient had uncontrolled blood sugars while admitted and restarted on her home Lantus and will be discharged on sliding scale insulin. On CT a pulmonary nodule was noted on the left lobe and will require pulmonology outpatient follow up. Patient was advised to follow up with her PCP, ENT, cardiology, neurology and started on meclizine and changed insulin to Novolog. Patient was explained how to use her Novolog sliding scale and was able to understand the protocol which is included with discharge instructions. Patient was in agreement with the plan. She was discharged in stable medical condition. Date of Admission:05/31/19 Date of Discharge: 06/04/19 Minutes to complete discharge: 35 Discharge Summary Problems reviewed: Yes Reason For Visit: DIZZINESS FALL Current Active Problems Benign positional vertigo (Chronic) Condition: Improved - Instructions Diet, Activity, Other Instructions: You were admitted for dizziness which has improved. You were given medications for your dizziness. You had a head CT scan which did not show any new changes. You had a can of your spine which did not show any abnormalities of your spine. On the scan, it was noted that you have a nodule in left lung. You are advised to follow up with a hardboard supervisor (lung doctor) for these findings and have a repeat CT scan of your lungs. You had a brain MRI and MRA which showed a chronic stroke. You are advised to follow up with your neurologist for these findings. MEDICATIONS STOP taking Humalog mix 75/25 . Only take the insulin that is listed below ( lantus and Novolog ) Continue to take your Lantus 45 units every night. START to take meclizine 25mg three times a day only as needed if you feel dizzy. START to take Novolog Insulin with meals as follows: Blood sugar Units 101-150 0 151-200 2 201-250 4 251-300 6 301-350 8 351-400 10 >400 12 and call your doctor if you skip a meal , do not inject the novolog Continue to take all of your home medication as prescribed. REFERRALS Please follow up with your primary care physician within 1 week. If you do not have a primary care physician, you may follow up with the resident's clinic for which information is provided. Please follow up with the neurologist, Dr. Galindo, within 1 week. Please follow up with the hardboard supervisor, Dr. Joseph, within 1 week. Please follow up with the director insurance, Dr. Escobar, within 1 week. for your vertigo SPECIAL INSTRUCTIONS Please follow up with all of your physicians. You will need to follow up with the director insurance (ear, nose, throat doctor) to have a maneuver performed in order to assist with your dizziness symptoms. If you have any symptoms of continued dizziness, increased nausea and vomiting, fevers, chest pain, shortness of breath, or any other general feelings of unwellness, please call 911 or go to your nearest emergency room. Referrals: [facility] [Provider Group] - 1 Week Get Meneses MD [Staff Physician] - 1 Week Jas Galindo MD [Staff Physician] - 1 Week Jose Armando Escobar MD [Staff Physician] - 1 Week Disposition: HOME - Home Medications Comprehensive Discharge Medication List: Ambulatory Orders Anastrozole [Arimidex -] 1 mg PO DAILY #0 02/10/16 Aspirin [ASA -] 81 mg PO DAILY #30 tab.chew 04/01/16 Levothyroxine [Synthroid -] 150 mcg PO DAILY@0700 #90 tablet 07/26/17 Telmisartan [Micardis] 80 mg PO DAILY 10/02/18 Albuterol Sulfate Inhaler - [Ventolin HFA Inhaler -] 2 puff PO TID 10/03/18 Fluticasone Propionate [Flovent Diskus] 2 puff IH BID 10/03/18 Memantine HCl 5 mg PO DAILY 10/03/18 Atorvastatin Ca [Lipitor] 80 mg PO HS #30 tablet 01/27/19 Insulin Glargine,Hum.rec.anlog [Lantus] 45 unit SQ HS 06/02/19 Acetaminophen [Tylenol .Extra-Strength -] 500 mg PO Q8H PRN #20 tablet 06/04/19 Insulin Sliding Scale [Novolog Vial Sliding Scale -] 1 vial SQ TIDAC #1 vial Meclizine HCl [Antivert -] 25 mg PO TID PRN #90 tablet 06/04/19 Problem List - Problems (1) Benign positional vertigo Code(s): H81.10 - BENIGN PAROXYSMAL VERTIGO, UNSPECIFIED EAR (2) Fall Code(s): W19.XXXA - UNSPECIFIED FALL, INITIAL ENCOUNTER Qualifiers: Encounter type: initial encounter Qualified Code(s): W19.XXXA - Unspecified fall, initial encounter (3) Arthritis Code(s): M19.90 - UNSPECIFIED OSTEOARTHRITIS, UNSPECIFIED SITE (4) Breast cancer Code(s): C50.919 - MALIGNANT NEOPLASM OF UNSP SITE OF UNSPECIFIED FEMALE BREAST (5) Cervical radiculopathy at C6 Code(s): M54.12 - RADICULOPATHY, CERVICAL REGION (6) Diabetes Code(s): E11.9 - TYPE 2 DIABETES MELLITUS WITHOUT COMPLICATIONS (7) HLD (hyperlipidemia) Code(s): E78.5 - HYPERLIPIDEMIA, UNSPECIFIED (8) HTN (hypertension) Code(s): I10 - ESSENTIAL (PRIMARY) HYPERTENSION (9) Hypothyroid Code(s): E03.9 - HYPOTHYROIDISM, UNSPECIFIED This patient is new to me today: No Emergency Visit: Yes ED Registration Date: 05/31/19 Care time: The patient presented to the Emergency Department on the above date and was hospitalized for further evaluation of their emergent condition. Critical Care patient: No - Discharge Referral Referred to [facility] No
[2019-06-04 15:56] VITALS: BP 138/71; PULSE 83; TEMP 98.6
[2019-06-04] MEDS ORDERED: INSULIN (LEVEMIR) 100 UNITS/ML UNITS SQ SCH (22:00)
== END 2019-06-04 16:19 | disposition home or self-care (01) | DRG 149 ==
LOC: JER 13:54 → JERBED 16:27 → J4W 20:33 → JERBED 06-03 20:23 → J5S 06-03 20:24
PROVIDERS: ATTEND Internal Medicine
DX: H81.11 Benign paroxysmal vertigo, right ear (principal); G81.94 Hemiplegia, unspecified affecting left nondominant side; M19.90 Unspecified osteoarthritis, unspecified site; M54.12 Radiculopathy, cervical region; E11.9 Type 2 diabetes mellitus without complications; E78.5 Hyperlipidemia, unspecified; I10 Essential (primary) hypertension; I27.20 Pulmonary hypertension, unspecified; I25.10 Atherosclerotic heart disease of native coronary artery without angina pectoris; R91.1 Solitary pulmonary nodule; I25.2 Old myocardial infarction; M54.5 Low back pain; G47.33 Obstructive sleep apnea (adult) (pediatric); E03.9 Hypothyroidism, unspecified; Z86.718 Personal history of other venous thrombosis and embolism; Z85.3 Personal history of malignant neoplasm of breast
CPT/HCPCS: 36415; 70450-TC; 70544-TC; 70551-TC; 71045-TC-FY; 72125-TC; 72128-TC; 72131-TC; 72192-TC; 80048; 80053; 80061; 81003; 82550; 82553; 82962; 83036; 83721; 83735; 84100; 84439; 84443; 84479; 84481; 84484; 85025; 85610; 85730; 87086; 93005; 93010; 93306-TC; 97116-GP; 97161-GP; 99285-25; J0131; J7030